=== PATIENT | male | born 1960 | race Hispanic/Latino ===

== ENCOUNTER 2017-02-03 17:12 | Observation (INO) | payer MEDICAID, OTHER ==
[2017-02-03 17:15] VITALS: BMI 17.7
[2017-02-03 17:30] VITALS: RESP 18
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
[2017-02-04 06:32] VITALS: BP 132/78; PULSE 78; TEMP 98; O2SAT 98
--- NOTE | 2017-02-04 10:08 | RAD ---
PROCEDURE: Right Knee Radiographs. HISTORY: rt. knee pain x 6 months COMPARISON: 08/29/2015 FINDINGS: BONES: No acute fracture. Status post ORIF distal humeral fracture with plate and multiple screws. JOINTS: Normal. No osteoarthritis. JOINT EFFUSION: None. OTHER FINDINGS: None. IMPRESSION: No acute fracture
--- NOTE | 2017-02-05 16:47 | CARD ---
APPROVED REPORT EKG Measurement Heart [id number] <Conclusion> Sinus tachycardia Otherwise normal ECG
== END 2017-02-04 06:32 | disposition home or self-care (01) ==
LOC: ED 17:12 → EROBSV 19:37
PROVIDERS: ADMIT Emergency Medicine; ATTEND Emergency Medicine
DX: M25.561 Pain in right knee (principal); F10.129 Alcohol abuse with intoxication, unspecified; Y90.9 Presence of alcohol in blood, level not specified
CPT/HCPCS: 73562; 82948; 93005; 99282; G0378

== ENCOUNTER 2017-03-15 14:12 | Emergency (ER) | payer MEDICAID, OTHER ==
[2017-03-15 14:35] VITALS: RESP 16; TEMP 98.6; BMI 21.7
--- NOTE | 2017-03-15 14:40 | ED PDOC ---
Arrival/HPI - General Chief Complaint: Lower Extremity Problem/Injury Time Seen by Provider: 03/15/17 14:27 Historian: Patient - History of Present Illness Narrative History of Present Illness (Text): 03/15/17 14:39 56 year old male whose past medical history includes depression and right knee surgery presents to the emergency department complaining of chronic right knee pain for the past year. He states he is able to walk on it. Denies new injury or trauma. PMD: None Time/Duration: Other (1 year) Symptom Onset: Gradual Symptom Course: Unchanged Modifying Factors (Text): None Past Medical History - Provider Review Nursing Documentation Reviewed: Yes - Past History Past History: No Previous - Infectious Disease Hx of Infectious Diseases: None - Tetanus Immunization Tetanus Immunization: Unknown - Past Medical History Past Medical History: No Previous - Cardiac Hx Hypertension: Yes - Pulmonary Hx Respiratory Disorders: No - Neurological Hx Neurological Disorder: No - HEENT Hx HEENT Disorder: No - Renal Hx Renal Disorder: No - Endocrine/Metabolic Hx Endocrine Disorders: No - Hematological/Oncological Hx Blood Disorders: No - Integumentary Hx Dermatological Disorder: No - Musculoskeletal/Rheumatological Hx Musculoskeletal Disorders: No - Gastrointestinal Hx Gastrointestinal Disorders: No - Genitourinary/Gynecological Hx Genitourinary Disorders: No - Psychiatric Hx Depression: No Hx Emotional Abuse: No Hx Physical Abuse: No Hx Substance Use: No - Past Surgical History Past Surgical History: No Previous - Surgical History Hx Orthopedic Surgery: Yes (RIGHT KNEE SX) - Anesthesia Hx Anesthesia: Yes Hx Anesthesia Reactions: No - Suicidal Assessment Feels Threatened In Home Enviroment: No Family/Social History - Physician Review Nursing Documentation Reviewed: Yes Family/Social History: Unknown Family HX Smoking Status: Current Some Days Smoker Hx Alcohol Use: Yes (2 beers a day as per pt) Hx Substance Use: No Hx Substance Use Treatment: No Allergies/Home Meds Allergies/Adverse Reactions: Allergies No Known Allergies Allergy (Verified 02/03/17 17:15) Review of Systems - Review of Systems Musculoskeletal: Other (Right knee pain) Physical Exam Vital Signs Reviewed: Yes Vital Signs Temp Pulse Resp BP Pulse Ox 03/15/17 14:46 95 H 16 125/73 99 03/15/17 14:31 98.6 F 98 H 16 124/83 98 Temperature: Afebrile Blood Pressure: Normal Pulse: Regular Respiratory Rate: Normal Appearance: Positive for: Well-Appearing, Non-Toxic Pain Distress: Mild Mental Status: Positive for: Alert and Oriented X 3 - Systems Exam Lower Extremity: Present: Normal ROM, Tenderness (to lateral knee), Other (No area of fluctuance. Old scar present. No warmth, erythema, discharge, or pus. Full strength. ) Medical Decision Making ED Course and Treatment: Impression: 56 year old male whose past medical history includes depression and right knee surgery presents to the emergency department complaining of chronic right knee pain for the past year. Differential Diagnosis included but are not limited to: Knee pain Plan: -- Discharge with Rx for Motrin Prior Visits: Notes and results from previous visits were reviewed. Patient last seen in the ED on 02/03/17 for knee pain and alcohol intoxication and discharged home. Progress Notes: 03/15/17 14:50 Patient with no acute signs of injury. Patient is able to ambulate with full strength in the right lower extremity. Will discharge with Ibuprofen. Instructed patient to follow up with PMD or return if symptoms worsen. Patient agrees with plan. - Medication Orders Current Medication Orders: Discontinued Medications Ibuprofen (Motrin Tab) 600 mg PO STAT STA Stop: 03/15/17 14:40 Last Admin: 03/15/17 14:44 Dose: 600 mg - Scribe Statement The provider has reviewed the documentation as recorded by the Tomas Rachel Provider Scribe Attestation: All medical record entries made by the Scribe were at my direction and personally dictated by me. I have reviewed the chart and agree that the record accurately reflects my personal performance of the history, physical exam, medical decision making, and the department course for this patient. I have also personally directed, reviewed, and agree with the discharge instructions and disposition. Disposition/Present on Arrival - Present on Arrival Any Indicators Present on Arrival: No History of DVT/PE: No History of Uncontrolled Diabetes: No Urinary Catheter: No History of Decub. Ulcer: No History Surgical Site Infection Following: None - Disposition Have Diagnosis and Disposition been Completed?: Yes Diagnosis: Knee pain, right Disposition: HOME/ ROUTINE Disposition Time: 14:50 Patient Plan: Discharge Condition: STABLE Discharge Instructions (ExitCare): Knee Pain (ED) Additional Instructions: Teodoro, thank you for letting us take care of you today. Your provider was Dr. Roach. You were treated for Right Knee Pain. The emergency medical care you received today was directed at your acute symptoms. If you were prescribed any medication, please fill it and take as directed. It may take several days for your symptoms to resolve. Return to the Emergency Department if your symptoms worsen, do not improve, or if you have any other problems. Please contact your doctor or call one of the physicians/clinics you have been referred to that are listed on the Patient Visit Information form that is included in your discharge packet. Bring any paperwork you were given at discharge with you along with any medications you are taking to your follow up visit. Our treatment cannot replace ongoing medical care by a primary care provider (PCP) outside of the emergency department. Thank you for allowing the [facility] team to be part of your care today. If you had an X-Ray or CT scan: A Radiologist will review the ED reading if any change in treatment is needed we will contact you. If you had a blood, urine, or wound culture: It will take several days for the results, if any change in treatment is needed we will contact you. If you had an STI test: It will take 48 hours for the results. Please call after 1 week if you have not heard back. Prescriptions: Ibuprofen [Motrin] 600 mg PO Q6 PRN #30 tab PRN Reason: Pain, Moderate (4-7) Referrals: Mane Erickson III, MD [Medical Doctor] - Follow up with primary Forms: [employer] ([place])
[2017-03-15 14:49] VITALS: BP 125/73; PULSE 95; O2SAT 99
== END 2017-03-15 14:50 | disposition home or self-care (01) ==
LOC: ED 14:12
DX: M25.561 Pain in right knee (principal)

== ENCOUNTER 2017-03-22 11:31 | Emergency (ER) | payer MEDICAID, OTHER ==
[2017-03-22 11:31] VITALS: BMI 21.7
--- NOTE | 2017-03-22 11:52 | ED PDOC ---
Arrival/HPI - General Time Seen by Provider: 03/22/17 11:48 Historian: Patient - History of Present Illness Narrative History of Present Illness (Text): 03/22/17 11:49 PT in ED for a refill of his Ibuprofen 600mg. States he takes the medication for his knee pain. Unable to get to his PMD today. Denies any calf pain, Le edema, SOB,chest pain, focal weakness, any other complaint. Past Medical History - Provider Review Nursing Documentation Reviewed: Yes - Past History Past History: No Previous - Infectious Disease Hx of Infectious Diseases: None - Tetanus Immunization Tetanus Immunization: Unknown - Past Medical History Past Medical History: No Previous - Cardiac Hx Hypertension: Yes - Pulmonary Hx Respiratory Disorders: No - Neurological Hx Neurological Disorder: No - HEENT Hx HEENT Disorder: No - Renal Hx Renal Disorder: No - Endocrine/Metabolic Hx Endocrine Disorders: No - Hematological/Oncological Hx Blood Disorders: No - Integumentary Hx Dermatological Disorder: No - Musculoskeletal/Rheumatological Hx Musculoskeletal Disorders: No - Gastrointestinal Hx Gastrointestinal Disorders: No - Genitourinary/Gynecological Hx Genitourinary Disorders: No - Psychiatric Hx Depression: No Hx Emotional Abuse: No Hx Physical Abuse: No Hx Substance Use: No - Past Surgical History Past Surgical History: No Previous - Surgical History Hx Orthopedic Surgery: Yes (RIGHT KNEE SX) - Anesthesia Hx Anesthesia: Yes Hx Anesthesia Reactions: No - Suicidal Assessment Feels Threatened In Home Enviroment: No Family/Social History - Physician Review Nursing Documentation Reviewed: Yes Family/Social History: Unknown Family HX Smoking Status: Current Some Days Smoker Hx Alcohol Use: Yes (2 beers a day as per pt) Hx Substance Use: No Hx Substance Use Treatment: No Allergies/Home Meds Allergies/Adverse Reactions: Allergies No Known Allergies Allergy (Verified 02/03/17 17:15) Review of Systems - Physician Review All systems were reviewed & negative as marked: Yes - Review of Systems Constitutional: Other (Medication refill) Eyes: Normal ENT: Normal Respiratory: Normal Cardiovascular: Normal Gastrointestinal: Normal Genitourinary Male: Normal Musculoskeletal: Normal Skin: Normal Neurological: Normal Endocrine: Normal Hemo/Lymphatic: Normal Psychiatric: Normal Physical Exam Vital Signs Reviewed: Yes Temperature: Afebrile Blood Pressure: Normal Pulse: Regular Respiratory Rate: Normal Appearance: Positive for: Well-Appearing, Non-Toxic, Comfortable Pain Distress: None Mental Status: Positive for: Alert and Oriented X 3 - Systems Exam Head: Present: Atraumatic, Normocephalic Pupils: Present: PERRL Extroacular Muscles: Present: EOMI Conjunctiva: Present: Normal Mouth: Present: Moist Mucous Membranes Neck: Present: Normal Range of Motion Respiratory/Chest: Present: Clear to Auscultation, Good Air Exchange. No: Respiratory Distress, Accessory Muscle Use Cardiovascular: Present: Regular Rate and Rhythm, Normal S1, S2. No: Murmurs Abdomen: Present: Normal Bowel Sounds. No: Tenderness, Distention, Peritoneal Signs Back: Present: Normal Inspection Upper Extremity: Present: Normal Inspection. No: Cyanosis, Edema Lower Extremity: Present: Normal Inspection. No: Edema Neurological: Present: GCS=15, CN II-XII Intact, Speech Normal Skin: Present: Warm, Dry, Normal Color. No: Rashes Psychiatric: Present: Alert, Oriented x 3, Normal Insight, Normal Concentration Disposition/Present on Arrival - Present on Arrival Any Indicators Present on Arrival: No History of DVT/PE: No History of Uncontrolled Diabetes: No Urinary Catheter: No History Surgical Site Infection Following: None - Disposition Have Diagnosis and Disposition been Completed?: Yes Diagnosis: Medication refill Disposition: HOME/ ROUTINE Disposition Time: 11:55 Patient Plan: Discharge Condition: STABLE Discharge Instructions (ExitCare): Medicine Refill (ED) Additional Instructions: Follow up with your Doctor Return to ED for any new or worsening symptoms Prescriptions: Ibuprofen [Motrin Tab] 600 mg PO Q6 #30 tab Referrals: [facility] [place] [Outside] - Follow up with primary
[2017-03-22 11:56] VITALS: BP 136/84; PULSE 93; RESP 18; TEMP 97.8; O2SAT 96
== END 2017-03-22 11:58 | disposition home or self-care (01) ==
LOC: ED 11:31
DX: Z76.0 Encounter for issue of repeat prescription (principal)

== ENCOUNTER 2017-03-28 22:35 | Observation (INO) | payer MEDICAID, OTHER ==
[2017-03-28 22:35] VITALS: BMI 21.7
--- NOTE | 2017-03-29 00:33 | ED PDOC ---
Arrival/HPI - General Chief Complaint: Alcohol Ingestion Time Seen by Provider: 03/28/17 23:59 Historian: Patient, EMS EM Caveat: Intoxicated - History of Present Illness Narrative History of Present Illness (Text): 03/29/17 00:01 Amilcar Valerio is a 56 year old male, whose past medical history includes depression and alcohol abuse, who was brought in by EMS due to public intoxication. EMS found patient outside intoxicated tonight and patient admits to drinking alcohol. Patient denies any suicidal ideation, homicidal ideation, fever, chills, chest pain, shortness of breath, nausea, vomiting, diarrhea, urinary symptoms, back pain, neck pain, headache, dizziness, or any other complaints. Time/Duration: Prior to Arrival Symptom Course: Unchanged Activities at Onset: Other (Drinking) Modifying Factors (Text): None Associated Symptoms (Text): None Past Medical History - Provider Review Nursing Documentation Reviewed: Yes - Past History Past History: No Previous - Infectious Disease Hx of Infectious Diseases: None - Tetanus Immunization Tetanus Immunization: Unknown - Past Medical History Past Medical History: No Previous - Cardiac Hx Hypertension: Yes - Pulmonary Hx Respiratory Disorders: No - Neurological Hx Neurological Disorder: No - HEENT Hx HEENT Disorder: No - Renal Hx Renal Disorder: No - Endocrine/Metabolic Hx Endocrine Disorders: No - Hematological/Oncological Hx Blood Disorders: No - Integumentary Hx Dermatological Disorder: No - Musculoskeletal/Rheumatological Hx Musculoskeletal Disorders: No - Gastrointestinal Hx Gastrointestinal Disorders: No - Genitourinary/Gynecological Hx Genitourinary Disorders: No - Psychiatric Hx Depression: No Hx Emotional Abuse: No Hx Physical Abuse: No Hx Substance Use: No - Past Surgical History Past Surgical History: No Previous - Surgical History Hx Orthopedic Surgery: Yes (RIGHT KNEE SX) - Anesthesia Hx Anesthesia: Yes Hx Anesthesia Reactions: No - Suicidal Assessment Feels Threatened In Home Enviroment: No Family/Social History - Physician Review Nursing Documentation Reviewed: Yes Family/Social History: Unknown Family HX Smoking Status: Current Some Days Smoker Hx Alcohol Use: Yes (2 beers a day as per pt) Hx Substance Use: No Hx Substance Use Treatment: No Allergies/Home Meds Allergies/Adverse Reactions: Allergies No Known Allergies Allergy (Verified 03/28/17 23:27) Review of Systems - Physician Review All systems were reviewed & negative as marked: Yes - Review of Systems Systems not reviewed;Unavailable: Intoxicated Constitutional: Normal. absent: Fevers Eyes: Normal ENT: Normal Respiratory: Normal. absent: SOB Cardiovascular: Normal. absent: Chest Pain Gastrointestinal: Normal. absent: Abdominal Pain, Vomiting Genitourinary Male: Normal Musculoskeletal: Normal. absent: Neck Pain Skin: Normal Neurological: Normal. absent: Headache Endocrine: Normal Hemo/Lymphatic: Normal Psychiatric: Normal. absent: Suicidal Ideation Physical Exam - Physical Exam Physical Exam Limitations: Intoxication Vital Signs Reviewed: Yes Vital Signs Temp Pulse Resp BP Pulse Ox 03/29/17 00:40 98.3 F 84 17 118/63 97 03/28/17 22:49 98.2 F 90 18 124/82 95 Temperature: Afebrile Blood Pressure: Normal Pulse: Regular Respiratory Rate: Normal Appearance: Positive for: Well-Appearing, Comfortable Pain Distress: None Mental Status: Positive for: Alert and Oriented X 3 - Systems Exam Head: Present: Atraumatic, Normocephalic Pupils: Present: PERRL Extroacular Muscles: Present: EOMI Conjunctiva: Present: Normal Mouth: Present: Moist Mucous Membranes Neck: Present: Normal Range of Motion Respiratory/Chest: Present: Clear to Auscultation, Good Air Exchange. No: Respiratory Distress, Accessory Muscle Use Cardiovascular: Present: Regular Rate and Rhythm, Normal S1, S2. No: Murmurs Abdomen: Present: Normal Bowel Sounds. No: Tenderness, Distention, Peritoneal Signs Upper Extremity: Present: Normal Inspection. No: Cyanosis, Edema Lower Extremity: Present: Normal Inspection. No: Edema Neurological: Present: GCS=15, CN II-XII Intact, Speech Normal Skin: Present: Warm, Dry, Normal Color. No: Rashes Psychiatric: Present: Alert, Oriented x 3, Intoxicated Medical Decision Making ED Course and Treatment: 03/29/17 00:01 Impression: 56 year old man, brought in by EMS for public intoxication. Differential Diagnosis included but are not limited to: Alcohol abuse ED OBSERVATION Discharge: Yes Date of observation admission: 03/29/17 Time of observation admission: 00:10 - Observation admission statement Patient is being placed in observation because:: Alcohol intoxication - Goals of Observation Goals of observation are:: sobriety, observe for signs of withdrawal. - Progress Note Progress Note: 03/29/17 00:10 Patient brought in for alcohol intoxication. Patient is resting comfortably no acute distress. Will observe until morning, pending sobriety. 03/29/17 02:10 Patient is sleeping with no complaints. Will observe until morning. 03/29/17 04:00 Patient is sleeping with no complaints. Will observe until morning. 03/29/17 05:54 Patient is awake, alert, and ambulating with steady gait. Patient is in no acute distress. Patient is stable for discharge. - Scribe Statement The provider has reviewed the documentation as recorded by the Scribe 03/28/17 00:01 Teresa Rousseau training with Mirtha Escobar All medical record entries made by the Scribe were at my direction and personally dictated by me. I have reviewed the chart and agree that the record accurately reflects my personal performance of the history, physical exam, medical decision making, and the department course for this patient. I have also personally directed, reviewed, and agree with the discharge instructions and disposition. Disposition/Present on Arrival - Present on Arrival Any Indicators Present on Arrival: No History of DVT/PE: No History of Uncontrolled Diabetes: No Urinary Catheter: No History of Decub. Ulcer: No History Surgical Site Infection Following: None - Disposition Have Diagnosis and Disposition been Completed?: Yes Diagnosis: Alcohol intoxication Disposition: HOME/ ROUTINE Disposition Time: 06:56 Patient Plan: Discharge Condition: STABLE
[2017-03-29 03:18] VITALS: O2SAT 97
[2017-03-29 07:17] VITALS: RESP 18; TEMP 98
[2017-03-29 07:18] VITALS: BP 114/64; PULSE 64
== END 2017-03-29 06:56 | disposition home or self-care (01) ==
LOC: ED 22:35 → EROBSV 03-29 00:10
PROVIDERS: ADMIT Emergency Medicine; ATTEND Emergency Medicine
DX: F10.129 Alcohol abuse with intoxication, unspecified (principal)
CPT/HCPCS: 99284; G0378

== ENCOUNTER 2017-06-17 10:47 | Observation (INO) | payer MEDICAID, OTHER ==
[2017-06-17 10:48] VITALS: BMI 21.7
--- NOTE | 2017-06-17 12:00 | ED PDOC ---
Arrival/HPI - General Historian: Patient <Renita Pace - Last Filed: 06/17/17 20:05> <Harish Lock - Last Filed: 06/18/17 06:03> - General Chief Complaint: Alcohol Ingestion Time Seen by Provider: 06/17/17 11:16 - History of Present Illness Narrative History of Present Illness (Text): 06/17/17 11:53 56yr old male presents today with for alcohol intoxication and fall. Per EMS bystander saw patient walking behind a car and they thought he either fell or dropped to his knees because they couldnt see him behind the car. pt c/o chronic right knee pain. denies cp or sob. no abdominal pain. no vomiting. admits to drinking alcohol today. no other complaints. (Renita Pace) Past Medical History - Provider Review Nursing Documentation Reviewed: Yes - Travel History Have you recently traveled outside [place] w/in the past 3 mons?: No - Past History Past History: No Previous - Infectious Disease Hx of Infectious Diseases: None - Tetanus Immunization Tetanus Immunization: Unknown - Past Medical History Past Medical History: No Previous - Cardiac Hx Hypertension: Yes - Pulmonary Hx Respiratory Disorders: No - Neurological Hx Neurological Disorder: No - HEENT Hx HEENT Disorder: No - Renal Hx Renal Disorder: No - Endocrine/Metabolic Hx Endocrine Disorders: No - Hematological/Oncological Hx Blood Disorders: No - Integumentary Hx Dermatological Disorder: No - Musculoskeletal/Rheumatological Hx Musculoskeletal Disorders: No - Gastrointestinal Hx Gastrointestinal Disorders: No - Genitourinary/Gynecological Hx Genitourinary Disorders: No - Psychiatric Hx Depression: No Hx Emotional Abuse: No Hx Physical Abuse: No Hx Substance Use: No - Past Surgical History Past Surgical History: No Previous - Surgical History Hx Orthopedic Surgery: Yes (RIGHT KNEE SX) - Anesthesia Hx Anesthesia: Yes Hx Anesthesia Reactions: No - Suicidal Assessment Feels Threatened In Home Enviroment: No <Renita Pace - Last Filed: 06/17/17 20:05> Family/Social History - Physician Review Nursing Documentation Reviewed: Yes Family/Social History: Unknown Family HX Smoking Status: Current Some Days Smoker Hx Alcohol Use: Yes (2 beers a day as per pt) Hx Substance Use: No Hx Substance Use Treatment: No <Renita Pace - Last Filed: 06/17/17 20:05> Allergies/Home Meds <Renita Pace - Last Filed: 06/17/17 20:05> <Harish Lock - Last Filed: 06/18/17 06:03> Allergies/Adverse Reactions: Allergies No Known Allergies Allergy (Verified 06/17/17 11:06) Review of Systems - Review of Systems Constitutional: absent: Fatigue, Fevers Respiratory: absent: SOB, Cough Cardiovascular: absent: Chest Pain, Palpitations Gastrointestinal: absent: Abdominal Pain, Nausea, Vomiting Musculoskeletal: Arthralgias Skin: absent: Rash Neurological: absent: Headache, Dizziness Psychiatric: absent: Anxiety, Depression, Suicidal Ideation <Renita Pace - Last Filed: 06/17/17 20:05> Physical Exam Vital Signs Reviewed: Yes Temperature: Afebrile Blood Pressure: Normal Pulse: Regular Respiratory Rate: Normal Appearance: Positive for: Well-Appearing, Non-Toxic, Comfortable Pain Distress: None Mental Status: Positive for: Alert and Oriented X 3 Finger Stick Blood Glucose: 101 - Systems Exam Head: Present: Atraumatic Mouth: Present: Moist Mucous Membranes Respiratory/Chest: Present: Clear to Auscultation Cardiovascular: Present: Regular Rate and Rhythm Abdomen: No: Tenderness, Rebound, Guarding Back: Present: Normal Inspection Upper Extremity: Present: Normal ROM Lower Extremity: Present: NORMAL PULSES, Normal ROM, Tenderness (right knee; + ttp over anterior aspect of knee; full rom of knee. no edema, no erythema; no ecchymosis. ), Neurovascularly Intact, Capillary Refill < 2 s. No: CALF TENDERNESS, Swelling, Erythema, Deformity Skin: Present: Warm, Dry Psychiatric: Present: Alert, Intoxicated <Renita Pace - Last Filed: 06/17/17 20:05> Vital Signs Temp Pulse Resp BP Pulse Ox 06/18/17 02:00 84 16 126/73 98 06/17/17 18:44 98.2 F 92 H 18 135/78 98 06/17/17 17:17 98 F 75 20 134/73 98 06/17/17 14:39 97.8 F 82 18 130/85 98 06/17/17 12:37 97.8 F 92 H 18 130/79 98 06/17/17 10:59 97.8 F 98 H 18 128/82 98 Medical Decision Making <Renita Pace - Last Filed: 06/17/17 20:05> <Harish Lock - Last Filed: 06/18/17 06:03> ED Course and Treatment: 06/17/17 12:42 56yr old male presents BIBA, intoxicated, c/o chronic right knee pain. fingerstick; 101 ct head:FINDINGS: HEMORRHAGE: No intracranial hemorrhage. BRAIN: No mass effect or edema. Mild diffuse atrophy. Mild periventricular white matter lucency consistent with chronic microvascular ischemic change. No evidence of acute infarct. VENTRICLES: Unremarkable. No hydrocephalus. CALVARIUM: Unremarkable. PARANASAL SINUSES: Chronic frontal ethmoid sinusitis. MASTOID AIR CELLS: Unremarkable as visualized. No inflammatory changes. OTHER FINDINGS: None. IMPRESSION: No acute intracranial hemorrhage. Mild atrophy and chronic white matter ischemic change. Chronic frontal and ethmoid sinusitis. . right knee xray; FINDINGS: BONES: No acute fracture. Status post ORIF distal femur fracture. Lateral plate and screw fixation device unchanged in position. No evidence of hardware failure. JOINTS: Normal. No osteoarthritis. JOINT EFFUSION: None. OTHER FINDINGS: None. IMPRESSION: No acute fracture. will observe patient in ER for sobriety 06/17/17 18:52 pt finished eating now sleeping; no distress. stable vitals. (Renita Pace) ED OBSERVATION Date of observation admission: 06/17/17 Time of observation admission: 11:05 <Renita Pace - Last Filed: 06/17/17 20:05> Discharge: Yes <Harish Lock - Last Filed: 06/18/17 06:03> - Observation admission statement Patient is being placed in observation because:: alcohol intoxication (Renita Pace) - Goals of Observation Goals of observation are:: sobriety (Renita Pace) - Progress Note Progress Note: 06/17/17 13:00 pt in no distress. 06/17/17 15:29 pt sleeping in er; no distress. vitals stable. 06/17/17 17:13 pt sleeping. no distress. 06/17/17 20:05 pt in no distress; resting comfortably case signed out to dr. lock pending sobriety (Renita Pace) - PA / SKATESMAN / Resident Statement MD/DO has reviewed & agrees with the documentation as recorded. <Harish Lock - Last Filed: 06/18/17 06:03> Disposition/Present on Arrival - Present on Arrival Any Indicators Present on Arrival: No History of DVT/PE: No History of Uncontrolled Diabetes: No Urinary Catheter: No History of Decub. Ulcer: No History Surgical Site Infection Following: None - Disposition Have Diagnosis and Disposition been Completed?: Yes <Renita Pace - Last Filed: 06/17/17 20:05> - Present on Arrival Any Indicators Present on Arrival: No - Disposition Have Diagnosis and Disposition been Completed?: Yes Disposition Time: 06:03 <Harish Lock - Last Filed: 06/18/17 06:03> - Disposition Diagnosis: Alcohol intoxication, Alcohol abuse Disposition: HOME/ ROUTINE Condition: GOOD
--- NOTE | 2017-06-17 12:45 | CT ---
PROCEDURE: CT HEAD WITHOUT CONTRAST. HISTORY: etoh, fall COMPARISON: 11/10/2016 TECHNIQUE: Axial computed tomography images were obtained through the head/brain without intravenous contrast. Radiation dose: Total exam DLP = 775.01 mGy-cm. This CT exam was performed using one or more of the following dose reduction techniques: Automated exposure control, adjustment of the mA and/or kV according to patient size, and/or use of iterative reconstruction technique. FINDINGS: HEMORRHAGE: No intracranial hemorrhage. BRAIN: No mass effect or edema. Mild diffuse atrophy. Mild periventricular white matter lucency consistent with chronic microvascular ischemic change. No evidence of acute infarct. VENTRICLES: Unremarkable. No hydrocephalus. CALVARIUM: Unremarkable. PARANASAL SINUSES: Chronic frontal ethmoid sinusitis. MASTOID AIR CELLS: Unremarkable as visualized. No inflammatory changes. OTHER FINDINGS: None. IMPRESSION: No acute intracranial hemorrhage. Mild atrophy and chronic white matter ischemic change. Chronic frontal and ethmoid sinusitis. .
--- NOTE | 2017-06-17 17:43 | RAD ---
PROCEDURE: Right Knee Radiographs. HISTORY: knee pain COMPARISON: 02/03/2017 FINDINGS: BONES: No acute fracture. Status post ORIF distal femur fracture. Lateral plate and screw fixation device unchanged in position. No evidence of hardware failure. JOINTS: Normal. No osteoarthritis. JOINT EFFUSION: None. OTHER FINDINGS: None. IMPRESSION: No acute fracture.
[2017-06-17 18:45] VITALS: TEMP 98.2
[2017-06-18 06:17] VITALS: BP 118/87; PULSE 86; RESP 18; O2SAT 99
== END 2017-06-18 06:17 | disposition home or self-care (01) ==
LOC: ED 10:47 → EROBSV 11:05
PROVIDERS: ADMIT Emergency Medicine; ATTEND Emergency Medicine
DX: F10.129 Alcohol abuse with intoxication, unspecified (principal)

== ENCOUNTER 2017-08-04 17:03 | Emergency (ER) | payer MEDICAID ==
[2017-08-04 17:22] VITALS: TEMP 98.2; BMI 23.8
--- NOTE | 2017-08-04 17:22 | ED PDOC ---
Arrival/HPI - General Time Seen by Provider: 08/04/17 17:13 Historian: Patient - History of Present Illness Narrative History of Present Illness (Text): 08/04/17 17:19 57yo male biba for left leg pain s/p trauma. Patient states he fell yesterday, while intoxicated and started having severe pain on his left knee radiating down to his foot today. He admits chronic history of right knee pain. denies SOB , chest pain, diaphoresis, any other complaint. Past Medical History - Provider Review Nursing Documentation Reviewed: Yes - Past History Past History: No Previous - Infectious Disease Hx of Infectious Diseases: None - Tetanus Immunization Tetanus Immunization: Unknown - Past Medical History Past Medical History: No Previous - Cardiac Hx Hypertension: Yes - Pulmonary Hx Respiratory Disorders: No - Neurological Hx Neurological Disorder: No - HEENT Hx HEENT Disorder: No - Renal Hx Renal Disorder: No - Endocrine/Metabolic Hx Endocrine Disorders: No - Hematological/Oncological Hx Blood Disorders: No - Integumentary Hx Dermatological Disorder: No - Musculoskeletal/Rheumatological Hx Musculoskeletal Disorders: No - Gastrointestinal Hx Gastrointestinal Disorders: No - Genitourinary/Gynecological Hx Genitourinary Disorders: No - Psychiatric Hx Depression: No Hx Emotional Abuse: No Hx Physical Abuse: No Hx Substance Use: No - Past Surgical History Past Surgical History: No Previous - Surgical History Hx Orthopedic Surgery: Yes (RIGHT KNEE SX) - Anesthesia Hx Anesthesia: Yes Hx Anesthesia Reactions: No - Suicidal Assessment Feels Threatened In Home Enviroment: No Family/Social History - Physician Review Nursing Documentation Reviewed: Yes Family/Social History: Unknown Family HX Smoking Status: Current Some Days Smoker Hx Alcohol Use: Yes (2 beers a day as per pt) Hx Substance Use: No Hx Substance Use Treatment: No Allergies/Home Meds Allergies/Adverse Reactions: Allergies No Known Allergies Allergy (Verified 06/17/17 11:06) Review of Systems - Physician Review All systems were reviewed & negative as marked: Yes - Review of Systems Constitutional: Normal Eyes: Normal ENT: Normal Respiratory: Normal Cardiovascular: Normal Gastrointestinal: Normal Genitourinary Male: Normal Musculoskeletal: Arthralgias (LEft leg pain) Skin: Normal Neurological: Normal Endocrine: Normal Hemo/Lymphatic: Normal Psychiatric: Normal Physical Exam Vital Signs Reviewed: Yes Vital Signs Temp Pulse Resp BP Pulse Ox 08/04/17 20:08 90 18 110/77 99 08/04/17 17:21 98.2 F 107 H 16 104/68 95 Temperature: Afebrile Blood Pressure: Normal Pulse: Regular Respiratory Rate: Normal Appearance: Positive for: Well-Appearing, Non-Toxic, Comfortable Pain Distress: None Mental Status: Positive for: Alert and Oriented X 3 - Systems Exam Head: Present: Atraumatic, Normocephalic Pupils: Present: PERRL Extroacular Muscles: Present: EOMI Conjunctiva: Present: Normal Mouth: Present: Moist Mucous Membranes Neck: Present: Normal Range of Motion Respiratory/Chest: Present: Clear to Auscultation, Good Air Exchange. No: Respiratory Distress, Accessory Muscle Use Cardiovascular: Present: Regular Rate and Rhythm, Normal S1, S2. No: Murmurs Abdomen: Present: Normal Bowel Sounds. No: Tenderness, Distention, Peritoneal Signs Back: Present: Normal Inspection Upper Extremity: Present: Normal Inspection. No: Cyanosis, Edema Lower Extremity: Present: CALF TENDERNESS (Left leg), NORMAL PULSES, Normal ROM (With pain on flexion of left knee), Neurovascularly Intact, Other (Abrasion noted on left knee). No: Edema, Tenderness, Swelling, Deformity Neurological: Present: GCS=15, CN II-XII Intact, Speech Normal Skin: Present: Warm, Dry, Normal Color. No: Rashes Psychiatric: Present: Alert, Oriented x 3, Normal Insight, Normal Concentration Medical Decision Making ED Course and Treatment: 08/04/17 22:22 Left ankle xray - Distal fibular fracture noted Left knee - No acute fracture/dislocation Preliminary Doppler US was negative Head CT - Negative Posterior splint was placed. Crutches given. Pt referred to orthopedist. - RAD Interpretation Radiology Orders: 08/04/17 17:23 HEAD W/O CONTRAST [CT] Stat ANKLE LEFT 3 VIEWS ROUTINE [RAD] Stat DUPLEX LOWER EXTRM VEIN BILAT [US] Stat 08/04/17 17:24 KNEE WITH PATELLA LEFT 3 VIEW [RAD] Stat - Medication Orders Current Medication Orders: Discontinued Medications Tramadol HCl (Ultram) 50 mg PO STAT STA Stop: 08/04/17 17:25 Last Admin: 08/04/17 18:10 Dose: 50 mg MAR Pain Assessment Document 08/04/17 18:10 RD (Rec: 08/04/17 18:10 RD [id number]) Pain Reassessment Is this a pain reassessment? No Sleep Is patient sleeping during reassessment? No Presence of Pain Presence of Pain Yes Disposition/Present on Arrival - Present on Arrival Any Indicators Present on Arrival: No History of DVT/PE: No History of Uncontrolled Diabetes: No Urinary Catheter: No History Surgical Site Infection Following: None - Disposition Have Diagnosis and Disposition been Completed?: Yes Diagnosis: Closed fibular fracture, Knee sprain Disposition: HOME/ ROUTINE Disposition Time: 19:20 Patient Plan: Discharge Condition: STABLE Discharge Instructions (ExitCare): Knee Sprain (ED), Leg Fracture (ED) Additional Instructions: Follow up with orthopedist Return to ED for any new or worsening symptoms Prescriptions: Ibuprofen [Motrin Tab] 600 mg PO Q6 #20 tab oxyCODONE/Acetaminophen [Percocet 5/325 mg Tab] 1 tab PO Q6 #7 tab Referrals: PCP,NO [Primary Care Provider] - Follow up with primary Mane Erickson III, MD [Medical Doctor] - Follow up with primary Forms: [employer] (Turkmen)
--- NOTE | 2017-08-04 19:08 | CT ---
EXAM: CT Head Without Intravenous Contrast EXAM DATE/TIME: 08/04/2017 5:23 PM CLINICAL HISTORY: 57 years old, male; Injury or trauma; Fall; Initial encounter; Sprain or strain; Additional info: S/P trauma TECHNIQUE: Axial computed tomography images of the head/brain without intravenous contrast. All CT scans at this facility use one or more dose reduction techniques, viz.: automated exposure control; ma/kV adjustment per patient size (including targeted exams where dose is matched to indication; i.e. head); or iterative reconstruction technique. COMPARISON: CT - HEAD W/O CONTRAST 2017-06-17 12:12 FINDINGS: Brain: There is dilatation of sulci gyri and ventricles. There is no midline shift. There is decreased attenuation in periventricular white matter. There are no focal masses. There are no focal hemorrhages. Delacruz-white differentiation is visualized. Ventricles: See above. Bones: Cranial vault is intact. Soft tissues: There is minimal left frontal scalp bruising, unchanged. Sinuses: There is improved aeration of the ethmoid air cells. There is interval increase in maxillary sinus disease left greater than right. Ears and mastoids: Middle ears and mastoids are unremarkable. There is debris in the external auditory canals left greater than right. Orbits: Orbital contents are unremarkable. IMPRESSION: Atrophy and small vessel disease, no bleed; interval development of maxillary sinus disease
[2017-08-04 20:10] VITALS: BP 110/77; PULSE 90; RESP 18; O2SAT 99
--- NOTE | 2017-08-05 13:36 | RAD ---
PROCEDURE: Left Knee Radiographs. HISTORY: Pain. COMPARISON: None. FINDINGS: BONES: Normal. No fracture. JOINTS: Normal. No osteoarthritis. JOINT EFFUSION: None. OTHER FINDINGS: None. IMPRESSION: Normal radiographs of the left knee.
--- NOTE | 2017-08-05 13:37 | RAD ---
PROCEDURE: Left Ankle Radiographs. HISTORY: ankle pain COMPARISON: None FINDINGS: BONES: There is an oblique fracture of the distal fibula above the level of the plafond. The age of the fracture is indeterminate as there may be a small amount of callus about the fracture. Please correlate with history. No other fracture is identified. The talar dome is smooth. JOINTS: Normal. No osteoarthritis. Ankle mortise maintained. Talar dome intact SOFT TISSUES: Normal. OTHER FINDINGS: None. IMPRESSION: Oblique distal fibular fracture of indeterminate age. Acute versus subacute.
--- NOTE | 2017-08-06 09:03 | US ---
HISTORY: Leg pain and swelling. Evaluate for DVT PHYSICIAN(S): Dino Kidd MD. TECHNIQUE: Duplex sonography and color-flow Doppler with graded compression were used to evaluate the deep venous systems of both lower extremities. FINDINGS: The visualized deep venous systems of both lower extremities are sonographically normal and compressible. Normal wave forms and augmentation are seen. There is no sonographic evidence for deep venous thrombosis in the visualized segments of both lower extremities. IMPRESSION: No sonographic evidence for deep venous thrombosis in the visualized segments of both lower extremities.
== END 2017-08-04 20:20 | disposition home or self-care (01) ==
LOC: ED 17:03
DX: S82.492A Other fracture of shaft of left fibula, initial encounter for closed fracture (principal); S83.92XA Sprain of unspecified site of left knee, initial encounter; W18.30XA Fall on same level, unspecified, initial encounter; Y92.89 Other specified places as the place of occurrence of the external cause; I10 Essential (primary) hypertension; F17.210 Nicotine dependence, cigarettes, uncomplicated

== ENCOUNTER 2017-08-29 10:50 | Emergency (ER) | payer MEDICAID ==
[2017-08-29 10:51] VITALS: BMI 23.8
--- NOTE | 2017-08-29 11:33 | ED PDOC ---
Arrival/HPI - General Chief Complaint: Lower Extremity Problem/Injury Time Seen by Provider: 08/29/17 11:15 Historian: Patient - History of Present Illness Narrative History of Present Illness (Text): 08/29/17 11:24 A 57 year old male presents to the emergency department for evaluation. Patient was seen on 08/04 for left ankle pain and diagnosed with a fibular fracture. He was placed in a posterior splint and instructed to follow up with orthopedics. Patient states his splint got wet yesterday while in the rain. He reports he has not called or visited the office to follow up with orthopedics, but states his pain has improved. Patient denies any new trauma, fever, chills, nausea, vomiting, abdominal pain, chest pain, shortness of breath or any other complaints. Time/Duration: Other (yesterday) Symptom Course: Unchanged Context: Walking Past Medical History - Provider Review Nursing Documentation Reviewed: Yes - Past History Past History: No Previous - Infectious Disease Hx of Infectious Diseases: None - Tetanus Immunization Tetanus Immunization: Unknown - Past Medical History Past Medical History: No Previous - Cardiac Hx Hypertension: Yes - Pulmonary Hx Respiratory Disorders: No - Neurological Hx Neurological Disorder: No - HEENT Hx HEENT Disorder: No - Renal Hx Renal Disorder: No - Endocrine/Metabolic Hx Endocrine Disorders: No - Hematological/Oncological Hx Blood Disorders: No - Integumentary Hx Dermatological Disorder: No - Musculoskeletal/Rheumatological Hx Musculoskeletal Disorders: No - Gastrointestinal Hx Gastrointestinal Disorders: No - Genitourinary/Gynecological Hx Genitourinary Disorders: No - Psychiatric Hx Depression: No Hx Emotional Abuse: No Hx Physical Abuse: No Hx Substance Use: No - Past Surgical History Past Surgical History: No Previous - Surgical History Hx Orthopedic Surgery: Yes (RIGHT KNEE SX) - Anesthesia Hx Anesthesia: Yes Hx Anesthesia Reactions: No - Suicidal Assessment Feels Threatened In Home Enviroment: No Family/Social History - Physician Review Nursing Documentation Reviewed: Yes Family/Social History: No Known Family HX Smoking Status: Current Some Days Smoker Hx Alcohol Use: Yes (2 beers a day as per pt) Hx Substance Use: No Hx Substance Use Treatment: No Allergies/Home Meds Allergies/Adverse Reactions: Allergies No Known Allergies Allergy (Verified 06/17/17 11:06) Review of Systems - Physician Review All systems were reviewed & negative as marked: Yes - Review of Systems Constitutional: Normal. absent: Fevers, Night Sweats Respiratory: absent: SOB Cardiovascular: absent: Chest Pain, Edema, Calf Pain Gastrointestinal: absent: Abdominal Pain, Nausea, Vomiting Physical Exam Vital Signs Reviewed: Yes Vital Signs Temp Pulse Resp BP Pulse Ox 08/29/17 12:15 98.0 F 85 18 148/79 99 08/29/17 11:04 97.9 F 98 H 16 150/83 98 Temperature: Afebrile Blood Pressure: Normal Pulse: Tachycardic Respiratory Rate: Normal Appearance: Positive for: Well-Appearing, Non-Toxic, Comfortable Pain Distress: None Mental Status: Positive for: Alert and Oriented X 3 - Systems Exam Head: Present: Atraumatic, Normocephalic Pupils: Present: PERRL Extroacular Muscles: Present: EOMI Conjunctiva: Present: Normal Lower Extremity: Present: NORMAL PULSES (DP intact), Normal ROM, Tenderness ( scant pinpoint tenderness on fibula at location of fracture), Other (Left posterior splint wet, normal color of toes). No: Edema, CALF TENDERNESS, Elliot' s Sign, Deformity Neurological: Present: Gait Normal Skin: Present: Warm, Dry, Normal Color. No: Rashes Psychiatric: Present: Alert, Oriented x 3, Normal Insight, Normal Concentration Medical Decision Making ED Course and Treatment: 08/29/17 11:24 Impression: A 57 year old male presents for evaluation of wet splint on left posterior ankle. Plan will be to remove splint, repeat xray and reevaluate. Plan: -- Tibia fibula xray -- Reassess and disposition Progress Notes: 08/29/17 12:12 Wet posterior slip removed. Patient has distal pulses intact with good color change. Xray shows improving fracture. New posterior splint placed and instructed to follow-up with ortho for definitive care. Instructed on the importance of follow-up. - RAD Interpretation Radiology Orders: 08/29/17 11:23 TIBIA FIBULA LEFT [RAD] Stat - Scribe Statement The provider has reviewed the documentation as recorded by the Tejalibsukhdev Nuñez Provider Scribe Attestation: All medical record entries made by the Scribe were at my direction and personally dictated by me. I have reviewed the chart and agree that the record accurately reflects my personal performance of the history, physical exam, medical decision making, and the department course for this patient. I have also personally directed, reviewed, and agree with the discharge instructions and disposition. Disposition/Present on Arrival - Present on Arrival Any Indicators Present on Arrival: No History of DVT/PE: No History of Uncontrolled Diabetes: No Urinary Catheter: No History of Decub. Ulcer: No History Surgical Site Infection Following: None - Disposition Have Diagnosis and Disposition been Completed?: Yes Diagnosis: Closed fibular fracture Disposition: HOME/ ROUTINE Disposition Time: 12:13 Patient Plan: Discharge Condition: GOOD Discharge Instructions (ExitCare): Leg Fracture (ED) Additional Instructions: Follow-up with orthopedics as instructed on initial visit on 08/04/17. Return to ED if condition worsens. Keep splint clean and dry. [facility] - Follow up with primary Mane Erickson III, MD [Medical Doctor] - Follow up with primary [facility] [Outside] - Follow up with primary Forms: [employer] (Albanian)
[2017-08-29 12:16] VITALS: BP 148/79; PULSE 85; RESP 18; TEMP 98; O2SAT 99
--- NOTE | 2017-08-29 13:28 | RAD ---
PROCEDURE: Radiographs of the left tibia and fibula. HISTORY: leg pain, fibula fx 08/04 COMPARISON: Left ankle 08/04/2017 and left knee 08/04/2017. TECHNIQUE: Frontal and lateral views obtained. FINDINGS: BONES: The oblique fracture line through the distal fibular metaphysis -shaft still noted. No definite callus formation perceived some overlying bandaging noted. Mild deformity of the proximal fibular metaphysis consistent with an old healed fracture here -morphology similar with 08/04/2017 left knee x-ray JOINT SPACES: Unremarkable. OTHER FINDINGS: None. IMPRESSION: Acute subacute distal fibular oblique fracture nondisplaced without definitive callus formation. Fracture line persisting. Healed proximal fibular metaphyseal fracture incidentally noted -similar-appearing with left knee x-ray from same date
== END 2017-08-29 12:49 | disposition home or self-care (01) ==
LOC: ED 10:50
DX: S82.402A Unspecified fracture of shaft of left fibula, initial encounter for closed fracture (principal); X58.XXXA Exposure to other specified factors, initial encounter; I10 Essential (primary) hypertension

== ENCOUNTER 2017-10-26 19:49 | Emergency (ER) | payer MEDICAID, OTHER ==
[2017-10-26 19:49] VITALS: BMI 23.8
[2017-10-26 20:16] VITALS: TEMP 97.8
--- NOTE | 2017-10-26 23:38 | ED PDOC ---
Arrival/HPI - General Chief Complaint: Abdominal Pain Time Seen by Provider: 10/26/17 22:43 Historian: Patient - History of Present Illness Narrative History of Present Illness (Text): you were treated in the ED today for long standing left groin hernia and today it has been bothering you and protruding, and you were otherwise without any nausea/vomiting/headache/dizziness/difficulty breathing/chest pain/abdomen pain/ numbness/tingling/loss of limb function/pain with urination/thoughts to harm yourself or others or hallucinations. you were eating/drinking/passing gas and had normal bowel movement. 10/26/17 23:35 Time/Duration: > month (12) Symptom Onset: Gradual Symptom Course: Intermittent Quality: Aching Severity Level: 2 Activities at Onset: Rest Context: Sitting Past Medical History - Provider Review Nursing Documentation Reviewed: Yes - Travel History Have you recently traveled outside [place] w/in the past 3 mons?: No - Past History Past History: No Previous - Infectious Disease Hx of Infectious Diseases: None - Tetanus Immunization Tetanus Immunization: Unknown - Past Medical History Past Medical History: No Previous - Cardiac Hx Cardiac Disorders: Yes Hx Hypertension: Yes - Pulmonary Hx Respiratory Disorders: No - Neurological Hx Neurological Disorder: No - HEENT Hx HEENT Disorder: No - Renal Hx Renal Disorder: No - Endocrine/Metabolic Hx Endocrine Disorders: No - Hematological/Oncological Hx Blood Disorders: No - Integumentary Hx Dermatological Disorder: No - Musculoskeletal/Rheumatological Hx Musculoskeletal Disorders: No - Gastrointestinal Hx Gastrointestinal Disorders: Yes Other/Comment: HERNIA - Genitourinary/Gynecological Hx Genitourinary Disorders: No - Psychiatric Hx Psychophysiologic Disorder: Yes Hx Anxiety: Yes Hx Depression: Yes Hx Emotional Abuse: No Hx Physical Abuse: No Hx Substance Use: No - Past Surgical History Past Surgical History: No Previous - Surgical History Hx Orthopedic Surgery: Yes (RIGHT KNEE SX) - Anesthesia Hx Anesthesia: Yes Hx Anesthesia Reactions: No - Suicidal Assessment Feels Threatened In Home Enviroment: No Family/Social History - Physician Review Nursing Documentation Reviewed: Yes Family/Social History: No Known Family HX Smoking Status: Current Some Days Smoker Hx Alcohol Use: Yes Frequency of alcohol use: Daily Hx Substance Use: No Hx Substance Use Treatment: No Allergies/Home Meds Allergies/Adverse Reactions: Allergies No Known Allergies Allergy (Verified 10/26/17 20:09) Home Medications: Home Meds Medication Instructions Recorded Confirmed No Known Home Med 10/26/17 10/26/17 Review of Systems - Review of Systems Constitutional: Normal Eyes: Normal ENT: Normal Respiratory: Normal Cardiovascular: Normal Gastrointestinal: Normal Genitourinary Male: Normal Musculoskeletal: Normal Skin: Normal Neurological: Normal Endocrine: Normal Hemo/Lymphatic: Normal Psychiatric: Normal Physical Exam Vital Signs Reviewed: Yes Vital Signs Temp Pulse Resp BP Pulse Ox 10/26/17 20:15 97.8 F 107 H 17 158/97 H 95 Temperature: Afebrile Pulse: Tachycardic Respiratory Rate: Normal Appearance: Positive for: Well-Appearing, Non-Toxic, Comfortable Pain Distress: None Mental Status: Positive for: Alert and Oriented X 3 - Systems Exam Head: Present: Atraumatic, Normocephalic Pupils: Present: PERRL Extroacular Muscles: Present: EOMI Conjunctiva: Present: Normal Ears: Present: Normal Mouth: Present: Moist Mucous Membranes Pharnyx: Present: Normal Nose (External): Present: Atraumatic Nose (Internal): Present: Normal Inspection Neck: Present: Normal Range of Motion Respiratory/Chest: Present: Clear to Auscultation, Good Air Exchange Cardiovascular: Present: Regular Rate and Rhythm Abdomen: No: Tenderness, Distention, Normal Bowel Sounds, Peritoneal Signs, Rebound, Guarding, McBurney's Point Tender, Rovsing's Sign Present, Hernias, Feeding Tubes, Ostomy Tubes, Mass/Organomegaly, Scars, Other Genitourinary Male: Present: Normal External Genitalia, Hernias, Other (right groin hernia, wo overling erythema/fluctuance/crepitus, easily reducible, both sides testicles/scrotum/penis soft without lesions). No: Circumcised Penis, Lesions, Penile Discharge, Testicle Tenderness, Penile Swelling, Masses, Erythema, Testicle Swelling, Prostate Tenderness, Prostate Enlargement Back: Present: Normal Inspection Upper Extremity: Present: Normal Inspection Lower Extremity: Present: Normal Inspection Neurological: Present: GCS=15, CN II-XII Intact, Speech Normal, Motor Func Grossly Intact Skin: Present: Warm, Normal Color Psychiatric: Present: Alert, Oriented x 3, Normal Insight, Normal Concentration Medical Decision Making ED Course and Treatment: you were treated in the ED today for long standing left groin hernia for more than 3 years and today it has been bothering you and protruding a little more than usual, and you were otherwise without any nausea/vomiting/headache/ dizziness/difficulty breathing/chest pain/abdomen pain/numbness/tingling/loss of limb function/pain with urination/thoughts to harm yourself or others or hallucinations. you were eating/drinking/passing gas and had normal bowel movement. right groin hernia, wo overling erythema/fluctuance/crepitus, easily reducible, both sides testicles/scrotum/penis soft without lesions; no fever temp 97.8, elevated blood pressure 158/97 which we recommend followup primary care 2-3 days repeat and determine further treatment, no infection count on blood tests 5.8, stable blood levels hemaglobin/platelet 12.5/171, stable chemistry, observation done in the ED, counselled to monitor symptoms, wear a jock strap, and discharged home. 1. recommend followup primary care 1-2 days to determine further care, referral to surgery clinic to review symptoms for left groin hernia which is reducible at this time. 2. if any worsening pain, fever, chills, nausea, vomiting, any medical condition then return to the ED. 10/26/17 23:40 10/26/17 23:40 10/27/17 01:01 10/27/17 01:02 10/27/17 01:17 mildly fast heart rate 107 anxiety 10/27/17 01:19 - Lab Interpretations Lab Results: 10/26/17 23:47 10/26/17 23:47 Lab Results 10/26/17 23:47: Sodium 140, Potassium 3.8, Chloride 102, Carbon Dioxide 24, Anion Gap 18, BUN 7, Creatinine 0.7 L, Est GFR ( Amer) > 60, Est GFR (Non -Af Amer) > 60, Random Glucose 79, Calcium 9.4, Total Bilirubin 1.0, AST 55, ALT 23, Alkaline Phosphatase 90, Total Protein 7.8, Albumin 3.9, Globulin 3.9, Albumin/Globulin Ratio 1.0 L 10/26/17 23:47: PT 11.5, INR 1.01, APTT 27.1 10/26/17 23:47: WBC 5.8, RBC 3.70, Hgb 12.5 L, Hct 37.4 L, MCV 101.1, MCH 33.8, MCHC 33.4, RDW 13.6, Plt Count 171, MPV 9.4, Gran % 52.3, Lymph % (Auto) 36.3 H , [place] % (Auto) 7.5 H, Eos % (Auto) 3.6, Baso % (Auto) 0.3, Gran # 3.01, Lymph # (Auto) 2.1, [place] # (Auto) 0.4, Eos # (Auto) 0.2, Baso # (Auto) 0.02 I have reviewed the lab results: Yes Disposition/Present on Arrival - Present on Arrival Any Indicators Present on Arrival: No History of DVT/PE: No History of Uncontrolled Diabetes: No Urinary Catheter: No History of Decub. Ulcer: No History Surgical Site Infection Following: None - Disposition Have Diagnosis and Disposition been Completed?: Yes Diagnosis: Inguinal hernia of left side without obstruction or gangrene Disposition: HOME/ ROUTINE Disposition Time: 01:18 Patient Plan: Discharge Condition: IMPROVED Additional Instructions: you were treated in the ED today for long standing left groin hernia for more than 3 years and today it has been bothering you and protruding a little more than usual, and you were otherwise without any nausea/vomiting/headache/ dizziness/difficulty breathing/chest pain/abdomen pain/numbness/tingling/loss of limb function/pain with urination/thoughts to harm yourself or others or hallucinations. you were eating/drinking/passing gas and had normal bowel movement. right groin hernia, wo overling erythema/fluctuance/crepitus, easily reducible, both sides testicles/scrotum/penis soft without lesions; no fever temp 97.8, elevated blood pressure 158/97 which we recommend followup primary care 2-3 days repeat and determine further treatment, no infection count on blood tests 5.8, stable blood levels hemaglobin/platelet 12.5/171, stable chemistry, observation done in the ED, counselled to monitor symptoms, wear a jock strap, and discharged home. 1. recommend followup primary care 1-2 days to determine further care, referral to surgery clinic to review symptoms for left groin hernia which is reducible at this time. 2. if any worsening pain, fever, chills, nausea, vomiting, any medical condition then return to the ED. Forms: [employer] (K[place]i)
[2017-10-27 00:06] LABS: BASO # 0.02 K/mm3 (0.0-2.0); BASO % 0.3 % (0.0-3.0); EOS # 0.2 (0.0-0.7); EOS % 3.6 % (1.5-5.0); GRAN # 3.01 (1.4-6.5); GRAN % 52.3 % (50.0-68.0); HEMOGLOBIN 12.5 g/dL (14.0-18.0); LYMPH # 2.1 (1.2-3.4); LYMPH % 36.3 % (22.0-35.0); MEAN CELL VOLUME 101.1 fl (80.0-105.0); MEAN CORPUSCULAR HEMOGLOBIN 33.8 pg (25.0-35.0); MEAN CORPUSCULAR HGB CONC 33.4 g/dl (31.0-37.0); MEAN PLATELET VOLUME 9.4 fl (7.0-11.0); MONO # 0.4 (0.1-0.6); MONO % 7.5 % (1.0-6.0); RBC 3.7 10^6/uL (3.5-6.1); RED CELL DISTRIBUTION WIDTH 13.6 % (11.5-14.5); WHITE BLOOD COUNT 5.8 10^3/ul (4.5-11.0)
[2017-10-27 00:12] LABS: ALBUMIN 3.9 g/dL (3.0-4.8); ALT/SGPT 23 U/L (7-56); AST/SGOT 55 U/L (17-59); BLOOD UREA NITROGEN 7 mg/dL (7-21); CALCIUM 9.4 mg/dL (8.4-10.5); GFR AFRICAN-AMERICAN > 60; GFR NON-AFRICAN AMERICAN > 60
[2017-10-27 00:16] LABS: INR 1.01 (0.93-1.08); PARTIAL THROMBOPLASTIN TIME 27.1 Seconds (25.1-36.5); PROTHROMBIN TIME 11.5 SECONDS (9.4-12.5)
[2017-10-27 01:29] VITALS: BP 145/89; PULSE 98; RESP 18; O2SAT 96
== END 2017-10-27 01:29 | disposition home or self-care (01) ==
LOC: ED 19:49
DX: K40.90 Unilateral inguinal hernia, without obstruction or gangrene, not specified as recurrent (principal); I10 Essential (primary) hypertension; F17.210 Nicotine dependence, cigarettes, uncomplicated

== ENCOUNTER 2017-10-30 12:38 | Emergency (ER) | payer MEDICAID, OTHER ==
[2017-10-30 12:38] VITALS: BMI 23.8
[2017-10-30 12:56] VITALS: TEMP 97.5; O2SAT 97
--- NOTE | 2017-10-30 14:13 | RAD ---
PROCEDURE: Right Knee Radiographs. HISTORY: right knee pain s/p trauma COMPARISON: None. FINDINGS: BONES: Status post ORIF distal femur with lateral plate and screw fixation. JOINTS: Mild medial osteoarthritis. Mild patellofemoral osteoarthritis. Lateral compartment appears preserved. No articular erosion. JOINT EFFUSION: None. OTHER FINDINGS: None. IMPRESSION: Mild medial and patellofemoral osteoarthritis. Status post ORIF distal femur. No acute fracture.
--- NOTE | 2017-10-30 14:29 | ED PDOC ---
Arrival/HPI - General Chief Complaint: Lower Extremity Problem/Injury Time Seen by Provider: 10/30/17 12:50 Historian: Patient - History of Present Illness Narrative History of Present Illness (Text): 10/30/17 14:23 57yo male who present with complaint of right knee pain s/p ORIF. Patient is s/ p ORIF in the knee. States he tripped and fell today. He reports "clicking sound " with ambulation. He denies LOC, hitting head anywhere, nausea/vomiting, dizziness, any other complaint. Past Medical History - Provider Review Nursing Documentation Reviewed: Yes - Past History Past History: No Previous - Infectious Disease Hx of Infectious Diseases: None - Tetanus Immunization Tetanus Immunization: Unknown - Past Medical History Past Medical History: No Previous - Cardiac Hx Cardiac Disorders: Yes Hx Hypertension: Yes - Pulmonary Hx Respiratory Disorders: No - Neurological Hx Neurological Disorder: No - HEENT Hx HEENT Disorder: No - Renal Hx Renal Disorder: No - Endocrine/Metabolic Hx Endocrine Disorders: No - Hematological/Oncological Hx Blood Disorders: No - Integumentary Hx Dermatological Disorder: No - Musculoskeletal/Rheumatological Hx Musculoskeletal Disorders: Yes Other/Comment: R KNEE INJURY - Gastrointestinal Hx Gastrointestinal Disorders: Yes Other/Comment: HERNIA - Genitourinary/Gynecological Hx Genitourinary Disorders: No - Psychiatric Hx Psychophysiologic Disorder: Yes Hx Anxiety: Yes Hx Depression: Yes Hx Emotional Abuse: No Hx Physical Abuse: No Hx Substance Use: No - Past Surgical History Past Surgical History: No Previous - Surgical History Hx Orthopedic Surgery: Yes (RIGHT KNEE SX) - Anesthesia Hx Anesthesia: Yes Hx Anesthesia Reactions: No - Suicidal Assessment Feels Threatened In Home Enviroment: No Family/Social History - Physician Review Nursing Documentation Reviewed: Yes Family/Social History: Unknown Family HX Smoking Status: Current Some Days Smoker Hx Alcohol Use: Yes Hx Substance Use: No Hx Substance Use Treatment: No Allergies/Home Meds Allergies/Adverse Reactions: Allergies No Known Allergies Allergy (Verified 10/30/17 12:52) Review of Systems - Physician Review All systems were reviewed & negative as marked: Yes - Review of Systems Constitutional: Normal Eyes: Normal ENT: Normal Respiratory: Normal Cardiovascular: Normal Gastrointestinal: Normal Genitourinary Male: Normal Musculoskeletal: Arthralgias (Right knee pain) Skin: Normal Neurological: Normal Endocrine: Normal Hemo/Lymphatic: Normal Psychiatric: Normal Physical Exam Vital Signs Reviewed: Yes Vital Signs Temp Pulse Resp BP Pulse Ox 10/30/17 15:01 89 18 133/82 97 10/30/17 12:53 97.5 F L 90 16 134/82 97 Temperature: Afebrile Blood Pressure: Normal Pulse: Regular Respiratory Rate: Normal Appearance: Positive for: Well-Appearing, Non-Toxic, Comfortable Pain Distress: None Mental Status: Positive for: Alert and Oriented X 3 - Systems Exam Head: Present: Atraumatic, Normocephalic Pupils: Present: PERRL Extroacular Muscles: Present: EOMI Conjunctiva: Present: Normal Mouth: Present: Moist Mucous Membranes Neck: Present: Normal Range of Motion Respiratory/Chest: Present: Clear to Auscultation, Good Air Exchange. No: Respiratory Distress, Accessory Muscle Use Cardiovascular: Present: Regular Rate and Rhythm, Normal S1, S2. No: Murmurs Abdomen: Present: Normal Bowel Sounds. No: Tenderness, Distention, Peritoneal Signs Back: Present: Normal Inspection Upper Extremity: Present: Normal Inspection. No: Cyanosis, Edema Lower Extremity: Present: NORMAL PULSES, Normal ROM. No: Edema, Tenderness, Swelling, Deformity Neurological: Present: GCS=15, CN II-XII Intact, Speech Normal Skin: Present: Warm, Dry, Normal Color. No: Rashes Psychiatric: Present: Alert, Oriented x 3, Normal Insight, Normal Concentration Medical Decision Making ED Course and Treatment: 10/30/17 20:10 Right knee xray - No acute fracture Result was DW the pt. Pt was ambulatory with normal gait. He was Dc home with ibuprofen and referred to ortho. - RAD Interpretation Radiology Orders: 10/30/17 12:58 KNEE W PATELLA RIGHT 3 VIEW [RAD] Stat - Medication Orders Current Medication Orders: Discontinued Medications Ibuprofen (Motrin Tab) 600 mg PO STAT STA Stop: 10/30/17 13:00 Last Admin: 10/30/17 13:17 Dose: 600 mg MAR Pain/Vitals Document 10/30/17 13:17 EQ (Rec: 10/30/17 13:17 EQ [id number]) Pain Reassessment Is This A Pain ReAssessment? No Sleep Is patient sleeping during reassessment? No Presence of Pain Presence of Pain Yes Disposition/Present on Arrival - Present on Arrival Any Indicators Present on Arrival: No History of DVT/PE: No History of Uncontrolled Diabetes: No Urinary Catheter: No History of Decub. Ulcer: No History Surgical Site Infection Following: None - Disposition Have Diagnosis and Disposition been Completed?: Yes Diagnosis: Knee pain Disposition: HOME/ ROUTINE Disposition Time: 14:30 Patient Plan: Discharge Condition: STABLE Discharge Instructions (ExitCare): Knee Pain (ED) Additional Instructions: Follow up with your doctor/orthopedist Return to ED for any new or worsening symptoms Prescriptions: Ibuprofen [Motrin Tab] 600 mg PO Q6 #20 tab Referrals: PCP,RITIKA [Primary Care Provider] - Follow up with primary Mane Erickson III, MD [Medical Doctor] - Follow up with primary Forms: [employer] (Pashto)
[2017-10-30 15:01] VITALS: BP 133/82; PULSE 89; RESP 18
== END 2017-10-30 15:12 | disposition home or self-care (01) ==
LOC: ED 12:38
DX: M25.561 Pain in right knee (principal)

== ENCOUNTER 2017-12-02 11:28 | Emergency (ER) | payer OTHER ==
[2017-12-02 11:40] VITALS: BMI 21.7
[2017-12-02 11:47] VITALS: RESP 18; TEMP 98.6
--- NOTE | 2017-12-02 12:09 | ED PDOC ---
Arrival/HPI - General Chief Complaint: Abnormal Skin Integrity Time Seen by Provider: 12/02/17 12:05 Historian: Patient EM Caveat: Acuity of Condition - History of Present Illness Narrative History of Present Illness (Text): 12/02/17 12:05 Pt is a 57 year old male who presents with a right hand laceration later he was using a saw earlier this morning while drinking beer. Describes that the blade hit a knot in the wood and bounced back, cutting his index and middle fingers. Denies chest pain, sob, n/v/d/ syncope, numbness or loss of muscle function. Cannot recall when he had a tetanus shot last. Time/Duration: Prior to Arrival Symptom Course: Unchanged Quality: Aching Severity Level: 2 Activities at Onset: Rest Context: Work Past Medical History - Provider Review Nursing Documentation Reviewed: Yes - Travel History Have you recently traveled outside [place] w/in the past 3 mons?: No - Past History Past History: No Previous - Infectious Disease Hx of Infectious Diseases: None - Tetanus Immunization Tetanus Immunization: Unknown - Past Medical History Past Medical History: No Previous - Cardiac Hx Cardiac Disorders: Yes Hx Hypertension: Yes - Pulmonary Hx Respiratory Disorders: No - Neurological Hx Neurological Disorder: No - HEENT Hx HEENT Disorder: No - Renal Hx Renal Disorder: No - Endocrine/Metabolic Hx Endocrine Disorders: No - Hematological/Oncological Hx Blood Disorders: No - Integumentary Hx Dermatological Disorder: No - Musculoskeletal/Rheumatological Hx Musculoskeletal Disorders: Yes Other/Comment: R KNEE INJURY - Gastrointestinal Hx Gastrointestinal Disorders: Yes Other/Comment: HERNIA - Genitourinary/Gynecological Hx Genitourinary Disorders: No - Psychiatric Hx Psychophysiologic Disorder: Yes Hx Anxiety: Yes Hx Depression: Yes Hx Emotional Abuse: No Hx Physical Abuse: No Hx Substance Use: No - Past Surgical History Past Surgical History: No Previous - Surgical History Hx Orthopedic Surgery: Yes (RIGHT KNEE SX) - Anesthesia Hx Anesthesia: Yes Hx Anesthesia Reactions: No - Suicidal Assessment Feels Threatened In Home Enviroment: No Family/Social History - Physician Review Nursing Documentation Reviewed: Yes Family/Social History: Unknown Family HX Smoking Status: Current Some Days Smoker Hx Alcohol Use: Yes Frequency of alcohol use: Daily Hx Substance Use: No Hx Substance Use Treatment: No Allergies/Home Meds Allergies/Adverse Reactions: Allergies No Known Allergies Allergy (Verified 12/02/17 11:47) Review of Systems - Review of Systems Constitutional: Normal Eyes: Normal ENT: Normal Respiratory: Normal Cardiovascular: Normal Gastrointestinal: Normal Genitourinary Male: Normal Musculoskeletal: Normal Skin: Laceration (left hand fingers) Neurological: Normal Endocrine: Normal Hemo/Lymphatic: Normal Psychiatric: Normal Physical Exam Vital Signs Reviewed: Yes Vital Signs Temp Pulse Resp BP Pulse Ox 12/02/17 15:00 75 18 131/73 99 12/02/17 13:04 78 18 135/74 98 12/02/17 11:40 98.6 F 82 18 138/84 98 Temperature: Afebrile Blood Pressure: Normal Pulse: Regular Respiratory Rate: Normal Appearance: Positive for: Well-Appearing, Non-Toxic, Comfortable Pain Distress: Mild Mental Status: Positive for: Alert and Oriented X 3 - Systems Exam Head: Present: Atraumatic, Normocephalic Pupils: Present: PERRL Extroacular Muscles: Present: EOMI Conjunctiva: Present: Normal Mouth: Present: Moist Mucous Membranes Neck: Present: Normal Range of Motion Respiratory/Chest: Present: Clear to Auscultation, Good Air Exchange. No: Respiratory Distress, Accessory Muscle Use Cardiovascular: Present: Regular Rate and Rhythm, Normal S1, S2. No: Murmurs Abdomen: Present: Normal Bowel Sounds. No: Tenderness, Distention, Peritoneal Signs Back: Present: Normal Inspection Upper Extremity: Present: Normal Inspection. No: Cyanosis, Edema Lower Extremity: Present: Normal Inspection. No: Edema Neurological: Present: GCS=15, CN II-XII Intact, Speech Normal Skin: Present: Warm, Dry, Normal Color. No: Rashes Psychiatric: Present: Alert, Oriented x 3, Normal Insight, Normal Concentration Medical Decision Making ED Course and Treatment: 12/02/17 12:09 Impression Pt is a 57 year old male who presents with a left hand laceration later he was using a saw earlier this morning while drinking beer. On exam, avulsion of the left lateral aspect of the index finger and laceration of the distal phalanx of the 3rd; motor function intact, sensation intact in both digits plan XR to the left hand assess and irrigate Call for consult Progress note mild active bleeding discussed need to dress the injury and call for possible consult in [place] but pt would prefer to go home will stay overnight if treated here called [facility] and left message for on-call doc 12/02/17 15:20 Between 12:30-14:15, attempted to contact our on-call orthopedist, Dr. Boykin. The hospice community liaison attempted to reach out to Dr. Boykin multiple times with no success. Dr. Champagne spoke with Dr. Roach, who provided a secondary number for Dr. Boykin ([phone]). The secondary number was tried multiple times with no success as well. At this time, will attempt to contact the winding department supervisor, Dr. Palafox ( [phone]) in an effort to reach Dr. Boykin. [facility] was also contacted and a message was left for the on-call doctor there. 12/02/17 15:44 Discussed case in detail with Dr. Palafox, who recommends to try contacting the hand surgeons at [facility], Dr. Rogers or Dr. Young. Dr. Palafox is unsure the aforementioned doctors will accept [facility] care; might have to send the patient to [facility]. 12/02/17 15:44 Discussed case details with the patient, who made it clear he does not want to be seen anywhere else and is requesting to be discharged home. Pt said he will follow up for a wound check in 5 days Wound was power-irrigated and dressed using wet-dry dressing, with webroll, susana wrap and thoroughly discussed wound care with pt. Strongly advised him to fill script given for antibiotics and pain management and follow up by contacting the [facility] care number he was given. Pt was stable on discharge and ambulated well out of the ED 12/02/17 20:33 - Lab Interpretations Lab Results: 12/02/17 13:00 12/02/17 13:00 Lab Results 12/02/17 13:00: Sodium 136, Potassium 4.2, Chloride 102, Carbon Dioxide 22, Anion Gap 16, BUN 7, Creatinine 0.6 L, Est GFR ( Amer) > 60, Est GFR (Non -Af Amer) > 60, Random Glucose 79, Calcium 9.7, Total Bilirubin 1.0, AST 39, ALT 27, Alkaline Phosphatase 96, Total Protein 7.9, Albumin 3.9, Globulin 4.0, Albumin/Globulin Ratio 1.0 L 12/02/17 13:00: WBC 4.9, RBC 3.94, Hgb 13.6 L, Hct 39.2 L, MCV 99.5, MCH 34.5, MCHC 34.7, RDW 13.4, Plt Count 140, MPV 9.6, Gran % 60.5, Lymph % (Auto) 26.9, Chase % (Auto) 10.0 H, Eos % (Auto) 2.2, Baso % (Auto) 0.4, Gran # 2.97, Lymph # (Auto) 1.3, Chase # (Auto) 0.5, Eos # (Auto) 0.1, Baso # (Auto) 0.02 I have reviewed the lab results: Yes - RAD Interpretation Narrative RAD Interpretations (Text): 12/02/17 20:31 Left hand radiograph indicates possible bone avulsion along with soft tissue; Radiology Orders: 12/02/17 12:17 HAND LEFT 3 VIEWS ROUTINE [RAD] Stat - Medication Orders Current Medication Orders: Discontinued Medications Cefazolin Sodium (Ancef) 1 gm IVPB STAT STA PRN Reason: Protocol Stop: 12/02/17 12:35 Last Admin: 12/02/17 13:09 Dose: Sodium Chloride (Sodium Chloride 0.9%) 500 mls @ 999 mls/hr IV .Q31M STA Stop: 12/02/17 12:50 Last Admin: 12/02/17 13:09 Dose: 999 mls/hr eMAR Start Stop Document 12/02/17 13:09 EQ (Rec: 12/02/17 13:09 EQ [id number]) Intravenous Solution Start Date 12/02/17 Start Time 13:09 Cefazolin Sodium (Ancef 1gm In Ns) 1 gm in 100 mls @ 200 mls/hr IVPB ONCE ONE Stop: 12/02/17 13:29 Last Admin: 12/02/17 13:17 Dose: Tetanus/Reduced Diphtheria/Acell Pertussis (Boostrix Vaccine Inj) 0.5 ml IM .ONCE ONE Stop: 12/02/17 12:27 Last Admin: 12/02/17 13:09 Dose: 0.5 ml Immunization Registry Document 12/02/17 13:09 EQ (Rec: 12/02/17 13:09 EQ [id number]) Immunization Registry Consent Date 07/28/17 Disposition/Present on Arrival - Present on Arrival Any Indicators Present on Arrival: Yes History of DVT/PE: No History of Uncontrolled Diabetes: No Urinary Catheter: No History of Decub. Ulcer: No History Surgical Site Infection Following: None - Disposition Have Diagnosis and Disposition been Completed?: Yes Diagnosis: Laceration Disposition: HOME/ ROUTINE Disposition Time: 15:51 Patient Plan: Discharge Condition: GOOD Discharge Instructions (ExitCare): Wound Care (DC) Additional Instructions: Deawellington Fitzgerald, Please return in 5 days for a wound check. You have decided to leave without furhter care therefore it will be imperative for you to take the antibiotic we have prescribed and keep the wound clean and dry. If you require more specialized care, you may call or go to the facilities that can provide that care. Please return to the Emergency department if you experience pain, fever or excessive bleeding from the wound. All the best in your care Prescriptions: Cephalexin [Keflex] 250 mg PO Q6 #20 capsule Ibuprofen [Motrin Tab] 600 mg PO Q6 PRN 5 Days #20 tab PRN Reason: pain/fever Referrals: PCP,NO [Primary Care Provider] - Follow up with primary rumr Rainer Cornell [Outside] - Follow up with primary Forms: [employer] (Andorran)
[2017-12-02] MEDS ORDERED: Sodium Chloride 0.9% 500 ML IV STA (12:20)
[2017-12-02] MEDS ORDERED: TDAP Vaccine 0.5 mL Syr IM ONE (12:26)
[2017-12-02] MEDS ORDERED: ceFAZolin 1 gm in NS 1 GM/100 ML BAG IVPB ONE (13:00)
[2017-12-02 13:08] LABS: BASO # 0.02 K/mm3 (0.0-2.0); BASO % 0.4 % (0.0-3.0); EOS # 0.1 (0.0-0.7); EOS % 2.2 % (1.5-5.0); GRAN # 2.97 (1.4-6.5); GRAN % 60.5 % (50.0-68.0); HEMOGLOBIN 13.6 g/dL (14.0-18.0); LYMPH # 1.3 (1.2-3.4); LYMPH % 26.9 % (22.0-35.0); MEAN CELL VOLUME 99.5 fl (80.0-105.0); MEAN CORPUSCULAR HEMOGLOBIN 34.5 pg (25.0-35.0); MEAN CORPUSCULAR HGB CONC 34.7 g/dl (31.0-37.0); MEAN PLATELET VOLUME 9.6 fl (7.0-11.0); MONO # 0.5 (0.1-0.6); RBC 3.94 10^6/uL (3.5-6.1); RED CELL DISTRIBUTION WIDTH 13.4 % (11.5-14.5); WHITE BLOOD COUNT 4.9 10^3/ul (4.5-11.0)
[2017-12-02 13:19] LABS: ALBUMIN 3.9 g/dL (3.0-4.8); ALT/SGPT 27 U/L (7-56); AST/SGOT 39 U/L (17-59); BLOOD UREA NITROGEN 7 mg/dL (7-21); CALCIUM 9.7 mg/dL (8.4-10.5); GFR AFRICAN-AMERICAN > 60; GFR NON-AFRICAN AMERICAN > 60
[2017-12-02 15:28] VITALS: BP 131/73; PULSE 75; O2SAT 99
--- NOTE | 2017-12-02 21:45 | RAD ---
PROCEDURE: Left Hand Radiographs. HISTORY: injury COMPARISON: None. FINDINGS: BONES: No evidence of acute fracture. JOINTS: Arthritic degenerative changes. No evidence of dislocation P SOFT TISSUES: Soft tissue swelling seen at the distal portion of the 3rd finger OTHER FINDINGS: None. IMPRESSION: No evidence of acute fracture or dislocation. Soft tissue swelling at the distal 3rd finger without evidence of radiopaque foreign body.
== END 2017-12-02 16:52 | disposition home or self-care (01) ==
LOC: ED 11:28
DX: S61.412A Laceration without foreign body of left hand, initial encounter (principal); W31.2XXA Contact with powered woodworking and forming machines, initial encounter; Y99.0 Civilian activity done for income or pay; I10 Essential (primary) hypertension; F17.200 Nicotine dependence, unspecified, uncomplicated; Z23 Encounter for immunization
CPT/HCPCS: 73130; 80053; 85025; 90471; 90715; 99284; J0690; J7040

== ENCOUNTER 2018-01-03 19:16 | Emergency (ER) | payer OTHER ==
[2018-01-03 19:17] VITALS: BMI 21.7
[2018-01-03 19:24] VITALS: TEMP 97.6
--- NOTE | 2018-01-03 19:49 | ED PDOC ---
Arrival/HPI - General Chief Complaint: Lower Extremity Problem/Injury Time Seen by Provider: 01/03/18 19:25 Historian: Patient - History of Present Illness Narrative History of Present Illness (Text): 01/03/18 19:49 A 57 year old male presents to the emergency department complaining of left knee pain after fall today. Patient admits to drinking alcohol today. Prior history of right knee surgery. Patient denies any other injuries, loss of consciousness, head trauma, headache, dizziness, neck pain, nausea, vomiting, abdominal pain, back pain, chest pain, shortness of breath, suicidal ideation, homicidal ideation or any other complaints. Time/Duration: Other (today) Past Medical History - Provider Review Nursing Documentation Reviewed: Yes - Past History Past History: No Previous - Infectious Disease Hx of Infectious Diseases: None - Tetanus Immunization Tetanus Immunization: Unknown - Past Medical History Past Medical History: No Previous - Cardiac Hx Cardiac Disorders: Yes Hx Hypertension: Yes - Pulmonary Hx Respiratory Disorders: No - Neurological Hx Neurological Disorder: No - HEENT Hx HEENT Disorder: No - Renal Hx Renal Disorder: No - Endocrine/Metabolic Hx Endocrine Disorders: No - Hematological/Oncological Hx Blood Disorders: No - Integumentary Hx Dermatological Disorder: No - Musculoskeletal/Rheumatological Hx Musculoskeletal Disorders: Yes Other/Comment: R KNEE INJURY - Gastrointestinal Hx Gastrointestinal Disorders: Yes Other/Comment: HERNIA - Genitourinary/Gynecological Hx Genitourinary Disorders: No - Psychiatric Hx Psychophysiologic Disorder: Yes Hx Anxiety: Yes Hx Depression: Yes Hx Emotional Abuse: No Hx Physical Abuse: No Hx Substance Use: No - Past Surgical History Past Surgical History: No Previous - Surgical History Hx Orthopedic Surgery: Yes (RIGHT KNEE SX) - Anesthesia Hx Anesthesia: Yes Hx Anesthesia Reactions: No - Suicidal Assessment Feels Threatened In Home Enviroment: No Family/Social History - Physician Review Nursing Documentation Reviewed: Yes Family/Social History: No Known Family HX Smoking Status: Current Some Days Smoker Hx Alcohol Use: Yes Hx Substance Use: No Hx Substance Use Treatment: No Allergies/Home Meds Allergies/Adverse Reactions: Allergies No Known Allergies Allergy (Verified 12/02/17 11:47) Review of Systems - Physician Review All systems were reviewed & negative as marked: Yes - Review of Systems Constitutional: absent: Fevers Respiratory: absent: SOB Cardiovascular: absent: Chest Pain Gastrointestinal: absent: Abdominal Pain, Nausea, Vomiting Musculoskeletal: Other (left knee pain). absent: Back Pain, Neck Pain Neurological: absent: Headache, Dizziness Psychiatric: absent: Suicidal Ideation, Other (Homicidal ideation) Physical Exam Vital Signs Reviewed: Yes Vital Signs Temp Pulse Resp BP Pulse Ox 01/03/18 19:21 97.6 F 69 18 192/111 H 97 Temperature: Afebrile Blood Pressure: Hypertensive Pulse: Regular Respiratory Rate: Normal Appearance: Positive for: Other (Intoxicated male) - Systems Exam Head: Present: Atraumatic, Normocephalic Pupils: Present: PERRL Extroacular Muscles: Present: EOMI Conjunctiva: Present: Other (bloodshot eyes) Mouth: Present: Moist Mucous Membranes, Other (Alcohol to breath) Neck: Present: Normal Range of Motion Respiratory/Chest: Present: Clear to Auscultation, Good Air Exchange. No: Respiratory Distress, Accessory Muscle Use Cardiovascular: Present: Regular Rate and Rhythm, Normal S1, S2. No: Murmurs Abdomen: No: Tenderness, Distention, Peritoneal Signs Back: Present: Normal Inspection Upper Extremity: Present: Normal Inspection, Normal ROM, NORMAL PULSES. No: Cyanosis, Edema Lower Extremity: Present: Normal Inspection, NORMAL PULSES, Normal ROM, Neurovascularly Intact. No: Edema, CALF TENDERNESS, Tenderness, Swelling, Erythema, Deformity Neurological: No: Speech Normal (slurred speech) Skin: Present: Warm, Dry, Normal Color. No: Rashes Psychiatric: Present: Intoxicated Medical Decision Making ED Course and Treatment: 01/03/18 19:49 Impression: A 57 year old male with left knee pain Plan: -- Left knee xray -- Reassess and disposition Progress Notes: - RAD Interpretation Radiology Orders: 01/03/18 22:18 KNEE W PATELLA RIGHT 3 VIEW [RAD] Stat - Scribe Statement The provider has reviewed the documentation as recorded by the Scribe Disposition/Present on Arrival - Present on Arrival Any Indicators Present on Arrival: No History of DVT/PE: No History of Uncontrolled Diabetes: No Urinary Catheter: No History of Decub. Ulcer: No History Surgical Site Infection Following: None - Disposition Have Diagnosis and Disposition been Completed?: Yes Diagnosis: Contusion of knee Disposition: HOME/ ROUTINE Disposition Time: 22:41 Patient Plan: Discharge Condition: GOOD Discharge Instructions (ExitCare): Contusion (DC) Additional Instructions: Mr Valerio- Your X-ray looks good. Please be a little more careful. Tylenol or Motrin should be good for any pain. Return to us if any problems, follow up with your doctor. Best- Dr. Hernando Mahmood Referrals: PCP,NO [Primary Care Provider] - Follow up with primary Forms: [employer] (Malay)
[2018-01-03 23:29] VITALS: BP 166/96; PULSE 76; RESP 16; O2SAT 99
--- NOTE | 2018-01-04 10:02 | RAD ---
PROCEDURE: Right Knee Radiographs. HISTORY: Pain COMPARISON: None. FINDINGS: BONES: There is diffuse bone demineralization. There is no acute displaced fracture or bone destruction. Status post open reduction and internal fixation of distal femoral fracture. There is no evidence of loosening or screw fracture. JOINTS: There is mild tricompartmental degenerative osteoarthrosis, worse in the medial compartment. JOINT EFFUSION: None. OTHER FINDINGS: None. IMPRESSION: No acute fracture or dislocation. Status post open reduction and internal fixation distal femoral fracture, no evidence of hardware complications. Mild multilevel degenerative disc disease, worse in the medial compartment.
== END 2018-01-03 23:29 | disposition home or self-care (01) ==
LOC: ED 19:16
DX: S80.02XA Contusion of left knee, initial encounter (principal); W19.XXXA Unspecified fall, initial encounter; Y92.9 Unspecified place or not applicable

== ENCOUNTER 2018-01-30 19:02 | Inpatient (IN) | payer MEDICAID ==
[2018-01-30 19:07] VITALS: BMI 24.5
--- NOTE | 2018-01-30 19:52 | ED PDOC ---
Arrival/HPI - General Chief Complaint: Psychiatric Evaluation Time Seen by Provider: 01/30/18 19:28 Historian: Patient - History of Present Illness Narrative History of Present Illness (Text): 01/30/18 19:49 A 57 year old male, whose past medical history includes alcohol abuse, presents to the emergency department complaining of depression. Patient reports he feels depressed because he is unable to find a job. Patient states he hears voices telling him to jump off a bridge. He admits to drinking alcohol today, but denies any drug use. Patient denies any somatic complaints at this time. Patient denies any trauma, fever, chills, nausea, vomiting, diarrhea, abdominal pain, chest pain, shortness of breath or any other complaints. Time/Duration: Other (today) Past Medical History - Provider Review Nursing Documentation Reviewed: Yes - Past History Past History: No Previous - Infectious Disease Hx of Infectious Diseases: None - Tetanus Immunization Tetanus Immunization: Unknown - Past Medical History Past Medical History: No Previous - Cardiac Hx Cardiac Disorders: Yes Hx Hypertension: Yes - Pulmonary Hx Respiratory Disorders: No - Neurological Hx Neurological Disorder: No - HEENT Hx HEENT Disorder: No - Renal Hx Renal Disorder: No - Endocrine/Metabolic Hx Endocrine Disorders: No - Hematological/Oncological Hx Blood Disorders: No - Integumentary Hx Dermatological Disorder: No - Musculoskeletal/Rheumatological Hx Musculoskeletal Disorders: Yes Other/Comment: R KNEE INJURY - Gastrointestinal Hx Gastrointestinal Disorders: Yes Other/Comment: HERNIA - Genitourinary/Gynecological Hx Genitourinary Disorders: No - Psychiatric Hx Psychophysiologic Disorder: Yes Hx Anxiety: Yes Hx Depression: Yes Hx Emotional Abuse: No Hx Physical Abuse: No Hx Substance Use: No - Past Surgical History Past Surgical History: No Previous - Surgical History Hx Orthopedic Surgery: Yes (RIGHT KNEE SX) - Anesthesia Hx Anesthesia: Yes Hx Anesthesia Reactions: No - Suicidal Assessment Feels Threatened In Home Enviroment: No Family/Social History - Physician Review Nursing Documentation Reviewed: Yes Family/Social History: No Known Family HX Smoking Status: Current Some Days Smoker Hx Alcohol Use: Yes Frequency of alcohol use: Daily Hx Substance Use: No Hx Substance Use Treatment: No Allergies/Home Meds Allergies/Adverse Reactions: Allergies No Known Allergies Allergy (Verified 12/02/17 11:47) Home Medications: Home Meds Medication Instructions Recorded Confirmed Unobtainable 01/30/18 01/30/18 Review of Systems - Review of Systems Systems not reviewed;Unavailable: Intoxicated Physical Exam Vital Signs Reviewed: Yes Vital Signs Temp Pulse Resp BP Pulse Ox 01/30/18 19:07 98.4 F 85 18 135/78 99 Temperature: Afebrile Blood Pressure: Normal Pulse: Regular Respiratory Rate: Normal Appearance: Positive for: Comfortable, Other (Intoxicated male, Unkempt) Pain Distress: None Mental Status: Positive for: other (Awake, Alert, Inebriate) - Systems Exam Head: Present: Atraumatic, Normocephalic Pupils: Present: PERRL Extroacular Muscles: Present: EOMI Conjunctiva: Present: Normal Ears: Present: Normal Mouth: Present: Moist Mucous Membranes Pharnyx: Present: Normal Nose (External): Present: Atraumatic Nose (Internal): Present: Normal Inspection Neck: Present: Normal Range of Motion Respiratory/Chest: Present: Clear to Auscultation, Good Air Exchange. No: Respiratory Distress, Accessory Muscle Use Cardiovascular: Present: Regular Rate and Rhythm, Normal S1, S2. No: Murmurs Abdomen: Present: Normal Bowel Sounds. No: Tenderness, Distention, Peritoneal Signs Back: Present: Normal Inspection Upper Extremity: Present: Normal Inspection, Normal ROM, NORMAL PULSES. No: Cyanosis, Edema Lower Extremity: Present: Normal Inspection, NORMAL PULSES, Normal ROM. No: Edema Skin: Present: Warm, Dry, Normal Color. No: Rashes Psychiatric: Present: Alert, Hallucinations, Intoxicated Medical Decision Making ED Course and Treatment: 01/30/18 19:49 Impression: A 57 year old male with depression and auditory hallucinations. Admits to alcohol use today. Plan: -- Chest xray -- EKG -- Labs -- Reassess and disposition Progress Notes: Reviewed EKG, NSR at [address]-segment elevations or depressions, no T-wave inversions, normal intervals. 01/31/18 04:20 Pt. now sober was seen and evaluated by PES.Accepted for admission to psychiatry. - Lab Interpretations Lab Results: 01/30/18 19:40 01/30/18 19:40 Lab Results 01/31/18 00:07: Urine Opiates Screen Negative, Urine Methadone Screen Negative, Ur Barbiturates Screen Negative, Ur Phencyclidine Scrn Negative, Ur Amphetamines Screen Negative, U Benzodiazepines Scrn Negative, U Oth Cocaine Metabols Negative, U Cannabinoids Screen Negative 01/30/18 19:40: WBC 3.8 L D, RBC 4.03, Hgb 13.6 L, Hct 39.1 L, MCV 97.0, MCH 33.7, MCHC 34.8, RDW 13.0, Plt Count 111 L, MPV 9.6 01/30/18 19:40: Alcohol, Quantitative 291 H 01/30/18 19:40: Sodium 142, Potassium 4.0, Chloride 98, Carbon Dioxide 27, Anion Gap 21 H, BUN 9, Creatinine 0.7 L, Est GFR ( Amer) > 60, Est GFR ( Non-Af Amer) > 60, Random Glucose 101, Calcium 8.9, Total Bilirubin 0.8, AST 230 H D, ALT 82 H, Alkaline Phosphatase 129 H D, Total Protein 8.0, Albumin 4.2 , Globulin 3.9, Albumin/Globulin Ratio 1.1 I have reviewed the lab results: Yes - RAD Interpretation Radiology Orders: 01/30/18 19:35 CHEST PORTABLE [RAD] Stat Stem Threshing Machine Operator: ED Physician - EKG Interpretation Interpreted by ED Physician: Yes Type: 12 lead EKG - Scribe Statement The provider has reviewed the documentation as recorded by the Tomas Nuñez Provider Scribe Attestation: All medical record entries made by the Scribe were at my direction and personally dictated by me. I have reviewed the chart and agree that the record accurately reflects my personal performance of the history, physical exam, medical decision making, and the department course for this patient. I have also personally directed, reviewed, and agree with the discharge instructions and disposition. Disposition/Present on Arrival - Present on Arrival Any Indicators Present on Arrival: No History of DVT/PE: No History of Uncontrolled Diabetes: No Urinary Catheter: No History of Decub. Ulcer: No History Surgical Site Infection Following: None - Disposition Have Diagnosis and Disposition been Completed?: Yes Diagnosis: Depression, Suicidal ideation Disposition: HOSPITALIZED Disposition Time: 04:22 Patient Plan: Admission Condition: STABLE Referrals: PCP,NO [Primary Care Provider] - Follow up with primary Forms: [email or web address] (Kinyarwanda)
[2018-01-30 20:02] LABS: ALB/GLOB RATIO 1.1 (1.1-1.8); ALBUMIN 4.2 g/dL (3.0-4.8); ALT/SGPT 82 U/L (7-56); AST/SGOT 230 U/L (17-59); BLOOD UREA NITROGEN 9 mg/dL (7-21); CALCIUM 8.9 mg/dL (8.4-10.5); GFR AFRICAN-AMERICAN > 60; GFR NON-AFRICAN AMERICAN > 60; HEMOGLOBIN 13.6 g/dL (14.0-18.0); MEAN CORPUSCULAR HEMOGLOBIN 33.7 pg (25.0-35.0); MEAN CORPUSCULAR HGB CONC 34.8 g/dl (31.0-37.0); MEAN PLATELET VOLUME 9.6 fl (7.0-11.0); RBC 4.03 10^6/uL (3.5-6.1); WHITE BLOOD COUNT 3.8 10^3/ul (4.5-11.0)
[2018-01-31 01:27] LABS: BARBITURATES, UR NEGATIVE (NEGATIVE); BENZODIAZEPINES, UR NEGATIVE (NEGATIVE); OPIATES, UR NEGATIVE (NEGATIVE); PHENCYCLIDINE, UR NEGATIVE (NEGATIVE)
[2018-01-31 06:06] VITALS: O2SAT 100
[2018-01-31] MEDS ORDERED: Alum-Mag Hydrox-Simethicone Susp (30 mL) PO PRN (06:21)
[2018-01-31] MEDS ORDERED: Magnesium Hydroxide Susp 30 ml UD PO PRN (06:21)
--- NOTE | 2018-01-31 07:39 | RAD ---
HISTORY: medical clearance COMPARISON: 11/10/2016 FINDINGS: LUNGS: No active pulmonary disease. PLEURA: No significant pleural effusion identified, no pneumothorax apparent. CARDIOVASCULAR: Normal. OSSEOUS STRUCTURES: No significant abnormalities. VISUALIZED UPPER ABDOMEN: Normal. OTHER FINDINGS: None. IMPRESSION: No active disease.
[2018-01-31 08:42] LABS: GLUCOSE,FASTING 101 mg/dL (65-110)
[2018-01-31 08:52] LABS: LDL CHOLESTEROL 47 mg/dL (0-129)
[2018-01-31 08:57] LABS: HDL CHOLESTEROL 121 mg/dL (29-60)
--- NOTE | 2018-01-31 13:31 | CARD ---
APPROVED REPORT EKG Measurement Heart [id number] PA [id number] <Conclusion> Normal sinus rhythm Normal ECG
--- NOTE | 2018-01-31 15:18 | PCM.BM ---
<Alex Pugh - Last Filed: 01/31/18 15:14> Treatment Plan Problems - Problems identified on initial assessmt hopelessness/helplessness Date Initiated: 01/31/18 Time Initiated: 15:15 Assessment reference: HP, Other Status: Active medication nonadherence Date Initiated: 01/31/18 Time Initiated: 15:16 Assessment reference: HP, NA Status: Active self care deficit Date Initiated: 01/31/18 Time Initiated: 15:16 Assessment reference: HP, NA Status: Active Treatment assets and liabiliti Patient Assests: cooperative, negotiates basic needs, cognitively intact Patient Liabilities: live alone, financial problems, poor support system, relationship conflicts, substance abuse, other - Milieu Protocol Maintain good personal hygiene: daily Encourage regular showers, daily Remind patient to perform daily oral care, daily Assist patient to perform ADL's Maintain personal safety: daily Educate patient to report safety concerns to staff, daily Monitor environment for contraband/sharps Medication safety: Monitor for expected outcome, potential side effects: daily, Assess barriers to learning: daily, Assess readiness for medication education: daily Discharge/Continuing Care - Education Needs Education Needs: Patient Medication, Patient Diagnosis/Disease Process, Patient Coping Skills, Patient Community resources, Patient Activities of Daily Living, Patient Uses of Medical Equipment, Patient Health Practices/Safety, Patient Personal Hygiene/Grooming, Patient Aftercare Safety Plan, Patient Other - Discharge Discharge Criteria: Tolerates medication w/o severe side effects, Free of Homicidal thoughts, Normal sleep pattern, Reduction of target symptoms Discharge to:: Home, Senior Living <Jacqueline Bobo - Last Filed: 01/31/18 15:40> - Diagnosis (1) MDD (major depressive disorder) Status: Acute Interventions: 01/31/18 15:41 Psychoeducation Psychopharmacology/adjustment of medications as needed/ monitoring possible side effects Evaluate pt on daily basis Compliance with medications and follow up appointments Suicide and homicide risk assessment and prevention Relapse prevention Reduction of symptoms Improve functional status Family involvement As outpatient: cognitive behavioral therapy (2) Alcohol use disorder Status: Acute Interventions: 01/31/18 15:41 Psychoeducation Psychopharmacology/adjustment of medications as needed/ monitoring possible side effects Evaluate pt on daily basis Compliance with medications and follow up appointments Suicide and homicide risk assessment and prevention Relapse prevention Reduction of symptoms Improve functional status Family involvement As outpatient: cognitive behavioral therapy <Anat Escalera - Last Filed: 02/01/18 14:43> Family Contact Family involvement: Famliy/SO not involved
--- NOTE | 2018-01-31 15:40 | PCM.PSYCH ---
Initial Psychiatric Evaluation - Initial Psychiatric Evaluation Type of Admission: Voluntary Legal Status: Capacity (Patient has capacity to sign consent for treatment) Chief Complaint (in patient's own words): "I was not doing well, needed to be on medications, I'm homeless, hopeless" Patient's Reaction to Hospitalization: patient was admitted to the psychiatric inpatient unit for evaluation and stabilization of depressive symptoms and possible suicidal ideation with a plan to jump off the bridge History of Present Illness and Precipitating Events: shortly Pt is a 57 year old single male with reported history of depression, one prior psychiatric admission in 2017 for depression, patient has chronic alcohol consumption, alcohol addiction, patient brought himself to ED due to suicidal ideations with plan to jump off a bridge. patient is homeless, no support in the community, patient needs to be evaluated, observed, possible medications initiation. 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 patient presented with poor personal hygiene, appears much older than his chronological age, poor ADLs. 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 Patient reported that he was drinking on daily basis about 2 packs of 12 ounces of beer , patient reported after discharge from the psychiatric inpatient unit he was staying on the streets, not taking any medications, did not follow up with outpatient program. patient reported that he does not use any drugs,but smokes about 1 pack a day, counseling provided, nicotine patch offered. as per report patient was psychotic in the emergency room, denied hearing voices denied seeing things when was interviewed by this comic book writer. 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 medical history: Patient has alcohol-related cognitive changes, gait disturbance. Family history: Unknown social history: Patient is homeless, alcoholic. 01/30/18 19:40 01/30/18 19:40 Lab Results 01/31/18 08:00: Fasting Glucose 101, Triglycerides 51, Cholesterol 183, LDL Cholesterol Direct 47, HDL Cholesterol 121 H 01/31/18 08:00: TSH 3rd Generation 1.77 01/31/18 00:07: Urine Opiates Screen Negative, Urine Methadone Screen Negative, Ur Barbiturates Screen Negative, Ur Phencyclidine Scrn Negative, Ur Amphetamines Screen Negative, U Benzodiazepines Scrn Negative, U Oth Cocaine Metabols Negative, U Cannabinoids Screen Negative 01/30/18 19:40: WBC 3.8 L D, RBC 4.03, Hgb 13.6 L, Hct 39.1 L, MCV 97.0, MCH 33.7, MCHC 34.8, RDW 13.0, Plt Count 111 L, MPV 9.6 01/30/18 19:40: Alcohol, Quantitative 291 H 01/30/18 19:40: Sodium 142, Potassium 4.0, Chloride 98, Carbon Dioxide 27, Anion Gap 21 H, BUN 9, Creatinine 0.7 L, Est GFR ( Amer) > 60, Est GFR ( Non-Af Amer) > 60, Random Glucose 101, Calcium 8.9, Total Bilirubin 0.8, AST 230 H D, ALT 82 H, Alkaline Phosphatase 129 H D, Total Protein 8.0, Albumin 4.2 , Globulin 3.9, Albumin/Globulin Ratio 1.1 Vital Signs Temp Pulse Resp BP Pulse Ox 01/31/18 07:17 98.4 F 104 H 18 125/91 H 01/31/18 06:33 98.4 F 104 H 18 125/91 H 01/31/18 06:03 76 18 116/70 100 01/31/18 05:00 98.0 F 84 20 124/86 98 01/31/18 00:00 80 16 132/76 97 01/30/18 19:07 98.4 F 85 18 135/78 99 Current Medications: Active Medications Generic Name Dose Route Start Last Admin Trade Name Freq PRN Reason Stop Dose Admin Al Hydrox/Mg Hydrox/Simethicone 30 ml 01/31/18 06:21 Maalox Plus 30 Ml PO DAILY PRN Upset Stomach Folic Acid 1 mg 01/31/18 08:00 Folic Acid PO DAILY ELY Lorazepam 2 mg 01/31/18 06:00 01/31/18 06:15 Ativan PO 2 mg Q6 [facility] Administration Protocol Magnesium Hydroxide 30 ml 01/31/18 06:21 Milk Of Magnesia PO DAILY PRN Constipation Multivitamins 1 tab 02/01/18 08:00 Thera Tab PO 0800 ELY Thiamine HCl 100 mg 01/31/18 08:00 Vitamin B1 Tab PO DAILY ELY Zaleplon 5 mg 01/31/18 05:59 Sonata PO HS PRN Insomnia Past Psychiatric History - Past Psychiatric History Previous Treatment History: Inpatient Prior Professional Help: see HPI Prior Psychiatric Treatment: see HPI At what hospital: see HPI Duration: see HPI Nature of Treatment: see HPI Explanation of prior treatment: see HPI History of Abuse: denied History of ETOH/Drug Use: see HPI History of Family Illness: see HPI Pertinent Medical Hx (Current Medical&Sleep Prob, Allergies): Allergies Allergy/AdvReac Type Severity Reaction Status Date / Time No Known Allergies Allergy Verified 12/02/17 11:47 Unobtainable 01/30/18 Review of Systems - Review of Systems Systems not reviewed;Unavailable: Acuity of Condition - EENT Eyes: As Per HPI Ears: As Per HPI Nose/Mouth/Throat: As Per HPI - Cardiovascular Cardiovascular: As Per HPI - Respiratory Respiratory: As Per HPI - Gastrointestinal Gastrointestinal: As Per HPI - Genitourinary Genitourinary: As Per HPI - Reproductive: Male Reproductive:Male: As Per HPI - Musculoskeletal Musculoskeletal: As Par HPI - Integumentary Integumentary: As Per HPI - Neurological Neurological: As Per HPI - Psychiatric Psychiatric: As Per HPI - Endocrine Endocrine: As Per HPI - Hematologic/Lymphatic Hematologic: As Per HPI Mental Status Examination - Personal Presentation Personal Presentation: Looks older than stated age - Affect Affect: Constricted (and angry), Flat - Motor Activity Motor Activity: Calm - Reliability in Providing Information Reliability in Providing Information: Poor, due to alteration in thoughts, Poor , due to altered mood, Poor, due to cognitve impairment - Speech Speech: Disorganized - Mood Mood: Depressed, Anxious - Formal Thought Process Formal Thought Process: Hallucinations (in the emergency room but denied during the interview), Paranoia (denied during the interview pot reported in the emergency room) - Obsessions/Compulsions Obsessions: None Compulsions: None - Cognitive Functions Orientation: Person, Place Sensorium: Alert Attention/Concentration: Easily distracted Abstract Thinking: [place] Estimate of Intelligence: Below average Judgement: Intact, as evidence by: Insight regarding need for hospitalization - Risk Risk: Suicidal, Seizure, Withdrawal, Diminished functioning - Strength & Assets Inventory Strength & Assets Inventory: Cooperative - Limitations Limitations: Other (patient is homeless, chronic noncompliance with medications , alcohol addiction) DSM 5 DX - DSM 5 DSM 5 Diagnosis: rule out major depressive disorder Rule out substance-induced mood disorder rule out alcohol-related dementia alcohol use disorder - Recommended/Plan of Treatment Treatment Recommendations and Plan of Treatment: Milieu/structure/supportive therapy Medical consult will be called SW consultation for discharge plan and social issues Med management Celexa 10 mg by mouth daily for depression We'll monitor Vivitrol symptoms from alcohol Multivitamins, thiamine, folic acid Ativan scheduled as well as when necessary Remeron 50 mg for insomnia and for depression Physical therapy evaluation Neurontin 100 mg 3 times a day scheduled for neuropathy Family involvement Follow up on labs Will monitor closely Pt was educated about risk/benefits and alternatives of medications, coping strategies (safety plan, suicide prevention), relapse prevention, importance of follow up with psychiatrist and therapist, stay away from drugs/alcohol/smoking Projected ELOS: 7 days Prognosis: guarded Discharge Plan and Discharge Criteria: Pt will be not depressed or manic, will be more hopeful, will be not psychotic or anxious, will be not having thoughts of harming self or others, will be tolerating medications well, will not have major side effects, will be able to function, will not pose threat to self or others. - Smoking Cessation Smoking Cessation Initiated: Yes
[2018-02-01] MEDS: Multivitamin Therapeutic Tab PO SCH (09:03)
--- NOTE | 2018-02-01 14:45 | PCM.PYCHPN ---
Psychiatric Progress Note - Psychiatric Progress Note Patient seen today, length of contact: 30min Patient Chief Complaint: "I am constantly angry, annoyed and irritable". Problems Identified/Issues Discussed: Suicide/ homicide prevention, past psychiatric h/o, current psychiatric symptoms , medical problems, risk/benefits and alternatives of medications, medications compliance, coping strategies, substance abuse h/o, relapse prevention, importance of follow up with psychiatrist and therapist, discharge plan. Medical Problems: alcohol withdrawals unsteady gait alcoholic hepatitis? Diagnostic Results: 01/30/18 19:40 01/30/18 19:40 Lab Results 01/31/18 08:00: Fasting Glucose 101, Triglycerides 51, Cholesterol 183, LDL Cholesterol Direct 47, HDL Cholesterol 121 H 01/31/18 08:00: RPR Nonreactive 01/31/18 08:00: TSH 3rd Generation 1.77 01/31/18 00:07: Urine Opiates Screen Negative, Urine Methadone Screen Negative, Ur Barbiturates Screen Negative, Ur Phencyclidine Scrn Negative, Ur Amphetamines Screen Negative, U Benzodiazepines Scrn Negative, U Oth Cocaine Metabols Negative, U Cannabinoids Screen Negative 01/30/18 19:40: WBC 3.8 L D, RBC 4.03, Hgb 13.6 L, Hct 39.1 L, MCV 97.0, MCH 33.7, MCHC 34.8, RDW 13.0, Plt Count 111 L, MPV 9.6 01/30/18 19:40: Alcohol, Quantitative 291 H 01/30/18 19:40: Sodium 142, Potassium 4.0, Chloride 98, Carbon Dioxide 27, Anion Gap 21 H, BUN 9, Creatinine 0.7 L, Est GFR ( Amer) > 60, Est GFR ( Non-Af Amer) > 60, Random Glucose 101, Calcium 8.9, Total Bilirubin 0.8, AST 230 H D, ALT 82 H, Alkaline Phosphatase 129 H D, Total Protein 8.0, Albumin 4.2 , Globulin 3.9, Albumin/Globulin Ratio 1.1 Vital Signs Temp Pulse Pulse Resp BP Pulse Ox 02/01/18 07:25 99.5 F 115 H 135/103 H 02/01/18 07:24 115 H 137/103 H 02/01/18 07:00 98.2 F 112 H 18 160/107 H 01/31/18 16:00 84 133/91 H 01/31/18 14:58 104 H 18 01/31/18 07:17 98.4 F 104 H 18 125/91 H 01/31/18 06:33 98.4 F 104 H 18 125/91 H 01/31/18 06:03 76 18 116/70 100 01/31/18 05:00 98.0 F 84 20 124/86 98 01/31/18 00:00 80 16 132/76 97 01/30/18 19:07 98.4 F 85 18 135/78 99 DSM 5 Symptoms Update: shortly Pt is a 57 year old single male with reported history of depression, one prior psychiatric admission in 2017 for depression, patient has chronic alcohol consumption, alcohol addiction, patient brought himself to ED due to suicidal ideations with plan to jump off a bridge. patient is homeless, no support in the community, patient needs to be evaluated, observed, possible medications initiation. Patient was seen and examined today at the treatment team meeting, patient sitting comfortably in a wheelchair, as per staff pt has unsteady gait, high risk of falls, pt was evaluated by PT team today. pt was able to ambulate but was shaky. pt presented to be irritable, annoyed, pt seems like he is giving treatment team a favor by talking to them, pt has unpleasant personality, hard to deal with. pt is fixated on discharge, but at the same time pt is homeless, pt said "I want to go out and drink again", pt's vitals consistent with alcohol withdrawals , pt received 3mg po ativan stat. pt became agitated later on, pt needed to be medicated with Geodon and ativan IM. pt tolerates meds well, no side effects observed or reported, AIMS 0, no EPS. Impression: DSM 5 Diagnosis: rule out major depressive disorder Rule out substance-induced mood disorder rule out alcohol-related dementia alcohol use disorder Medication Change: Yes (neruontin, seroquel, ativan increased) Medical Record Reviewed: Yes Consults ordered or reviewed: this display card writer will call for medical consult PT eval appreciated Mental Status Examination - Cognitive Function Orientation: Person, Place Memory: Impaired Attention: Poor Concentration: Poor Association: Loose Fund of Knowledge: Poor - Mood Mood: Depressed, Anxious - Affect Affect: Constricted (and angry), Flat - Formal Thought Process Formal Thought Process: Hallucinations (in the emergency room but denied during the interview), Paranoia (denied during the interview pot reported in the emergency room) - Suicidal Ideation Suicidal Ideation: No - Homicidal Ideation Homicidal Ideation: No Goal/Treatment Plan - Goal/Treatment Plan Need for Continued Stay: Remain at risks for inpatient hospitalization, Severe depression anxiety, Discharge may exacerbated symptoms, Severe functional impairment Progress Toward Problem(s) and Goals/Treatment Plan: Milieu/structure/supportive therapy Medical consult will be called SW consultation for discharge plan and social issues Med management Celexa 10 mg by mouth daily for depression We'll monitor Vivitrol symptoms from alcohol Multivitamins, thiamine, folic acid Ativan scheduled as well as when necessary Remeron 15 mg for insomnia and for depression Physical therapy evaluation Neurontin 300mg 3 times a day scheduled for neuropathy seroquel 25mg po amhs for agitation, delirium, mood stabilization Family involvement Follow up on labs Will monitor closely Pt was educated about risk/benefits and alternatives of medications, coping strategies (safety plan, suicide prevention), relapse prevention, importance of follow up with psychiatrist and therapist, stay away from drugs/alcohol/smoking Estimated Date of D/C: 02/07/18
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
[2018-02-02] MEDS: Multivitamin Therapeutic Tab PO SCH (08:43)
--- NOTE | 2018-02-02 09:25 | PCM.PYCHPN ---
Psychiatric Progress Note - Psychiatric Progress Note Patient seen today, length of contact: 25 Problems Identified/Issues Discussed: Pt is a 57 year old single homeless, male with reported history of depression, one prior psychiatric admission in 2017 for depression, alcohol addiction who brought himself to ED due to suicidal ideations with plan to jump off a bridge I reviewed recent notes and met with patient at bedside. He appears disheveled and tired. He is superficially cooperative with questioning though appears disengaged. Patient claims that he doesn't know the current month or year. He denies any new discomfort, pain or side effects though reports vague symptoms of gagging this morning. He doesn't appear to be in any discomfort or distress at this time. Patient denies hallucinations and doesnt appear to be responding to internal stimuli. Staff notes indicate that patient has been maravilla and irritable with periods of agitation on the unit requiring prns. Remains on 1:1 due to unsteady gait. There have been no behavioral issues overnight however patient remains unpredictable. Diagnostic Results: rule out major depressive disorder Rule out substance-induced mood disorder rule out alcohol-related dementia alcohol use disorder Medication Change: Yes (neruontin, seroquel, ativan increased) Medical Record Reviewed: Yes Mental Status Examination - Cognitive Function Orientation: Person, Place Memory: Impaired Attention: Poor Concentration: Poor Association: Loose Fund of Knowledge: Poor - Mood Mood: Depressed, Anxious - Affect Affect: Constricted (and angry), Flat - Formal Thought Process Formal Thought Process: Hallucinations (in the emergency room but denied during the interview), Paranoia (denied during the interview pot reported in the emergency room) - Suicidal Ideation Suicidal Ideation: No - Homicidal Ideation Homicidal Ideation: No Goal/Treatment Plan - Goal/Treatment Plan Need for Continued Stay: Remain at risks for inpatient hospitalization, Severe depression anxiety, Discharge may exacerbated symptoms, Severe functional impairment Progress Toward Problem(s) and Goals/Treatment Plan: * c/w current tx and plan * Appreciate f/u by Dr. Wan on 02/02/18 * Taper Ativan as tolerated, vitals are noted below and they remains elevated. Will continue with current dose and monitor. Hold for sedation. 02/01/18 02/01/18 02/02/18 07:25 20:30 06:45 Temperature 99.5 F Pulse Rate 115 H 109 H 90 Respiratory 20 18 Rate Blood Pressure 135/103 H 132/87 144/96 H * No new weekend labs thus far Estimated Date of D/C: 02/07/18
[2018-02-02] MEDS ORDERED: Albuterol-Ipratrop 3 mg / 0.5 (3 ml) UD IH PRN (10:57)
[2018-02-02] MEDS ORDERED: guaiFENesin DM 100 mg-10 mg/5 ml UD PO PRN (10:57)
[2018-02-03] MEDS: Multivitamin Therapeutic Tab PO SCH (08:48)
--- NOTE | 2018-02-03 09:03 | PCM.PYCHPN ---
Psychiatric Progress Note - Psychiatric Progress Note Patient seen today, length of contact: 25 Patient Chief Complaint: "if you are good to me, I will be good to you, that's how I look at it". Problems Identified/Issues Discussed: Pt is a 57 year old single homeless, male with reported history of depression, one prior psychiatric admission in 2017 for depression, alcohol addiction who brought himself to ED due to suicidal ideations with plan to jump off a bridge I reviewed recent notes and met with patient at bedside. He still appears disheveled and tired. He is superficially cooperative with questioning. Overall , his affect is irritable, mildly dismissive and disinterested in my questioning. Today he guesses the month to be November and will not respond to other questions regarding orientation. When I ask him about the year, he responds "I always screw that up". Regarding his mood, he states "if you are good to me, I will be good to you, that's how I look at it". Patient denies any new discomfort, pain or side effects today. He doesn't appear to be in any discomfort or distress at this time though his gait is still unsteady. Patient denies hallucinations and doesn't appear to be responding to internal stimuli. Staff notes indicate that patient has been maravilla, confused and irritable with periods of agitation on the unit requiring prns. Apparently he was either delusional or hallucinating yesterday because he told a staff member that his water has chemicals in it. Patient also complained of double vision yesterday, he felt that it was secondary to Seroquel so this medication was discontinued. Patient remains on 1:1 due to unsteady gait. There have been no behavioral issues overnight however patient remains unpredictable. Diagnostic Results: rule out major depressive disorder Rule out substance-induced mood disorder rule out alcohol-related dementia alcohol use disorder Medication Change: Yes (neruontin, seroquel, ativan increased) Medical Record Reviewed: Yes Mental Status Examination - Cognitive Function Orientation: Person, Place Memory: Impaired Attention: Poor Concentration: Poor Association: Loose Fund of Knowledge: Poor - Mood Mood: Depressed, Anxious - Affect Affect: Constricted (and angry), Flat - Formal Thought Process Formal Thought Process: Hallucinations (in the emergency room but denied during the interview), Paranoia (denied during the interview pot reported in the emergency room) - Suicidal Ideation Suicidal Ideation: No - Homicidal Ideation Homicidal Ideation: No Goal/Treatment Plan - Goal/Treatment Plan Need for Continued Stay: Remain at risks for inpatient hospitalization, Severe depression anxiety, Discharge may exacerbated symptoms, Severe functional impairment Progress Toward Problem(s) and Goals/Treatment Plan: * c/w current tx and plan * Appreciate f/u by Dr. Rodriguez on 02/02/18. Requested medicine to monitor patient in case elevated vitals are secondary to essential HTN and/or worsening mental status is secondary to DTs * Taper Ativan as tolerated. Patient was at a high dose of Ativan 3 mg po q6 yesterday with variable benefit to his vitals however mental status appears to be worsening as patient is increasingly confused and may be hallucinating. Have to rule out benzo delirium vs DTs at this time. Ativan will be decreased to 2 mg po q6 standing and 1 mg po q6 prn. Hold for sedation. 02/01/18 02/02/18 02/02/18 20:30 06:45 07:00 Temperature 97.6 F Pulse Rate 109 H 90 90 Blood Pressure 132/87 144/96 H 144/96 H 02/02/18 02/02/18 02/03/18 09:00 15:00 00:49 Temperature 97.5 F L 97.2 F L Pulse Rate 104 H 90 136 H Blood Pressure 123/84 115/79 173/103 H 02/03/18 07:34 Temperature 97.6 F Pulse Rate 108 H Blood Pressure 150/112 H * No new weekend labs thus far Estimated Date of D/C: 02/07/18
[2018-02-04] MEDS: Multivitamin Therapeutic Tab PO SCH (09:08)
--- NOTE | 2018-02-04 16:06 | PCM.PYCHPN ---
Psychiatric Progress Note - Psychiatric Progress Note Patient seen today, length of contact: 30min Patient Chief Complaint: "I do NOT want to go to the snf" Problems Identified/Issues Discussed: Suicide/ homicide prevention, past psychiatric h/o, current psychiatric symptoms , medical problems, risk/benefits and alternatives of medications, medications compliance, coping strategies, substance abuse h/o, relapse prevention, importance of follow up with psychiatrist and therapist, discharge plan. Medical Problems: alcohol withdrawals unsteady gait alcoholic hepatitis? Diagnostic Results: 01/30/18 19:40 01/30/18 19:40 Lab Results 01/31/18 08:00: Fasting Glucose 101, Triglycerides 51, Cholesterol 183, LDL Cholesterol Direct 47, HDL Cholesterol 121 H 01/31/18 08:00: RPR Nonreactive 01/31/18 08:00: TSH 3rd Generation 1.77 01/31/18 00:07: Urine Opiates Screen Negative, Urine Methadone Screen Negative, Ur Barbiturates Screen Negative, Ur Phencyclidine Scrn Negative, Ur Amphetamines Screen Negative, U Benzodiazepines Scrn Negative, U Oth Cocaine Metabols Negative, U Cannabinoids Screen Negative 01/30/18 19:40: WBC 3.8 L D, RBC 4.03, Hgb 13.6 L, Hct 39.1 L, MCV 97.0, MCH 33.7, MCHC 34.8, RDW 13.0, Plt Count 111 L, MPV 9.6 01/30/18 19:40: Alcohol, Quantitative 291 H 01/30/18 19:40: Sodium 142, Potassium 4.0, Chloride 98, Carbon Dioxide 27, Anion Gap 21 H, BUN 9, Creatinine 0.7 L, Est GFR ( Amer) > 60, Est GFR ( Non-Af Amer) > 60, Random Glucose 101, Calcium 8.9, Total Bilirubin 0.8, AST 230 H D, ALT 82 H, Alkaline Phosphatase 129 H D, Total Protein 8.0, Albumin 4.2 , Globulin 3.9, Albumin/Globulin Ratio 1.1 Vital Signs Temp Pulse Pulse Resp BP Pulse Ox 02/01/18 07:25 99.5 F 115 H 135/103 H 02/01/18 07:24 115 H 137/103 H 02/01/18 07:00 98.2 F 112 H 18 160/107 H 01/31/18 16:00 84 133/91 H 01/31/18 14:58 104 H 18 01/31/18 07:17 98.4 F 104 H 18 125/91 H 01/31/18 06:33 98.4 F 104 H 18 125/91 H 01/31/18 06:03 76 18 116/70 100 01/31/18 05:00 98.0 F 84 20 124/86 98 01/31/18 00:00 80 16 132/76 97 01/30/18 19:07 98.4 F 85 18 135/78 99 DSM 5 Symptoms Update: shortly Pt is a 57 year old single male with reported history of depression, one prior psychiatric admission in 2017 for depression, patient has chronic alcohol consumption, alcohol addiction, patient brought himself to ED due to suicidal ideations with plan to jump off a bridge. patient is homeless, no support in the community, patient needs to be evaluated, observed, possible medications initiation. Patient was seen and examined today at the dinning area, patient sitting comfortably in a wheelchair, as per staff pt has unsteady gait, high risk of falls, pt was evaluated by PT team. pt was able to ambulate but was shaky. pt presented to be irritable, annoyed, but in less extent, pt reported his sleep improved, SW offered possible NH placement pt said "absolutely NO". overall pt has some positive changes, less irritable. pt tolerates meds well, no side effects observed or reported, AIMS 0, no EPS. Impression: DSM 5 Diagnosis: rule out major depressive disorder Rule out substance-induced mood disorder rule out alcohol-related dementia alcohol use disorder Medication Change: Yes (celexa and riserpdal increased) Medical Record Reviewed: Yes Consults ordered or reviewed: this editorial writer will call for medical consult PT eval appreciated Mental Status Examination - Cognitive Function Orientation: Person, Place Memory: Impaired Attention: Poor Concentration: Poor Association: Loose Fund of Knowledge: Poor - Mood Mood: Depressed, Anxious - Affect Affect: Constricted (and angry), Flat - Formal Thought Process Formal Thought Process: Hallucinations (in the emergency room but denied during the interview), Paranoia (denied during the interview pot reported in the emergency room) - Suicidal Ideation Suicidal Ideation: No - Homicidal Ideation Homicidal Ideation: No Goal/Treatment Plan - Goal/Treatment Plan Need for Continued Stay: Remain at risks for inpatient hospitalization, Severe depression anxiety, Discharge may exacerbated symptoms, Severe functional impairment Progress Toward Problem(s) and Goals/Treatment Plan: Milieu/structure/supportive therapy Medical consult will be called SW consultation for discharge plan and social issues Med management Celexa 10 mg by mouth daily for depression We'll monitor Vivitrol symptoms from alcohol Multivitamins, thiamine, folic acid Ativan scheduled as well as when necessary Remeron 15 mg for insomnia and for depression Physical therapy evaluation Neurontin 300mg 3 times a day scheduled for neuropathy seroquel was d/c risperdal started, will increase to 0.5mg po bid for agitation, delirium, mood stabilization Family involvement Follow up on labs Will monitor closely Pt was educated about risk/benefits and alternatives of medications, coping strategies (safety plan, suicide prevention), relapse prevention, importance of follow up with psychiatrist and therapist, stay away from drugs/alcohol/smoking Estimated Date of D/C: 02/07/18
[2018-02-05] MEDS: Multivitamin Therapeutic Tab PO SCH (09:27)
--- NOTE | 2018-02-05 16:46 | PCM.PYCHPN ---
Psychiatric Progress Note - Psychiatric Progress Note Patient seen today, length of contact: 30min Patient Chief Complaint: "I said my mood is DECENT" Problems Identified/Issues Discussed: Suicide/ homicide prevention, past psychiatric h/o, current psychiatric symptoms , medical problems, risk/benefits and alternatives of medications, medications compliance, coping strategies, substance abuse h/o, relapse prevention, importance of follow up with psychiatrist and therapist, discharge plan. Medical Problems: alcohol withdrawals unsteady gait alcoholic hepatitis? Diagnostic Results: 01/30/18 19:40 01/30/18 19:40 Lab Results 01/31/18 08:00: Fasting Glucose 101, Triglycerides 51, Cholesterol 183, LDL Cholesterol Direct 47, HDL Cholesterol 121 H 01/31/18 08:00: RPR Nonreactive 01/31/18 08:00: TSH 3rd Generation 1.77 01/31/18 00:07: Urine Opiates Screen Negative, Urine Methadone Screen Negative, Ur Barbiturates Screen Negative, Ur Phencyclidine Scrn Negative, Ur Amphetamines Screen Negative, U Benzodiazepines Scrn Negative, U Oth Cocaine Metabols Negative, U Cannabinoids Screen Negative 01/30/18 19:40: WBC 3.8 L D, RBC 4.03, Hgb 13.6 L, Hct 39.1 L, MCV 97.0, MCH 33.7, MCHC 34.8, RDW 13.0, Plt Count 111 L, MPV 9.6 01/30/18 19:40: Alcohol, Quantitative 291 H 01/30/18 19:40: Sodium 142, Potassium 4.0, Chloride 98, Carbon Dioxide 27, Anion Gap 21 H, BUN 9, Creatinine 0.7 L, Est GFR ( Amer) > 60, Est GFR ( Non-Af Amer) > 60, Random Glucose 101, Calcium 8.9, Total Bilirubin 0.8, AST 230 H D, ALT 82 H, Alkaline Phosphatase 129 H D, Total Protein 8.0, Albumin 4.2 , Globulin 3.9, Albumin/Globulin Ratio 1.1 Vital Signs Temp Pulse Pulse Resp BP Pulse Ox 02/01/18 07:25 99.5 F 115 H 135/103 H 02/01/18 07:24 115 H 137/103 H 02/01/18 07:00 98.2 F 112 H 18 160/107 H 01/31/18 16:00 84 133/91 H 01/31/18 14:58 104 H 18 01/31/18 07:17 98.4 F 104 H 18 125/91 H 01/31/18 06:33 98.4 F 104 H 18 125/91 H 01/31/18 06:03 76 18 116/70 100 01/31/18 05:00 98.0 F 84 20 124/86 98 01/31/18 00:00 80 16 132/76 97 01/30/18 19:07 98.4 F 85 18 135/78 99 DSM 5 Symptoms Update: shortly Pt is a 57 year old single male with reported history of depression, one prior psychiatric admission in 2017 for depression, patient has chronic alcohol consumption, alcohol addiction, patient brought himself to ED due to suicidal ideations with plan to jump off a bridge. patient is homeless, no support in the community, patient needs to be evaluated, observed, possible medications initiation. Patient was seen and examined today in his room, patient took a shower, still irritable, but not agitated, pt said that his mood is "decent", pt does not want to be referred to the [facility], pt is homeless, does not want to be referred to the inpatient rehab. gait is little better, as per staff pt tried to walk with unsteady gait, pt still has high risk of falls. pt tolerates meds well, no side effects observed or reported, AIMS 0, no EPS. Impression: DSM 5 Diagnosis: rule out major depressive disorder Rule out substance-induced mood disorder rule out alcohol-related dementia alcohol use disorder Medication Change: Yes (celexa and riserpdal increased 02/04/18) Medical Record Reviewed: Yes Consults ordered or reviewed: this law writer will call for medical consult PT eval appreciated Mental Status Examination - Cognitive Function Orientation: Person, Place Memory: Impaired Attention: Poor Concentration: Poor Association: Loose Fund of Knowledge: Poor - Mood Mood: Depressed, Anxious - Affect Affect: Constricted (and angry), Flat - Formal Thought Process Formal Thought Process: Hallucinations (in the emergency room but denied during the interview), Paranoia (denied during the interview pot reported in the emergency room) - Suicidal Ideation Suicidal Ideation: No - Homicidal Ideation Homicidal Ideation: No Goal/Treatment Plan - Goal/Treatment Plan Need for Continued Stay: Remain at risks for inpatient hospitalization, Severe depression anxiety, Discharge may exacerbated symptoms, Severe functional impairment Progress Toward Problem(s) and Goals/Treatment Plan: Milieu/structure/supportive therapy Medical consult will be called SW consultation for discharge plan and social issues Med management Celexa 20 mg by mouth daily for depression We'll monitor Vivitrol symptoms from alcohol Multivitamins, thiamine, folic acid Ativan scheduled as well as when necessary Remeron 15 mg for insomnia and for depression Physical therapy evaluation Neurontin 300mg 3 times a day scheduled for neuropathy seroquel was d/c risperdal 0.5mg po bid for agitation, delirium, mood stabilization Family involvement Follow up on labs Will monitor closely Pt was educated about risk/benefits and alternatives of medications, coping strategies (safety plan, suicide prevention), relapse prevention, importance of follow up with psychiatrist and therapist, stay away from drugs/alcohol/smoking Estimated Date of D/C: 02/07/18
[2018-02-06] MEDS: Multivitamin Therapeutic Tab PO SCH (09:09)
--- NOTE | 2018-02-06 12:40 | PCM.PYCHPN ---
Psychiatric Progress Note - Psychiatric Progress Note Patient seen today, length of contact: 30min Patient Chief Complaint: "I am walking SLOWLY" Problems Identified/Issues Discussed: Suicide/ homicide prevention, past psychiatric h/o, current psychiatric symptoms , medical problems, risk/benefits and alternatives of medications, medications compliance, coping strategies, substance abuse h/o, relapse prevention, importance of follow up with psychiatrist and therapist, discharge plan. Medical Problems: alcohol withdrawals unsteady gait alcoholic hepatitis? Diagnostic Results: 01/30/18 19:40 01/30/18 19:40 Lab Results 01/31/18 08:00: Fasting Glucose 101, Triglycerides 51, Cholesterol 183, LDL Cholesterol Direct 47, HDL Cholesterol 121 H 01/31/18 08:00: RPR Nonreactive 01/31/18 08:00: TSH 3rd Generation 1.77 01/31/18 00:07: Urine Opiates Screen Negative, Urine Methadone Screen Negative, Ur Barbiturates Screen Negative, Ur Phencyclidine Scrn Negative, Ur Amphetamines Screen Negative, U Benzodiazepines Scrn Negative, U Oth Cocaine Metabols Negative, U Cannabinoids Screen Negative 01/30/18 19:40: WBC 3.8 L D, RBC 4.03, Hgb 13.6 L, Hct 39.1 L, MCV 97.0, MCH 33.7, MCHC 34.8, RDW 13.0, Plt Count 111 L, MPV 9.6 01/30/18 19:40: Alcohol, Quantitative 291 H 01/30/18 19:40: Sodium 142, Potassium 4.0, Chloride 98, Carbon Dioxide 27, Anion Gap 21 H, BUN 9, Creatinine 0.7 L, Est GFR ( Amer) > 60, Est GFR ( Non-Af Amer) > 60, Random Glucose 101, Calcium 8.9, Total Bilirubin 0.8, AST 230 H D, ALT 82 H, Alkaline Phosphatase 129 H D, Total Protein 8.0, Albumin 4.2 , Globulin 3.9, Albumin/Globulin Ratio 1.1 Vital Signs Temp Pulse Pulse Resp BP Pulse Ox 02/01/18 07:25 99.5 F 115 H 135/103 H 02/01/18 07:24 115 H 137/103 H 02/01/18 07:00 98.2 F 112 H 18 160/107 H 01/31/18 16:00 84 133/91 H 01/31/18 14:58 104 H 18 01/31/18 07:17 98.4 F 104 H 18 125/91 H 01/31/18 06:33 98.4 F 104 H 18 125/91 H 01/31/18 06:03 76 18 116/70 100 01/31/18 05:00 98.0 F 84 20 124/86 98 01/31/18 00:00 80 16 132/76 97 01/30/18 19:07 98.4 F 85 18 135/78 99 DSM 5 Symptoms Update: shortly Pt is a 57 year old single male with reported history of depression, one prior psychiatric admission in 2017 for depression, patient has chronic alcohol consumption, alcohol addiction, patient brought himself to ED due to suicidal ideations with plan to jump off a bridge. patient is homeless, no support in the community, patient needs to be evaluated, observed, possible medications initiation. Patient was seen and examined today at the hallway, pt presented to be less irritable, pt ambulates using a walker, pt seems to be unsteady, will call PT for reevaluation. pt reported to feel "better than before, I am fine", pt reported his appetite and sleep are better. pt denied any thoughts of harming self or others. pt is homeless, does not want to be referred to the inpatient rehab. pt is off 1:1. pt tolerates meds well, no side effects observed or reported, AIMS 0, no EPS. Impression: DSM 5 Diagnosis: rule out major depressive disorder Rule out substance-induced mood disorder rule out alcohol-related dementia alcohol use disorder Medication Change: No Medical Record Reviewed: Yes Mental Status Examination - Cognitive Function Orientation: Person, Place Memory: Impaired Attention: Poor (some improvemnent) Concentration: Poor (some improvement) Association: Loose (some improvement) Fund of Knowledge: Poor - Mood Mood: Depressed ("my mood is DICENT"), Anxious - Affect Affect: Constricted (irritable) - Formal Thought Process Formal Thought Process: Hallucinations (denied) - Suicidal Ideation Suicidal Ideation: No - Homicidal Ideation Homicidal Ideation: No Goal/Treatment Plan - Goal/Treatment Plan Need for Continued Stay: Remain at risks for inpatient hospitalization, Severe depression anxiety, Discharge may exacerbated symptoms, Severe functional impairment Progress Toward Problem(s) and Goals/Treatment Plan: Milieu/structure/supportive therapy Medical consult will be called SW consultation for discharge plan and social issues Med management Celexa 20 mg by mouth daily for depression We'll monitor Vivitrol symptoms from alcohol Multivitamins, thiamine, folic acid Ativan scheduled as well as when necessary Remeron 15 mg for insomnia and for depression Physical therapy evaluation Neurontin 300mg 3 times a day scheduled for neuropathy seroquel was d/c risperdal 0.5mg po bid for agitation, delirium, mood stabilization Family involvement Follow up on labs Will monitor closely Pt was educated about risk/benefits and alternatives of medications, coping strategies (safety plan, suicide prevention), relapse prevention, importance of follow up with psychiatrist and therapist, stay away from drugs/alcohol/smoking PT reevaluation Estimated Date of D/C: 02/08/18
[2018-02-07] MEDS: Multivitamin Therapeutic Tab PO SCH (09:19)
--- NOTE | 2018-02-07 16:12 | PCM.PYCHPN ---
Psychiatric Progress Note - Psychiatric Progress Note Patient seen today, length of contact: 30min Patient Chief Complaint: "I cannot walk, I also see double now" Problems Identified/Issues Discussed: Suicide/ homicide prevention, past psychiatric h/o, current psychiatric symptoms , medical problems, risk/benefits and alternatives of medications, medications compliance, coping strategies, substance abuse h/o, relapse prevention, importance of follow up with psychiatrist and therapist, discharge plan. Medical Problems: alcohol withdrawals unsteady gait alcoholic hepatitis? Diagnostic Results: 01/30/18 19:40 01/30/18 19:40 Lab Results 01/31/18 08:00: Fasting Glucose 101, Triglycerides 51, Cholesterol 183, LDL Cholesterol Direct 47, HDL Cholesterol 121 H 01/31/18 08:00: RPR Nonreactive 01/31/18 08:00: TSH 3rd Generation 1.77 01/31/18 00:07: Urine Opiates Screen Negative, Urine Methadone Screen Negative, Ur Barbiturates Screen Negative, Ur Phencyclidine Scrn Negative, Ur Amphetamines Screen Negative, U Benzodiazepines Scrn Negative, U Oth Cocaine Metabols Negative, U Cannabinoids Screen Negative 01/30/18 19:40: WBC 3.8 L D, RBC 4.03, Hgb 13.6 L, Hct 39.1 L, MCV 97.0, MCH 33.7, MCHC 34.8, RDW 13.0, Plt Count 111 L, MPV 9.6 01/30/18 19:40: Alcohol, Quantitative 291 H 01/30/18 19:40: Sodium 142, Potassium 4.0, Chloride 98, Carbon Dioxide 27, Anion Gap 21 H, BUN 9, Creatinine 0.7 L, Est GFR ( Amer) > 60, Est GFR ( Non-Af Amer) > 60, Random Glucose 101, Calcium 8.9, Total Bilirubin 0.8, AST 230 H D, ALT 82 H, Alkaline Phosphatase 129 H D, Total Protein 8.0, Albumin 4.2 , Globulin 3.9, Albumin/Globulin Ratio 1.1 Vital Signs Temp Pulse Pulse Resp BP Pulse Ox 02/01/18 07:25 99.5 F 115 H 135/103 H 02/01/18 07:24 115 H 137/103 H 02/01/18 07:00 98.2 F 112 H 18 160/107 H 01/31/18 16:00 84 133/91 H 01/31/18 14:58 104 H 18 01/31/18 07:17 98.4 F 104 H 18 125/91 H 01/31/18 06:33 98.4 F 104 H 18 125/91 H 01/31/18 06:03 76 18 116/70 100 01/31/18 05:00 98.0 F 84 20 124/86 98 01/31/18 00:00 80 16 132/76 97 01/30/18 19:07 98.4 F 85 18 135/78 99 DSM 5 Symptoms Update: shortly Pt is a 57 year old single male with reported history of depression, one prior psychiatric admission in 2017 for depression, patient has chronic alcohol consumption, alcohol addiction, patient brought himself to ED due to suicidal ideations with plan to jump off a bridge. patient is homeless, no support in the community, patient needs to be evaluated, observed, possible medications initiation. Patient was seen and examined today at the treatment team meeting room, pt presented to be less irritable, pt ambulates using a walker, still has unsteady gait, PT evaluated pt, no clear recommendations. pt was c/o "double vision", pt is not sure what it is related to, none of the meds could give "Double visions" "I could see two bottles now" (it was a bottle of water on the desk), pt said "It is very annoying when I am watching TV". Risperdal was switched to HS dose. will call for medical f/u. pt tolerates meds well, no side effects observed or reported, AIMS 0, no EPS. Impression: DSM 5 Diagnosis: rule out major depressive disorder Rule out substance-induced mood disorder rule out alcohol-related dementia alcohol use disorder Medication Change: Yes (ativan decreased, riseprdal will be given at hs) Medical Record Reviewed: Yes Mental Status Examination - Cognitive Function Orientation: Person, Place Memory: Impaired Attention: Poor (some improvemnent) Concentration: Poor (some improvement) Association: Loose (some improvement) Fund of Knowledge: Poor - Mood Mood: Depressed ("my mood is DICENT"), Anxious - Affect Affect: Constricted (irritable) - Formal Thought Process Formal Thought Process: Hallucinations (denied) - Suicidal Ideation Suicidal Ideation: No - Homicidal Ideation Homicidal Ideation: No Goal/Treatment Plan - Goal/Treatment Plan Need for Continued Stay: Remain at risks for inpatient hospitalization, Severe depression anxiety, Discharge may exacerbated symptoms, Severe functional impairment Progress Toward Problem(s) and Goals/Treatment Plan: Milieu/structure/supportive therapy Medical consult will be called SW consultation for discharge plan and social issues Med management Celexa 20 mg by mouth daily for depression We'll monitor Vivitrol symptoms from alcohol Multivitamins, thiamine, folic acid Ativan is on tapering dose, PLEASE WEAN IT OFF over the weekend Remeron 15 mg for insomnia and for depression Physical therapy follow up Neurontin 300mg 3 times a day scheduled for neuropathy seroquel was d/c risperdal 1mg po hs for agitation, delirium, mood stabilization Family involvement Follow up on labs Will monitor closely Pt was educated about risk/benefits and alternatives of medications, coping strategies (safety plan, suicide prevention), relapse prevention, importance of follow up with psychiatrist and therapist, stay away from drugs/alcohol/smoking PT reevaluation Estimated Date of D/C: 02/12/18
[2018-02-08] MEDS: Multivitamin Therapeutic Tab PO SCH (07:55)
--- NOTE | 2018-02-08 11:29 | CP.PCM.PN ---
<Bulmaro Burnett - Last Filed: 02/08/18 11:12> Subjective - Date & Time of Evaluation Date of Evaluation: 02/08/18 Time of Evaluation: 09:00 - Subjective Subjective: PGY1 Medicine Note for Dr. Abebe Patient seen and examined at this morning. Patient is sitting watching TV in the common room. Medicine was re-consulted for a complaint of blurry vision. Patient reports that he no longer has blurry vision. It was reported that the patient was seeing double. He states that it was constant for 3 days but was resolved when he woke up today. This has never happened to him before. He does not wear glasses or contacts. He denies any other symptoms and states that he feels completely normal. Denies fevers, chills, nausea, vomiting, diarrhea, constipation, chest pain, cough, shortness of breath, eye pain, eye discharge, numbness, tingling, slurred speech or weakness. Objective - Vital Signs/Intake and Output Vital Signs (last 24 hours): Temp Pulse Resp BP Pulse Ox 98.6 F 78 20 127/83 100 02/08/18 06:39 02/08/18 06:39 02/08/18 06:39 02/08/18 06:39 01/31/18 06:03 - Medications Medications: Current Medications Al Hydrox/Mg Hydrox/Simethicone (Maalox Plus 30 Ml) 30 ml PO DAILY PRN PRN Reason: Upset Stomach Albuterol/Ipratropium (Duoneb 3 Mg/0.5 Mg (3 Ml) Ud) 3 ml IH [id number] PRN PRN Reason: Shortness of Breath Citalopram Hydrobromide (Celexa) 20 mg PO DAILY [facility] Last Admin: 02/08/18 07:55 Dose: 20 mg Clonidine HCl (Catapres) 0.1 mg PO Q4 PRN PRN Reason: Systolic Blood Pressure Last Admin: 02/07/18 06:37 Dose: 0.1 mg Folic Acid (Folic Acid) 1 mg PO DAILY [facility] Last Admin: 02/08/18 07:55 Dose: 1 mg Gabapentin (Neurontin) 300 mg PO TID [facility] PRN Reason: Protocol Last Admin: 02/08/18 07:55 Dose: 300 mg Guaifenesin/Dextromethorphan (Robitussin Dm) 5 ml PO Q4H PRN PRN Reason: Cough Last Admin: 02/08/18 06:18 Dose: 5 ml Lorazepam (Ativan) 1 mg PO Q6H PRN; Protocol PRN Reason: alcohol withdrawals Last Admin: 02/04/18 03:38 Dose: 1 mg Lorazepam (Ativan) 2 mg PO TID ELY PRN Reason: Protocol Last Admin: 02/08/18 07:54 Dose: 2 mg Magnesium Hydroxide (Milk Of Magnesia) 30 ml PO DAILY PRN PRN Reason: Constipation Multivitamins (Thera Tab) 1 tab PO 0800 ELY Last Admin: 02/08/18 07:55 Dose: 1 tab Nicotine (Nicoderm Cq) 1 patch TD DAILY ELY Last Admin: 02/08/18 07:55 Dose: 1 patch Risperidone (Risperdal Tab) 1 mg PO HS ELY PRN Reason: Protocol Last Admin: 02/07/18 21:00 Dose: 1 mg Thiamine HCl (Vitamin B1 Tab) 100 mg PO DAILY [facility] Last Admin: 02/08/18 07:55 Dose: 100 mg Zaleplon (Sonata) 5 mg PO HS PRN PRN Reason: Insomnia Last Admin: 02/05/18 21:10 Dose: 5 mg - Constitutional Appears: Non-toxic, No Acute Distress - Head Exam Head Exam: ATRAUMATIC, NORMOCEPHALIC - Eye Exam Eye Exam: EOMI, Normal appearance, PERRL. absent: Conjunctival injection, Nystagmus, Periorbital swelling, Periorbital tenderness, Scleral icterus Pupil Exam: NORMAL ACCOMODATION, PERRL Additional comments: Visual field testing - normal visual jain, no deficit noted - ENT Exam ENT Exam: Mucous Membranes Moist - Neck Exam Neck Exam: Normal Inspection. absent: Lymphadenopathy, Tenderness - Respiratory Exam Respiratory Exam: Clear to Ausculation Bilateral, NORMAL BREATHING PATTERN. absent: Accessory Muscle Use, Rhonchi, Wheezes, Respiratory Distress - Cardiovascular Exam Cardiovascular Exam: REGULAR RHYTHM, +S1, +S2 - Neurological Exam Neurological Exam: Alert, Awake, CN II-XII Intact, Oriented x3. absent: Motor Sensory Deficit - Psychiatric Exam Psychiatric exam: Normal Affect, Normal Mood - Skin Skin Exam: Dry, Warm Assessment and Plan - Assessment and Plan (Free Text) Assessment: Jordan Valerio, 57 M, was admitted to the psychiatric inpatient unit on , for suicidal ideation. PMHx include HTN, heavy smoking with COPD, chronic alcohol consumption, alcohol addiction. He was drinking on daily basis about 2 packs of 12 ounces of beer, last drink was prior inpatient psych admission. He is homeless, does not take meds, does not see therapist/doctor, no support in the community. Medicine re-consulted for complaint of blurry vision - now resolved. Plan: Complaint of blurry vision Medicine team re-consulted for complaint of blurry vision Patient states that his blurry vision has resolved and his vision is completely back to normal. Physical exam of vision and neuro exams are unremarkable. No further testing at this time. Upon discharge, patient is to follow up with Ophthalmology. - If patient does not have a PMD to refer to ophthalmology, patient can follow up with the [facility] for referral to Ophthalmology. Depression As per psychology. Suicidal Ideation As per psychology. Medicine signing off. Please re-consult as needed. Thank you. Case discussed with Bulmaro Goodman PGY1 <Negar Abebe - Last Filed: 02/08/18 11:59> Objective - Vital Signs/Intake and Output Vital Signs (last 24 hours): Temp Pulse Resp BP Pulse Ox 98.6 F 78 20 127/83 100 02/08/18 06:39 02/08/18 06:39 02/08/18 06:39 02/08/18 06:39 01/31/18 06:03 - Medications Medications: Current Medications Al Hydrox/Mg Hydrox/Simethicone (Maalox Plus 30 Ml) 30 ml PO DAILY PRN PRN Reason: Upset Stomach Albuterol/Ipratropium (Duoneb 3 Mg/0.5 Mg (3 Ml) Ud) 3 ml IH [id number] PRN PRN Reason: Shortness of Breath Citalopram Hydrobromide (Celexa) 20 mg PO DAILY [facility] Last Admin: 02/08/18 07:55 Dose: 20 mg Clonidine HCl (Catapres) 0.1 mg PO Q4 PRN PRN Reason: Systolic Blood Pressure Last Admin: 02/07/18 06:37 Dose: 0.1 mg Folic Acid (Folic Acid) 1 mg PO DAILY [facility] Last Admin: 02/08/18 07:55 Dose: 1 mg Gabapentin (Neurontin) 300 mg PO TID ELY PRN Reason: Protocol Last Admin: 02/08/18 07:55 Dose: 300 mg Guaifenesin/Dextromethorphan (Robitussin Dm) 5 ml PO Q4H PRN PRN Reason: Cough Last Admin: 02/08/18 06:18 Dose: 5 ml Lorazepam (Ativan) 1 mg PO Q6H PRN; Protocol PRN Reason: alcohol withdrawals Last Admin: 02/04/18 03:38 Dose: 1 mg Lorazepam (Ativan) 2 mg PO TID ELY PRN Reason: Protocol Last Admin: 02/08/18 07:54 Dose: 2 mg Magnesium Hydroxide (Milk Of Magnesia) 30 ml PO DAILY PRN PRN Reason: Constipation Multivitamins (Thera Tab) 1 tab PO 0800 [facility] Last Admin: 02/08/18 07:55 Dose: 1 tab Nicotine (Nicoderm Cq) 1 patch TD DAILY ELY Last Admin: 02/08/18 07:55 Dose: 1 patch Risperidone (Risperdal Tab) 1 mg PO HS ELY PRN Reason: Protocol Last Admin: 02/07/18 21:00 Dose: 1 mg Thiamine HCl (Vitamin B1 Tab) 100 mg PO DAILY ELY Last Admin: 02/08/18 07:55 Dose: 100 mg Zaleplon (Sonata) 5 mg PO HS PRN PRN Reason: Insomnia Last Admin: 02/05/18 21:10 Dose: 5 mg Attending/Attestation - Attestation I have personally seen and examined this patient.: Yes I have fully participated in the care of the patient.: Yes I have reviewed all pertinent clinical information, including history, physical exam and plan: Yes
--- NOTE | 2018-02-08 12:05 | PCM.BM ---
<Annamarie Putnam - Last Filed: 02/08/18 12:03> Treatment Plan Problems - Problems identified on initial assessmt hopelessness/helplessness Date Initiated: 01/31/18 Time Initiated: 15:15 Assessment reference: HP, Other Status: Active medication nonadherence Date Initiated: 01/31/18 Time Initiated: 15:16 Assessment reference: HP, NA Status: Active self care deficit Date Initiated: 01/31/18 Time Initiated: 15:16 Assessment reference: HP, NA Status: Active Treatment assets and liabiliti Patient Assests: cooperative, negotiates basic needs, cognitively intact Patient Liabilities: live alone, financial problems, poor support system, relationship conflicts, substance abuse, other - Milieu Protocol Maintain good personal hygiene: daily Encourage regular showers, daily Remind patient to perform daily oral care, daily Assist patient to perform ADL's Maintain personal safety: daily Educate patient to report safety concerns to staff, daily Monitor environment for contraband/sharps Medication safety: Monitor for expected outcome, potential side effects: daily, Assess barriers to learning: daily, Assess readiness for medication education: daily Milieu Narrative: * c/w current tx and plan * Appreciate f/u by Dr. Rodriguez on 02/02/18. Requested medicine to monitor patient in case elevated vitals are secondary to essential HTN and/or worsening mental status is secondary to DTs * Taper Ativan as tolerated. Patient was at a high dose of Ativan 3 mg po q6 yesterday with variable benefit to his vitals however mental status appears to be worsening as patient is increasingly confused and may be hallucinating. Have to rule out benzo delirium vs DTs at this time. Ativan will be decreased to 2 mg po q6 standing and 1 mg po q6 prn. Hold for sedation. 02/01/18 02/02/18 02/02/18 20:30 06:45 07:00 Temperature 97.6 F Pulse Rate 109 H 90 90 Blood Pressure 132/87 144/96 H 144/96 H 02/02/18 02/02/18 02/03/18 09:00 15:00 00:49 Temperature 97.5 F L 97.2 F L Pulse Rate 104 H 90 136 H Blood Pressure 123/84 115/79 173/103 H 02/03/18 07:34 Temperature 97.6 F Pulse Rate 108 H Blood Pressure 150/112 H * No new weekend labs thus far Family Contact Family involvement: Famliy/SO not involved Discharge/Continuing Care - Education Needs Education Needs: Patient Medication, Patient Diagnosis/Disease Process, Patient Coping Skills, Patient Community resources, Patient Activities of Daily Living, Patient Uses of Medical Equipment, Patient Health Practices/Safety, Patient Personal Hygiene/Grooming, Patient Aftercare Safety Plan, Patient Other - Discharge Discharge Criteria: Tolerates medication w/o severe side effects, Free of Homicidal thoughts, Normal sleep pattern, Reduction of target symptoms Discharge to:: Home, Skilled Nursing - Treatment Team Participation Patient/Family/SO Statement: * c/w current tx and plan * Appreciate f/u by Dr. Rodriguez on 02/02/18. Requested medicine to monitor patient in case elevated vitals are secondary to essential HTN and/or worsening mental status is secondary to DTs * Taper Ativan as tolerated. Patient was at a high dose of Ativan 3 mg po q6 yesterday with variable benefit to his vitals however mental status appears to be worsening as patient is increasingly confused and may be hallucinating. Have to rule out benzo delirium vs DTs at this time. Ativan will be decreased to 2 mg po q6 standing and 1 mg po q6 prn. Hold for sedation. 02/01/18 02/02/18 02/02/18 20:30 06:45 07:00 Temperature 97.6 F Pulse Rate 109 H 90 90 Blood Pressure 132/87 144/96 H 144/96 H 02/02/18 02/02/18 02/03/18 09:00 15:00 00:49 Temperature 97.5 F L 97.2 F L Pulse Rate 104 H 90 136 H Blood Pressure 123/84 115/79 173/103 H 02/03/18 07:34 Temperature 97.6 F Pulse Rate 108 H Blood Pressure 150/112 H * No new weekend labs thus far Treatment Plan Review Patient participation: Yes - Problem hopelessness/helplessness Date Initiated: 02/08/18 Time Initiated: 12:04 Progress toward outcomes: improved medication nonadherence Date Initiated: 02/08/18 Time Initiated: 12:04 Progress toward outcomes: improved self care deficit Date Initiated: 02/08/18 Time Initiated: 12:04 Progress toward outcomes: improved <Anat Escalera Y - Last Filed: 02/08/18 14:29> Family Contact Family involvement: Famliy/SO not involved
--- NOTE | 2018-02-08 12:22 | PCM.PYCHPN ---
Psychiatric Progress Note - Psychiatric Progress Note Patient seen today, length of contact: 25 min Patient Chief Complaint: "getting better" Problems Identified/Issues Discussed: Pt is a 57 year old single homeless, male with reported history of depression, one prior psychiatric admission in 2017 for depression, alcohol addiction who brought himself to ED due to suicidal ideations with plan to jump off a bridge Patient is familiar to me from prior interviews during this admission. I reviewed recent staff notes. I met with patient at bedside and again during treatment team meeting. He is definitely improving on the unit. He is more alert , focused and nourished appearing. Patient still can't provide the correct month or year. He tells me that he is tired and aches but getting better. He is not suicidal or homicidal. Patient is still maravilla but disposition is more pleasant and less irritable. He denies hallucinations or any new pain or discomfort. Gait is unsteady but patient appears to be careful when on his walker. Patient did not complain about withdrawal symptoms and none were observed. Staff notes indicate that patients behavior is improving, he is less irritable but remains labile. Affect is blunt and guarded. He is compliant with medications and visible in the community areas with peers. Diagnostic Results: rule out major depressive disorder Rule out substance-induced mood disorder rule out alcohol-related dementia alcohol use disorder Medication Change: Yes (ativan decreased, riseprdal will be given at hs) Medical Record Reviewed: Yes Mental Status Examination - Cognitive Function Orientation: Person, Place Memory: Impaired Attention: WNL (some improvemnent) Concentration: Poor (some improvement) Association: Loose (some improvement) Fund of Knowledge: Poor - Mood Mood: Depressed ("better"), Anxious - Affect Affect: Constricted (more related and reactive but can still be labile/irritable ) - Formal Thought Process Formal Thought Process: Hallucinations (denied) - Suicidal Ideation Suicidal Ideation: No - Homicidal Ideation Homicidal Ideation: No Goal/Treatment Plan - Goal/Treatment Plan Need for Continued Stay: Remain at risks for inpatient hospitalization, Severe depression anxiety, Discharge may exacerbated symptoms, Severe functional impairment Progress Toward Problem(s) and Goals/Treatment Plan: * c/w current tx and plan * No new labs thus far today * Vitals reviewed and noted below: Selected Entries 02/08/18 06:39 Temperature 98.6 F Pulse Rate 78 Respiratory 20 Rate Blood Pressure 127/83 Estimated Date of D/C: 02/12/18
--- NOTE | 2018-02-09 09:02 | PCM.PYCHPN ---
Psychiatric Progress Note - Psychiatric Progress Note Patient seen today, length of contact: 25 min Patient Chief Complaint: "getting better" Problems Identified/Issues Discussed: Pt is a 57 year old single homeless, male with reported history of depression, one prior psychiatric admission in 2017 for depression, alcohol addiction who brought himself to ED due to suicidal ideations with plan to jump off a bridge I reviewed recent staff notes and met with patient at bedside. Affect, range and reactivity demonstrate sustained improvement. He remains more alert, focused and nourished appearing. He admits that he is improving slowly, affect is still constricted and maravilla but as noted yesterday, he is more pleasant and less irritable. Smiles and even jokes a little. He denies hallucinations or any new pain or discomfort. Gait is unsteady but patient appears to be careful when on his walker. Patient did not complain about withdrawal symptoms and none were observed. Staff notes indicate that patients behavior is improving, he is less irritable but remains labile. Affect is a little blunt and less guarded. He is compliant with medications and visible in the community areas with peers. There were no behavioral issues over the weekend thus far. Diagnostic Results: rule out major depressive disorder Rule out substance-induced mood disorder rule out alcohol-related dementia alcohol use disorder Medication Change: Yes (ativan decreased, riseprdal will be given at hs) Medical Record Reviewed: Yes Mental Status Examination - Cognitive Function Orientation: Person, Place Memory: Impaired Attention: WNL (some improvemnent) Concentration: Poor (some improvement) Association: Loose (some improvement) Fund of Knowledge: Poor - Mood Mood: Depressed ("better"), Anxious - Affect Affect: Constricted (more related and reactive but can still be labile/irritable ) - Formal Thought Process Formal Thought Process: Hallucinations (denied) - Suicidal Ideation Suicidal Ideation: No - Homicidal Ideation Homicidal Ideation: No Goal/Treatment Plan - Goal/Treatment Plan Need for Continued Stay: Remain at risks for inpatient hospitalization, Severe depression anxiety, Discharge may exacerbated symptoms, Severe functional impairment Progress Toward Problem(s) and Goals/Treatment Plan: * c/w current tx and plan * No new labs thus far today * Vitals reviewed and noted below: Selected Entries 02/09/18 06:39 Temperature 97.9 F Pulse Rate 80 Respiratory 20 Rate Blood Pressure 135/96 H * Vital signs stable, Ativan 2 mg po TID decreased to AMHS today February 09. To c/ w taper this weekend. Estimated Date of D/C: 02/12/18
[2018-02-09] MEDS: Multivitamin Therapeutic Tab PO SCH (09:20)
--- NOTE | 2018-02-10 09:16 | PCM.PYCHPN ---
Psychiatric Progress Note - Psychiatric Progress Note Patient seen today, length of contact: 25 min Patient Chief Complaint: "getting better" Problems Identified/Issues Discussed: Pt is a 57 year old single homeless, male with reported history of depression, one prior psychiatric admission in 2017 for depression, alcohol addiction who brought himself to ED due to suicidal ideations with plan to jump off a bridge I reviewed recent staff notes and met with patient in the dayroom. Affect range and reactivity continue to improve. He remains more alert, focused and nourished appearing. Patient still can't provide the correct month or year and indicates that he really doesn't care [as it's not particularly relevant on the unit]. He tells me that he is tired and aches but getting better. He is not suicidal or homicidal. Patient is still maravilla but disposition is more pleasant and less irritable. Smiles and even jokes a little. He denies hallucinations or any new pain or discomfort. Gait is unsteady but patient appears to be careful when on his walker. Patient did not complain about withdrawal symptoms and none were observed. Staff notes indicate that patients behavior is improving, he is less irritable but remains labile. Affect is blunt and a little less guarded. He is compliant with medications and visible in the community areas with peers. Diagnostic Results: rule out major depressive disorder Rule out substance-induced mood disorder rule out alcohol-related dementia alcohol use disorder Medication Change: Yes ( Vital signs stable, Ativan 2 mg po AMHS decreased to 1 mg AMHS on February 10) Medical Record Reviewed: Yes Mental Status Examination - Cognitive Function Orientation: Person, Place Memory: Impaired Attention: WNL (some improvemnent) Concentration: Poor (some improvement) Association: Loose (some improvement) Fund of Knowledge: Poor - Mood Mood: Depressed ("better"), Anxious - Affect Affect: Constricted (more related and reactive but can still be labile/irritable ) - Formal Thought Process Formal Thought Process: Hallucinations (denied) - Suicidal Ideation Suicidal Ideation: No - Homicidal Ideation Homicidal Ideation: No Goal/Treatment Plan - Goal/Treatment Plan Need for Continued Stay: Remain at risks for inpatient hospitalization, Severe depression anxiety, Discharge may exacerbated symptoms, Severe functional impairment Progress Toward Problem(s) and Goals/Treatment Plan: * c/w current tx and plan * Appreciate f/u by Dr. Abebe on 02/08/18 for patient's complaints of blurry vision. Blurry vision resolved by the time of their visit and they signed off on this day. * No new labs thus far this weekend. * Vitals reviewed and noted below: 02/09/18 02/09/18 02/10/18 06:39 16:00 06:57 Temperature 97.9 F Pulse Rate 80 84 116 H Respiratory 20 18 Rate Blood Pressure 135/96 H 132/92 H 129/94 H * Vital signs stable, Ativan 2 mg po AMHS decreased to 1 mg AMHS on February 10. To c/w taper this weekend. Ativan prn changed to 1 mg po daily prn: alcohol withdrawal Estimated Date of D/C: 02/12/18
[2018-02-10] MEDS: Multivitamin Therapeutic Tab PO SCH (09:56)
[2018-02-11] MEDS: Multivitamin Therapeutic Tab PO SCH (07:27)
--- NOTE | 2018-02-11 08:48 | PCM.PYCHPN ---
Psychiatric Progress Note - Psychiatric Progress Note Patient seen today, length of contact: 25 min Patient Chief Complaint: "getting better" Problems Identified/Issues Discussed: Pt is a 57 year old single homeless, male with reported history of depression, one prior psychiatric admission in 2017 for depression, alcohol addiction who brought himself to ED due to suicidal ideations with plan to jump off a bridge I reviewed recent staff notes and met with patient in the hallway. Affect range and reactivity continue to improve though overall he remains mildly dysphoric. Patient still can't provide the correct month (keeps saying that it is November) or year and indicates that he really doesn't care [as it's not particularly relevant on the unit]. He tells me that he is tired and "feels crappy" but admits that he is getting better. He is not suicidal or homicidal. Patient is still maravilla but disposition is more pleasant and less irritable. Smiles and even jokes a little. He remains more alert, focused and nourished appearing. His grooming also appears to be improving..alittle. He denies hallucinations or any new pain or discomfort. Gait is unsteady but patient appears to be careful when ambulating. Reports that he has been making more of an effort to walk independently but still feels weak. Patient did not complain about withdrawal symptoms and none were observed. Staff notes indicate that patients behavior is improving, he is less irritable but remains labile. Affect is blunt and a little less guarded. He is compliant with medications and visible in the community areas with peers. There were no behavioral issues over the . Diagnostic Results: rule out major depressive disorder Rule out substance-induced mood disorder rule out alcohol-related dementia alcohol use disorder Medication Change: Yes ( Vital signs stable, Ativan 2 mg po AMHS decreased to 1 mg AMHS on February 10) Medical Record Reviewed: Yes Mental Status Examination - Cognitive Function Orientation: Person, Place Memory: Impaired Attention: WNL (some improvemnent) Concentration: Poor (some improvement) Association: Loose (some improvement) Fund of Knowledge: Poor - Mood Mood: Depressed ("better"), Anxious - Affect Affect: Constricted (more related and reactive but can still be labile/irritable ) - Formal Thought Process Formal Thought Process: Hallucinations (denied all ) - Suicidal Ideation Suicidal Ideation: No - Homicidal Ideation Homicidal Ideation: No Goal/Treatment Plan - Goal/Treatment Plan Need for Continued Stay: Remain at risks for inpatient hospitalization, Severe depression anxiety, Discharge may exacerbated symptoms, Severe functional impairment Progress Toward Problem(s) and Goals/Treatment Plan: * c/w current tx and plan * Appreciate f/u by Dr. Abebe on 02/08/18 for patient's complaints of blurry vision. Blurry vision resolved by the time of their visit and they signed off on this day. * No new labs thus far this weekend. * Vitals reviewed and noted below: Selected Entries 02/11/18 06:29 Temperature 98.2 F Pulse Rate 83 Respiratory 19 Rate Blood Pressure 124/87 * Vital signs stable, Ativan 1 mg AMHS decreased to 1 mg HS on February 11. To d/c on February 12. Ativan prn changed to 1 mg po daily prn: alcohol withdrawal Estimated Date of D/C: 02/12/18
[2018-02-12 07:07] VITALS: RESP 20
[2018-02-12] MEDS: Multivitamin Therapeutic Tab PO SCH (08:51)
--- NOTE | 2018-02-12 16:24 | PCM.PYCHPN ---
Psychiatric Progress Note - Psychiatric Progress Note Patient seen today, length of contact: 25 min Patient Chief Complaint: "I don't feel ready, I am still depressed" Problems Identified/Issues Discussed: Suicide/ homicide prevention, past psychiatric h/o, current psychiatric symptoms , medical problems, risk/benefits and alternatives of medications, medications compliance, coping strategies, substance abuse h/o, relapse prevention, importance of follow up with psychiatrist and therapist, discharge plan. Medical Problems: alcohol withdrawals unsteady gait alcoholic hepatitis? Diagnostic Results: 01/30/18 19:40 01/30/18 19:40 Lab Results 01/31/18 08:00: Fasting Glucose 101, Triglycerides 51, Cholesterol 183, LDL Cholesterol Direct 47, HDL Cholesterol 121 H 01/31/18 08:00: RPR Nonreactive 01/31/18 08:00: TSH 3rd Generation 1.77 01/31/18 00:07: Urine Opiates Screen Negative, Urine Methadone Screen Negative, Ur Barbiturates Screen Negative, Ur Phencyclidine Scrn Negative, Ur Amphetamines Screen Negative, U Benzodiazepines Scrn Negative, U Oth Cocaine Metabols Negative, U Cannabinoids Screen Negative 01/30/18 19:40: WBC 3.8 L D, RBC 4.03, Hgb 13.6 L, Hct 39.1 L, MCV 97.0, MCH 33.7, MCHC 34.8, RDW 13.0, Plt Count 111 L, MPV 9.6 01/30/18 19:40: Alcohol, Quantitative 291 H 01/30/18 19:40: Sodium 142, Potassium 4.0, Chloride 98, Carbon Dioxide 27, Anion Gap 21 H, BUN 9, Creatinine 0.7 L, Est GFR ( Amer) > 60, Est GFR ( Non-Af Amer) > 60, Random Glucose 101, Calcium 8.9, Total Bilirubin 0.8, AST 230 H D, ALT 82 H, Alkaline Phosphatase 129 H D, Total Protein 8.0, Albumin 4.2 , Globulin 3.9, Albumin/Globulin Ratio 1.1 Vital Signs Temp Pulse Pulse Resp BP Pulse Ox 02/01/18 07:25 99.5 F 115 H 135/103 H 02/01/18 07:24 115 H 137/103 H 02/01/18 07:00 98.2 F 112 H 18 160/107 H 01/31/18 16:00 84 133/91 H 01/31/18 14:58 104 H 18 01/31/18 07:17 98.4 F 104 H 18 125/91 H 01/31/18 06:33 98.4 F 104 H 18 125/91 H 01/31/18 06:03 76 18 116/70 100 01/31/18 05:00 98.0 F 84 20 124/86 98 01/31/18 00:00 80 16 132/76 97 01/30/18 19:07 98.4 F 85 18 135/78 99 DSM 5 Symptoms Update: shortly Pt is a 57 year old single male with reported history of depression, one prior psychiatric admission in 2017 for depression, patient has chronic alcohol consumption, alcohol addiction, patient brought himself to ED due to suicidal ideations with plan to jump off a bridge. patient is homeless, no support in the community, patient needs to be evaluated, observed, possible medications initiation. Patient was seen and examined today at the [facility] area, pt presented to be less irritable, less maravilla, pt ambulates with a steady gait,. pt does not have any "double vision", pt is able to watch TV, socializing with others, pt seems to be very comfortable in the unit, at the same time pt c/o depression and poor sleep, but acknowledged "I feel much better". pt tolerates meds well, no side effects observed or reported, AIMS 0, no EPS. Impression: DSM 5 Diagnosis: rule out major depressive disorder Rule out substance-induced mood disorder rule out alcohol-related dementia alcohol use disorder Medication Change: Yes (celexa increased) Medical Record Reviewed: Yes Mental Status Examination - Cognitive Function Orientation: Person, Place Memory: Impaired Attention: WNL (some improvemnent) Concentration: Poor (some improvement) Association: Loose (some improvement) Fund of Knowledge: Poor - Mood Mood: Depressed ("I am still depressed, I have insomnia), Anxious - Affect Affect: Constricted (more related and reactive but can still be labile/irritable ) - Formal Thought Process Formal Thought Process: No Impairment - Suicidal Ideation Suicidal Ideation: No - Homicidal Ideation Homicidal Ideation: No Goal/Treatment Plan - Goal/Treatment Plan Need for Continued Stay: Remain at risks for inpatient hospitalization, Severe depression anxiety, Discharge may exacerbated symptoms, Severe functional impairment Progress Toward Problem(s) and Goals/Treatment Plan: Milieu/structure/supportive therapy Medical consult will be called SW consultation for discharge plan and social issues Med management Celexa 30 mg by mouth daily for depression We'll monitor Vivitrol symptoms from alcohol Multivitamins, thiamine, folic acid Ativan was weanned off Remeron 15 mg for insomnia and for depression Physical therapy follow up Neurontin 300mg 3 times a day scheduled for neuropathy seroquel was d/c risperdal 1mg po hs for agitation, delirium, mood stabilization Family involvement Follow up on labs Will monitor closely Pt was educated about risk/benefits and alternatives of medications, coping strategies (safety plan, suicide prevention), relapse prevention, importance of follow up with psychiatrist and therapist, stay away from drugs/alcohol/smoking PT reevaluation Estimated Date of D/C: 02/13/18
[2018-02-13] MEDS: Multivitamin Therapeutic Tab PO SCH (08:49)
--- NOTE | 2018-02-13 14:41 | PCM.PYCHPN ---
Psychiatric Progress Note - Psychiatric Progress Note Patient seen today, length of contact: 25 min Patient Chief Complaint: "I don't feel ready, I am still depressed, I had a bad night" Problems Identified/Issues Discussed: Suicide/ homicide prevention, past psychiatric h/o, current psychiatric symptoms , medical problems, risk/benefits and alternatives of medications, medications compliance, coping strategies, substance abuse h/o, relapse prevention, importance of follow up with psychiatrist and therapist, discharge plan. Medical Problems: alcohol withdrawals unsteady gait alcoholic hepatitis? Diagnostic Results: 01/30/18 19:40 01/30/18 19:40 Lab Results 01/31/18 08:00: Fasting Glucose 101, Triglycerides 51, Cholesterol 183, LDL Cholesterol Direct 47, HDL Cholesterol 121 H 01/31/18 08:00: RPR Nonreactive 01/31/18 08:00: TSH 3rd Generation 1.77 01/31/18 00:07: Urine Opiates Screen Negative, Urine Methadone Screen Negative, Ur Barbiturates Screen Negative, Ur Phencyclidine Scrn Negative, Ur Amphetamines Screen Negative, U Benzodiazepines Scrn Negative, U Oth Cocaine Metabols Negative, U Cannabinoids Screen Negative 01/30/18 19:40: WBC 3.8 L D, RBC 4.03, Hgb 13.6 L, Hct 39.1 L, MCV 97.0, MCH 33.7, MCHC 34.8, RDW 13.0, Plt Count 111 L, MPV 9.6 01/30/18 19:40: Alcohol, Quantitative 291 H 01/30/18 19:40: Sodium 142, Potassium 4.0, Chloride 98, Carbon Dioxide 27, Anion Gap 21 H, BUN 9, Creatinine 0.7 L, Est GFR ( Amer) > 60, Est GFR ( Non-Af Amer) > 60, Random Glucose 101, Calcium 8.9, Total Bilirubin 0.8, AST 230 H D, ALT 82 H, Alkaline Phosphatase 129 H D, Total Protein 8.0, Albumin 4.2 , Globulin 3.9, Albumin/Globulin Ratio 1.1 Vital Signs Temp Pulse Pulse Resp BP Pulse Ox 02/01/18 07:25 99.5 F 115 H 135/103 H 02/01/18 07:24 115 H 137/103 H 02/01/18 07:00 98.2 F 112 H 18 160/107 H 01/31/18 16:00 84 133/91 H 01/31/18 14:58 104 H 18 01/31/18 07:17 98.4 F 104 H 18 125/91 H 01/31/18 06:33 98.4 F 104 H 18 125/91 H 01/31/18 06:03 76 18 116/70 100 01/31/18 05:00 98.0 F 84 20 124/86 98 01/31/18 00:00 80 16 132/76 97 01/30/18 19:07 98.4 F 85 18 135/78 99 DSM 5 Symptoms Update: shortly Pt is a 57 year old single male with reported history of depression, one prior psychiatric admission in 2017 for depression, patient has chronic alcohol consumption, alcohol addiction, patient brought himself to ED due to suicidal ideations with plan to jump off a bridge. patient is homeless, no support in the community, patient needs to be evaluated, observed, possible medications initiation. Patient was seen and examined today at the [facility] area, pt presented to be less irritable, less [place], pt ambulates with a steady gait,.pt was interested to start naltrexone, risk/benefits and alternatives discussed. pt wants to be presented more depressed than he is , pt was saying that he still feels depressed and not able to sleep, but observed socializing with others, good appetite and sleep, but pt mentioned that overall "I feel much better". Pt said that "I learned that I need to stop drinking". pt tolerates meds well, no side effects observed or reported, AIMS 0, no EPS. Impression: DSM 5 Diagnosis: rule out major depressive disorder Rule out substance-induced mood disorder rule out alcohol-related dementia alcohol use disorder Medication Change: Yes (celexa increased) Medical Record Reviewed: Yes Mental Status Examination - Cognitive Function Orientation: Person, Place Memory: Impaired Attention: WNL (some improvemnent) Concentration: Poor (some improvement) Association: Loose (some improvement) Fund of Knowledge: Poor - Mood Mood: Depressed ("I feel better"), Anxious - Affect Affect: Constricted (more related and reactive but can still be labile/irritable ) - Formal Thought Process Formal Thought Process: No Impairment - Suicidal Ideation Suicidal Ideation: No - Homicidal Ideation Homicidal Ideation: No Goal/Treatment Plan - Goal/Treatment Plan Need for Continued Stay: Remain at risks for inpatient hospitalization, Severe depression anxiety, Discharge may exacerbated symptoms, Severe functional impairment Progress Toward Problem(s) and Goals/Treatment Plan: Milieu/structure/supportive therapy Medical consult will be called SW consultation for discharge plan and social issues Med management Celexa 40 mg by mouth daily for depression We'll monitor Vivitrol symptoms from alcohol Multivitamins, thiamine, folic acid Ativan was weanned off Remeron 15 mg for insomnia and for depression Physical therapy follow up Neurontin 300mg 3 times a day scheduled for neuropathy seroquel was d/c risperdal 1mg po hs for agitation, delirium, mood stabilization Family involvement Follow up on labs Will monitor closely Pt was educated about risk/benefits and alternatives of medications, coping strategies (safety plan, suicide prevention), relapse prevention, importance of follow up with psychiatrist and therapist, stay away from drugs/alcohol/smoking PT reevaluation Estimated Date of D/C: 02/14/18
[2018-02-14 07:05] VITALS: TEMP 98.1
[2018-02-14] MEDS: Multivitamin Therapeutic Tab PO SCH (09:30)
--- NOTE | 2018-02-14 14:09 | PCM.PYCHDC ---
Mental Status Examination - Mental Status Examination Orientation: Person, Place, Situation, Time Memory: Intact Mood: Neutral Affect: Constricted (but reactive, mood congruent) Speech: Appropriate Attention: WNL Concentration: WNL Association: WNL Fund of Knowledge: WNL Formal Thought Process: No Impairment Description of patient's judgement and insight: Pt has improved insight into mental and medical illness, pt was compliant with medications and unit rules and regulations, pt was going to groups, was calm, cooperative, socially appropriate, no behavioral incidents, no agitation, no aggression. Psychotic Thoughts and Behaviors: Pt denied v/a/t hallucinations, denied paranoid ideations, pt does not appear to be psychotic, and thought process is goal directed. Suicidal Ideation: No Current Homicidal Ideation?: No Plan: pt adamantly denied thoughts of harming self or others denied intent or plan. Discharge Summary - Discharge Note Reason for Hospitalization: patient was admitted to the psychiatric inpatient unit for evaluation and stabilization of depressive symptoms and possible suicidal ideation with a plan to jump off the bridge Psychiatric History (includes Medical, Family, Personal Hx): see HPI Laboratory Data: 01/30/18 19:40 01/30/18 19:40 Lab Results 02/02/18 13:37: POC Glucose (mg/dL) 157 H 01/31/18 08:00: Fasting Glucose 101, Triglycerides 51, Cholesterol 183, LDL Cholesterol Direct 47, HDL Cholesterol 121 H 01/31/18 08:00: RPR Nonreactive 01/31/18 08:00: TSH 3rd Generation 1.77 01/31/18 00:07: Urine Opiates Screen Negative, Urine Methadone Screen Negative, Ur Barbiturates Screen Negative, Ur Phencyclidine Scrn Negative, Ur Amphetamines Screen Negative, U Benzodiazepines Scrn Negative, U Oth Cocaine Metabols Negative, U Cannabinoids Screen Negative 01/30/18 19:40: WBC 3.8 L D, RBC 4.03, Hgb 13.6 L, Hct 39.1 L, MCV 97.0, MCH 33.7, MCHC 34.8, RDW 13.0, Plt Count 111 L, MPV 9.6 01/30/18 19:40: Alcohol, Quantitative 291 H 01/30/18 19:40: Sodium 142, Potassium 4.0, Chloride 98, Carbon Dioxide 27, Anion Gap 21 H, BUN 9, Creatinine 0.7 L, Est GFR ( Amer) > 60, Est GFR ( Non-Af Amer) > 60, Random Glucose 101, Calcium 8.9, Total Bilirubin 0.8, AST 230 H D, ALT 82 H, Alkaline Phosphatase 129 H D, Total Protein 8.0, Albumin 4.2 , Globulin 3.9, Albumin/Globulin Ratio 1.1 Vital Signs Temp Pulse Pulse Resp BP Pulse Ox 02/14/18 07:04 98.1 F 74 20 108/73 02/13/18 16:00 63 101/68 02/13/18 06:48 98.3 F 65 20 130/90 02/12/18 16:08 67 122/82 02/12/18 07:07 98.1 F 104 H 20 107/68 02/11/18 15:33 75 109/70 02/11/18 06:29 98.2 F 83 19 124/87 02/10/18 16:27 80 117/76 02/10/18 06:57 116 H 18 129/94 H 02/09/18 16:00 84 132/92 H 02/09/18 06:39 97.9 F 80 20 135/96 H 02/08/18 16:20 90 147/91 H 02/08/18 06:39 98.6 F 78 20 127/83 02/07/18 16:00 78 152/89 H 02/07/18 07:03 98.8 F 86 20 138/92 H 02/07/18 07:02 98.8 F 86 16 138/92 H 02/07/18 06:53 99.3 F 95 H 20 159/106 H 02/07/18 06:37 95 H 159/106 H 02/06/18 16:02 92 H 110/69 02/06/18 07:12 98.6 F 81 20 112/80 02/05/18 16:00 99 H 109/81 02/05/18 06:46 97.9 F 108 H 19 135/93 H 02/04/18 16:00 84 106/74 02/04/18 06:59 97.3 F L 89 20 118/84 02/03/18 20:23 77 162/96 H 02/03/18 15:00 67 136/82 02/03/18 07:34 97.6 F 108 H 20 150/112 H 02/03/18 00:49 136 H 173/103 H 02/02/18 15:00 97.2 F L 90 18 115/79 02/02/18 09:00 97.5 F L 104 H 18 123/84 02/02/18 07:00 97.6 F 90 18 144/96 H 02/02/18 06:45 90 18 144/96 H 02/01/18 20:30 109 H 20 132/87 02/01/18 07:25 99.5 F 115 H 135/103 H 02/01/18 07:24 115 H 137/103 H 02/01/18 07:00 98.2 F 112 H 18 160/107 H 01/31/18 16:00 84 133/91 H 01/31/18 14:58 104 H 18 01/31/18 07:17 98.4 F 104 H 18 125/91 H 01/31/18 06:33 98.4 F 104 H 18 125/91 H 01/31/18 06:03 76 18 116/70 100 01/31/18 05:00 98.0 F 84 20 124/86 98 01/31/18 00:00 80 16 132/76 97 01/30/18 19:07 98.4 F 85 18 135/78 99 Consultations:: List each consultation separately and include: 1. Reason for request. 2. Findings. 3. Follow-up Consultations: this advertising copywriter will call for medical consult PT eval appreciated Summary of Hospital Course include:: 1. Description of specific treatment plan utilized for patients during their course of treatmen. 2. Summarize the time- course for resolution of acute symptoms and/or regressed behaviors. 3. Describe issues identified and worked on during hospitalization. 4. Describe medication utilized. 5. Describe medical problems identified and treated. 6. Reassessment of suicide risk Summary of Hospital Course: shortly Pt is a 57 year old single male with reported history of depression, one prior psychiatric admission in 2017 for depression, patient has chronic alcohol consumption, alcohol addiction, patient brought himself to ED due to suicidal ideations with plan to jump off a bridge. patient is homeless, no support in the community, patient needs to be evaluated, observed, possible medications initiation. 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 patient presented with poor personal hygiene, appears much older than his chronological age, poor ADLs. 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 patient presented depressed, hopeless, helpless, worthless, guilty, patient reported that he wanted to end up his life but chooses to come to the hospital looking for help. Patient reported that he was drinking on daily basis about 2 packs of 12 ounces of beer, patient reported after discharge from the psychiatric inpatient unit he was staying on the streets, not taking any medications, did not follow up with outpatient program. patient reported that he does not use any drugs,but smokes about 1 pack a day, counseling provided, nicotine patch offered. as per report patient was psychotic in the emergency room, denied hearing voices denied seeing things when was interviewed by this advertising copywriter. 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 medical history: Patient has alcohol-related cognitive changes, gait disturbance. Family history: Unknown social history: Patient is homeless, alcoholic. 01/30/18 19:40 01/30/18 19:40 Lab Results 01/31/18 08:00: Fasting Glucose 101, Triglycerides 51, Cholesterol 183, LDL Cholesterol Direct 47, HDL Cholesterol 121 H 01/31/18 08:00: TSH 3rd Generation 1.77 01/31/18 00:07: Urine Opiates Screen Negative, Urine Methadone Screen Negative, Ur Barbiturates Screen Negative, Ur Phencyclidine Scrn Negative, Ur Amphetamines Screen Negative, U Benzodiazepines Scrn Negative, U Oth Cocaine Metabols Negative, U Cannabinoids Screen Negative 01/30/18 19:40: WBC 3.8 L D, RBC 4.03, Hgb 13.6 L, Hct 39.1 L, MCV 97.0, MCH 33.7, MCHC 34.8, RDW 13.0, Plt Count 111 L, MPV 9.6 01/30/18 19:40: Alcohol, Quantitative 291 H 01/30/18 19:40: Sodium 142, Potassium 4.0, Chloride 98, Carbon Dioxide 27, Anion Gap 21 H, BUN 9, Creatinine 0.7 L, Est GFR ( Amer) > 60, Est GFR ( Non-Af Amer) > 60, Random Glucose 101, Calcium 8.9, Total Bilirubin 0.8, AST 230 H D, ALT 82 H, Alkaline Phosphatase 129 H D, Total Protein 8.0, Albumin 4.2 , Globulin 3.9, Albumin/Globulin Ratio 1.1 Vital Signs Temp Pulse Resp BP Pulse Ox 01/31/18 07:17 98.4 F 104 H 18 125/91 H 01/31/18 06:33 98.4 F 104 H 18 125/91 H 01/31/18 06:03 76 18 116/70 100 01/31/18 05:00 98.0 F 84 20 124/86 98 01/31/18 00:00 80 16 132/76 97 01/30/18 19:07 98.4 F 85 18 135/78 99 over the course of this hospitalization pt improved significantly confusion improved, gait improved as well, 1:1 was discontinued, initially pt was ambulating with a walker but at the time of d/c pt was able to ambulate with no assistance or using walker pt was stabilized on the following medications: Celexa 40 mg by mouth daily for depression Vivitrol 50mg po daily for alcohol addiction Multivitamins, thiamine, folic acid Ativan was weaned off Remeron 15 mg for insomnia and for depression Neurontin 300mg 3 times a day scheduled for neuropathy risperdal 1mg po hs for irritability and mood stabilization pt tolerated medications well, no side effects observed or reported, AIMS 0, no EPS. Over the course of this hospitalization pt was attending groups, pt also had medication management, had therapeutic milieu. Overall pt improved significantly, pt's affect became brighter, pt was less depressed, has realistic future oriented plans, pt also does not appear to be psychotic, or anxious, pt was socially appropriate, no behavioral issues, pts insight improved as well and soon pt deemed to be ready for discharge. At the time of the discharge pt denied been depressed, denied thoughts of harming self or others, denied psychotic symptoms, and pt does not appeared to be psychotic, denied been anxious, pt is not in imminent danger to self or others, will be following up at [facility], information about follow up appointment, time and address provided to the pt, it is patient responsibility to follow up with outpatient clinic, PMD as well as specialists (see note for more detailed information). In case pt will need to obtain results of studies pending at discharge pt was provided with contact information of Psychiatric Inpatient unit [phone] as well as Medical Record Department [phone]. Nicotine patch was offered Naltrexone treatment started Counseling about smoking and alcohol cessation provided AA meetings as well as smoking cessation treatment program information was provided by the pt was provided with prescriptions for all of medications (please see medication reconciliation form) Pt was educated about safety plan in case of worsening of symptoms or in case of suicidal or homicidal ideation call 911 or go to the nearest ER, also was educated to take meds as prescribed and stay away from drugs, pt verbalized understanding. - Diagnosis (1) MDD (major depressive disorder) Current Visit: Yes Status: Acute Priority: High (2) Alcohol use disorder Current Visit: Yes Status: Chronic Priority: High - Final Diagnosis (DSM 5) Condition upon Discharge: IMPROVED Disposition: HOME/ ROUTINE Follow-up Treatment Plan: At the time of the discharge pt denied been depressed, denied thoughts of harming self or others, denied psychotic symptoms, and pt does not appeared to be psychotic, denied been anxious, pt is not in imminent danger to self or others, will be following up at [facility], information about follow up appointment, time and address provided to the pt, it is patient responsibility to follow up with outpatient clinic, PMD as well as specialists (see note for more detailed information). In case pt will need to obtain results of studies pending at discharge pt was provided with contact information of Psychiatric Inpatient unit [phone] as well as Medical Record Department [phone]. Nicotine patch was offered Naltrexone treatment started Counseling about smoking and alcohol cessation provided AA meetings as well as smoking cessation treatment program information was provided by the pt was provided with prescriptions for all of medications (please see medication reconciliation form) Pt was educated about safety plan in case of worsening of symptoms or in case of suicidal or homicidal ideation call 911 or go to the nearest ER, also was educated to take meds as prescribed and stay away from drugs, pt verbalized understanding. Prescriptions/Medication Reconciliation: Citalopram Hydrobromide [Celexa] 40 mg PO DAILY #30 tablet Folic Acid 1 mg PO DAILY #14 tab Gabapentin [Neurontin] 300 mg PO TID #45 cap Multivitamin Therapeutic Tab [Thera Tab] 1 tab PO 0800 #14 tab Naltrexone [Revia] 50 mg PO DAILY #14 tab Nicotine 21 mg/24 hr [Nicoderm Cq] 1 patch TD DAILY #14 patch risperiDONE [RisperDAL Tab] 1 mg PO HS #14 tab Thiamine [Vitamin B1 Tab] 100 mg PO DAILY #14 tab Zaleplon [Sonata] 5 mg PO HS PRN #14 cap PRN Reason: Insomnia - Smoking Cessation Smoking Cessation Medication prescribed: Yes - Antipsychotic Medications Pt discharged on 2 or more routine antipsychotic medications: No
[2018-02-14 15:45] VITALS: BP 106/76; PULSE 75
== END 2018-02-14 16:10 | disposition home or self-care (01) | DRG 426 ==
LOC: ED 19:02 → ERH 01-31 04:23 → PSYC 01-31 06:11
PROVIDERS: ADMIT Psychiatry & Neurology Psychiatry; ATTEND Psychiatry & Neurology Psychiatry
PROC: GZ3ZZZZ Medication Management (ICD-10-PCS; principal; 2018-01-31)
DX: F32.9 Major depressive disorder, single episode, unspecified (principal); F10.231 Alcohol dependence with withdrawal delirium; J44.9 Chronic obstructive pulmonary disease, unspecified; I10 Essential (primary) hypertension; R45.851 Suicidal ideations; G47.00 Insomnia, unspecified; R26.81 Unsteadiness on feet; F17.210 Nicotine dependence, cigarettes, uncomplicated; Z59.0 Homelessness; Z91.81 History of falling

== ENCOUNTER 2018-02-21 16:03 | Emergency (ER) | payer MEDICAID, OTHER ==
[2018-02-21 16:10] VITALS: BMI 21.6
--- NOTE | 2018-02-21 16:31 | ED PDOC ---
Arrival/HPI - General Chief Complaint: Alcohol Ingestion Time Seen by Provider: 02/21/18 16:26 Historian: Patient - History of Present Illness Narrative History of Present Illness (Text): 02/21/18 16:27 57 year old male, whose past medical history is unattainable, brought in by EMS for alcohol abuse. Patient is disheveled and smells like alcohol. Patient is extremely agitated and yelling profanity, saying "come here you fat f". Patient restrained and sedated. Code suhail was called s/p patient trying to bite tech. Limited HPI due to intoxication. Time/Duration: Prior to Arrival Symptom Onset: Sudden Symptom Course: Unchanged Activities at Onset: Light Past Medical History - Provider Review Nursing Documentation Reviewed: Yes - Past History Past History: No Previous - Infectious Disease Hx of Infectious Diseases: None - Tetanus Immunization Tetanus Immunization: Unknown - Past Medical History Past Medical History: No Previous - Cardiac Hx Cardiac Disorders: Yes Hx Hypertension: Yes - Pulmonary Hx Respiratory Disorders: No - Neurological Hx Neurological Disorder: No - HEENT Hx HEENT Disorder: No - Renal Hx Renal Disorder: No - Endocrine/Metabolic Hx Endocrine Disorders: No - Hematological/Oncological Hx Blood Disorders: No - Integumentary Hx Dermatological Disorder: No - Musculoskeletal/Rheumatological Hx Musculoskeletal Disorders: Yes Other/Comment: R KNEE INJURY - Gastrointestinal Hx Gastrointestinal Disorders: Yes Other/Comment: HERNIA - Genitourinary/Gynecological Hx Genitourinary Disorders: No - Psychiatric Hx Depression: Yes Hx Substance Use: Yes - Past Surgical History Past Surgical History: No Previous - Surgical History Hx Orthopedic Surgery: Yes (RIGHT KNEE SX) - Anesthesia Hx Anesthesia: Yes Hx Anesthesia Reactions: No - Suicidal Assessment Feels Threatened In Home Enviroment: No Family/Social History - Physician Review Nursing Documentation Reviewed: Yes Family/Social History: Unknown Family HX Smoking Status: Current Some Days Smoker Hx Alcohol Use: Yes Frequency of alcohol use: Daily Hx Substance Use: Yes Hx Substance Use Treatment: No Allergies/Home Meds Allergies/Adverse Reactions: Allergies No Known Allergies Allergy (Verified 02/01/18 21:51) Review of Systems - Review of Systems Systems not reviewed;Unavailable: Intoxicated Physical Exam - Physical Exam Physical Exam Limitations: Intoxication Vital Signs Pulse Resp BP Pulse Ox 02/21/18 20:57 65 18 103/65 100 Temperature: Afebrile Blood Pressure: Normal Pulse: Regular Respiratory Rate: Normal Appearance: Positive for: Other (smells like alcohol) Pain Distress: None Mental Status: Positive for: Agitated - Systems Exam Head: Present: Atraumatic, Normocephalic Pupils: Present: PERRL Extroacular Muscles: Present: EOMI Conjunctiva: Present: Normal Mouth: Present: Moist Mucous Membranes Neck: Present: Normal Range of Motion Respiratory/Chest: Present: Clear to Auscultation, Good Air Exchange. No: Respiratory Distress, Accessory Muscle Use Cardiovascular: Present: Regular Rate and Rhythm, Normal S1, S2. No: Murmurs Abdomen: No: Tenderness, Distention Upper Extremity: Present: Other (moving extremities x 4) Psychiatric: Present: Agitated (agitated and moving all extremities) Medical Decision Making ED Course and Treatment: 02/21/18 16:35 Impression: 57 year old M presents to the emergency department via EMS for alcohol abuse. Patient was trying to bite staff and had to be sedated for continuing medical care Plan: -- C-Spine CT -- Head CT -- Alcohol Serum -- Labs -- Haldol -- Ativan -- Reassess and disposition Progress Notes: 02/21/18 20:23 CT Head reviewed, shows: Brain: Atrophy. Bilateral periventricular white matter hypoattenuation most consistent with chronic ischemic small vessel changes. No hemorrhage. No edema. Ventricles: No hydrocephalus. Bones: Skull is intact. Soft tissues: No acute abnormality as visualized. Sinuses: Mild to moderate paranasal sinus opacification. Mastoid air cells: No mastoid effusion. IMPRESSION: No CT evidence of acute intracranial abnormality. Chronic changes as above. 02/21/18 20:32 CT C-Spine reviewed, shows: Vertebrae/discs/spinal canal/neural foramina: No acute findings. Multilevel degenerative changes. Degenerative disc disease with disc osteophyte formation. Facet arthropathy/ uncovertebral hypertrophy. Associated impression on the central canal and neuroforaminal narrowing. Evidence of moderate neural foraminal narrowing. No severe spinal canal stenosis. More sensitive evaluation can be performed with MRI as warranted. Soft tissues: Carotid calcification. Lung apices: Emphysematous changes. Apical scarring. IMPRESSION: Negative for acute fracture. Please see additional details/findings as above. Some of the above findings may warrant followup evaluation. 02/21/18 22:21 Patient is intoxicated. Signed out to Dr. Mendes to reevaluate after sobriety 02/21/18 22:22 - Lab Interpretations Lab Results: 02/21/18 19:20 02/21/18 19:20 Lab Results 02/21/18 19:20: Alcohol, Quantitative 321 H* 02/21/18 19:20: Sodium 142, Potassium 3.5 L, Chloride 102, Carbon Dioxide 25, Anion Gap 19, BUN 10, Creatinine 0.7 L, Est GFR ( Amer) > 60, Est GFR ( Non-Af Amer) > 60, Random Glucose 85, Calcium 8.5, Total Bilirubin 0.1 L, AST 42 , ALT 29, Alkaline Phosphatase 84, Total Protein 7.4, Albumin 3.7, Globulin 3.7 , Albumin/Globulin Ratio 1.0 L 02/21/18 19:20: WBC 7.4 D, RBC 3.62, Hgb 12.0 L, Hct 35.2 L, MCV 97.2, MCH 33.1 , MCHC 34.1, RDW 13.4, Plt Count 236, MPV 9.5, Gran % 54.6, Lymph % (Auto) 37.0 H, [place] % (Auto) 4.2, Eos % (Auto) 3.9, Baso % (Auto) 0.3, Gran # 4.02, Lymph # (Auto) 2.7, [place] # (Auto) 0.3, Eos # (Auto) 0.3, Baso # (Auto) 0.02 - RAD Interpretation Radiology Orders: 02/21/18 16:27 CERVICAL SPINE W/O CONTRAST [CT] Stat HEAD W/O CONTRAST [CT] Stat - Medication Orders Current Medication Orders: Discontinued Medications Haloperidol Lactate (Haldol) 5 mg IM STAT STA PRN Reason: Protocol Stop: 02/21/18 16:27 Last Admin: 02/21/18 16:32 Dose: 5 mg IM Administration Charges Document 02/21/18 16:32 MS (Rec: 02/21/18 16:32 MS [id number]) Injection Site MAR Injection Site Right Deltoid Charges for Administration # of IM Administrations 1 Lorazepam (Ativan) 2 mg IM STAT STA PRN Reason: Protocol Stop: 02/21/18 16:27 Last Admin: 02/21/18 16:32 Dose: 2 mg IM Administration Charges Document 02/21/18 16:32 MS (Rec: 02/21/18 16:32 MS [id number]) Injection Site MAR Injection Site Right Deltoid Charges for Administration # of IM Administrations 1 - Transfer of Care Patient signed out to Dr:Luci Marin Statement The provider has reviewed the documentation as recorded by the Scribe Evette Harris All medical record entries made by the Scribsukhdev were at my direction and personally dictated by me. I have reviewed the chart and agree that the record accurately reflects my personal performance of the history, physical exam, medical decision making, and the department course for this patient. I have also personally directed, reviewed, and agree with the discharge instructions and disposition. Disposition/Present on Arrival - Present on Arrival Any Indicators Present on Arrival: No History of DVT/PE: No History of Uncontrolled Diabetes: No Urinary Catheter: No History of Decub. Ulcer: No History Surgical Site Infection Following: CABG - Mediastinitis, Bariatric Surgery, None - Disposition Have Diagnosis and Disposition been Completed?: Yes Diagnosis: DJD (degenerative joint disease), Alcohol abuse Disposition Time: 23:00 Patient Problems: Current Active Problems Problem Status Onset Alcohol abuse Acute DJD (degenerative joint disease) Acute Condition: [facility] Forms: [employer] ([place]an)
[2018-02-21 19:28] LABS: BASO # 0.02 K/mm3 (0.0-2.0); BASO % 0.3 % (0.0-3.0); EOS # 0.3 (0.0-0.7); EOS % 3.9 % (1.5-5.0); GRAN # 4.02 (1.4-6.5); GRAN % 54.6 % (50.0-68.0); LYMPH # 2.7 (1.2-3.4); MEAN CELL VOLUME 97.2 fl (80.0-105.0); MEAN CORPUSCULAR HEMOGLOBIN 33.1 pg (25.0-35.0); MEAN CORPUSCULAR HGB CONC 34.1 g/dl (31.0-37.0); MEAN PLATELET VOLUME 9.5 fl (7.0-11.0); MONO # 0.3 (0.1-0.6); MONO % 4.2 % (1.0-6.0); RBC 3.62 10^6/uL (3.5-6.1); RED CELL DISTRIBUTION WIDTH 13.4 % (11.5-14.5); WHITE BLOOD COUNT 7.4 10^3/ul (4.5-11.0)
[2018-02-21 19:43] LABS: ALBUMIN 3.7 g/dL (3.0-4.8); ALT/SGPT 29 U/L (7-56); AST/SGOT 42 U/L (17-59); BLOOD UREA NITROGEN 10 mg/dL (7-21); CALCIUM 8.5 mg/dL (8.4-10.5); GFR AFRICAN-AMERICAN > 60; GFR NON-AFRICAN AMERICAN > 60
--- NOTE | 2018-02-21 20:21 | CT ---
EXAM: CT Head Without Intravenous Contrast CLINICAL HISTORY: 57 years old, male; Screening exam; Additional info: Alcohol, agitated TECHNIQUE: Axial computed tomography images of the head/brain without intravenous contrast. All CT scans at this facility use one or more dose reduction techniques, viz.: automated exposure control; ma/kV adjustment per patient size (including targeted exams where dose is matched to indication; i.e. head); or iterative reconstruction technique. Coronal and sagittal reformatted images were created and reviewed. COMPARISON: CT - HEAD W/O CONTRAST 2017-08-04 18:02 FINDINGS: Brain: Atrophy. Bilateral periventricular white matter hypoattenuation most consistent with chronic ischemic small vessel changes. No hemorrhage. No edema. Ventricles: No hydrocephalus. Bones: Skull is intact. Soft tissues: No acute abnormality as visualized. Sinuses: Mild to moderate paranasal sinus opacification. Mastoid air cells: No mastoid effusion. IMPRESSION: No CT evidence of acute intracranial abnormality. Chronic changes as above.
--- NOTE | 2018-02-21 20:27 | CT ---
EXAM: CT Cervical Spine Without Intravenous Contrast CLINICAL HISTORY: 57 years old, male; Screening exam; Alcohol - agitated; Additional info: Alcohol agitated TECHNIQUE: Axial computed tomography images of the cervical spine without intravenous contrast. All CT scans at this facility use one or more dose reduction techniques, viz.: automated exposure control; ma/kV adjustment per patient size (including targeted exams where dose is matched to indication; i.e. head); or iterative reconstruction technique. Coronal and sagittal reformatted images were created and reviewed. COMPARISON: CT - CERVICAL SPINE W/O CONTRAST 2015-09-01 15:33 FINDINGS: Vertebrae/discs/spinal canal/neural foramina: No acute findings. Multilevel degenerative changes. Degenerative disc disease with disc osteophyte formation. Facet arthropathy/uncovertebral hypertrophy. Associated impression on the central canal and neuroforaminal narrowing. Evidence of moderate neural foraminal narrowing. No severe spinal canal stenosis. More sensitive evaluation can be performed with MRI as warranted. Soft tissues: Carotid calcification. Lung apices: Emphysematous changes. Apical scarring. IMPRESSION: Negative for acute fracture. Please see additional details/findings as above. Some of the above findings may warrant followup evaluation.
--- NOTE | 2018-02-21 23:02 | ED PDOC ---
Physical Exam Vital Signs Pulse Resp BP Pulse Ox 02/22/18 04:16 60 18 118/72 100 02/21/18 20:57 65 18 103/65 100 Finger Stick Blood Glucose: 77 Medical Decision Making ED Course and Treatment: 02/21/18 23:00 Case endorsed to me by Dr. Lockwood, pending sobriety, re-evaluation, and disposition. Pt was brought in by EMS initially for alcohol abuse. Pt was extremely agitated , yelling at staff, attempting to bite a tech. [place] was called. Pt was sedated with Ativan and Haldol and restrained. Pt in no acute distress. 02/22/18 05:52 Pt awake, alert, and ambulating with steady gait. In no acute distress, clinically sober. Pt stable for d/c. - Lab Interpretations Lab Results: 02/21/18 19:20 02/21/18 19:20 Lab Results 02/21/18 19:20: Alcohol, Quantitative 321 H* 02/21/18 19:20: Sodium 142, Potassium 3.5 L, Chloride 102, Carbon Dioxide 25, Anion Gap 19, BUN 10, Creatinine 0.7 L, Est GFR ( Amer) > 60, Est GFR ( Non-Af Amer) > 60, Random Glucose 85, Calcium 8.5, Total Bilirubin 0.1 L, AST 42 , ALT 29, Alkaline Phosphatase 84, Total Protein 7.4, Albumin 3.7, Globulin 3.7 , Albumin/Globulin Ratio 1.0 L 02/21/18 19:20: WBC 7.4 D, RBC 3.62, Hgb 12.0 L, Hct 35.2 L, MCV 97.2, MCH 33.1 , MCHC 34.1, RDW 13.4, Plt Count 236, MPV 9.5, Gran % 54.6, Lymph % (Auto) 37.0 H, [place] % (Auto) 4.2, Eos % (Auto) 3.9, Baso % (Auto) 0.3, Gran # 4.02, Lymph # (Auto) 2.7, [place] # (Auto) 0.3, Eos # (Auto) 0.3, Baso # (Auto) 0.02 - RAD Interpretation Radiology Orders: 02/21/18 16:27 CERVICAL SPINE W/O CONTRAST [CT] Stat HEAD W/O CONTRAST [CT] Stat - Medication Orders Current Medication Orders: Discontinued Medications Haloperidol Lactate (Haldol) 5 mg IM STAT STA PRN Reason: Protocol Stop: 02/21/18 16:27 Last Admin: 02/21/18 16:32 Dose: 5 mg IM Administration Charges Document 02/21/18 16:32 MS (Rec: 02/21/18 16:32 MS [id number]) Injection Site MAR Injection Site Right Deltoid Charges for Administration # of IM Administrations 1 Lorazepam (Ativan) 2 mg IM STAT STA PRN Reason: Protocol Stop: 02/21/18 16:27 Last Admin: 02/21/18 16:32 Dose: 2 mg IM Administration Charges Document 02/21/18 16:32 MS (Rec: 02/21/18 16:32 MS [id number]) Injection Site MAR Injection Site Right Deltoid Charges for Administration # of IM Administrations 1 Disposition/Present on Arrival - Present on Arrival Any Indicators Present on Arrival: No History of DVT/PE: No History of Uncontrolled Diabetes: No Urinary Catheter: No History of Decub. Ulcer: No History Surgical Site Infection Following: CABG - Mediastinitis, Bariatric Surgery, None - Disposition Have Diagnosis and Disposition been Completed?: Yes Diagnosis: DJD (degenerative joint disease), Alcohol abuse Disposition: HOME/ ROUTINE Disposition Time: 05:51 Patient Plan: Discharge Patient Problems: Current Active Problems Problem Status Onset Alcohol abuse Acute DJD (degenerative joint disease) Acute Condition: [facility] Referrals: Alcoholics Anonymous [Outside] - Follow up with primary Forms: [employer] (Yakut)
[2018-02-22 06:28] VITALS: BP 109/65; PULSE 72; RESP 17; TEMP 98.2; O2SAT 98
== END 2018-02-22 06:28 | disposition home or self-care (01) ==
LOC: ED 16:03
DX: F10.10 Alcohol abuse, uncomplicated (principal); M19.90 Unspecified osteoarthritis, unspecified site; I10 Essential (primary) hypertension
CPT/HCPCS: 70450; 72125; 80053; 80320; 85025; 96372; 99283; J1630; J2060

== ENCOUNTER 2018-03-09 11:23 | Inpatient (IN) | payer MEDICAID, OTHER ==
[2018-03-09 11:24] VITALS: BMI 21.6
--- NOTE | 2018-03-09 12:08 | ED PDOC ---
Arrival/HPI - General Chief Complaint: Alcohol Ingestion Time Seen by Provider: 03/09/18 11:34 Historian: Patient, EMS - History of Present Illness Narrative History of Present Illness (Text): 03/09/18 11:53 Pt p/w + severely depressed, not feeling well, feeling like he is going to hurt himself and hurt other people; pt states "he needs to go to the 5th floor or else he is going to hurt someone." pt states he has been feeling worse over the last 1 week; pt did not take his medications prescribed by Dr Phillips and states it makes he feel bad and he does not want to take it; pt states he drank 2 beers before he arrived here; pt states/denied hallucinations - visual/tactile/ auditory; pt states + mild headache; pt states no fever/chills/sweats, no chest pain/shortness of breath/palpitations, no abd pain, no n/v, no numbness/tingling , no urinary/bowel changes, no fall/trauma/sick contact, no speech language pathologist travel is here for further eval. pt's without other complaints. PCP: Dr Felix Time/Duration: 1 week Symptom Onset: Gradual Symptom Course: Worsening Activities at Onset: Rest Context: Other (homeless) Past Medical History - Provider Review Nursing Documentation Reviewed: Yes - Travel History Have you recently traveled outside [place] w/in the past 3 mons?: No - Past History Past History: No Previous - Infectious Disease Hx of Infectious Diseases: None - Tetanus Immunization Tetanus Immunization: Unknown - Past Medical History Past Medical History: No Previous - Cardiac Hx Cardiac Disorders: Yes Hx Hypertension: Yes - Pulmonary Hx Respiratory Disorders: No - Neurological Hx Neurological Disorder: No - HEENT Hx HEENT Disorder: No - Renal Hx Renal Disorder: No - Endocrine/Metabolic Hx Endocrine Disorders: No - Hematological/Oncological Hx Blood Disorders: No - Integumentary Hx Dermatological Disorder: No - Musculoskeletal/Rheumatological Hx Musculoskeletal Disorders: Yes Other/Comment: R KNEE INJURY - Gastrointestinal Hx Gastrointestinal Disorders: Yes Other/Comment: HERNIA - Genitourinary/Gynecological Hx Genitourinary Disorders: No - Psychiatric Hx Depression: Yes Hx Substance Use: Yes - Past Surgical History Past Surgical History: No Previous - Surgical History Hx Orthopedic Surgery: Yes (RIGHT KNEE SX) - Anesthesia Hx Anesthesia: Yes Hx Anesthesia Reactions: No - Suicidal Assessment Feels Threatened In Home Enviroment: No Family/Social History - Physician Review Nursing Documentation Reviewed: Yes Family/Social History: Unknown Family HX Smoking Status: Heavy Smoker > 10 Cigarettes Daily Hx Alcohol Use: Yes (drinks daily) Frequency of alcohol use: Daily Hx Substance Use: Yes Hx Substance Use Treatment: No Allergies/Home Meds Allergies/Adverse Reactions: Allergies No Known Allergies Allergy (Verified 03/09/18 11:37) Review of Systems - Review of Systems Constitutional: Fatigue. absent: Weight Change Eyes: Normal ENT: Normal Respiratory: Normal. absent: SOB Cardiovascular: Normal. absent: Chest Pain Gastrointestinal: Normal Genitourinary Male: Normal Musculoskeletal: Normal Skin: Normal Neurological: Headache Endocrine: Normal Hemo/Lymphatic: Normal Psychiatric: Depression, Suicidal Ideation, Other (homicidal ideation) Physical Exam - Physical Exam Narrative Physical Exam (Text): 03/09/18 11:55 General: alert/awake, GCS = 15, oriented x 2 (not to date/time), resting in bed , uncomfortable, cooperative, interactive; NAD; + etoh on breath Head: NC/AT EYE: PERRLA, EOMI, sclera anicteric, no nystagmus, no photophobia; visual field intact b/l Facial: WNL Oral: uvula/tongue are midline, no exudate/lesions, no drooling/stridor, no dysphonia; poor dentitions; mild dry oral mucosa NECK: intact ROM, no midline tenderness, no nuchal rigidity, no meningeal signs ; no step off Chest: coarse breath sounds bibasiliar, CTA b/l, no w/r/r; no tachypenia, no accessory muscle use noted Cardiac: +S1, +S2, no m/r/r, no tachycardia Abdominal: +BS, soft/nd/nt, well nourished patient; no masses/rebound/guarding/ rigidity; no foy's sign, no mcburney's point tenderness Extremities: intact ROM, strength 5/5 grossly intact in all limbs, neurovasc intact b/l; + ambulatory; reflex +2/2; no pitting edema/swelling b/l; no Elliot' s sign b/l BACK: no step off, no midline tenderness, NO crepitus, no gross deformities noted; Intact ROM SKIN: cap refill < 1 sec, no ulcerations, no petechiae, no rashes NEURO: CNII-XII WNL, no facial asymmetries, no slurr speech, oriented x 2 (not to date/time); no resting tremors noted NIH stroke scale ~ 0 Psych: normal insight, angry/agitated affect; follows command with ease Vital Signs Reviewed: Yes Vital Signs Temp Pulse Resp BP Pulse Ox 03/09/18 19:00 98 F 85 19 125/56 L 98 03/09/18 17:00 98 F 75 19 125/82 98 03/09/18 13:24 98 F 75 19 124/52 L 99 03/09/18 11:50 98 F 75 19 129/72 99 03/09/18 11:34 98.3 F 72 18 145/79 99 Temperature: Afebrile Blood Pressure: Hypertensive Pulse: Regular Respiratory Rate: Normal Appearance: Positive for: Well-Appearing, Non-Toxic, Unkept, Uncomfortable. No : Comfortable, Ill-Appearing Pain Distress: None Mental Status: Positive for: other (alert/awake, oriented x 2 (not to date/time) ) - Systems Exam Head: Present: Atraumatic, Normocephalic Medical Decision Making ED Course and Treatment: 03/09/18 11:45 Impression: alcohol intox, SI/HI, depression, medication non-compliance i have consider all the differential diagnosis regarding pt's chief medical complaints/clinical findings, including but are not limited to: alcohol intox, SI/HI, depression, medication non-compliance A/P: alcohol intox, SI/HI, depression, medication non-compliance - labs - ua - utox - supportive care - observe/reevaluation 03/09/18 1300 PES/crisis counselor at bedside, unable to evaluate patient due to pt's elevated ETOH level, will wait until ETOH improves and evaluate at bedside again 03/09/18 14:30 pt is currently comfortable resting in bed pt tolerated po well 1630 PES/crisis counselor is unable to assess patient due to his intoxication expressed concern that pt has had multiple DTs in the past and patient should be admitted to medicine and consult psych eval 1999 pt remained calm and not in any distress resting in bed 2200 PES/crisis counselor reassessed pt and discussed with Dr Reyes, who given pt's prior multiple DT episodes while admitted for psych monitor/evaluation, is recommending patient for medical admission and consult psych for further care. I spoke to Dr Felix, who suggests hospitalists for admission I spoke to overnight hospitalists counselor nurses' association, Dr Candelaria, who agrees with admission for impending DT 03/09/18 22:00 pt is currently resting no episodes of jittery/anxiousness noted pt is made aware of his medical results agrees with admission Re-evaluation Time: 14:38 Reassessment Condition: Unchanged - Lab Interpretations Lab Results: 03/09/18 12:00 03/09/18 12:00 Lab Results 03/09/18 12:00: Alcohol, Quantitative 381 H* 03/09/18 12:00: Salicylates < 1 L, Acetaminophen < 10.0 L 03/09/18 12:00: Urine Opiates Screen Negative, Urine Methadone Screen Negative, Ur Barbiturates Screen Negative, Ur Phencyclidine Scrn Negative, Ur Amphetamines Screen Negative, U Benzodiazepines Scrn Negative, U Oth Cocaine Metabols Negative, U Cannabinoids Screen Negative 03/09/18 12:00: Sodium 142, Potassium 4.3, Chloride 100, Carbon Dioxide 25, Anion Gap 21 H, BUN 5 L, Creatinine 0.5 L, Est GFR ( Amer) > 60, Est GFR (Non-Af Amer) > 60, Random Glucose 90, Calcium 8.5, Magnesium 1.6 L, Total Bilirubin 0.7, AST 104 H D, ALT 40, Alkaline Phosphatase 124, Total Protein 8.7 H, Albumin 4.4, Globulin 4.3, Albumin/Globulin Ratio 1.0 L 03/09/18 12:00: Urine Color Colorless, Urine Appearance Clear, Urine pH 6.0, Ur Specific [place] <= 1.005, Urine Protein Negative, Urine Glucose (UA) Negative, Urine Ketones Negative, Urine Blood Negative, Urine Nitrate Negative, Urine Bilirubin Negative, Urine Urobilinogen 0.2, Ur Leukocyte Esterase Negative 03/09/18 12:00: WBC 4.4 L D, RBC 3.97, Hgb 13.2 L, Hct 37.7 L, MCV 95.0, MCH 33.2, MCHC 35.0, RDW 14.9 H, Plt Count 101 L, MPV 9.4, Gran % 37.6 L, Lymph % ( Auto) 48.7 H, [place] % (Auto) 7.8 H, Eos % (Auto) 5.7 H, Baso % (Auto) 0.2, Gran # 1.63, Lymph # (Auto) 2.1, [place] # (Auto) 0.3, Eos # (Auto) 0.3, Baso # (Auto) 0.01 I have reviewed the lab results: Yes Interpretation: Abnormal lab values (elevated ETOH) - RAD Interpretation Narrative RAD Interpretations (Text): 03/09/18 14:35 Chest X-Ray - NAD, as read by me 03/09/2018 17:03 Chest X-ray IMPRESSION: No active disease. Suspect minor chronic pleural thickening right chest pain angle. Dictator: Narinder Valdivia DO Radiology Orders: 03/09/18 11:49 CHEST PORTABLE [RAD] [employer] Antenna Installer: ED Physician, Radiologist - EKG Interpretation EKG Interpretation (Text): 03/09/18 14:36 NSR at 90 bpm, normal axis, no ectopy, non-specific T changes, no st changes, BORDERLINE EKG; unchanged compare with old ekg 01/2018 Interpreted by ED Physician: Yes Type: 12 lead EKG Comparison: Similar to previous EKG - Medication Orders Current Medication Orders: Multivitamins/Vitamin C 10 ml/Thiamine HCl 100 mg/ Folic Acid 1 mg/ Dextrose 1, 011.2 mls @ 505.6 mls/hr IV .Q2H ONE Stop: 03/10/18 01:04 Pantoprazole Sodium (Protonix Inj) 40 mg IVP DAILY ELY Discontinued Medications Sodium Chloride (Sodium Chloride 0.9%) 500 mls @ 999 mls/hr IV .Q31M STA Stop: 03/09/18 23:36 Lorazepam (Ativan) 2 mg IM ONCE ONE PRN Reason: Protocol Stop: 03/09/18 11:53 Last Admin: 03/09/18 13:12 Dose: 2 mg IM Administration Charges Document 03/09/18 13:12 EWO (Rec: 03/09/18 13:12 EWO [id number]) Injection Site MAR Injection Site Left Vastus Lateralis Charges for Administration # of IM Administrations 1 Magnesium Oxide (Mag-Ox) 400 mg PO STAT STA Stop: 03/09/18 14:34 Last Admin: 03/09/18 16:39 Dose: 400 mg Ziprasidone (Geodon Inj) 20 mg IM STAT STA PRN Reason: Protocol Stop: 03/09/18 12:26 Last Admin: 03/09/18 13:12 Dose: 20 mg IM Administration Charges Document 03/09/18 13:12 EWO (Rec: 03/09/18 13:12 EWO [id number]) Injection Site MAR Injection Site Left Deltoid Charges for Administration # of IM Administrations 1 Disposition/Present on Arrival - Present on Arrival Any Indicators Present on Arrival: No History of DVT/PE: No History of Uncontrolled Diabetes: No Urinary Catheter: No History of Decub. Ulcer: No History Surgical Site Infection Following: CABG - Mediastinitis, Bariatric Surgery, None - Disposition Have Diagnosis and Disposition been Completed?: Yes Diagnosis: Alcohol abuse, Alcohol intoxication, Suicidal ideation, Homicidal ideation, Nonadherence to medication, Alcohol withdrawal delirium Disposition: HOSPITALIZED Disposition Time: 23:00 Patient Plan: Admission, Telemetry Patient Problems: Current Active Problems Problem Status Onset Alcohol abuse Acute Alcohol intoxication Acute Suicidal ideation Acute Homicidal ideation Acute Nonadherence to medication Acute Condition: STABLE
[2018-03-09 12:23] LABS: BASO # 0.01 K/mm3 (0.0-2.0); BASO % 0.2 % (0.0-3.0); EOS # 0.3 (0.0-0.7); EOS % 5.7 % (1.5-5.0); GRAN # 1.63 (1.4-6.5); GRAN % 37.6 % (50.0-68.0); HEMOGLOBIN 13.2 g/dL (14.0-18.0); LYMPH # 2.1 (1.2-3.4); LYMPH % 48.7 % (22.0-35.0); MEAN CORPUSCULAR HEMOGLOBIN 33.2 pg (25.0-35.0); MEAN PLATELET VOLUME 9.4 fl (7.0-11.0); MONO # 0.3 (0.1-0.6); MONO % 7.8 % (1.0-6.0); RBC 3.97 10^6/uL (3.5-6.1); RED CELL DISTRIBUTION WIDTH 14.9 % (11.5-14.5); WHITE BLOOD COUNT 4.4 10^3/ul (4.5-11.0)
[2018-03-09 12:30] LABS: ACETAMINOPHEN < 10.0 ug/ml (10.0-20.0); SALICYLATE < 1 mg/dL (2.0-20.0)
[2018-03-09 12:31] LABS: ALBUMIN 4.4 g/dL (3.0-4.8); ALT/SGPT 40 U/L (7-56); AST/SGOT 104 U/L (17-59); BLOOD UREA NITROGEN 5 mg/dL (7-21); CALCIUM 8.5 mg/dL (8.4-10.5); GFR NON-AFRICAN AMERICAN > 60
[2018-03-09 12:40] LABS: URINE BILIRUBIN NEGATIVE (NEGATIVE); URINE BLOOD NEGATIVE (NEGATIVE); URINE GLUCOSE (UA) NEGATIVE (NEGATIVE); URINE LEUKOCYTE ESTERASE NEGATIVE Leu/uL (NEGATIVE); URINE PROTEIN NEGATIVE mg/dL (<30 mg/dL); URINE UROBILINOGEN 0.2 E.U./dL (<1 E.U./dL)
[2018-03-09 12:42] LABS: URINE APPEARANCE CLEAR (CLEAR); URINE COLOR COLORLESS (YELLOW)
[2018-03-09 12:54] LABS: BARBITURATES, UR NEGATIVE (NEGATIVE); BENZODIAZEPINES, UR NEGATIVE (NEGATIVE); OPIATES, UR NEGATIVE (NEGATIVE); PHENCYCLIDINE, UR NEGATIVE (NEGATIVE)
[2018-03-09] MEDS ORDERED: Magnesium Oxide 400 mg Tab UD PO STA (14:33)
--- NOTE | 2018-03-09 17:05 | RAD ---
HISTORY: medical clearance for psych eval COMPARISON: Comparison chest 01/30/2018 FINDINGS: LUNGS: No active pulmonary disease. PLEURA: Suspect mild chronic pleural thickening right lung base which could be related to old trauma and the below mentioned rib fractures. CARDIOVASCULAR: Normal. OSSEOUS STRUCTURES: Several old healed right-sided rib fracture deformities again noted VISUALIZED UPPER ABDOMEN: Normal. OTHER FINDINGS: None. IMPRESSION: No active disease. . Suspect minor chronic pleural thickening right CP angle
[2018-03-09] MEDS ORDERED: Multivitamin (MVI) 10 ML, Thiamine 100 MG, Folic Acid 1 MG in Dextrose 5% In Water 1,00... IV ONE (23:05)
[2018-03-09] MEDS ORDERED: Sodium Chloride 0.9% 500 ML IV STA (23:06)
--- NOTE | 2018-03-09 23:14 | CP.PCM.HP ---
Addendum entered and electronically signed by Wanda Arango DO 03/10/18 04:00: Social Histroy: Patient smokes > 10 cig a day Will order Nicotine patch Original Note: <NbaWanda - Last Filed: 03/10/18 03:57> History of Present Illness - History of Present Illness History of Present Illness: History and Physical - Hospitalist Service CC: "I want to hurt myself" HPI: Patient is a 57 year old male with past medical history depression, alcohol abuse [place] [facility] [place] feelings of [place] and suicidal/homicidal ideation. Patient states that for the past few days his depression has been getting worse. 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 He also reports feeling like he wants to hurt himself and others. Patient reports that he had two 12oz Beers prior to arrival. Patient has a history of going into alcohol withdrawal and delirium tremens. He states that he had one seizure in the past from alcohol withdrawal. Patient was recently admitted to psych for depression and suicidal ideation 01/2018. Patient states that he has been suicidal in the past but does not have a plan. Currently he denies headaches, dizziness, cp, palpitations, sob, abdominal pain, urinary symptoms, changes in bowel habits. Patient admits to feeling nauseous but denies vomiting. ED course: Ativan 2mg x1, Geodon 20mg x 1, Mag oxide 400mg x 1 Allergies: NKDA Medications: Denies Medical History: Depression, Alcohol abuse Surgical History: Right knee surgery Social History: Drinks beers for "many years", denies tobacco, drug use Family History: Denies Present on Admission - Present on Admission Any Indicators Present on Admission: No Past Patient History - Infectious Disease Hx of Infectious Diseases: None - Tetanus Immunizations Tetanus Immunization: Unknown - Past Social History Smoking Status: Heavy Smoker > 10 Cigarettes Daily - CARDIAC Hx Cardiac Disorders: Yes Hx Hypertension: Yes - PULMONARY Hx Respiratory Disorders: No - NEUROLOGICAL Hx Neurological Disorder: No - HEENT Hx HEENT Problems: No - RENAL Hx Chronic Kidney Disease: No - ENDOCRINE/METABOLIC Hx Endocrine Disorders: No - HEMATOLOGICAL/ONCOLOGICAL Hx Blood Disorders: No - INTEGUMENTARY Hx Dermatological Problems: No - MUSCULOSKELETAL/RHEUMATOLOGICAL Hx Musculoskeletal Disorders: Yes Other/Comment: R KNEE INJURY - GASTROINTESTINAL Hx Gastrointestinal Disorders: Yes Other/Comment: HERNIA - GENITOURINARY/GYNECOLOGICAL Hx Genitourinary Disorders: No - PSYCHIATRIC Hx Depression: Yes Hx Substance Use: Yes - SURGICAL HISTORY Hx Orthopedic Surgery: Yes (RIGHT KNEE SX) - ANESTHESIA Hx Anesthesia: Yes Hx Anesthesia Reactions: No Meds Allergies/Adverse Reactions: Allergies Allergy/AdvReac Type Severity Reaction Status Date / Time No Known Allergies Allergy Verified 03/09/18 11:37 Physical Exam - Constitutional Appears: Non-toxic, No Acute Distress, Older Than Stated Age - Head Exam Head Exam: ATRAUMATIC, NORMAL INSPECTION, NORMOCEPHALIC - Eye Exam Eye Exam: EOMI, Normal appearance Pupil Exam: NORMAL ACCOMODATION - ENT Exam ENT Exam: Mucous Membranes Moist - Neck Exam Neck exam: Positive for: Full Rom - Respiratory Exam Respiratory Exam: Clear to Auscultation Bilateral, NORMAL BREATHING PATTERN. absent: Rales, Rhonchi, Wheezes - Cardiovascular Exam Cardiovascular Exam: REGULAR RHYTHM, +S1, +S2 - GI/Abdominal Exam GI & Abdominal Exam: Normal Bowel Sounds, Soft. absent: Guarding, Rebound, Rigid, Tenderness - Rectal Exam Rectal Exam: Deferred - Extremities Exam Extremities exam: Positive for: normal inspection, pedal pulses present. Negative for: calf tenderness - Back Exam Back exam: NORMAL INSPECTION - Neurological Exam Neurological exam: Alert, Oriented x3 - Psychiatric Exam Psychiatric exam: Homicidal Ideation, Normal Affect, Normal Mood, Suicidal Ideation - Skin Skin Exam: Dry, Normal Color, Warm Results - Vital Signs Recent Vital Signs: Last Vital Signs Temp 98 F 03/09/18 19:00 Pulse 85 03/09/18 19:00 Resp 19 03/09/18 19:00 BP 125/56 L 03/09/18 19:00 Pulse Ox 98 03/09/18 19:00 - Labs Result Diagrams: 03/09/18 12:00 03/09/18 12:00 Labs: Laboratory Results - last 24 hr 03/09/18 03/09/18 03/09/18 12:00 12:00 12:00 WBC 4.4 L D RBC 3.97 Hgb 13.2 L Hct 37.7 L MCV 95.0 MCH 33.2 MCHC 35.0 RDW 14.9 H Plt Count 101 L MPV 9.4 Gran % 37.6 L Lymph % (Auto) 48.7 H [place] % (Auto) 7.8 H Eos % (Auto) 5.7 H Baso % (Auto) 0.2 Gran # 1.63 Lymph # (Auto) 2.1 [place] # (Auto) 0.3 Eos # (Auto) 0.3 Baso # (Auto) 0.01 Sodium 142 Potassium 4.3 Chloride 100 Carbon Dioxide 25 Anion Gap 21 H BUN 5 L Creatinine 0.5 L Est GFR ( Amer) > 60 Est GFR (Non-Af Amer) > 60 Random Glucose 90 Calcium 8.5 Magnesium 1.6 L Total Bilirubin 0.7 AST 104 H D ALT 40 Alkaline Phosphatase 124 Total Protein 8.7 H Albumin 4.4 Globulin 4.3 Albumin/Globulin Ratio 1.0 L Urine Color Colorless Urine Appearance Clear Urine pH 6.0 Ur Specific [place] <= 1.005 Urine Protein Negative Urine Glucose (UA) Negative Urine Ketones Negative Urine Blood Negative Urine Nitrate Negative Urine Bilirubin Negative Urine Urobilinogen 0.2 Ur Leukocyte Esterase Negative Salicylates Urine Opiates Screen Urine Methadone Screen Acetaminophen Ur Barbiturates Screen Ur Phencyclidine Scrn Ur Amphetamines Screen U Benzodiazepines Scrn U Oth Cocaine Metabols U Cannabinoids Screen Alcohol, Quantitative 03/09/18 03/09/18 03/09/18 12:00 12:00 12:00 WBC RBC Hgb Hct MCV MCH MCHC RDW Plt Count MPV Gran % Lymph % (Auto) [place] % (Auto) Eos % (Auto) Baso % (Auto) Gran # Lymph # (Auto) [place] # (Auto) Eos # (Auto) Baso # (Auto) Sodium Potassium Chloride Carbon Dioxide Anion Gap BUN Creatinine Est GFR ( Amer) Est GFR (Non-Af Amer) Random Glucose Calcium Magnesium Total Bilirubin AST ALT Alkaline Phosphatase Total Protein Albumin Globulin Albumin/Globulin Ratio Urine Color Urine Appearance Urine pH Ur Specific [place] Urine Protein Urine Glucose (UA) Urine Ketones Urine Blood Urine Nitrate Urine Bilirubin Urine Urobilinogen Ur Leukocyte Esterase Salicylates < 1 L Urine Opiates Screen Negative Urine Methadone Screen Negative Acetaminophen < 10.0 L Ur Barbiturates Screen Negative Ur Phencyclidine Scrn Negative Ur Amphetamines Screen Negative U Benzodiazepines Scrn Negative U Oth Cocaine Metabols Negative U Cannabinoids Screen Negative Alcohol, Quantitative 381 H* Assessment & Plan - Assessment and Plan (Free Text) Assessment: A/P: Patient is a 57 year old male with past medical history of alcohol abuse, depression, multiple psych admissions presents [place] [facility] [place] severe depression with suicidal/homicidal ideation and alcohol intoxication. Acute Alcohol Intoxication/Alcohol withdrawal -Stable, afebrile -Alcohol level on admission was 381 -Admit to telemetry -UTOX was negative, Acetaminophen <1 -Patient has a history of alcohol withdrawal in the past -Continue banana bag -Librium 25mg PO Q4H ELY (hold for sedation) -Ativan 1mg IVP Q6H prn alcohol withdrawal (hold for sedation) -Zofran 4mg Q4H prn nausea -At time of interview, patient was not in withdrawal; no tremors, no elevated BP , no tachycardia -Fall precautions, seizure precautions, aspiration precautions, CIWA protocol Suicidal Ideation with history of Anxiety/Depression -1:1 observation for safety -Psych on consult, help appreciated Transaminitis -LFTs mildly elevated -Will continue to monitor -F/U hepatitis panel Pancytopenia -Patient with low WBC, low hemoglobin, and low platelets -Likely secondary to bone marrow suppression from chronic alcohol use -Continue to monitor Hypomagnesemia -Magnesium 1.6 on admission -Repleted with mag oxide 400mg PO x 1 dose -Continue to monitor and replete as needed GI/DVT ppx: -Protonix 40mg IVP daily -SCDS Plan discussed with Dr Nel Arango DO PGY-1 <Sheryl Neumann - Last Filed: 03/11/18 20:40> Results - Vital Signs Recent Vital Signs: Last Vital Signs Temp 97.0 F L 03/10/18 03:30 Pulse 89 03/10/18 03:30 Resp 20 03/10/18 03:30 BP 157/109 H 03/10/18 03:30 Pulse Ox 98 03/09/18 23:00 - Labs Result Diagrams: 03/11/18 06:44 03/11/18 06:44 Attending/Attestation - Attestation I have personally seen and examined this patient.: Yes I have fully participated in the care of the patient.: Yes I have reviewed all pertinent clinical information: Yes Notes (Text): 03/10/18 05:56 Patient seen ,discussed with the Resident. IMP:Suicidal ideation Depression Anxiety Alcohol dependance Impending DTs PLAN:as ordered.
[2018-03-10 07:29] LABS: BASO # 0.01 K/mm3 (0.0-2.0); BASO % 0.2 % (0.0-3.0); EOS # 0.2 (0.0-0.7); EOS % 3.6 % (1.5-5.0); GRAN # 2.69 (1.4-6.5); GRAN % 64.1 % (50.0-68.0); HEMOGLOBIN 13.2 g/dL (14.0-18.0); LYMPH % 23.8 % (22.0-35.0); MEAN CORPUSCULAR HEMOGLOBIN 32.9 pg (25.0-35.0); MEAN CORPUSCULAR HGB CONC 33.9 g/dl (31.0-37.0); MONO # 0.4 (0.1-0.6); MONO % 8.3 % (1.0-6.0); RBC 4.01 10^6/uL (3.5-6.1); RED CELL DISTRIBUTION WIDTH 15.3 % (11.5-14.5); WHITE BLOOD COUNT 4.2 10^3/ul (4.5-11.0)
[2018-03-10 07:56] LABS: ALBUMIN 3.9 g/dL (3.0-4.8); ALT/SGPT 41 U/L (7-56); AST/SGOT 73 U/L (17-59); BLOOD UREA NITROGEN 6 mg/dL (7-21); CALCIUM 8.7 mg/dL (8.4-10.5); GFR NON-AFRICAN AMERICAN > 60
[2018-03-10] MEDS: Multivitamin Vitamin B Complex (Nephro-Vite) Tab PO SCH (08:28)
[2018-03-10] MEDS ORDERED: Magnesium Sulfate 2 GM in Sodium Chloride 0.9% 100 ML IVPB ONE (09:04)
[2018-03-10] MEDS ORDERED: Magnesium Sulfate 2 gm/50 ml 2 GM/50 ML BAG IV ONE (09:15)
[2018-03-10] MEDS ORDERED: Enoxaparin 40 mg Syringe SC SCH (10:30)
--- NOTE | 2018-03-10 12:03 | CP.PCM.PN ---
<Verónica Mason - Last Filed: 03/10/18 14:24> Subjective - Date & Time of Evaluation Date of Evaluation: 03/10/18 Time of Evaluation: 08:30 - Subjective Subjective: Hospitalist progress note for Dr Davidson. Patient appears stable overnight, had 1:1 constant observation. States he slept well. Denies cp, or sob. admits to chronic dry cough. No fever or chills. No nausea, vomiting or diarrhea. Ate all his breakfast this morning. Objective - Vital Signs/Intake and Output Vital Signs (last 24 hours): Temp Pulse Resp BP Pulse Ox 98.1 F 82 20 149/107 H 97 03/10/18 06:00 03/10/18 10:00 03/10/18 06:00 03/10/18 06:00 03/10/18 06:00 Intake and Output: 03/10/18 03/10/18 06:59 18:59 Intake Total 1100 Output Total 650 Balance 450 - Medications Medications: Current Medications Chlordiazepoxide (Librium) 25 mg PO Q6H [facility] Last Admin: 03/10/18 10:28 Dose: Not Given Citalopram Hydrobromide (Celexa) 20 mg PO DAILY [facility] Folic Acid (Folic Acid) 1 mg PO DAILY [facility] Last Admin: 03/10/18 09:29 Dose: 1 mg Lorazepam (Ativan) 1 mg IVP Q6H PRN PRN Reason: Symptoms of alcohol withdrawl Last Admin: 03/10/18 00:31 Dose: 1 mg Mirtazapine (Remeron) 15 mg PO HS [facility] Nicotine (Nicoderm Cq) 1 patch TD DAILY [facility] Last Admin: 03/10/18 09:28 Dose: 1 patch Ondansetron HCl (Zofran Inj) 4 mg IVP Q4H PRN PRN Reason: Nausea/Vomiting Pantoprazole Sodium (Protonix Inj) 40 mg IVP DAILY [facility] Last Admin: 03/10/18 09:28 Dose: 40 mg Risperidone (Risperdal Tab) 0.5 mg PO HS [facility] PRN Reason: Protocol Thiamine HCl (Vitamin B1 Tab) 100 mg PO DAILY [facility] Last Admin: 03/10/18 09:29 Dose: 100 mg Vitamin B Complex/Vit C/Folic Acid (Nephro-Tim) 1 tab PO 0800 [facility] Last Admin: 03/10/18 08:28 Dose: 1 tab - Labs Labs: 03/10/18 06:30 03/10/18 06:30 - Constitutional Appears: No Acute Distress, Older Than Stated Age, Cachectic, Chronically Ill - Head Exam Head Exam: ATRAUMATIC, NORMAL INSPECTION, NORMOCEPHALIC - Eye Exam Eye Exam: EOMI, Normal appearance, PERRL. absent: Scleral icterus - ENT Exam ENT Exam: Mucous Membranes Moist - Neck Exam Neck Exam: Normal Inspection - Respiratory Exam Respiratory Exam: Clear to Ausculation Bilateral, NORMAL BREATHING PATTERN. absent: Rales, Rhonchi, Wheezes, Respiratory Distress, Stridor - Cardiovascular Exam Cardiovascular Exam: REGULAR RHYTHM, RRR, +S1, +S2. absent: Gallop, Irregular Rhythm, JVD, Rubs, Murmur - GI/Abdominal Exam GI & Abdominal Exam: Soft, Normal Bowel Sounds. absent: Distended, Firm, Guarding, Rigid, Tenderness, Rebound - Extremities Exam Extremities Exam: Normal Inspection - Back Exam Back Exam: NORMAL INSPECTION - Neurological Exam Neurological Exam: Alert, Awake, Oriented x3 Additional comments: + mild fine tremors. - Psychiatric Exam Psychiatric exam: Normal Affect, Normal Mood - Skin Skin Exam: Dry, Normal Color Additional comments: + multiple abrasions on the lower extremities. Assessment and Plan - Assessment and Plan (Free Text) Assessment: 57 year old male with past medical history of alcohol abuse, depression, multiple psych admissions [place] [facility] [place] with suicidal/ homicidal ideation and alcohol intoxication. Plan: 1) Acute Alcohol Intoxication/Alcohol withdrawal - alcohol was 381 on admission - patient is wake and alert, no complaints, ciwa this am was 2 - librium decreased to 25q6h, and Ativan 1q6prn. - continue with librium and folic acid 2) Suicidal Ideation with history of Anxiety/Depression - continue with 1:1 observation for safety - psych consulted - Started on celexa, remeron, rispiridone 3) Transaminitis- elevated ast likely due to alcohol, - trending down, continue to monitor. - hep panel pending 4) Pancytopenia- likely due to chronic recurrent alcohol abuse resulting in bone marrow suppression, - wbc, hgb stable, - plt dropped from 101 to 88, - heparin was discontinued, will continue to monitor 5) Hypomagnesemia- being repleted, will continue to monitor. 6) Tobacco abuse- continue nicotine patch 7) Chronic dry cough- chest x-ray with no infiltration, no wbc or fever, will give robittusin prn 8) DVT and GI prophylaxis: VTE device and protonix. 9) Dispo- pending psych clearance and PT eval. Patient seen, examined and case discussed with Dr Dominguez. <Javier Dominguez - Last Filed: 03/10/18 15:33> Objective - Vital Signs/Intake and Output Vital Signs (last 24 hours): Temp Pulse Resp BP Pulse Ox 98.6 F 87 18 154/97 H 97 03/10/18 12:00 03/10/18 12:00 03/10/18 12:00 03/10/18 12:00 03/10/18 06:00 Intake and Output: 03/10/18 03/10/18 06:59 18:59 Intake Total 1100 Output Total 650 Balance 450 - Medications Medications: Current Medications Chlordiazepoxide (Librium) 25 mg PO Q6H [facility] Last Admin: 03/10/18 10:28 Dose: Not Given Citalopram Hydrobromide (Celexa) 20 mg PO DAILY [facility] Clonidine HCl (Catapres) 0.1 mg PO BID [facility] Folic Acid (Folic Acid) 1 mg PO DAILY [facility] Last Admin: 03/10/18 09:29 Dose: 1 mg Guaifenesin (Robitussin) 100 mg PO Q4H PRN PRN Reason: Cough Lorazepam (Ativan) 1 mg IVP Q6H PRN PRN Reason: Symptoms of alcohol withdrawl Last Admin: 03/10/18 00:31 Dose: 1 mg Mirtazapine (Remeron) 15 mg PO HS [facility] Nicotine (Nicoderm Cq) 1 patch TD DAILY [facility] Last Admin: 03/10/18 09:28 Dose: 1 patch Ondansetron HCl (Zofran Inj) 4 mg IVP Q4H PRN PRN Reason: Nausea/Vomiting Pantoprazole Sodium (Protonix Inj) 40 mg IVP DAILY [facility] Last Admin: 03/10/18 09:28 Dose: 40 mg Risperidone (Risperdal Tab) 0.5 mg PO HS [facility] PRN Reason: Protocol Thiamine HCl (Vitamin B1 Tab) 100 mg PO DAILY [facility] Last Admin: 03/10/18 09:29 Dose: 100 mg Vitamin B Complex/Vit C/Folic Acid (Nephro-Tim) 1 tab PO 0800 [facility] Last Admin: 03/10/18 08:28 Dose: 1 tab - Labs Labs: 03/10/18 06:30 03/10/18 06:30 Attending/Attestation - Attestation I have personally seen and examined this patient.: Yes I have fully participated in the care of the patient.: Yes I have reviewed all pertinent clinical information, including history, physical exam and plan: Yes Notes (Text): 03/10/18 15:29 Patient seen and examined at bedside. vitals, labs, notes reviewed. Replete electrolytes prn. Psych recommendations noted. Agree with the plan as discussed and outlined by the resident.
--- NOTE | 2018-03-10 13:47 | CARD ---
APPROVED REPORT EKG Measurement Heart [id number] <Conclusion> Normal sinus rhythm Nonspecific T wave abnormality Abnormal ECG
[2018-03-10] MEDS: guaiFENesin 100 mg/5 ml Syrup UD PO PRN ×2 (17:45→21:51)
[2018-03-11 07:16] LABS: BASO # 0.01 K/mm3 (0.0-2.0); BASO % 0.2 % (0.0-3.0); EOS # 0.2 (0.0-0.7); EOS % 3.2 % (1.5-5.0); GRAN # 2.8 (1.4-6.5); GRAN % 59.9 % (50.0-68.0); HEMOGLOBIN 13.3 g/dL (14.0-18.0); LYMPH # 1.3 (1.2-3.4); LYMPH % 26.9 % (22.0-35.0); MEAN CELL VOLUME 97.5 fl (80.0-105.0); MEAN CORPUSCULAR HEMOGLOBIN 32.8 pg (25.0-35.0); MEAN CORPUSCULAR HGB CONC 33.6 g/dl (31.0-37.0); MONO # 0.5 (0.1-0.6); MONO % 9.8 % (1.0-6.0); RBC 4.06 10^6/uL (3.5-6.1); RED CELL DISTRIBUTION WIDTH 14.9 % (11.5-14.5); WHITE BLOOD COUNT 4.7 10^3/ul (4.5-11.0)
[2018-03-11 07:18] LABS: ALT/SGPT 32 U/L (7-56); AST/SGOT 60 U/L (17-59); BLOOD UREA NITROGEN 10 mg/dL (7-21); CALCIUM 9.1 mg/dL (8.4-10.5); GFR NON-AFRICAN AMERICAN > 60
--- NOTE | 2018-03-11 08:22 | CON ---
DATE: 03/10/2018 HISTORY OF PRESENT ILLNESS: Patient is a 57-year-old male with history of depression and anxiety, chronic alcohol dependency, with 2 prior psychiatric admissions, most recently in 2018 and 2017, who brought himself to the ED, reporting depression and suicidal thoughts in the context of continued alcohol use. Psychiatry is following up the patient on the medical floor, while he is being monitored for alcohol withdrawal DTs. I met with the patient at bedside and he is very familiar to me and he recognizes me from my prior care on Psychiatric Unit. Patient appears malnourished, tired, and preoccupied, though he is superficially cooperative and responsive to my questioning. He knows where he is and he still has a superficial understanding of current circumstances. He does not know which the month or year are and indicates "surprisingly, I am not hallucinating right now." Patient indicates that he is feeling "out of it" and that he has not followed up with psychiatric recommendations when he was discharged from the Psychiatric Unit. Patient has been drinking on a daily basis, however. He denies any drug use. He reports that he has been increasingly depressed and has suicidal thoughts. Currently does not feel safe and has considered jumping off a bridge. He is not responding to internal stimuli and there have not been any major behavioral issues on the medical floor thus far. Vital signs reviewed by this provider as well as laboratory work. RELEVANT PSYCHIATRIC MEDICATIONS: Only include Librium 25 mg every 6 hours scheduled as well as Ativan 1 mg IV every 6 hours p.r.n. PSYCHIATRIC HISTORY: Patient was hospitalized on the psychiatric floor in 01/2018, given the discharge diagnoses of major depressive disorder and severe alcohol use disorder. MEDICATIONS: Patient's discharge medications include Celexa 40 mg daily, mg daily, which patient obviously was not taking, Remeron 15 mg for insomnia and depression, Neurontin 300 three times a day, and Risperdal 1 mg at bedtime for irritability and mood stabilization. SOCIAL HISTORY: Patient reports that he is born in [place]. He is homeless. He is single. He has two children who are adults. He is unemployed. Denies any current drug use, but he has been drinking on a regular basis and has with alcohol use. RECOMMENDATIONS: Medical team can continue to treat patient's alcohol withdrawal symptoms. I will restart Celexa 20 mg daily for depression as well as Remeron 15 mg for insomnia and depression. Risperdal will be restarted at lower dose of 0.5 mg p.o. at bedtime as patient is medically unstable and has not been compliant with his discharge medications in Psychiatric Unit. Psychiatry will follow up with patient on a daily basis. Patient is agreeable to transfer to the Psychiatric Unit, once he is medically stabilized. Nicky Reyes MD
[2018-03-11 08:54] LABS: HEPATITIS B SURFACE AG Negative (NEGATIVE)
[2018-03-11 08:59] LABS: HEPATITIS A IGM NEGATIVE (NEGATIVE); HEPATITIS B CORE AB NEGATIVE (NEGATIVE)
[2018-03-11 09:12] LABS: HEPATITIS C ANTIBODY NEGATIVE (NEGATIVE)
[2018-03-11] MEDS: Multivitamin Vitamin B Complex (Nephro-Vite) Tab PO SCH (10:01)
--- NOTE | 2018-03-11 13:14 | CP.PCM.PN ---
<Diogenes Paniagua - Last Filed: 03/11/18 13:15> Subjective - Date & Time of Evaluation Date of Evaluation: 03/11/18 Time of Evaluation: 06:30 - Subjective Subjective: Patient seen and examined at bedside in no acute distress. Patient noted to not have any tremors. Denies chest pain, shortness of breath, nausea, vomiting, diarrhea, seizures, dizziness, withdrawal symptoms, headache, cough, fevers, chills. Objective - Vital Signs/Intake and Output Vital Signs (last 24 hours): Temp Pulse Resp BP Pulse Ox 98.7 F 99 H 18 125/86 97 03/11/18 12:00 03/11/18 12:00 03/11/18 12:00 03/11/18 12:00 03/11/18 00:01 Intake and Output: 03/11/18 03/11/18 06:59 18:59 Intake Total 1360 Output Total 1300 Balance 60 - Medications Medications: Current Medications Chlordiazepoxide (Librium) 25 mg PO Q6H [facility] Last Admin: 03/11/18 10:00 Dose: 25 mg Citalopram Hydrobromide (Celexa) 20 mg PO DAILY [facility] Last Admin: 03/11/18 10:00 Dose: 20 mg Clonidine HCl (Catapres) 0.1 mg PO BID [facility] Last Admin: 03/11/18 09:59 Dose: 0.1 mg Folic Acid (Folic Acid) 1 mg PO DAILY [facility] Last Admin: 03/11/18 09:59 Dose: 1 mg Guaifenesin (Robitussin) 100 mg PO Q4H PRN PRN Reason: Cough Last Admin: 03/10/18 21:51 Dose: 100 mg Lorazepam (Ativan) 1 mg IVP Q6H PRN PRN Reason: Symptoms of alcohol withdrawl Last Admin: 03/10/18 00:31 Dose: 1 mg Mirtazapine (Remeron) 15 mg PO HS [facility] Last Admin: 03/10/18 21:50 Dose: 15 mg Nicotine (Nicoderm Cq) 1 patch TD DAILY [facility] Last Admin: 03/11/18 10:01 Dose: 1 patch Ondansetron HCl (Zofran Inj) 4 mg IVP Q4H PRN PRN Reason: Nausea/Vomiting Pantoprazole Sodium (Protonix Ec Tab) 40 mg PO ACB [facility] Risperidone (Risperdal Tab) 0.5 mg PO HS [facility] PRN Reason: Protocol Last Admin: 03/10/18 21:50 Dose: 0.5 mg Thiamine HCl (Vitamin B1 Tab) 100 mg PO DAILY [facility] Last Admin: 03/11/18 10:00 Dose: 100 mg Vitamin B Complex/Vit C/Folic Acid (Nephro-Tim) 1 tab PO 0800 [facility] Last Admin: 03/11/18 10:01 Dose: 1 tab - Labs Labs: 03/11/18 06:44 03/11/18 06:44 - Head Exam Head Exam: ATRAUMATIC, NORMAL INSPECTION, NORMOCEPHALIC - Eye Exam Eye Exam: EOMI, Normal appearance - ENT Exam ENT Exam: Mucous Membranes Moist - Respiratory Exam Respiratory Exam: Clear to Ausculation Bilateral, NORMAL BREATHING PATTERN. absent: Rhonchi, Wheezes - Cardiovascular Exam Cardiovascular Exam: REGULAR RHYTHM, +S1, +S2 - GI/Abdominal Exam GI & Abdominal Exam: Soft, Normal Bowel Sounds - Extremities Exam Extremities Exam: Normal Inspection - Back Exam Back Exam: NORMAL INSPECTION - Neurological Exam Neurological Exam: Alert, Awake, Oriented x3 - Psychiatric Exam Psychiatric exam: Normal Affect, Normal Mood - Skin Skin Exam: Intact, Normal Color, Warm Assessment and Plan - Assessment and Plan (Free Text) Assessment: 57 year old male with past medical history of alcohol abuse, depression, multiple psych admissions presents to [facility] for severe depression with suicidal/ homicidal ideation and alcohol intoxication. Plan: Acute Alcohol Intoxication/Alcohol withdrawal - alcohol was 381 on admission - patient is wake and alert, no complaints, ciwa this morning was 2 - Will keep Ativan 1q6prn. - continue with folic acid Suicidal Ideation with history of Anxiety/Depression - continue with 1:1 observation for safety - psych consulted -Continue celexa, remeron, rispiridone Transaminitis- elevated ast likely due to alcohol, - trending down, continue to monitor. - hep panel negative Pancytopenia- likely due to chronic recurrent alcohol abuse resulting in bone marrow suppression, - wbc, hgb stable, - plt decreasing secondary to alcohol abuse - heparin discontinued, will continue to monitor. Will also discontinue protonix and give pepcid. Tobacco abuse- continue nicotine patch Chronic dry cough- chest x-ray with no infiltration, no wbc or fever, continue robittusin prn DVT and GI prophylaxis: VTE device and pepcid. Dispo-Patient is medical clear and can be seen by psychiatry now Patient seen, examined and case discussed with Dr. Lundberg <Aston Lundberg - Last Filed: 03/12/18 15:32> Objective - Vital Signs/Intake and Output Vital Signs (last 24 hours): Temp Pulse Resp BP Pulse Ox 97.9 F 72 18 120/78 96 03/12/18 08:17 03/12/18 11:09 03/12/18 08:17 03/12/18 11:09 03/12/18 08:17 Intake and Output: 03/12/18 03/12/18 06:59 18:59 Intake Total 720 Output Total 800 Balance -80 - Labs Labs: 03/12/18 06:10 03/12/18 06:10 Attending/Attestation - Attestation I have personally seen and examined this patient.: Yes I have fully participated in the care of the patient.: Yes I have reviewed all pertinent clinical information, including history, physical exam and plan: Yes Notes (Text): 03/12/18 15:31 Medical record note made by the resident after discussion with my direction and input after the patient was personally seen and examined by me. I have reviewed the chart and agree that the record accurately reflects by personal performance of the history, physical exam, data review, and medical decision-making, in the course for the patient. I have also personally directed the plan of care.
--- NOTE | 2018-03-11 18:28 | PN ---
DATE: 03/11/2018 FOLLOWUP NOTE SUBJECTIVE: Shortly, the patient is a 57-year-old male with a reported history of alcohol use disorder. The patient came to the hospital for evaluation of depressive symptoms. The patient has history of noncompliance with medications, relapse on alcohol. The patient was discharged from the Psychiatric Inpatient Unit on 02/14/2018. The patient was discharged on the same medication what the patient was taking for more than 2 weeks. The patient came to the hospital complaining that medication is not working for him. At the same time, the patient wants to sign himself into the Psychiatric Inpatient Unit, which is contradiction with the patient's complaints and his plans. The patient was seen and examined today. The patient was started on one-to-one by Medical team. The patient is very familiar to this account underwriter from the previous admissions to the Psychiatric Inpatient Unit. The patient recognized this account underwriter by her first name and last name. The patient reported that "your damn medication is not working." At the same time, the patient denied that he was taking medication as it was prescribed. The patient reported that he was not drinking for 2 weeks and he was feeling "bored." The patient reported that he does not feel depressed any longer. He does not have any thoughts of harming himself or others. Does not want to sign himself into the Psychiatric Inpatient Unit. At the same time, the patient does not present that he needs admission in any ways. Vital signs are stable. Temperature 98.7, pulse is 75, blood pressure 130/68, respirations 20. Medications reviewed. The patient was on Librium 25 mg p.o. every 6 hours schedule; Celexa 20 mg daily, which was started by Dr. Reyes, the patient does not want to take that medication. The patient is on Catapres, Pepcid, folic acid, Robitussin, Ativan, Remeron 15 mg at the nighttime, NicoDerm, Risperdal, Vit B complex. Labs most recent was from today, seems to be within normal limits. Alcohol level at the time of admission was 381. The patient is saying "it is not possible because I did not drink prior to come to the hospital." The patient is poor and unreliable historian, so his statement is doubtful. MENTAL STATUS EXAMINATION: The patient presented to be alert and oriented, had good appetite, ate 100% of his meal, calmly watching TV, seems to be interested in shows. The patient was alert and oriented. No signs of confusion or aggression. Good eye contact. Speech was underproductive and loud. Mood described, I feel better now. Affect was constricted. Thought process concrete. Thought content, the patient denied visual, auditory or tactile hallucinations. Denied paranoid ideation. The patient denied thoughts of harming himself or others. Denied intents or plan. Insight and judgment seems to be improving. Impulses are well controlled. IMPRESSION: Rule out substance-induced mood disorder. PLAN: The patient does not want to take any medication. The patient does not want to be admitted to the Psychiatric Inpatient Unit. The patient denied that he has any thoughts of harming himself or others. Wants to be discharged back on the streets. The patient does not meet the criteria for psychiatric inpatient admission. Discussed with Medical team in details. The patient pose no imminent danger to self or others. We will sign off. Should you have any questions, give me a call back. Case was discussed with Dr. Lundberg. Jacqueline Bobo MD MTDD
[2018-03-12 06:23] LABS: BASO # 0.01 K/mm3 (0.0-2.0); BASO % 0.2 % (0.0-3.0); EOS # 0.2 (0.0-0.7); EOS % 4.2 % (1.5-5.0); GRAN # 2.48 (1.4-6.5); GRAN % 51.5 % (50.0-68.0); HEMOGLOBIN 12.3 g/dL (14.0-18.0); LYMPH # 1.5 (1.2-3.4); LYMPH % 31.8 % (22.0-35.0); MEAN CELL VOLUME 98.7 fl (80.0-105.0); MEAN CORPUSCULAR HEMOGLOBIN 32.5 pg (25.0-35.0); MEAN PLATELET VOLUME 10.4 fl (7.0-11.0); MONO # 0.6 (0.1-0.6); MONO % 12.3 % (1.0-6.0); RBC 3.78 10^6/uL (3.5-6.1); RED CELL DISTRIBUTION WIDTH 14.8 % (11.5-14.5); WHITE BLOOD COUNT 4.8 10^3/ul (4.5-11.0)
[2018-03-12 06:44] LABS: ALB/GLOB RATIO 0.9 (1.1-1.8); ALBUMIN 3.7 g/dL (3.0-4.8); ALT/SGPT 33 U/L (7-56); AST/SGOT 55 U/L (17-59); BLOOD UREA NITROGEN 14 mg/dL (7-21); CALCIUM 9.4 mg/dL (8.4-10.5); GFR NON-AFRICAN AMERICAN > 60
[2018-03-12] MEDS ORDERED: Pantoprazole 40 mg EC Tab PO SCH (07:30)
[2018-03-12] MEDS ORDERED: Magnesium Sulfate 2 gm/50 ml 2 GM/50 ML BAG IVPB ONE (07:44)
[2018-03-12 08:17] VITALS: RESP 18; TEMP 97.9; O2SAT 96
--- NOTE | 2018-03-12 09:51 | CP.PCM.DIS ---
<MichealcaraJarred campbelln - Last Filed: 03/12/18 11:47> Provider - Provider Date of Admission: 03/09/18 23:06 Attending physician: Aston Lundberg MD Time Spent in preparation of Discharge (in minutes): 45 Hospital Course - Lab Results Lab Results: Most Recent Lab Values WBC 4.8 10^3/ul (4.5-11.0) 03/12/18 06:10 RBC 3.78 10^6/uL (3.5-6.1) 03/12/18 06:10 Hgb 12.3 g/dL (14.0-18.0) L 03/12/18 06:10 Hct 37.3 % (42.0-52.0) L 03/12/18 06:10 MCV 98.7 fl (80.0-105.0) 03/12/18 06:10 MCH 32.5 pg (25.0-35.0) 03/12/18 06:10 MCHC 33.0 g/dl (31.0-37.0) 03/12/18 06:10 RDW 14.8 % (11.5-14.5) H 03/12/18 06:10 Plt Count 94 10^3/uL (120.0-450.0) L 03/12/18 06:10 MPV 10.4 fl (7.0-11.0) 03/12/18 06:10 Gran % 51.5 % (50.0-68.0) 03/12/18 06:10 Lymph % (Auto) 31.8 % (22.0-35.0) 03/12/18 06:10 [place] % (Auto) 12.3 % (1.0-6.0) H 03/12/18 06:10 Eos % (Auto) 4.2 % (1.5-5.0) 03/12/18 06:10 Baso % (Auto) 0.2 % (0.0-3.0) 03/12/18 06:10 Gran # 2.48 (1.4-6.5) 03/12/18 06:10 Lymph # (Auto) 1.5 (1.2-3.4) 03/12/18 06:10 [place] # (Auto) 0.6 (0.1-0.6) 03/12/18 06:10 Eos # (Auto) 0.2 (0.0-0.7) 03/12/18 06:10 Baso # (Auto) 0.01 K/mm3 (0.0-2.0) 03/12/18 06:10 Sodium 140 mmol/L (132-148) 03/12/18 06:10 Potassium 4.0 mmol/L (3.6-5.0) 03/12/18 06:10 Chloride 100 mmol/L (98-107) 03/12/18 06:10 Carbon Dioxide 33 mmol/L (21-33) 03/12/18 06:10 Anion Gap 12 (10-20) 03/12/18 06:10 BUN 14 mg/dL (7-21) 03/12/18 06:10 Creatinine 0.7 mg/dl (0.8-1.5) L 03/12/18 06:10 Est GFR ( Amer) > 60 03/12/18 06:10 Est GFR (Non-Af Amer) > 60 03/12/18 06:10 Random Glucose 86 mg/dL (70-110) 03/12/18 06:10 Calcium 9.4 mg/dL (8.4-10.5) 03/12/18 06:10 Phosphorus 4.5 mg/dL (2.5-4.5) 03/12/18 06:10 Magnesium 1.5 mg/dL (1.7-2.2) L 03/12/18 06:10 Total Bilirubin 1.1 mg/dL (0.2-1.3) 03/12/18 06:10 AST 55 U/L (17-59) 03/12/18 06:10 ALT 33 U/L (7-56) 03/12/18 06:10 Alkaline Phosphatase 96 U/L (38-126) 03/12/18 06:10 Total Protein 7.8 g/dL (5.8-8.3) 03/12/18 06:10 Albumin 3.7 g/dL (3.0-4.8) 03/12/18 06:10 Globulin 4.0 gm/dL 03/12/18 06:10 Albumin/Globulin Ratio 0.9 (1.1-1.8) L 03/12/18 06:10 Urine Color Colorless (YELLOW) 03/09/18 12:00 Urine Appearance Clear (CLEAR) 03/09/18 12:00 Urine pH 6.0 (4.7-8.0) 03/09/18 12:00 Ur Specific Disputanta <= 1.005 (1.005-1.035) 03/09/18 12:00 Urine Protein Negative mg/dL (<30 mg/dL) 03/09/18 12:00 Urine Glucose (UA) Negative mg/dL (NEGATIVE) 03/09/18 12:00 Urine Ketones Negative mg/dL (NEGATIVE) 03/09/18 12:00 Urine Blood Negative (NEGATIVE) 03/09/18 12:00 Urine Nitrate Negative (NEGATIVE) 03/09/18 12:00 Urine Bilirubin Negative (NEGATIVE) 03/09/18 12:00 Urine Urobilinogen 0.2 E.U./dL (<1 E.U./dL) 03/09/18 12:00 Ur Leukocyte Esterase Negative Neva/uL (NEGATIVE) 03/09/18 12:00 Salicylates < 1 mg/dL (2.0-20.0) L 03/09/18 12:00 Urine Opiates Screen Negative (NEGATIVE) 03/09/18 12:00 Urine Methadone Screen Negative (NEGATIVE) 03/09/18 12:00 Acetaminophen < 10.0 ug/ml (10.0-20.0) L 03/09/18 12:00 Ur Barbiturates Screen Negative (NEGATIVE) 03/09/18 12:00 Ur Phencyclidine Scrn Negative (NEGATIVE) 03/09/18 12:00 Ur Amphetamines Screen Negative (NEGATIVE) 03/09/18 12:00 U Benzodiazepines Scrn Negative (NEGATIVE) 03/09/18 12:00 U Oth Cocaine Metabols Negative (NEGATIVE) 03/09/18 12:00 U Cannabinoids Screen Negative (NEGATIVE) 03/09/18 12:00 Alcohol, Quantitative 381 mg/dL (0-10) H* 03/09/18 12:00 Hepatitis A IgM Ab Negative (NEGATIVE) 03/10/18 06:30 Hep Bs Antigen Negative (NEGATIVE) 03/10/18 06:30 Hep B Core IgM Ab Negative (NEGATIVE) 03/10/18 06:30 Hepatitis C Antibody Negative (NEGATIVE) 03/10/18 06:30 - Hospital Course Hospital Course: 57 year old male with past medical history depression, alcohol abuse [place] [facility] [place] feelings of depression and suicidal/homicidal ideation. Patient states that for the past few days his depression has been getting worse. 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 He also reports feeling like he wants to hurt himself and others. Patient reports that he had two 12oz Beers prior to arrival. Patient has a history of going into alcohol withdrawal and delirium tremens. He states that he had one seizure in the past from alcohol withdrawal. Patient was recently admitted to psych for depression and suicidal ideation 01/2018. Patient states that he has been suicidal in the past but does not have a plan. During hospital course, patient was put on CIWA protocol and psychiatry was consulted. Patient mental status is AAOx3. Patient refused further psych treatment and no long had suicidal or homocidal ideation. Final 4 CIWA score was < 2. Social work was called and was given a list of locations for possible admission from homeless shelters. [facility] clinic was contacted and an appointment was set up on March 25. This is a brief synopsis of patients hospital stay. for details see chart. Discharge Exam - Head Exam Head Exam: ATRAUMATIC, NORMAL INSPECTION, NORMOCEPHALIC - Eye Exam Eye Exam: EOMI. absent: Scleral icterus - ENT Exam ENT Exam: Mucous Membranes Moist - Respiratory Exam Respiratory Exam: NORMAL BREATHING PATTERN. absent: Accessory Muscle Use, Respiratory Distress - Cardiovascular Exam Cardiovascular Exam: +S1, +S2. absent: Bradycardia, Tachycardia - GI/Abdominal Exam GI & Abdominal Exam: absent: Distended, Firm, Guarding, Hernia, Rebound, Rigid, Soft, Tenderness - Extremities Exam Extremities exam: normal inspection - Back Exam Back exam: absent: vertebral tenderness - Neurological Exam Neurological exam: Alert, Oriented x3 - Psychiatric Exam Psychiatric exam: Normal Affect - Skin Skin Exam: Intact, Warm Discharge Plan - Discharge Medications Prescriptions: RX: Folic Acid 1 mg PO DAILY #14 tab RX: Multivitamin Therapeutic Tab [Thera Tab] 1 tab PO 0800 #14 tab RX: Thiamine [Vitamin B1 Tab] 100 mg PO DAILY #14 tab - Follow Up Plan Condition: STABLE Disposition: HOME/ ROUTINE Instructions: Suicide Prevention for Adults (DC), Suicide Prevention for Adults (GEN) Additional Instructions: Follow up in clinic on [facility] on [address], March 25 at 2: 00pm. Can follow up at this time for ear drops to help with ear wax Recommend to quit drinking and taking medications as prescribed. Referrals: [facility] [place]] (March 25 at 2:00pm) <Aston Lundberg - Last Filed: 03/12/18 15:35> Provider - Provider Date of Admission: 03/09/18 23:06 Attending physician: Aston Lundberg MD Time Spent in preparation of Discharge (in minutes): 35 Hospital Course - Lab Results Lab Results: Most Recent Lab Values WBC 4.8 10^3/ul (4.5-11.0) 03/12/18 06:10 RBC 3.78 10^6/uL (3.5-6.1) 03/12/18 06:10 Hgb 12.3 g/dL (14.0-18.0) L 03/12/18 06:10 Hct 37.3 % (42.0-52.0) L 03/12/18 06:10 MCV 98.7 fl (80.0-105.0) 03/12/18 06:10 MCH 32.5 pg (25.0-35.0) 03/12/18 06:10 MCHC 33.0 g/dl (31.0-37.0) 03/12/18 06:10 RDW 14.8 % (11.5-14.5) H 03/12/18 06:10 Plt Count 94 10^3/uL (120.0-450.0) L 03/12/18 06:10 MPV 10.4 fl (7.0-11.0) 03/12/18 06:10 Gran % 51.5 % (50.0-68.0) 03/12/18 06:10 Lymph % (Auto) 31.8 % (22.0-35.0) 03/12/18 06:10 [place] % (Auto) 12.3 % (1.0-6.0) H 03/12/18 06:10 Eos % (Auto) 4.2 % (1.5-5.0) 03/12/18 06:10 Baso % (Auto) 0.2 % (0.0-3.0) 03/12/18 06:10 Gran # 2.48 (1.4-6.5) 03/12/18 06:10 Lymph # (Auto) 1.5 (1.2-3.4) 03/12/18 06:10 [place] # (Auto) 0.6 (0.1-0.6) 03/12/18 06:10 Eos # (Auto) 0.2 (0.0-0.7) 03/12/18 06:10 Baso # (Auto) 0.01 K/mm3 (0.0-2.0) 03/12/18 06:10 Sodium 140 mmol/L (132-148) 03/12/18 06:10 Potassium 4.0 mmol/L (3.6-5.0) 03/12/18 06:10 Chloride 100 mmol/L (98-107) 03/12/18 06:10 Carbon Dioxide 33 mmol/L (21-33) 03/12/18 06:10 Anion Gap 12 (10-20) 03/12/18 06:10 BUN 14 mg/dL (7-21) 03/12/18 06:10 Creatinine 0.7 mg/dl (0.8-1.5) L 03/12/18 06:10 Est GFR ( Amer) > 60 03/12/18 06:10 Est GFR (Non-Af Amer) > 60 03/12/18 06:10 Random Glucose 86 mg/dL (70-110) 03/12/18 06:10 Calcium 9.4 mg/dL (8.4-10.5) 03/12/18 06:10 Phosphorus 4.5 mg/dL (2.5-4.5) 03/12/18 06:10 Magnesium 1.5 mg/dL (1.7-2.2) L 03/12/18 06:10 Total Bilirubin 1.1 mg/dL (0.2-1.3) 03/12/18 06:10 AST 55 U/L (17-59) 03/12/18 06:10 ALT 33 U/L (7-56) 03/12/18 06:10 Alkaline Phosphatase 96 U/L (38-126) 03/12/18 06:10 Total Protein 7.8 g/dL (5.8-8.3) 03/12/18 06:10 Albumin 3.7 g/dL (3.0-4.8) 03/12/18 06:10 Globulin 4.0 gm/dL 03/12/18 06:10 Albumin/Globulin Ratio 0.9 (1.1-1.8) L 03/12/18 06:10 Urine Color Colorless (YELLOW) 03/09/18 12:00 Urine Appearance Clear (CLEAR) 03/09/18 12:00 Urine pH 6.0 (4.7-8.0) 03/09/18 12:00 Ur Specific Disputanta <= 1.005 (1.005-1.035) 03/09/18 12:00 Urine Protein Negative mg/dL (<30 mg/dL) 03/09/18 12:00 Urine Glucose (UA) Negative mg/dL (NEGATIVE) 03/09/18 12:00 Urine Ketones Negative mg/dL (NEGATIVE) 03/09/18 12:00 Urine Blood Negative (NEGATIVE) 03/09/18 12:00 Urine Nitrate Negative (NEGATIVE) 03/09/18 12:00 Urine Bilirubin Negative (NEGATIVE) 03/09/18 12:00 Urine Urobilinogen 0.2 E.U./dL (<1 E.U./dL) 03/09/18 12:00 Ur Leukocyte Esterase Negative Neva/uL (NEGATIVE) 03/09/18 12:00 Salicylates < 1 mg/dL (2.0-20.0) L 03/09/18 12:00 Urine Opiates Screen Negative (NEGATIVE) 03/09/18 12:00 Urine Methadone Screen Negative (NEGATIVE) 03/09/18 12:00 Acetaminophen < 10.0 ug/ml (10.0-20.0) L 03/09/18 12:00 Ur Barbiturates Screen Negative (NEGATIVE) 03/09/18 12:00 Ur Phencyclidine Scrn Negative (NEGATIVE) 03/09/18 12:00 Ur Amphetamines Screen Negative (NEGATIVE) 03/09/18 12:00 U Benzodiazepines Scrn Negative (NEGATIVE) 03/09/18 12:00 U Oth Cocaine Metabols Negative (NEGATIVE) 03/09/18 12:00 U Cannabinoids Screen Negative (NEGATIVE) 03/09/18 12:00 Alcohol, Quantitative 381 mg/dL (0-10) H* 03/09/18 12:00 Hepatitis A IgM Ab Negative (NEGATIVE) 03/10/18 06:30 Hep Bs Antigen Negative (NEGATIVE) 03/10/18 06:30 Hep B Core IgM Ab Negative (NEGATIVE) 03/10/18 06:30 Hepatitis C Antibody Negative (NEGATIVE) 03/10/18 06:30 Attending/Attestation - Attestation I have personally seen and examined this patient.: Yes I have fully participated in the care of the patient.: Yes I have reviewed all pertinent clinical information, including history, physical exam and plan: Yes Notes (Text): 03/12/18 15:33 Medical record note made by the resident after discussion with my direction and input after the patient was personally seen and examined by me. I have reviewed the chart and agree that the record accurately reflects by personal performance of the history, physical exam, data review, and medical decision-making, in the course for the patient. I have also personally directed the plan of care. Patient is at his base line.There is no sign of alcohol withdrawal.Patient has been evaluated by Psychiatry and is cleared for discharge. Thrombocytopenia is improved. LFT are improved. Issue of ongoing alcohol abuse was discussed in detail with the patient.
[2018-03-12] MEDS: Multivitamin Vitamin B Complex (Nephro-Vite) Tab PO SCH (11:09)
[2018-03-12 11:14] VITALS: BP 120/78; PULSE 72
== END 2018-03-12 13:33 | disposition home or self-care (01) | DRG 750 ==
LOC: ED 11:23 → ERH 23:06 → 2RNO 03-10 00:42 → 3RSO 03-11 22:59
PROVIDERS: ADMIT Internal Medicine; ATTEND Internal Medicine
DX: F10.231 Alcohol dependence with withdrawal delirium (principal); D61.818 Other pancytopenia; Y90.8 Blood alcohol level of 240 mg/100 ml or more; F32.9 Major depressive disorder, single episode, unspecified; F41.9 Anxiety disorder, unspecified; I10 Essential (primary) hypertension; R45.851 Suicidal ideations; E83.42 Hypomagnesemia; R05 Cough; Z91.14 Patient's other noncompliance with medication regimen; Z87.891 Personal history of nicotine dependence; Z59.0 Homelessness

== ENCOUNTER 2018-03-24 17:05 | Emergency (ER) | payer MEDICAID ==
[2018-03-24 17:06] VITALS: BMI 21.7
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
[2018-03-24 17:34] VITALS: BP 124/52; PULSE 75; RESP 19; TEMP 98; O2SAT 99
== END 2018-03-24 17:31 | disposition left against medical advice (07) ==
LOC: ED 17:05
DX: F10.129 Alcohol abuse with intoxication, unspecified (principal); F17.210 Nicotine dependence, cigarettes, uncomplicated; I10 Essential (primary) hypertension

== ENCOUNTER 2018-03-26 19:31 | Emergency (ER) | payer MEDICAID, OTHER ==
[2018-03-26 19:31] VITALS: BMI 21.7
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
[2018-03-26 20:01] VITALS: BP 125/52; PULSE 85; RESP 19; TEMP 98; O2SAT 99
== END 2018-03-26 20:01 | disposition home or self-care (01) ==
LOC: ED 19:31
DX: F10.129 Alcohol abuse with intoxication, unspecified (principal)

== ENCOUNTER 2018-03-31 16:02 | Emergency (ER) | payer MEDICAID, OTHER ==
[2018-03-31 16:03] VITALS: BMI 21.7
--- NOTE | 2018-03-31 17:43 | CT ---
Date of service: 03/31/2018 PROCEDURE: CT HEAD WITHOUT CONTRAST. HISTORY: etoh COMPARISON: 02/21/2018 TECHNIQUE: Axial computed tomography images were obtained through the head/brain without intravenous contrast. Radiation dose: Total exam DLP = 923 mGy-cm. This CT exam was performed using one or more of the following dose reduction techniques: Automated exposure control, adjustment of the mA and/or kV according to patient size, and/or use of iterative reconstruction technique. FINDINGS: HEMORRHAGE: No intracranial hemorrhage. BRAIN: No mass effect or edema. No atrophy or chronic microvascular ischemic changes. VENTRICLES: Unremarkable. No hydrocephalus. CALVARIUM: Unremarkable. PARANASAL SINUSES: Mucosal thickening in the maxillary sinuses MASTOID AIR CELLS: Unremarkable as visualized. No inflammatory changes. OTHER FINDINGS: None. IMPRESSION: No acute findings
--- NOTE | 2018-03-31 17:57 | ED PDOC ---
Arrival/HPI - General Historian: Patient - History of Present Illness Time/Duration: Prior to Arrival <Renita Pace - Last Filed: 03/31/18 21:23> <Alfredo Manzo - Last Filed: 04/01/18 05:55> - General Chief Complaint: Alcohol Ingestion Time Seen by Provider: 03/31/18 16:11 - History of Present Illness Narrative History of Present Illness (Text): 03/31/18 17:53 57-year-old male presents today brought in by ambulance for public intoxication. Patient states he was drinking alcohol today and states he was sleeping on the bench and then today woke him up and brought him to the emergency room. Patient denies recent trauma or injury. Denies headaches or dizziness. Patient states "I sometimes fall and hit my head" but is unable to tell me when he hit his head last. Patient is also complaining of chronic right knee pain. Patient states he has rods in place in the right knee. Patient denies nausea vomiting diarrhea or constipation. No chest pain or shortness of breath. Patient denies suicidal or homicidal ideations. No other complaints. ( Renita Pace) Past Medical History - Provider Review Nursing Documentation Reviewed: Yes - Travel History Have you recently traveled outside [place] w/in the past 3 mons?: No - Past History Past History: No Previous - Infectious Disease Hx of Infectious Diseases: None - Tetanus Immunization Tetanus Immunization: Unknown - Past Medical History Past Medical History: No Previous - Cardiac Hx Cardiac Disorders: Yes Hx Hypertension: Yes - Pulmonary Hx Respiratory Disorders: No - Neurological Hx Neurological Disorder: No - HEENT Hx HEENT Disorder: No - Renal Hx Renal Disorder: No - Endocrine/Metabolic Hx Endocrine Disorders: No - Hematological/Oncological Hx Blood Disorders: No - Integumentary Hx Dermatological Disorder: No - Musculoskeletal/Rheumatological Hx Musculoskeletal Disorders: Yes Other/Comment: R KNEE INJURY - Gastrointestinal Hx Gastrointestinal Disorders: Yes Other/Comment: HERNIA - Genitourinary/Gynecological Hx Genitourinary Disorders: No - Psychiatric Hx Depression: Yes Hx Substance Use: Yes - Past Surgical History Past Surgical History: No Previous - Surgical History Hx Orthopedic Surgery: Yes (RIGHT KNEE SX) - Anesthesia Hx Anesthesia: Yes Hx Anesthesia Reactions: No Hx Malignant Hyperthermia: No - Suicidal Assessment Feels Threatened In Home Enviroment: No <Renita Pace - Last Filed: 03/31/18 21:23> Family/Social History - Physician Review Nursing Documentation Reviewed: Yes Family/Social History: Unknown Family HX Smoking Status: Heavy Smoker > 10 Cigarettes Daily Hx Alcohol Use: Yes Frequency of alcohol use: Daily Hx Substance Use: Yes Hx Substance Use Treatment: No <Renita Pace - Last Filed: 03/31/18 21:23> Allergies/Home Meds <Renita Pace - Last Filed: 03/31/18 21:23> <Alfredo Manzo - Last Filed: 04/01/18 05:55> Allergies/Adverse Reactions: Allergies No Known Allergies Allergy (Verified 03/31/18 16:20) Review of Systems - Review of Systems Constitutional: absent: Fatigue, Fevers Respiratory: absent: SOB, Cough Cardiovascular: absent: Chest Pain, Palpitations Gastrointestinal: absent: Abdominal Pain, Nausea, Vomiting Musculoskeletal: Arthralgias. absent: Back Pain, Neck Pain Skin: absent: Rash, Pruritis Neurological: absent: Headache, Dizziness Psychiatric: absent: Anxiety, Depression, Suicidal Ideation <Renita Pace - Last Filed: 03/31/18 21:23> Physical Exam Vital Signs Reviewed: Yes Temperature: Afebrile Blood Pressure: Normal Pulse: Regular Respiratory Rate: Normal Appearance: Positive for: Well-Appearing, Non-Toxic, Comfortable Pain Distress: None Mental Status: Positive for: Alert and Oriented X 3 Finger Stick Blood Glucose: 78 - Systems Exam Head: Present: Atraumatic Mouth: Present: Moist Mucous Membranes Neck: Present: Normal Range of Motion Respiratory/Chest: Present: Clear to Auscultation, Good Air Exchange. No: Respiratory Distress, Accessory Muscle Use Cardiovascular: Present: Regular Rate and Rhythm, Normal S1, S2. No: Murmurs Abdomen: No: Tenderness, Rebound, Guarding Upper Extremity: Present: Normal Inspection, Normal ROM Lower Extremity: Present: Normal Inspection, Normal ROM. No: CALF TENDERNESS, Tenderness, Swelling Neurological: Present: GCS=15, Speech Normal Skin: Present: Warm, Dry, Normal Color. No: Rashes Psychiatric: Present: Alert, Oriented x 3 <Renita Pace - Last Filed: 03/31/18 21:23> Vital Signs Temp Pulse Resp BP Pulse Ox 04/01/18 02:16 98.3 F 69 18 102/65 98 03/31/18 23:33 90 18 130/72 98 03/31/18 16:14 97.8 F 94 H 19 137/64 95 Medical Decision Making <Renita Pace - Last Filed: 03/31/18 21:23> <Alfredo Manzo - Last Filed: 04/01/18 05:55> ED Course and Treatment: 03/31/18 17:55 Patient nontoxic well-appearing no distress stable vital signs. Patient alert and oriented in no distress ambulating with a steady gait with cane. Patient is refusing x-rays of the right knee. Patient states he has history of surgery on the right knee is states he has rods in place. CAT scan of the head:FINDINGS: HEMORRHAGE: No intracranial hemorrhage. BRAIN: No mass effect or edema. No atrophy or chronic microvascular ischemic changes. VENTRICLES: Unremarkable. No hydrocephalus. CALVARIUM: Unremarkable. PARANASAL SINUSES: Mucosal thickening in the maxillary sinuses MASTOID AIR CELLS: Unremarkable as visualized. No inflammatory changes. OTHER FINDINGS: None. IMPRESSION: No acute findings Fingerstick 78. Patient ate a tray of food. Patient reassessment: Patient nontoxic well-appearing no distress alert and oriented ambulating with a steady gait using his cane. I discussed results in depth with the patient advised the patient to stop drinking and smoking. Advised patient to follow-up with primary care physician. Advised immediate return if any concerning symptoms develop Patient reassessment: Patient nontoxic resting comfortably in the emergency room no distress. Impression: Alcohol abuse Follow-up with primary care physician within the next 2 days Follow-up with the orthopedist within the next 2 days. Return if symptoms worsen persist or if new concerning symptoms develop 03/31/18 21:23 case signed out to dr. manzo pending sobriety re-evaluation and disposition (Renita Pace) 04/01/18 05:50 Pt awake, alert, ambulating with steady again. Clinically sober, in no acute distress. Pt stable for d/c. (Alfredo Manzo) - RAD Interpretation Radiology Orders: 03/31/18 16:40 HEAD W/O CONTRAST [CT] Stat Disposition/Present on Arrival - Present on Arrival Any Indicators Present on Arrival: No History of DVT/PE: No History of Uncontrolled Diabetes: No Urinary Catheter: No History of Decub. Ulcer: No History Surgical Site Infection Following: None - Disposition Have Diagnosis and Disposition been Completed?: Yes <Renita Pace - Last Filed: 03/31/18 21:23> - Present on Arrival Any Indicators Present on Arrival: No - Disposition Have Diagnosis and Disposition been Completed?: Yes Disposition Time: 05:54 Patient Plan: Discharge <Alfredo Manzo - Last Filed: 04/01/18 05:55> - Disposition Diagnosis: Alcohol abuse Disposition: HOME/ ROUTINE Patient Problems: Current Active Problems Problem Status Onset Alcohol abuse Acute Condition: STABLE Additional Instructions: Follow-up with primary care physician within the next 2 days Follow-up with the orthopedist within the next 2 days. Return if symptoms worsen persist or if new concerning symptoms develop Referrals: PCP,NO [Primary Care Provider] - Follow up with primary Alcoholics Anonymous [Outside] - Follow up with primary Forms: [employer] (Maltese)
[2018-04-01 05:55] VITALS: BP 108/70; RESP 19; TEMP 98; O2SAT 99
[2018-04-01 05:59] VITALS: PULSE 70
== END 2018-04-01 06:00 | disposition home or self-care (01) ==
LOC: ED 16:02
DX: F10.10 Alcohol abuse, uncomplicated (principal); I10 Essential (primary) hypertension; F17.210 Nicotine dependence, cigarettes, uncomplicated; Z91.81 History of falling

== ENCOUNTER 2018-04-01 23:04 | Emergency (ER) | payer MEDICAID, OTHER ==
[2018-04-01 23:05] VITALS: BMI 21.7
== END 2018-04-01 23:13 | disposition left against medical advice (07) ==
LOC: ED 23:04
DX: Z02.89 Encounter for other administrative examinations (principal)

== ENCOUNTER 2018-04-01 23:15 | Emergency (ER) | payer MEDICAID ==
[2018-04-01 23:16] VITALS: BMI 21.7
== END 2018-04-01 23:34 | disposition left against medical advice (07) ==
LOC: ED 23:15
DX: Z02.89 Encounter for other administrative examinations (principal)

== ENCOUNTER 2018-04-02 18:02 | Emergency (ER) | payer MEDICAID ==
[2018-04-02 18:18] VITALS: BMI 23.0
[2018-04-02 18:21] VITALS: TEMP 97.9; O2SAT 97
--- NOTE | 2018-04-02 19:33 | ED PDOC ---
Arrival/HPI - General Historian: Patient <Renita Pace - Last Filed: 04/03/18 01:27> <Harish Lock - Last Filed: 04/03/18 23:34> - General Chief Complaint: Lower Extremity Problem/Injury Time Seen by Provider: 04/02/18 19:28 - History of Present Illness Narrative History of Present Illness (Text): 04/02/18 19:28 57-year-old male presents today brought in by ambulance for alcohol intoxication. Patient states he was drinking alcohol today and he decided to sleep on the bench and he woke up to police and EMS. Patient states he didn't want to go to the hospital but the police officers told him he had to. Patient states he has chronic right knee pain but otherwise denies any complaints. He denies any trauma or injury. No chest pain or shortness of breath. Denies suicidal or homicidal ideation. (Renita Pace) Past Medical History - Provider Review Nursing Documentation Reviewed: Yes - Travel History Have you recently traveled outside [place] w/in the past 3 mons?: No - Past History Past History: No Previous - Infectious Disease Hx of Infectious Diseases: None - Tetanus Immunization Tetanus Immunization: Unknown - Past Medical History Past Medical History: No Previous - Cardiac Hx Cardiac Disorders: Yes Hx Hypertension: Yes - Pulmonary Hx Respiratory Disorders: No - Neurological Hx Neurological Disorder: No - HEENT Hx HEENT Disorder: No - Renal Hx Renal Disorder: No - Endocrine/Metabolic Hx Endocrine Disorders: No - Hematological/Oncological Hx Blood Disorders: No - Integumentary Hx Dermatological Disorder: No - Musculoskeletal/Rheumatological Hx Musculoskeletal Disorders: Yes Other/Comment: R KNEE INJURY - Gastrointestinal Hx Gastrointestinal Disorders: Yes Other/Comment: HERNIA - Genitourinary/Gynecological Hx Genitourinary Disorders: No - Psychiatric Hx Depression: Yes Hx Substance Use: Yes - Past Surgical History Past Surgical History: No Previous - Surgical History Hx Orthopedic Surgery: Yes (RIGHT KNEE SX) - Anesthesia Hx Anesthesia: Yes Hx Anesthesia Reactions: No Hx Malignant Hyperthermia: No - Suicidal Assessment Feels Threatened In Home Enviroment: No <Renita Pace - Last Filed: 04/03/18 01:27> Family/Social History Family/Social History: Unknown Family HX Smoking Status: Heavy Smoker > 10 Cigarettes Daily Hx Alcohol Use: Yes Hx Substance Use: Yes Hx Substance Use Treatment: No <Renita Pace - Last Filed: 04/03/18 01:27> Allergies/Home Meds <Renita Pace - Last Filed: 04/03/18 01:27> <Harish Lock - Last Filed: 04/03/18 23:34> Allergies/Adverse Reactions: Allergies No Known Allergies Allergy (Verified 04/02/18 18:18) Review of Systems - Review of Systems Constitutional: absent: Fatigue, Fevers Respiratory: absent: SOB, Cough Cardiovascular: absent: Chest Pain, Palpitations Gastrointestinal: absent: Abdominal Pain, Nausea, Vomiting Genitourinary Male: absent: Dysuria, Frequency, Hematuria Musculoskeletal: absent: Back Pain, Neck Pain Skin: absent: Rash, Pruritis Psychiatric: absent: Anxiety, Depression, Suicidal Ideation <Renita Pace - Last Filed: 04/03/18 01:27> Physical Exam Vital Signs Reviewed: Yes Temperature: Afebrile Blood Pressure: Hypertensive Pulse: Regular Respiratory Rate: Normal Appearance: Positive for: Well-Appearing, Non-Toxic, Unkept Pain Distress: None Mental Status: Positive for: Alert and Oriented X 3 Finger Stick Blood Glucose: 85 - Systems Exam Head: Present: Atraumatic Mouth: Present: Moist Mucous Membranes Neck: Present: Normal Range of Motion Respiratory/Chest: Present: Clear to Auscultation Cardiovascular: Present: Regular Rate and Rhythm Abdomen: No: Tenderness, Distention, Rebound, Guarding Upper Extremity: Present: Normal ROM Lower Extremity: Present: NORMAL PULSES, Normal ROM, Capillary Refill < 2 s. No : CALF TENDERNESS, Tenderness, Swelling, Erythema, Deformity Neurological: Present: GCS=15, Speech Normal Skin: Present: Warm, Dry Psychiatric: Present: Alert, Oriented x 3 <Renita Pace Homero - Last Filed: 04/03/18 01:27> Vital Signs Temp Pulse Resp BP Pulse Ox 04/03/18 06:11 77 18 134/76 97 04/03/18 04:03 65 18 132/72 95 04/03/18 02:03 72 18 128/71 96 04/03/18 00:03 69 19 131/75 96 04/02/18 22:03 67 18 130/74 97 04/02/18 20:03 68 18 135/78 96 04/02/18 18:18 97.9 F 71 19 169/79 H 97 04/02/18 18:03 97.9 F 71 19 169/79 H 97 Medical Decision Making <Renita Pace - Last Filed: 04/03/18 01:27> <Harish Lock - Last Filed: 04/03/18 23:34> ED Course and Treatment: 04/02/18 19:45 57-year-old male presents today for alcohol intoxication. Patient is alert and oriented in no distress speaking in full sentences ambulates with a steady gait. Will observe in the ER for sobriety. pt eating in the er; no distress 04/02/18 21:38 pt reassessment; pt sleeping. no distress. 04/03/18 00:51 pt reassessment; pt non toxic well appearing; no distress. 04/03/18 01:27 case signed out to dr. lock pending sobriety; re-evaluation and disposition (Renita Pace) 04/03/18 01:50: Case endorsed to me by ANGELLA Pace. Pending sobriety will reassess and disposition. (Harish Lock) Disposition/Present on Arrival - Present on Arrival History of DVT/PE: No History of Uncontrolled Diabetes: No Urinary Catheter: No History of Decub. Ulcer: No History Surgical Site Infection Following: None <Renita Pace - Last Filed: 04/03/18 01:27> - Present on Arrival Any Indicators Present on Arrival: No - Disposition Have Diagnosis and Disposition been Completed?: Yes Disposition Time: 22:30 <Harish Lock - Last Filed: 04/03/18 23:34> - Disposition Diagnosis: Alcohol intoxication Disposition: ELOPEMENT - ER ONLY Condition: UNKNOWN Forms: [employer] (Bahraini)
[2018-04-03 08:29] VITALS: BP 134/76; PULSE 77; RESP 18
== END 2018-04-03 06:10 | disposition home or self-care (01) ==
LOC: ED 18:02
DX: F10.129 Alcohol abuse with intoxication, unspecified (principal)

== ENCOUNTER 2018-04-03 19:55 | Emergency (ER) | payer MEDICAID ==
[2018-04-03 20:03] VITALS: TEMP 97.7; BMI 25.4
--- NOTE | 2018-04-03 20:20 | ED PDOC ---
Arrival/HPI - General Chief Complaint: Alcohol Ingestion Time Seen by Provider: 04/03/18 20:00 Historian: Patient EM Caveat: Intoxicated - History of Present Illness Narrative History of Present Illness (Text): 04/03/18 20:19 Patient is a 57 year old male who presents to the Emergency department by EMS for EtOH intoxication. Patient denies any fever, chills, chest pain, shortness of breath, nausea, vomiting, diarrhea, urinary symptoms, back pain, neck pain, headache, dizziness, or any other complaints. Time/Duration: Prior to Arrival Symptom Onset: Gradual Symptom Course: Unchanged Activities at Onset: Light Context: Street Past Medical History - Provider Review Nursing Documentation Reviewed: Yes - Past History Past History: No Previous - Infectious Disease Hx of Infectious Diseases: None - Tetanus Immunization Tetanus Immunization: Unknown - Past Medical History Past Medical History: No Previous - Cardiac Hx Cardiac Disorders: Yes Hx Hypertension: Yes - Pulmonary Hx Respiratory Disorders: No - Neurological Hx Neurological Disorder: No - HEENT Hx HEENT Disorder: No - Renal Hx Renal Disorder: No - Endocrine/Metabolic Hx Endocrine Disorders: No - Hematological/Oncological Hx Blood Disorders: No - Integumentary Hx Dermatological Disorder: No - Musculoskeletal/Rheumatological Hx Musculoskeletal Disorders: Yes Other/Comment: R KNEE INJURY - Gastrointestinal Hx Gastrointestinal Disorders: Yes Other/Comment: HERNIA - Genitourinary/Gynecological Hx Genitourinary Disorders: No - Psychiatric Hx Depression: Yes Hx Substance Use: Yes Other/Comment: ETOH abuse - Past Surgical History Past Surgical History: No Previous - Surgical History Hx Orthopedic Surgery: Yes (RIGHT KNEE SX) - Anesthesia Hx Anesthesia: Yes Hx Anesthesia Reactions: No Hx Malignant Hyperthermia: No - Suicidal Assessment Feels Threatened In Home Enviroment: No Family/Social History - Physician Review Nursing Documentation Reviewed: Yes Family/Social History: No Known Family HX Smoking Status: Heavy Smoker > 10 Cigarettes Daily Hx Alcohol Use: Yes Hx Substance Use: Yes Hx Substance Use Treatment: No Allergies/Home Meds Allergies/Adverse Reactions: Allergies No Known Allergies Allergy (Verified 04/02/18 18:18) Review of Systems - Physician Review All systems were reviewed & negative as marked: Yes - Review of Systems Constitutional: Normal. absent: Fevers Eyes: Normal ENT: Normal Respiratory: Normal. absent: SOB, Cough Cardiovascular: Normal. absent: Chest Pain Gastrointestinal: Normal. absent: Abdominal Pain, Diarrhea, Vomiting Genitourinary Male: Normal. absent: Dysuria, Frequency, Hematuria, Urinary Output Changes Musculoskeletal: Normal. absent: Back Pain, Neck Pain Skin: Normal. absent: Rash Neurological: Normal. absent: Headache, Dizziness Endocrine: Normal Hemo/Lymphatic: Normal Psychiatric: Normal Physical Exam - Physical Exam Physical Exam Limitations: Intoxication Vital Signs Reviewed: Yes Vital Signs Temp Pulse Resp BP Pulse Ox 04/03/18 22:50 72 18 125/83 97 04/03/18 22:02 72 18 125/83 97 04/03/18 20:02 97.7 F 82 18 127/83 96 Temperature: Afebrile Blood Pressure: Normal Pulse: Regular Appearance: Positive for: Comfortable Pain Distress: None Mental Status: Positive for: other (Inebriated) - Systems Exam Head: Present: Atraumatic, Normocephalic Pupils: Present: PERRL Extroacular Muscles: Present: EOMI Conjunctiva: Present: Normal Mouth: Present: Moist Mucous Membranes Neck: Present: Normal Range of Motion Respiratory/Chest: Present: Clear to Auscultation, Good Air Exchange. No: Respiratory Distress, Accessory Muscle Use Cardiovascular: Present: Regular Rate and Rhythm, Normal S1, S2. No: Murmurs Abdomen: No: Tenderness, Distention, Peritoneal Signs Back: Present: Normal Inspection Upper Extremity: Present: Normal Inspection. No: Cyanosis, Edema Lower Extremity: Present: Normal Inspection. No: Edema Skin: Present: Warm, Dry, Normal Color. No: Rashes Psychiatric: Present: Intoxicated Medical Decision Making ED Course and Treatment: 04/03/18 20:20 Impression: Patient is a 57 year old male who was brought to the Emergency department by EMS for EtOH intoxication. Plan: -- Reassess and disposition Prior Visits: Notes and results from previous visits were reviewed. Progress Notes: 04/03/18 23:14 Pt eloped from ER. - Scribe Statement The provider has reviewed the documentation as recorded by the Tejalibsukhdev Jay Provider Scribe Attestation: All medical record entries made by the Scribe were at my direction and personally dictated by me. I have reviewed the chart and agree that the record accurately reflects my personal performance of the history, physical exam, medical decision making, and the department course for this patient. I have also personally directed, reviewed, and agree with the discharge instructions and disposition. Disposition/Present on Arrival - Present on Arrival Any Indicators Present on Arrival: No History of DVT/PE: No History of Uncontrolled Diabetes: No Urinary Catheter: No History of Decub. Ulcer: No History Surgical Site Infection Following: None - Disposition Have Diagnosis and Disposition been Completed?: Yes Diagnosis: Alcohol use disorder Disposition: ELOPEMENT - ER ONLY Disposition Time: 22:30 Condition: UNKNOWN Forms: [employer] (Angolan)
[2018-04-03 22:04] VITALS: PULSE 72; RESP 18
[2018-04-03 23:16] VITALS: BP 125/83
[2018-04-03 23:17] VITALS: O2SAT 97
== END 2018-04-03 23:14 | disposition left against medical advice (07) ==
LOC: ED 19:55
DX: F10.10 Alcohol abuse, uncomplicated (principal)

== ENCOUNTER 2018-04-05 19:09 | Emergency (ER) | payer MEDICAID ==
[2018-04-05 19:10] VITALS: BMI 25.4
--- NOTE | 2018-04-05 19:48 | ED PDOC ---
Arrival/HPI - General Chief Complaint: Alcohol Ingestion Time Seen by Provider: 04/05/18 19:14 Historian: Patient - History of Present Illness Narrative History of Present Illness (Text): 04/05/18 19:45 A 57 year old male, whose past medical history includes intoxication, presents to the emergency department by EMS for EtOH intoxication. Patient denies any fever, chills, chest pain, shortness of breath, nausea, vomiting, diarrhea, urinary symptoms, back pain, neck pain, headache, dizziness, or any other complaints. No PMD Past Medical History - Provider Review Nursing Documentation Reviewed: Yes - Past History Past History: No Previous - Infectious Disease Hx of Infectious Diseases: None - Tetanus Immunization Tetanus Immunization: Unknown - Past Medical History Past Medical History: No Previous - Cardiac Hx Cardiac Disorders: Yes Hx Hypertension: Yes - Pulmonary Hx Respiratory Disorders: No - Neurological Hx Neurological Disorder: No - HEENT Hx HEENT Disorder: No - Renal Hx Renal Disorder: No - Endocrine/Metabolic Hx Endocrine Disorders: No - Hematological/Oncological Hx Blood Disorders: No - Integumentary Hx Dermatological Disorder: No - Musculoskeletal/Rheumatological Hx Musculoskeletal Disorders: Yes Other/Comment: R KNEE INJURY - Gastrointestinal Hx Gastrointestinal Disorders: Yes Other/Comment: HERNIA - Genitourinary/Gynecological Hx Genitourinary Disorders: No - Psychiatric Hx Depression: Yes Hx Substance Use: Yes Other/Comment: ETOH abuse - Past Surgical History Past Surgical History: No Previous - Surgical History Hx Orthopedic Surgery: Yes (RIGHT KNEE SX) - Anesthesia Hx Anesthesia: Yes Hx Anesthesia Reactions: No Hx Malignant Hyperthermia: No - Suicidal Assessment Feels Threatened In Home Enviroment: No Family/Social History - Physician Review Nursing Documentation Reviewed: Yes Family/Social History: No Known Family HX Smoking Status: Heavy Smoker > 10 Cigarettes Daily Hx Alcohol Use: Yes Hx Substance Use: Yes Hx Substance Use Treatment: No Allergies/Home Meds Allergies/Adverse Reactions: Allergies No Known Allergies Allergy (Verified 04/05/18 19:22) Review of Systems - Physician Review All systems were reviewed & negative as marked: Yes - Review of Systems Constitutional: absent: Fevers, Night Sweats Respiratory: absent: SOB Cardiovascular: absent: Chest Pain Gastrointestinal: absent: Diarrhea, Nausea, Vomiting Genitourinary Male: absent: Dysuria, Frequency, Hematuria, Urinary Output Changes Musculoskeletal: absent: Back Pain, Neck Pain Neurological: absent: Headache, Dizziness Physical Exam Vital Signs Reviewed: Yes Vital Signs Temp Pulse Resp BP Pulse Ox 04/05/18 19:20 98.8 F 88 20 139/89 95 04/05/18 19:13 97.6 F 88 19 99 Temperature: Afebrile Pulse: Regular Respiratory Rate: Normal Appearance: Positive for: Well-Appearing, Non-Toxic, Comfortable Pain Distress: None Mental Status: Positive for: other (intoxicated) - Systems Exam Head: Present: Atraumatic, Normocephalic Pupils: Present: PERRL Extroacular Muscles: Present: EOMI Conjunctiva: Present: Normal Mouth: Present: Moist Mucous Membranes Neck: Present: Normal Range of Motion Respiratory/Chest: Present: Clear to Auscultation, Good Air Exchange. No: Respiratory Distress, Accessory Muscle Use Cardiovascular: Present: Regular Rate and Rhythm, Normal S1, S2. No: Murmurs Abdomen: No: Tenderness, Distention, Peritoneal Signs Back: Present: Normal Inspection Upper Extremity: Present: Normal Inspection. No: Cyanosis, Edema Lower Extremity: Present: Normal Inspection. No: Edema Neurological: Present: GCS=15, CN II-XII Intact, Speech Normal Skin: Present: Warm, Dry, Normal Color. No: Rashes Psychiatric: Present: Intoxicated Medical Decision Making ED Course and Treatment: 04/05/18 19:48 Impression: 57 year old male with intoxication. Plan: -- Reassess and disposition Prior Visits: Notes and results from previous visits were reviewed. Patient was last seen in the emergency department on 04/03/2018 for intoxication. Progress Notes: 04/06/18 06:30 Pt. awake alert,sober. - Scribe Statement The provider has reviewed the documentation as recorded by the Tomas Farias Provider Scribe Attestation: All medical record entries made by the Tomas were at my direction and personally dictated by me. I have reviewed the chart and agree that the record accurately reflects my personal performance of the history, physical exam, medical decision making, and the department course for this patient. I have also personally directed, reviewed, and agree with the discharge instructions and disposition. Disposition/Present on Arrival - Present on Arrival Any Indicators Present on Arrival: No History of DVT/PE: No History of Uncontrolled Diabetes: No Urinary Catheter: No History of Decub. Ulcer: No History Surgical Site Infection Following: None - Disposition Have Diagnosis and Disposition been Completed?: Yes Diagnosis: Alcohol intoxication Disposition: HOME/ ROUTINE Disposition Time: 06:30 Patient Plan: Discharge Patient Problems: Current Active Problems Problem Status Onset Alcohol intoxication Acute Condition: GOOD Referrals: Alcoholics Anonymous [Outside] - Follow up with primary Forms: [employer] (South African)
[2018-04-06 06:29] VITALS: BP 142/82; PULSE 82; RESP 17; TEMP 98.2; O2SAT 98
== END 2018-04-06 06:29 | disposition home or self-care (01) ==
LOC: ED 19:09
DX: F10.129 Alcohol abuse with intoxication, unspecified (principal); F17.210 Nicotine dependence, cigarettes, uncomplicated; I10 Essential (primary) hypertension

== ENCOUNTER 2018-04-28 19:45 | Emergency (ER) | payer MEDICAID ==
[2018-04-28 19:46] VITALS: BMI 25.4
[2018-04-28 20:11] VITALS: TEMP 98.8
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
[2018-04-28 23:07] VITALS: BP 140/80; PULSE 90; RESP 18; O2SAT 100
== END 2018-04-28 23:03 | disposition home or self-care (01) ==
LOC: ED 19:45
DX: M25.561 Pain in right knee (principal); G89.29 Other chronic pain

== ENCOUNTER 2018-06-28 02:38 | Emergency (ER) | payer MEDICAID ==
[2018-06-28 02:38] VITALS: BMI 25.4
--- NOTE | 2018-06-28 02:59 | ED PDOC ---
Arrival/HPI - General Chief Complaint: Medical Clearance Time Seen by Provider: 06/28/18 02:40 Historian: Patient - History of Present Illness Narrative History of Present Illness (Text): 06/28/18 02:55 A 57 year old male, whose past medical history includes alcohol abuse and chronic leg pain, presents to the emergency department in police custody for evaluation of chronic leg pain and medical clearance. Patient denies any me dical complaints in the emergency department and states "let me sleep". Patient denies any fever, chills, chest pain, shortness of breath, nausea, vomiting, diarrhea, urinary symptoms, back pain, neck pain, headache, dizziness, or any other complaints. Time/Duration: Prior to Arrival Past Medical History - Provider Review Nursing Documentation Reviewed: Yes - Past History Past History: No Previous - Infectious Disease Hx of Infectious Diseases: None - Tetanus Immunization Tetanus Immunization: Unknown - Past Medical History Past Medical History: No Previous - Cardiac Hx Cardiac Disorders: Yes Hx Hypertension: Yes - Pulmonary Hx Respiratory Disorders: No - Neurological Hx Neurological Disorder: No - HEENT Hx HEENT Disorder: No - Renal Hx Renal Disorder: No - Endocrine/Metabolic Hx Endocrine Disorders: No - Hematological/Oncological Hx Blood Disorders: No - Integumentary Hx Dermatological Disorder: No - Musculoskeletal/Rheumatological Hx Musculoskeletal Disorders: Yes Other/Comment: R KNEE INJURY - Gastrointestinal Hx Gastrointestinal Disorders: Yes Other/Comment: HERNIA - Genitourinary/Gynecological Hx Genitourinary Disorders: No - Psychiatric Hx Depression: Yes Hx Substance Use: No Other/Comment: ETOH abuse - Past Surgical History Past Surgical History: No Previous - Surgical History Hx Orthopedic Surgery: Yes (RIGHT KNEE SX) - Anesthesia Hx Anesthesia: Yes Hx Anesthesia Reactions: No Hx Malignant Hyperthermia: No - Suicidal Assessment Feels Threatened In Home Enviroment: No Family/Social History - Physician Review Nursing Documentation Reviewed: Yes Family/Social History: No Known Family HX Smoking Status: Heavy Smoker > 10 Cigarettes Daily Hx Alcohol Use: Yes Frequency of alcohol use: Daily Hx Substance Use: No Hx Substance Use Treatment: No Allergies/Home Meds Allergies/Adverse Reactions: Allergies No Known Allergies Allergy (Verified 06/28/18 02:52) Review of Systems - Physician Review All systems were reviewed & negative as marked: Yes - Review of Systems Constitutional: absent: Fevers, Night Sweats Respiratory: absent: SOB Cardiovascular: absent: Chest Pain Gastrointestinal: absent: Diarrhea, Nausea, Vomiting Genitourinary Male: Normal Musculoskeletal: absent: Back Pain, Neck Pain Neurological: absent: Headache, Dizziness Medical Decision Making ED Course and Treatment: 06/28/18 04:00 pt awake alert in nad on arrival, clinically sober, responds to questions. chronic leg pain. no indication for imaging cleared for incarceration. - Scribe Statement The provider has reviewed the documentation as recorded by the Tejalibsukhdev Mcguire Provider Scribe Attestation: All medical record entries made by the Scribe were at my direction and personally dictated by me. I have reviewed the chart and agree that the record accurately reflects my personal performance of the history, physical exam, medical decision making, and the department course for this patient. I have also personally directed, reviewed, and agree with the discharge instructions and disposition. Disposition/Present on Arrival - Present on Arrival Any Indicators Present on Arrival: No History of DVT/PE: No History of Uncontrolled Diabetes: No Urinary Catheter: No History of Decub. Ulcer: No History Surgical Site Infection Following: None - Disposition Have Diagnosis and Disposition been Completed?: Yes Diagnosis: Chronic knee pain Disposition: HOME/ ROUTINE Disposition Time: 02:00 Patient Problems: Current Active Problems Problem Status Onset Chronic knee pain Acute Condition: STABLE Discharge Instructions (ExitCare): Chronic Pain (DC) Additional Instructions: return to er with worsening symptoms or concerns. pt cleared for incarceration Referrals: [facility] [Outside] - [place] up with primary [facility] [place] - Follow up with primary Forms: [employer] (Slovak)
[2018-06-28 03:19] VITALS: BP 141/73; PULSE 81; RESP 18; TEMP 98.3; O2SAT 97
== END 2018-06-28 04:25 | disposition home or self-care (01) ==
LOC: ED 02:38
DX: M25.561 Pain in right knee (principal); G89.29 Other chronic pain

== ENCOUNTER 2018-09-15 12:52 | Emergency (ER) | payer MEDICAID ==
[2018-09-15 12:53] VITALS: BMI 25.4
[2018-09-15 13:05] VITALS: BP 141/91; PULSE 90; RESP 18; TEMP 97.8
--- NOTE | 2018-09-15 14:29 | ED PDOC ---
Arrival/HPI - General Chief Complaint: Abdominal Pain Time Seen by Provider: 09/15/18 13:58 Historian: Patient - History of Present Illness Narrative History of Present Illness (Text): 09/15/18 14:26 A 58 year old male, whose past medical history includes left groin hernia and EtOH abuse, presents to the emergency department complaining of left groin hernia pain. Patient reports today groin hernia began hurting, as well as expe riencing lower abdominal pain. States also he had few sips of beer this morning Patient denies any fever, chills, vomiting, injuries, or any other complaints at this time. Last BM yesterday. PMD: Dr. Felix Past Medical History - Provider Review Nursing Documentation Reviewed: Yes - Past History Past History: No Previous - Infectious Disease Hx of Infectious Diseases: None - Tetanus Immunization Tetanus Immunization: Unknown - Past Medical History Past Medical History: No Previous - Cardiac Hx Cardiac Disorders: Yes Hx Hypertension: Yes - Pulmonary Hx Respiratory Disorders: No - Neurological Hx Neurological Disorder: No - HEENT Hx HEENT Disorder: No - Renal Hx Renal Disorder: No - Endocrine/Metabolic Hx Endocrine Disorders: No - Hematological/Oncological Hx Blood Disorders: No - Integumentary Hx Dermatological Disorder: No - Musculoskeletal/Rheumatological Hx Musculoskeletal Disorders: Yes Other/Comment: R KNEE INJURY - Gastrointestinal Hx Gastrointestinal Disorders: Yes Other/Comment: HERNIA - Genitourinary/Gynecological Hx Genitourinary Disorders: No - Psychiatric Hx Depression: Yes Hx Substance Use: No Other/Comment: ETOH abuse - Past Surgical History Past Surgical History: No Previous - Surgical History Hx Orthopedic Surgery: Yes (RIGHT KNEE SX) - Anesthesia Hx Anesthesia: Yes Hx Anesthesia Reactions: No Hx Malignant Hyperthermia: No - Suicidal Assessment Feels Threatened In Home Enviroment: No Family/Social History - Physician Review Nursing Documentation Reviewed: Yes Family/Social History: No Known Family HX Smoking Status: Heavy Smoker > 10 Cigarettes Daily Hx Alcohol Use: Yes Hx Substance Use: No Hx Substance Use Treatment: No Allergies/Home Meds Allergies/Adverse Reactions: Allergies No Known Allergies Allergy (Verified 09/17/18 16:17) Review of Systems - Physician Review All systems were reviewed & negative as marked: Yes - Review of Systems Constitutional: absent: Fevers, Night Sweats Gastrointestinal: Abdominal Pain (lower region) Genitourinary Male: Other (left groin hernia pain) Physical Exam - Physical Exam Narrative Physical Exam (Text): Gen: NAD, cooperative, well appearing, non-toxic. Head: NCAT. HEENT: EYES: PERRL, EOMI, conjunctiva clear, EARS: TMs clear MOUTH: moist MM, posterior pharynx without erythema or exudate, uvula midline. CV: (+) S1S2, RRR, no M/G/R LUNGS: CTA B/L, No W/R/R, good air movement Abd: Soft, NTTP, no guarding, rebound or rigidity. Neuro: AAO x 3, GCS 15, CN 2-12 intact, motor and sensory grossly intact, 5/5 muscle strength B/L UE's and LE's. ext: no cyanosis or edema Genitourinary: large left hernia tender to palpation, non-reducible Vital Signs Reviewed: Yes Vital Signs Temp Pulse Resp BP Pulse Ox 09/15/18 13:04 97.8 F 90 18 141/91 H 96 Temperature: Afebrile Blood Pressure: Normal Pulse: Regular Respiratory Rate: Normal Appearance: Positive for: Well-Appearing, Non-Toxic, Comfortable, Other (smells of alcohol) Pain Distress: None Mental Status: Positive for: Alert and Oriented X 3 Medical Decision Making ED Course and Treatment: 09/15/18 14:28 Impression: 58 year old male with left groin hernia pain and lower abdominal pain. Plan: -- Abd/Pelvis CT -- Labs -- Urinalysis -- Reassess and disposition Progress Notes: 09/15/18 16:08 Patient refusing IV. 09/15/18 16:45 Patient now agrees to IV. 09/15/18 18:13 Pt reassessed, updated re results of bloodwork and delay in transport to CT (CT busy today). Pt states pain is now gone since he's been laying down and he doesn't require any pain medication at this time. 09/15/18 19:00 residential interior designer states she can try pushing back in the hernia. Requests to have ice pack placed. Will wait for CT Abd/Pelvis results. 09/15/18 19:41 Patient reassessed after return from CT. Hernia has spontaneously reduced. Awaiting CT results. 09/15/18 19:55 CT read by sonia no obstruction, single loop of bowel in left inguinal hernia. Patient has no pain, hernia is reduced, wants to go home. Case discussed with sx resident who reviewed CT and does not see bowel in hernia just fat. Plan d/c home to follow up w/pcp and RTED for new or concerning symptoms. Patient agreeable w/POC. - RAD Interpretation Radiology Orders: 09/15/18 14:15 ABD & PELVIS IV CONTRAST ONLY [CT] Stat - Scribe Statement The provider has reviewed the documentation as recorded by the Tomas Farias Provider Scribe Attestation: All medical record entries made by the Scribe were at my direction and personal ly dictated by me. I have reviewed the chart and agree that the record accurately reflects my personal performance of the history, physical exam, medical decision making, and the department course for this patient. I have also personally directed, reviewed, and agree with the discharge instructions and disposition. Disposition/Present on Arrival - Present on Arrival Any Indicators Present on Arrival: No History of DVT/PE: No History of Uncontrolled Diabetes: No Urinary Catheter: No History of Decub. Ulcer: No History Surgical Site Infection Following: None - Disposition Have Diagnosis and Disposition been Completed?: Yes Diagnosis: Inguinal hernia Disposition: HOME/ ROUTINE Disposition Time: 20:06 Patient Plan: Discharge Condition: IMPROVED Discharge Instructions (ExitCare): Inguinal and Femoral (Groin) Hernias Referrals: Melissa Felix MD [Primary Care Provider] - Follow up with primary Forms: [employer] (Sinhala)
[2018-09-15 15:29] LABS: BASO # 0.02 K/mm3 (0.0-2.0); BASO % 0.4 % (0.0-3.0); EOS # 0.2 (0.0-0.7); EOS % 3.7 % (1.5-5.0); GRAN # 3.41 (1.4-6.5); GRAN % 62.6 % (50.0-68.0); HEMOGLOBIN 12.8 g/dL (14.0-18.0); LYMPH # 1.6 (1.2-3.4); LYMPH % 28.7 % (22.0-35.0); MEAN CELL VOLUME 96.2 fl (80.0-105.0); MEAN CORPUSCULAR HEMOGLOBIN 32.4 pg (25.0-35.0); MEAN CORPUSCULAR HGB CONC 33.7 g/dl (31.0-37.0); MEAN PLATELET VOLUME 11.6 fl (7.0-11.0); MONO # 0.3 (0.1-0.6); MONO % 4.6 % (1.0-6.0); RBC 3.95 10^6/uL (3.5-6.1); RED CELL DISTRIBUTION WIDTH 13.1 % (11.5-14.5); WHITE BLOOD COUNT 5.4 10^3/uL (4.5-11.0)
[2018-09-15 15:30] LABS: PH,URINE 6.5 (4.7-8.0); URINE BILIRUBIN NEGATIVE (NEGATIVE); URINE BLOOD NEGATIVE (NEGATIVE); URINE GLUCOSE (UA) NEGATIVE (NEGATIVE); URINE LEUKOCYTE ESTERASE NEGATIVE Leu/uL (NEGATIVE); URINE PROTEIN NEGATIVE mg/dL (<30 mg/dL); URINE UROBILINOGEN 0.2 E.U./dL (<1 E.U./dL)
[2018-09-15 15:34] LABS: URINE APPEARANCE CLEAR (CLEAR); URINE COLOR YELLOW (YELLOW)
[2018-09-15 15:37] LABS: AMYLASE 102 U/L (35-125); BLOOD UREA NITROGEN 10 mg/dL (7-21); CALCIUM 9.4 mg/dL (8.4-10.5); GFR NON-AFRICAN AMERICAN > 60; LIPASE 151 U/L (23-300)
[2018-09-15 15:58] LABS: ALT/SGPT 20 U/L (7-56); AST/SGOT 31 U/L (17-59)
[2018-09-15] MEDS ORDERED: Iohexol 350 MG/100 ML VIAL ONE (17:59)
--- NOTE | 2018-09-15 20:14 | CARD ---
APPROVED REPORT Date of service: 09/15/2018 EKG Measurement Heart [id number] <Conclusion> Normal sinus rhythm Normal ECG
[2018-09-15 22:01] VITALS: O2SAT 98
--- NOTE | 2018-09-16 13:05 | CT ---
Date of service: 09/15/2018 PROCEDURE: CT Abdomen and Pelvis with contrast HISTORY: abd pain/left inguinal hernia COMPARISON: None. TECHNIQUE: Contrast dose: Radiation dose: Total exam DLP = 230.42 mGy-cm. This CT exam was performed using one or more of the following dose reduction techniques: Automated exposure control, adjustment of the mA and/or kV according to patient size, and/or use of iterative reconstruction technique. FINDINGS: LOWER THORAX: Minimal right lower lobe infiltrate/scarring. LIVER: Unremarkable. No gross lesion or ductal dilatation. GALLBLADDER AND BILE DUCTS: Gallstone. PANCREAS: Unremarkable. No gross lesion or ductal dilatation. SPLEEN: Unremarkable. ADRENALS: Unremarkable. No mass. KIDNEYS AND URETERS: Unremarkable. No hydronephrosis. No solid mass. VASCULATURE: Unremarkable. No aortic aneurysm. No aortic atherosclerotic calcification or mural plaque present. BOWEL: Unremarkable. No obstruction. No gross mural thickening. APPENDIX: Normal appendix. PERITONEUM: Unremarkable. No free fluid. No free air. LYMPH NODES: Unremarkable. No enlarged lymph nodes. BLADDER: Unremarkable. REPRODUCTIVE: Unremarkable. BONES: No acute fracture. OTHER FINDINGS: Small fat containing left inguinal hernias. IMPRESSION: Fat containing left inguinal hernia.
== END 2018-09-15 22:00 | disposition home or self-care (01) ==
LOC: ED 12:52
DX: K40.90 Unilateral inguinal hernia, without obstruction or gangrene, not specified as recurrent (principal); I10 Essential (primary) hypertension; F17.210 Nicotine dependence, cigarettes, uncomplicated
CPT/HCPCS: 74177; 80053; 81003; 82150; 83690; 85025; 93005; 99283; Q9967

== ENCOUNTER 2018-09-17 16:10 | Emergency (ER) | payer MEDICAID ==
[2018-09-17 16:11] VITALS: BMI 25.4
[2018-09-17 16:22] VITALS: RESP 18; TEMP 98.3
--- NOTE | 2018-09-17 16:53 | ED PDOC ---
Arrival/HPI - General Chief Complaint: Psychiatric Evaluation Time Seen by Provider: 09/17/18 16:16 Historian: Patient - History of Present Illness Narrative History of Present Illness (Text): 09/17/18 16:53 A 58 year old male, whose past medical history includes EtOH abuse, brought in by EMS to the emergency department for EDP/SI. Admits to being suicidal, however has no plan. Limited HPI and ROS due to being uncooperative. PMD: Dr. Felix Past Medical History - Provider Review Nursing Documentation Reviewed: Yes - Past History Past History: No Previous - Infectious Disease Hx of Infectious Diseases: None - Tetanus Immunization Tetanus Immunization: Unknown - Past Medical History Past Medical History: No Previous - Cardiac Hx Cardiac Disorders: Yes Hx Hypertension: Yes - Pulmonary Hx Respiratory Disorders: No - Neurological Hx Neurological Disorder: No - HEENT Hx HEENT Disorder: No - Renal Hx Renal Disorder: No - Endocrine/Metabolic Hx Endocrine Disorders: No - Hematological/Oncological Hx Blood Disorders: No - Integumentary Hx Dermatological Disorder: No - Musculoskeletal/Rheumatological Hx Musculoskeletal Disorders: Yes Other/Comment: R KNEE INJURY - Gastrointestinal Hx Gastrointestinal Disorders: Yes Other/Comment: HERNIA - Genitourinary/Gynecological Hx Genitourinary Disorders: No - Psychiatric Hx Depression: Yes Hx Substance Use: No Other/Comment: ETOH abuse - Past Surgical History Past Surgical History: No Previous - Surgical History Hx Orthopedic Surgery: Yes (RIGHT KNEE SX) - Anesthesia Hx Anesthesia: Yes Hx Anesthesia Reactions: No Hx Malignant Hyperthermia: No - Suicidal Assessment Feels Threatened In Home Enviroment: No Family/Social History - Physician Review Nursing Documentation Reviewed: Yes Family/Social History: No Known Family HX Smoking Status: Heavy Smoker > 10 Cigarettes Daily Hx Alcohol Use: Yes Frequency of alcohol use: Few days per week Hx Substance Use: No Hx Substance Use Treatment: No Allergies/Home Meds Allergies/Adverse Reactions: Allergies No Known Allergies Allergy (Verified 09/17/18 16:17) Review of Systems - Review of Systems Systems not reviewed;Unavailable: Uncooperative Physical Exam - Physical Exam Narrative Physical Exam (Text): Gen: NAD, cooperative, disheveled, unkept, poor hygiene. Head: NCAT. HEENT: EYES: PERRL, EOMI, conjunctiva clear, EARS: TMs clear MOUTH: moist MM, posterior pharynx without erythema or exudate, uvula midline. CV: (+) S1S2, RRR, no M/G/R LUNGS: CTA B/L, No W/R/R, good air movement Abd: Soft, NTTP, no guarding, rebound or rigidity. Neuro: AAO x 3, GCS 15, CN 2-12 intact, motor and sensory grossly intact, 5/5 muscle strength B/L UE's and LE's. ext: no cyanosis or edema Vital Signs Reviewed: Yes Vital Signs Temp Pulse Resp BP Pulse Ox 09/17/18 16:11 98.3 F 78 18 132/80 98 Temperature: Afebrile Blood Pressure: Normal Pulse: Regular Respiratory Rate: Normal Appearance: Positive for: Other (disheveled) Pain Distress: None Mental Status: Positive for: Alert and Oriented X 3 Medical Decision Making ED Course and Treatment: 09/17/18 16:54 Impression: 58 year male here for EDP/SI. Plan: -- Labs -- Urinalysis -- Reassess and disposition Progress Notes: 09/17/18 20:08 EtOH 228, calculated sobreity at 21:00. Remaining labs unremarkable and UDS pending. PES will evaluate then. 09/17/18 21:11 JAMIL Ruiz, evaluated pt, states pt denies any SI. Per PES pt may be d/c home. Pt given verbal and written d/c instructions to follow up w/pcp and RTED for new or concerning symptoms. Pt agreeable w/POC and verbalized understanding of d/c instructions. - Lab Interpretations I have reviewed the lab results: Yes - Scribe Statement The provider has reviewed the documentation as recorded by the Tomas Farias Provider Scribe Attestation: All medical record entries made by the Scribe were at my direction and personally dictated by me. I have reviewed the chart and agree that the record accurately reflects my personal performance of the history, physical exam, medical decision making, and the department course for this patient. I have also personally directed, reviewed, and agree with the discharge instructions and disposition. Disposition/Present on Arrival - Present on Arrival Any Indicators Present on Arrival: No History of DVT/PE: No History of Uncontrolled Diabetes: No Urinary Catheter: No History of Decub. Ulcer: No History Surgical Site Infection Following: None - Disposition Have Diagnosis and Disposition been Completed?: No Diagnosis: Alcohol intoxication Disposition: HOME/ ROUTINE Disposition Time: 21:13 Patient Plan: Discharge Patient Problems: Current Active Problems Problem Status Onset Alcohol intoxication Acute Suicidal ideation Acute Condition: STABLE Discharge Instructions (ExitCare): Alcohol Use - When Is Drinking a Problem?, Effects of Alcohol on Your Health Referrals: Melissa Felix MD [Family Provider] - Follow up with primary Forms: [employer] (Honduran)
[2018-09-17 17:10] LABS: BASO # 0.02 K/mm3 (0.0-2.0); BASO % 0.3 % (0.0-3.0); EOS # 0.3 (0.0-0.7); EOS % 4.6 % (1.5-5.0); GRAN # 4.16 (1.4-6.5); GRAN % 56.8 % (50.0-68.0); HEMOGLOBIN 13.7 g/dL (14.0-18.0); LYMPH # 2.6 (1.2-3.4); LYMPH % 35.4 % (22.0-35.0); MEAN CELL VOLUME 94.7 fl (80.0-105.0); MEAN CORPUSCULAR HEMOGLOBIN 32.7 pg (25.0-35.0); MEAN CORPUSCULAR HGB CONC 34.5 g/dl (31.0-37.0); MEAN PLATELET VOLUME 9.7 fl (7.0-11.0); MONO # 0.2 (0.1-0.6); MONO % 2.9 % (1.0-6.0); RBC 4.19 10^6/uL (3.5-6.1); RED CELL DISTRIBUTION WIDTH 13.1 % (11.5-14.5); WHITE BLOOD COUNT 7.3 10^3/uL (4.5-11.0)
[2018-09-17 17:15] LABS: ACETAMINOPHEN < 10.0 ug/ml (10.0-20.0); SALICYLATE < 1 mg/dL (2.0-20.0)
[2018-09-17 17:19] LABS: ALB/GLOB RATIO 1.1 (1.1-1.8); ALBUMIN 4.5 g/dL (3.0-4.8); ALT/SGPT 18 U/L (7-56); AST/SGOT 30 U/L (17-59); BLOOD UREA NITROGEN 6 mg/dL (7-21); CALCIUM 9.1 mg/dL (8.4-10.5); GFR NON-AFRICAN AMERICAN > 60
[2018-09-17 17:51] LABS: URINE BILIRUBIN NEGATIVE (NEGATIVE); URINE BLOOD NEGATIVE (NEGATIVE); URINE GLUCOSE (UA) NEGATIVE (NEGATIVE); URINE LEUKOCYTE ESTERASE NEGATIVE Leu/uL (NEGATIVE); URINE PROTEIN NEGATIVE mg/dL (<30 mg/dL); URINE UROBILINOGEN 0.2 E.U./dL (<1 E.U./dL)
[2018-09-17 18:29] LABS: URINE APPEARANCE CLEAR (CLEAR); URINE COLOR YELLOW (YELLOW)
[2018-09-17 22:22] VITALS: BP 134/82; PULSE 78; O2SAT 98
--- NOTE | 2018-09-18 10:08 | CARD ---
APPROVED REPORT Date of service: 09/17/2018 EKG Measurement Heart [id number] <Conclusion> Sinus tachycardia Otherwise normal ECG
== END 2018-09-17 21:15 | disposition home or self-care (01) ==
LOC: ED 16:10
DX: F10.129 Alcohol abuse with intoxication, unspecified (principal); I10 Essential (primary) hypertension; F17.210 Nicotine dependence, cigarettes, uncomplicated

== ENCOUNTER 2018-11-20 16:27 | Inpatient (IN) | payer MEDICAID ==
[2018-11-20] MEDS ORDERED: Sodium Chloride 0.9% 1,000 ML IV STA (16:58)
--- NOTE | 2018-11-20 17:06 | ED PDOC ---
Arrival/HPI - General Historian: Patient - History of Present Illness Narrative History of Present Illness (Text): 11/20/18 17:01 58M w/ a PMH of EtOH abuse, presenting for complaints RUQ/ Epigastric abdominal pain worsening over the past 2-3 days. Patient states that he came to [facility] ED today because pain was very severe and he was unable to tolerate. Pain is located in his epigastric region w/ radiation into RUQ unable to describe quality of the pain. Reports that he has some nausea and poor appetite due to pain. No complaitns of hemetemesis, hematochezia, or melena. Patient reported that he last used EtOH on Sunday. No complaints of chest pain, sob, Time/Duration: Prior to Arrival Symptom Onset: Gradual Symptom Course: Worsening Quality: Unable to Describe <Miguel Mahre - Last Filed: 11/20/18 20:28> <Amilcar Mohamud DO - Last Filed: 11/20/18 21:32> - General Chief Complaint: Abdominal Pain Time Seen by Provider: 11/20/18 17:01 Past Medical History - Provider Review Nursing Documentation Reviewed: Yes - Past History Past History: No Previous - Infectious Disease Hx of Infectious Diseases: None - Tetanus Immunization Tetanus Immunization: Unknown - Past Medical History Past Medical History: No Previous - Cardiac Hx Cardiac Disorders: Yes Hx Hypertension: Yes - Pulmonary Hx Tuberculosis: No - Neurological HX Cerebrovascular Accident: No Hx Seizures: No - HEENT Hx HEENT Disorder: No - Renal Hx Renal Disorder: No - Endocrine/Metabolic Hx Endocrine Disorders: No - Hematological/Oncological Hx Cancer: No - Integumentary Hx Dermatological Disorder: No - Musculoskeletal/Rheumatological Hx Musculoskeletal Disorders: Yes Other/Comment: R KNEE INJURY - Gastrointestinal Hx Gastrointestinal Disorders: Yes Other/Comment: HERNIA - Genitourinary/Gynecological Hx Sexually Transmitted Diseases: No - Psychiatric Hx Depression: Yes Hx Substance Use: No Other/Comment: ETOH abuse - Past Surgical History Past Surgical History: No Previous - Surgical History Hx Orthopedic Surgery: Yes (RIGHT KNEE SX) - Anesthesia Hx Anesthesia: Yes Hx Anesthesia Reactions: No Hx Malignant Hyperthermia: No - Suicidal Assessment Feels Threatened In Home Enviroment: No <Miguel Maher - Last Filed: 11/20/18 20:28> Family/Social History - Physician Review Nursing Documentation Reviewed: Yes Family/Social History: Unknown Family HX Smoking Status: Heavy Smoker > 10 Cigarettes Daily Hx Alcohol Use: Yes Frequency of alcohol use: Daily Hx Substance Use: No Hx Substance Use Treatment: No <Miguel Maher - Last Filed: 11/20/18 20:28> Allergies/Home Meds <Miguel Maher - Last Filed: 11/20/18 20:28> <Amilcar Mohamud DO - Last Filed: 11/20/18 21:32> Allergies/Adverse Reactions: Allergies No Known Allergies Allergy (Verified 09/17/18 16:17) Review of Systems - Review of Systems Constitutional: Normal. absent: Fevers Eyes: Normal ENT: Normal Respiratory: SOB. absent: Cough, Sputum Cardiovascular: absent: Chest Pain Gastrointestinal: Abdominal Pain, Nausea, Appetite Changes, Food Intolerance. absent: Stool Changes, Constipation, Diarrhea, Vomiting, Hematochezia, Hematemesis Musculoskeletal: Normal Skin: Normal Neurological: Normal Endocrine: Normal Hemo/Lymphatic: Normal Psychiatric: Normal <Miguel Maher - Last Filed: 11/20/18 20:28> Physical Exam Temperature: Afebrile Blood Pressure: Normal Pulse: Regular Respiratory Rate: Normal Appearance: Positive for: Well-Appearing, Non-Toxic, Comfortable Pain Distress: None Mental Status: Positive for: Alert and Oriented X 3 - Systems Exam Head: Present: Atraumatic, Normocephalic Pupils: Present: PERRL Extroacular Muscles: Present: EOMI Conjunctiva: Present: Normal Mouth: Present: Moist Mucous Membranes Neck: Present: Normal Range of Motion Respiratory/Chest: Present: Clear to Auscultation, Good Air Exchange. No: Respiratory Distress, Accessory Muscle Use Cardiovascular: Present: Regular Rate and Rhythm, Normal S1, S2. No: Murmurs Abdomen: Present: Tenderness (RUQ/EPigastric), Normal Bowel Sounds. No: Distention Back: Present: Normal Inspection Upper Extremity: Present: Normal Inspection. No: Cyanosis, Edema Lower Extremity: Present: Normal Inspection. No: Edema Neurological: Present: GCS=15, CN II-XII Intact, Speech Normal Skin: Present: Warm, Dry, Normal Color. No: Rashes Psychiatric: Present: Alert, Oriented x 3, Normal Insight, Normal Concentration <Miguel Maher - Last Filed: 11/20/18 20:28> Vital Signs Temp Pulse Resp BP Pulse Ox 11/20/18 19:00 120 H 18 123/83 95 11/20/18 17:00 98.0 F 80 18 111/76 93 L <Amilcar Mohamud DO - Last Filed: 11/20/18 21:32> Medical Decision Making ED Course and Treatment: 11/20/18 17:17 58M w/ PMH EtOH abuse complaining of abdominal pain and 'feeling sick' Plan: CBC/CMP EtOH Serum MAG/PHOS AMYLASE/LIPASE EKG CXR Zofran IVF PEPCID Progress Notes 11/20/18 17:42 CBC/CMP - Cholestatic pattern on LFT Tbili 3.5 Lipase wnl F/u Abd US 11/20/18 20:21 ABD U/S: The liver is of increased echogenicity without evidence of mass or defect measuring 13.14 x 7.56 cm. There is no intra or extrahepatic biliary ductal dilatation. The common bile duct measures 0.57 cm. The gallbladder shows stones. The gallbladder wall is not thickened measuring 0.34 cm and there is no pericholecystic fluid. There is no abdominal ascites. The visualized portions of abdominal aorta and inferior vena cava present no abnormalities. The visualized portions of the pancreas are unremarkable. The spleen is of uniform echo texture and does not appear enlarged measuring 11.55 x 5.7 cm. The right kidney measures 10.38 x 5.65 x 6.19 cm and the left kidney measures 10.5 x 4.65 x 5.11 cm. Both kidneys are free of hydronephrosis. IMPRESSION: 1. Fatty liver. 2. Cholelithiasis. Case d/w Dr. Adams who accepts patient to Hospitalist Service - Medication Orders Current Medication Orders: Sodium Chloride (Sodium Chloride 0.9%) 1,000 mls @ 1,000 mls/hr IV .Q1H STA Stop: 11/20/18 17:57 Discontinued Medications Famotidine (Pepcid) 20 mg IVP STAT STA Stop: 11/20/18 16:59 Ondansetron HCl (Zofran Inj) 8 mg IVP STAT STA Stop: 11/20/18 16:59 <Miguel Maher - Last Filed: 11/20/18 20:28> ED Course and Treatment: 11/20/18 17:17 58 year old male presents to the ED for evaluation of abdominal pain. In agreement with resident note which contains more details about the patient. Patient seen and evaluated with resident. Came up with plan and treatment together. - Lab Interpretations Lab Results: Total Bilirubin 3.5 mg/dL (0.2-1.3) H 11/20/18 16:50 AST 88 U/L (17-59) H D 11/20/18 16:50 ALT 74 U/L (7-56) H 11/20/18 16:50 Alkaline Phosphatase 318 U/L (38-126) H D 11/20/18 16:50 Total Protein 8.6 g/dL (5.8-8.3) H 11/20/18 16:50 Albumin 4.1 g/dL (3.0-4.8) 11/20/18 16:50 Globulin 4.5 gm/dL 11/20/18 16:50 Albumin/Globulin Ratio 0.9 (1.1-1.8) L 11/20/18 16:50 Amylase 52 U/L (35-125) 11/20/18 16:50 Lipase 47 U/L (23-300) 11/20/18 16:50 - RAD Interpretation Radiology Orders: 11/20/18 17:13 CHEST PORTABLE [RAD] Stat 11/20/18 17:40 ABDOMEN COMPLETE [US] Stat - Medication Orders Current Medication Orders: Discontinued Medications Famotidine (Pepcid) 20 mg IVP STAT STA Stop: 11/20/18 16:59 Last Admin: 11/20/18 17:09 Dose: 20 mg IVP Administration Document 11/20/18 17:09 BB (Rec: 11/20/18 17:09 [id number]) Charges for Administration # of IVP Administrations 1 Sodium Chloride (Sodium Chloride 0.9%) 1,000 mls @ 1,000 mls/hr IV .Q1H STA Stop: 11/20/18 17:57 Last Admin: 11/20/18 17:09 Dose: 1,000 mls/hr eMAR Start Stop Document 11/20/18 17:09 BB (Rec: 11/20/18 17:09 [id number]) Intravenous Solution Start Date 11/20/18 Start Time 17:09 Ondansetron HCl (Zofran Inj) 8 mg IVP STAT STA Stop: 11/20/18 16:59 Last Admin: 11/20/18 17:09 Dose: 8 mg IVP Administration Document 11/20/18 17:09 BB (Rec: 11/20/18 17:09 BB [id number]) Charges for Administration # of IVP Administrations 1 <Amilcar Mohamud DO - Last Filed: 11/20/18 21:32> - PA / CELEBRITY MANAGER / Resident Statement MERA has reviewed & agrees with the documentation as recorded. / has examined the patient and agrees with the treatment plan. - Scribe Statement The provider has reviewed the documentation as recorded by the Scribe Lor Sparks. All medical record entries made by the Scribe were at my direction and personally dictated by me. I have reviewed the chart and agree that the record accurately reflects my personal performance of the history, physical exam, medical decision making, and the department course for this patient. I have also personally directed, reviewed, and agree with the discharge instructions and disposition. <Amilcar Mohamud DO - Last Filed: 11/20/18 21:32> Disposition/Present on Arrival - Present on Arrival Any Indicators Present on Arrival: No History of DVT/PE: No History of Uncontrolled Diabetes: No Urinary Catheter: No History of Decub. Ulcer: No History Surgical Site Infection Following: None - Disposition Have Diagnosis and Disposition been Completed?: Yes Disposition Time: 20:27 Patient Plan: Admission <Miguel Maher - Last Filed: 11/20/18 20:28> - Disposition Disposition Time: 19:00 <Amilcar Mohamud DO - Last Filed: 11/20/18 21:32> - Disposition Diagnosis: Cholelithiasis, Biliary colic Disposition: HOSPITALIZED Condition: FAIR
[2018-11-20 17:28] LABS: BASO # 0.01 K/mm3 (0.0-2.0); BASO % 0.1 % (0.0-3.0); EOS % 0.1 % (1.5-5.0); HEMOGLOBIN 13.5 g/dL (14.0-18.0); LYMPH % 8.2 % (22.0-35.0); MEAN CELL VOLUME 96.6 fl (80.0-105.0); MEAN CORPUSCULAR HEMOGLOBIN 32.4 pg (25.0-35.0); MEAN CORPUSCULAR HGB CONC 33.5 g/dl (31.0-37.0); MEAN PLATELET VOLUME 11.2 fl (7.0-11.0); MONO # 0.7 (0.1-0.6); MONO % 5.4 % (1.0-6.0); RBC 4.17 10^6/uL (3.5-6.1); RED CELL DISTRIBUTION WIDTH 13.7 % (11.5-14.5)
[2018-11-20 17:31] LABS: ALB/GLOB RATIO 0.9 (1.1-1.8); ALBUMIN 4.1 g/dL (3.0-4.8); ALT/SGPT 74 U/L (7-56); AMYLASE 52 U/L (35-125); AST/SGOT 88 U/L (17-59); BLOOD UREA NITROGEN 19 mg/dL (7-21); CALCIUM 9.6 mg/dL (8.4-10.5); GFR NON-AFRICAN AMERICAN > 60; LIPASE 47 U/L (23-300)
--- NOTE | 2018-11-20 20:33 | CP.PCM.HP ---
<Felicia Whalen - Last Filed: 11/20/18 23:14> History of Present Illness - History of Present Illness History of Present Illness: PGY1 Hospitalist History and Physical Exam Note for Dr. Adams 58-year-old M with a PMH of depression and ETOH abuse, presenting for complaints epigastric pain and RLQ abdominal pain x 2-3 days. Patient states the pain worsened, and this prompted him to come into the ED for evaluation. Pain is located in his epigastric region, and he also has localized pain in RLQ. Patient unable to describe quality of the pain, and rates it as 8/10 in severity. Patient admits to associated nausea and poor appetite due to pain. ROS is otherwise unremarkable for hemetemesis, hematochezia, and/or melena, fever, chills, headache, lower extremity numbness/pain, and/or rash. Of note, Patient reported that his last alcohol beverage was on Sunday. PMH: ETOH abuse, depression PSH: Right knee surgery Family Hx: Father - Lung CA; Mother - Heart disease Social Hx: Heavy Smoker > 10 Cigarettes Daily, Homeless Medications: Citalopram 40mg PO daily, Folic Acid 1mg PO daily, Neurontin 300mg PO daily, Motrin 400mg PO Q6H, Naltrexone 50mg PO daily, Naproxen 375mg PO daily, Nicotine 1 patch TD, risperidone 1mg PO HS, thiamine b1, sonata 5mg PO HS. Allergies: NKDA Present on Admission - Present on Admission Any Indicators Present on Admission: No History of DVT/PE: No History of Uncontrolled Diabetes: No Urinary Catheter: No Decubitus Ulcer Present: No Review of Systems - Review of Systems All systems: reviewed and no additional remarkable complaints except (As per HPI) Past Patient History - Infectious Disease Hx of Infectious Diseases: None - Tetanus Immunizations Tetanus Immunization: Unknown - Past Social History Smoking Status: Heavy Smoker > 10 Cigarettes Daily - CARDIAC Hx Cardiac Disorders: Yes Hx Hypertension: Yes - PULMONARY Hx Tuberculosis: No - NEUROLOGICAL HX Cerebrovascular Accident: No Hx Seizures: No - HEENT Hx HEENT Problems: No - RENAL Hx Chronic Kidney Disease: No - ENDOCRINE/METABOLIC Hx Endocrine Disorders: No - HEMATOLOGICAL/ONCOLOGICAL Hx Cancer: No - INTEGUMENTARY Hx Dermatological Problems: No - MUSCULOSKELETAL/RHEUMATOLOGICAL Hx Musculoskeletal Disorders: Yes Other/Comment: R KNEE INJURY - GASTROINTESTINAL Hx Gastrointestinal Disorders: Yes Other/Comment: HERNIA - GENITOURINARY/GYNECOLOGICAL Hx Sexually Transmitted Disorders: No - PSYCHIATRIC Hx Depression: Yes Hx Substance Use: No Other/Comment: ETOH abuse - SURGICAL HISTORY Hx Orthopedic Surgery: Yes (RIGHT KNEE SX) - ANESTHESIA Hx Anesthesia: Yes Hx Anesthesia Reactions: No Hx Malignant Hyperthermia: No Meds Allergies/Adverse Reactions: Allergies Allergy/AdvReac Type Severity Reaction Status Date / Time No Known Allergies Allergy Verified 09/17/18 16:17 Physical Exam - Constitutional Appears: Cachectic, Chronically Ill - Head Exam Head Exam: ATRAUMATIC, NORMAL INSPECTION, NORMOCEPHALIC - Eye Exam Eye Exam: EOMI, Normal appearance, PERRL Pupil Exam: NORMAL ACCOMODATION - ENT Exam ENT Exam: Mucous Membranes Moist, Normal Exam - Neck Exam Neck exam: Positive for: Full Rom, Normal Inspection - Respiratory Exam Respiratory Exam: Clear to Auscultation Bilateral, NORMAL BREATHING PATTERN. absent: Decreased Breath Sounds, Prolonged Expiratory Phase, Rhonchi, Wheezes, Respiratory Distress - Cardiovascular Exam Cardiovascular Exam: REGULAR RHYTHM, +S1, +S2 - GI/Abdominal Exam GI & Abdominal Exam: Normal Bowel Sounds, Soft, Tenderness Additional comments: RLQ - Extremities Exam Extremities exam: Positive for: normal inspection - Back Exam Back exam: NORMAL INSPECTION. absent: CVA tenderness (L), CVA tenderness (R) - Neurological Exam Neurological exam: Alert, CN II-XII Intact, Oriented x3 - Psychiatric Exam Psychiatric exam: Normal Affect, Normal Mood - Skin Skin Exam: Dry, Intact, Warm Additional comments: jaundice Results - Vital Signs Recent Vital Signs: Last Vital Signs Temp 98.0 F 11/20/18 17:00 Pulse 120 H 11/20/18 19:00 Resp 18 11/20/18 19:00 BP 123/83 11/20/18 19:00 Pulse Ox 95 11/20/18 19:00 - Labs Result Diagrams: 11/20/18 16:50 11/20/18 16:50 Labs: Laboratory Results - last 24 hr 11/20/18 11/20/18 11/20/18 16:50 16:50 16:50 WBC 12.0 H D RBC 4.17 Hgb 13.5 L Hct 40.3 L MCV 96.6 MCH 32.4 MCHC 33.5 RDW 13.7 Plt Count 224 MPV 11.2 H Neut % (Auto) 86.2 H Lymph % (Auto) 8.2 L [place] % (Auto) 5.4 Eos % (Auto) 0.1 L Baso % (Auto) 0.1 Lymph # (Auto) 1.0 L [place] # (Auto) 0.7 H Eos # (Auto) 0.0 Baso # (Auto) 0.01 Absolute Neuts (auto) 10.30 H Sodium 135 Potassium 3.4 L Chloride 95 L Carbon Dioxide 31 Anion Gap 13 BUN 19 Creatinine 0.8 Est GFR ( Amer) > 60 Est GFR (Non-Af Amer) > 60 Random Glucose 185 H Calcium 9.6 Magnesium 1.7 Total Bilirubin 3.5 H AST 88 H D ALT 74 H Alkaline Phosphatase 318 H D Total Protein 8.6 H Albumin 4.1 Globulin 4.5 Albumin/Globulin Ratio 0.9 L Amylase 52 Lipase 47 Alcohol, Quantitative < 10 Assessment & Plan - Assessment and Plan (Free Text) Assessment: 58-year-old M with a PMH of depression and ETOH abuse, presenting for complaints epigastric pain and RLQ abdominal pain x 2-3 days. Epigastric/LLQ pain - Abdomen Ultrasound: cholelithiasis, no gallbladder wall thickening, no pericholecysitic fluids, - EKG: - CXR: no air under diaphragm noted (read by me) - General Surgery consulted (Dr. Storey) recommendations appreciated - GI consulted (Dr. Celary) recommendations appreciated - CBC/CMP is consistent with cholestatic pattern on LFT - Tbili 3.5 - Lipase wnl - Leukocytosis (WBC=12) - F/U ETOH serum - F/U Mg and Phos - F/U Direct bili - Keep NPO - Zofran PRN for nausea - IVF 1L bolus given in ED - Pepcid, zofran given in ED - Continue Zofran PRN - Continue IVF @75cc/hr - Continue Pepcid Hypokalemia - K+=3.4 - Replete as needed - Monitor CMP, Mg, Phos History of ETOH abuse - [facility] protocol - Banana bag - Ativan PRN - Monitor Ppx: - GI: - DVT: SCD Discussed with Dr. Bryan Whalen PGY1 <Evangelist Adams - Last Filed: 11/21/18 06:49> Results - Vital Signs Recent Vital Signs: Last Vital Signs Temp 98.8 F 11/20/18 23:59 Pulse 117 H 11/21/18 02:25 Resp 19 11/21/18 02:25 BP 130/70 11/20/18 23:59 Pulse Ox 98 11/20/18 23:59 - Labs Result Diagrams: 11/20/18 16:50 11/20/18 16:50 Labs: Laboratory Results - last 24 hr 11/20/18 11/20/18 11/20/18 16:50 16:50 16:50 WBC 12.0 H D RBC 4.17 Hgb 13.5 L Hct 40.3 L MCV 96.6 MCH 32.4 MCHC 33.5 RDW 13.7 Plt Count 224 MPV 11.2 H Neut % (Auto) 86.2 H Lymph % (Auto) 8.2 L [place] % (Auto) 5.4 Eos % (Auto) 0.1 L Baso % (Auto) 0.1 Lymph # (Auto) 1.0 L [place] # (Auto) 0.7 H Eos # (Auto) 0.0 Baso # (Auto) 0.01 Absolute Neuts (auto) 10.30 H PT INR APTT Sodium 135 Potassium 3.4 L Chloride 95 L Carbon Dioxide 31 Anion Gap 13 BUN 19 Creatinine 0.8 Est GFR ( Amer) > 60 Est GFR (Non-Af Amer) > 60 Random Glucose 185 H Lactic Acid Calcium 9.6 Phosphorus Magnesium 1.7 Total Bilirubin 3.5 H Direct Bilirubin AST 88 H D ALT 74 H Alkaline Phosphatase 318 H D Total Protein 8.6 H Albumin 4.1 Globulin 4.5 Albumin/Globulin Ratio 0.9 L Amylase 52 Lipase 47 Alcohol, Quantitative < 10 Blood Type Antibody Screen Crossmatch BBK History Checked 11/20/18 11/21/18 11/21/18 16:50 01:48 01:48 WBC RBC Hgb Hct MCV MCH MCHC RDW Plt Count MPV Neut % (Auto) Lymph % (Auto) [place] % (Auto) Eos % (Auto) Baso % (Auto) Lymph # (Auto) [place] # (Auto) Eos # (Auto) Baso # (Auto) Absolute Neuts (auto) PT 14.6 H INR 1.32 APTT 30.6 Sodium Potassium Chloride Carbon Dioxide Anion Gap BUN Creatinine Est GFR ( Amer) Est GFR (Non-Af Amer) Random Glucose Lactic Acid 2.1 Calcium Phosphorus 2.9 Magnesium 1.7 Total Bilirubin Direct Bilirubin 2.6 H AST ALT Alkaline Phosphatase Total Protein Albumin Globulin Albumin/Globulin Ratio Amylase Lipase Alcohol, Quantitative Blood Type Antibody Screen Crossmatch BBK History Checked 11/21/18 02:50 WBC RBC Hgb Hct MCV MCH MCHC RDW Plt Count MPV Neut % (Auto) Lymph % (Auto) [place] % (Auto) Eos % (Auto) Baso % (Auto) Lymph # (Auto) [place] # (Auto) Eos # (Auto) Baso # (Auto) Absolute Neuts (auto) PT INR APTT Sodium Potassium Chloride Carbon Dioxide Anion Gap BUN Creatinine Est GFR ( Amer) Est GFR (Non-Af Amer) Random Glucose Lactic Acid Calcium Phosphorus Magnesium Total Bilirubin Direct Bilirubin AST ALT Alkaline Phosphatase Total Protein Albumin Globulin Albumin/Globulin Ratio Amylase Lipase Alcohol, Quantitative Blood Type A POSITIVE Antibody Screen Negative Crossmatch See Detail BBK History Checked No verified bt Attending/Attestation - Attestation I have personally seen and examined this patient.: Yes I have fully participated in the care of the patient.: Yes I have reviewed all pertinent clinical information: Yes Notes (Text): 11/21/18 06:47 Seen and examined. Pt. now with severe RLQ tenderness. 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 Pt. will be taken emergently to OR for detorsion.
[2018-11-20] MEDS ORDERED: Morphine 2 mg/ml ISec IVP PRN (21:13)
[2018-11-20] MEDS ORDERED: Lactated Ringer's 1,000 ML IV SCH ×2 (21:15→21:25)
--- NOTE | 2018-11-20 21:17 | CP.PCM.CON ---
History of Present Illness - History of Present Illness History of Present Illness: General Surgery consult note for Dr. Storey consulted for abdominal pain Patient is a 58 M with PMH ETOH abuse presenting with new onset RUQ and RLQ abdominal pain beginning today. Upon beginning interview patient is holding/bracing his RLQ. Patient states pain is sharp and over the right side. Patient states his last normal BM was yesterday and was slightly hard. He otherwise denies any RAMOS, n/v, f/c, chest pain, SOB, dysuria, stool changes, blood in stool and dizziness. PMH: ETOh abuse, Left inguinal hernia PSH: denies Social: ETOH last drink Sunday All: NKDA Review of Systems - Review of Systems All systems: reviewed and no additional remarkable complaints except (as per HPI) Past Patient History - Infectious Disease Hx of Infectious Diseases: None - Tetanus Immunizations Tetanus Immunization: Unknown - Past Social History Smoking Status: Heavy Smoker > 10 Cigarettes Daily - CARDIAC Hx Cardiac Disorders: Yes Hx Hypertension: Yes - PULMONARY Hx Tuberculosis: No - NEUROLOGICAL HX Cerebrovascular Accident: No Hx Seizures: No - HEENT Hx HEENT Problems: No - RENAL Hx Chronic Kidney Disease: No - ENDOCRINE/METABOLIC Hx Endocrine Disorders: No - HEMATOLOGICAL/ONCOLOGICAL Hx Cancer: No - INTEGUMENTARY Hx Dermatological Problems: No - MUSCULOSKELETAL/RHEUMATOLOGICAL Hx Musculoskeletal Disorders: Yes Other/Comment: R KNEE INJURY - GASTROINTESTINAL Hx Gastrointestinal Disorders: Yes Other/Comment: HERNIA - GENITOURINARY/GYNECOLOGICAL Hx Sexually Transmitted Disorders: No - PSYCHIATRIC Hx Depression: Yes Hx Substance Use: No Other/Comment: ETOH abuse - SURGICAL HISTORY Hx Orthopedic Surgery: Yes (RIGHT KNEE SX) - ANESTHESIA Hx Anesthesia: Yes Hx Anesthesia Reactions: No Hx Malignant Hyperthermia: No Meds Allergies/Adverse Reactions: Allergies Allergy/AdvReac Type Severity Reaction Status Date / Time No Known Allergies Allergy Verified 09/17/18 16:17 - Medications Medications: Current Medications Metronidazole (Flagyl) 500 mg in 100 mls @ 100 mls/hr IVPB Q8 ELY; Protocol Lactated Ringer's (Lactated Ringer's) 1,000 mls @ 125 mls/hr IV .Q8H ELY Ceftriaxone Sodium (Rocephin 1 Gram Ivpb) 1 gm in 100 mls @ 100 mls/hr IVPB DAILY ELY; Protocol Ketorolac Tromethamine (Toradol) 30 mg IVP Q6 PRN PRN Reason: Pain, moderate (4-7) Ondansetron HCl (Zofran Inj) 4 mg IVP Q6H PRN PRN Reason: Nausea/Vomiting Physical Exam - Constitutional Appears: Well, Non-toxic, No Acute Distress - Head Exam Head Exam: ATRAUMATIC - Eye Exam Eye Exam: EOMI, Scleral icterus - ENT Exam ENT Exam: Mucous Membranes Moist - Respiratory Exam Respiratory Exam: NORMAL BREATHING PATTERN - Cardiovascular Exam Cardiovascular Exam: Tachycardia, REGULAR RHYTHM - GI/Abdominal Exam GI & Abdominal Exam: Guarding (RLQ), Soft, Tenderness (RLQ, RUQ) - Extremities Exam Extremities exam: Negative for: calf tenderness - Neurological Exam Neurological exam: Alert, Oriented x3 - Psychiatric Exam Psychiatric exam: Normal Affect, Normal Mood - Skin Skin Exam: Dry, Intact, Warm Additional comments: Jaundiced Results - Vital Signs Recent Vital Signs: Last Vital Signs Temp 98.0 F 11/20/18 17:00 Pulse 120 H 11/20/18 19:00 Resp 18 11/20/18 19:00 BP 123/83 11/20/18 19:00 Pulse Ox 95 11/20/18 19:00 - Labs Result Diagrams: 11/20/18 16:50 11/20/18 16:50 Labs: Laboratory Results - last 24 hr 11/20/18 11/20/18 11/20/18 16:50 16:50 16:50 WBC 12.0 H D RBC 4.17 Hgb 13.5 L Hct 40.3 L MCV 96.6 MCH 32.4 MCHC 33.5 RDW 13.7 Plt Count 224 MPV 11.2 H Neut % (Auto) 86.2 H Lymph % (Auto) 8.2 L [place] % (Auto) 5.4 Eos % (Auto) 0.1 L Baso % (Auto) 0.1 Lymph # (Auto) 1.0 L [place] # (Auto) 0.7 H Eos # (Auto) 0.0 Baso # (Auto) 0.01 Absolute Neuts (auto) 10.30 H Sodium 135 Potassium 3.4 L Chloride 95 L Carbon Dioxide 31 Anion Gap 13 BUN 19 Creatinine 0.8 Est GFR ( Amer) > 60 Est GFR (Non-Af Amer) > 60 Random Glucose 185 H Calcium 9.6 Magnesium 1.7 Total Bilirubin 3.5 H AST 88 H D ALT 74 H Alkaline Phosphatase 318 H D Total Protein 8.6 H Albumin 4.1 Globulin 4.5 Albumin/Globulin Ratio 0.9 L Amylase 52 Lipase 47 Alcohol, Quantitative < 10 Assessment & Plan - Assessment and Plan (Free Text) Assessment: 58 yr old male with avute RUQ and RLQ abdominal pain, uncertain etiology Plan: IVF Pain control CT A/P Rocephin and flagyl NPO Zofran PRN will discuss with Dr. Raleigh Smith, PGY 1 0150: Progress note after evaluation and CT scan patient became increasingly tender and began to exhibit peritoneal signs despite pain medication. Upon obtaining the CT scan results showing Cecal Volvulus Dr. Storey was notified and the decision was made to take the patient to the operating room for detorsion and all other necessary procedures. PT, PTT, INR, Type and Cross, Lactate were ordered nursing job site supervisor was made aware, Dr. Cleary was made aware of the patient and his condition, agreed to review CT scan. Patient was made aware of his condition and the necessary intervention. Consent was obtained. - Date & Time Date: 11/20/18 Time: 20:55
[2018-11-20] MEDS ORDERED: Multivitamin (MVI) 10 ML, Thiamine 100 MG, Folic Acid 1 MG in Sodium Chloride 0.9% 1,00... IV ONE ×2 (21:26)
[2018-11-20] MEDS ORDERED: Iohexol 350 MG/100 ML VIAL ONE (21:41)
--- NOTE | 2018-11-20 22:38 | CARD ---
APPROVED REPORT Date of service: 11/20/2018 EKG Measurement Heart [id number] <Conclusion> Sinus tachycardia Minor nonspecific ST abnormality CPT dated 09/17/18 little change Abnormal ECG
[2018-11-20] MEDS: metroNIDAZOLE IV 500 mg/100 ml 500 MG/100 ML BAG IVPB SCH (22:56)
[2018-11-20 23:52] LABS: BILIRUBIN,DIRECT 2.6 mg/dL (0.0-0.4)
[2018-11-21] MEDS ORDERED: Lactated Ringer's 1,000 ML IV SCH ×5 (01:20→09:59)
[2018-11-21] MEDS ORDERED: HYDROmorphone 1 mg/ml ISec IVP STA (01:56)
[2018-11-21 02:33] LABS: INR 1.32; PARTIAL THROMBOPLASTIN TIME 30.6 Seconds (26.9-38.3); PROTHROMBIN TIME 14.6 SECONDS (9.4-12.5)
[2018-11-21 04:52] VITALS: BMI 26.6
[2018-11-21] MEDS: metroNIDAZOLE IV 500 mg/100 ml 500 MG/100 ML BAG IVPB SCH (05:19)
[2018-11-21] MEDS ORDERED: Midazolam 2 MG/2 ML VIAL ONE (06:28)
[2018-11-21] MEDS ORDERED: Propofol 10 mg/ml Inj (20 ML) ONE (06:28)
[2018-11-21] MEDS ORDERED: Rocuronium 10 mg/ml (5 ml) ONE ×2 (06:29→07:06)
[2018-11-21] MEDS ORDERED: Succinylcholine 200 mg/10 ml Inj IV ONE (06:29)
[2018-11-21] MEDS ORDERED: Oxychlorosene Topical 2 gm Packet TOP ONE (06:43)
[2018-11-21] MEDS ORDERED: cefTRIAXone (Rocephin) 1 gm Inj ONE (06:52)
[2018-11-21] MEDS ORDERED: metroNIDAZOLE IV 500 mg/100 ml 500 MG/100 ML BAG ONE (06:52)
--- NOTE | 2018-11-21 08:11 | RAD ---
Date of service: 11/20/2018 HISTORY: sob COMPARISON: 03/19/2018 FINDINGS: LUNGS: No active pulmonary disease. PLEURA: No significant pleural effusion identified, no pneumothorax apparent. CARDIOVASCULAR: No aortic atherosclerotic calcification present. Normal cardiac size. No pulmonary vascular congestion. OSSEOUS STRUCTURES: Old rib fractures on the right side VISUALIZED UPPER ABDOMEN: Normal. OTHER FINDINGS: None. IMPRESSION: No active disease.
[2018-11-21] MEDS ORDERED: Neostigmine 1:2000 (0.5 mg/mL) Inj ONE (08:29)
[2018-11-21] MEDS ORDERED: Bupivacaine Liposomal Inj 20 ml ONE (08:52)
--- NOTE | 2018-11-21 09:25 | CT ---
Date of service: 11/21/2018 PROCEDURE: CT Abdomen and Pelvis with contrast HISTORY: RUQ, RLQ abdominal pain COMPARISON: None. TECHNIQUE: Following the intravenous administration of iodinated contrast material, a CT examination of the abdomen and pelvis was performed from the domes of the diaphragms to the symphysis pubis with reformatted datasets provided in axial, sagittal and coronal planes. Oral contrast was not administered as per referring physician request. Contrast dose: Omnipaque 350, 100 cc Radiation dose: Total exam DLP = 508.21 mGy-cm. This CT exam was performed using one or more of the following dose reduction techniques: Automated exposure control, adjustment of the mA and/or kV according to patient size, and/or use of iterative reconstruction technique. FINDINGS: LOWER THORAX: Emphysematous changes are reiterated the bases as well as the medial right basilar fibrosis. Small hiatal hernia. Esophageal thickening is not excluded distally. LIVER: Prominent periportal edema is reiterated the liver grossly nonfocal. Peripancreatic reactive changes are identified and appear moderate in severity, identified surrounding the right lobe. GALLBLADDER AND BILE DUCTS: Gallbladder is thick-walled, mildly distended with prominent Bianka cholecystic reaction including possible abscess posteriorly, measuring 4.0 x 2.9 cm. Normal CBD caliber overall. No radiodense cholelithiasis or radiodense choledocholithiasis. PANCREAS: Unremarkable. No gross lesion or ductal dilatation. SPLEEN: Unremarkable. ADRENALS: Unremarkable. No mass. KIDNEYS AND URETERS: No obstructive uropathy bilaterally or radiodense urolithiasis. No interval change in perinephric spaces. Tiny lucency seen the upper poles of both kidneys too small to characterize once again but stable in appearance. VASCULATURE: Nonaneurysmal abdominal aortic calcific atherosclerotic changes are identified. BOWEL: Probable limited ileus right-sided bowel loops sympathetic to apparent acute/subacute cholecystitis. No gross mural thickening. APPENDIX: Normal appendix. PERITONEUM: A small left inguinal hernia is reiterated containing only fat, not significantly changed in size. No free intra peritoneal gas collection identified. Trace gas simulating free intrarenal gas is seen anterior to the left hemidiaphragm in the left upper quadrant and not posterior LYMPH NODES: Unremarkable. No enlarged lymph nodes. BLADDER: Unremarkable. REPRODUCTIVE: Enlarged prostate gland again evident. BONES: No acute fracture. OTHER FINDINGS: None. IMPRESSION: 1. Findings suspicious for subacute or acute cholecystitis with pericholecystic abscess. Moderate right sided perihepatic reactive changes are related. 2. Likely sympathetic ileus right-sided bowel loops related to the impression 1. Axial cecal volvulus occurring at the right upper quadrant is not completely excluded and clinical and radiographic follow-up are advised. 3. No additional acute findings appreciated. Findings discordant from preliminary report in that primary diagnosis I think is potentially perforated cholecystitis with local abscess and sympathetic local bowel ileus resulting rather than perforated cecal volvulus which is a secondary diagnostic possibility. Findings discussed with the patient's attending physician Dr. Drake as well as Dr. Velasquez,a resident from the surgical team, however, the patient already in the operating theater, 11/21/2018 9:15 a.m.. Preliminary report provided by Tyson, 11/21/2018, 1:49 a.m..
--- NOTE | 2018-11-21 09:49 | PCM.SURG1 ---
Surgeon's Initial Post Op Note - Surgeon's Notes Surgeon: Dr. Storey Bsa/Aml Compliance Officer: Dr. Gallego PGY 4, Dr. Walters PGY 3, Dr. Smith PGY 1 Type of Anesthesia: General Endo Anesthesia Administered By: Dr. Rand Pre-Operative Diagnosis: right colon distention possible obtruction possible volvulus, pericolic/perigallbladder abscess Operative Findings: see operative note Post-Operative Diagnosis: Obstruction of the colon at the Hepatic Flexure due to malignant mass Operation Performed: Extended right hemicolectomy, exploratory laparotomy, intraabdominal abscess drainage Specimen/Specimens Removed: right colon, appendix, proximal transverse colon Estimated Blood Loss: EBL {In ML}: 300 Blood Products Given: N/A Drains Used: Ajay Post-Op Condition: Fair Date of Surgery/Procedure: 11/21/18 Time of Surgery/Procedure: 06:30
[2018-11-21] MEDS ORDERED: HYDROmorphone 0.5 mg/0.5 ml ISec IVP PRN (09:57)
[2018-11-21] MEDS ORDERED: HYDROmorphone 1 mg/ml PCA IV SCH (10:00)
[2018-11-21] MEDS ORDERED: cefTRIAXone 1 gm 1 GM/100 ML BAG IVPB SCH (10:00)
[2018-11-21] MEDS ORDERED: HYDROmorphone 0.5 mg/0.5 ml ISec IVP ONE ×2 (10:10→10:35)
[2018-11-21] MEDS ORDERED: HYDROmorphone 0.5 mg/0.5 ml ISec ONE ×2 (10:11→10:37)
[2018-11-21 10:59] LABS: BASO # 0.01 K/mm3 (0.0-2.0); BASO % 0.1 % (0.0-3.0); HEMOGLOBIN 12.2 g/dL (14.0-18.0); LYMPH # 0.9 (1.2-3.4); LYMPH % 6.6 % (22.0-35.0); MEAN CELL VOLUME 97.1 fl (80.0-105.0); MEAN CORPUSCULAR HEMOGLOBIN 32.4 pg (25.0-35.0); MEAN CORPUSCULAR HGB CONC 33.4 g/dl (31.0-37.0); MONO # 0.8 (0.1-0.6); MONO % 5.8 % (1.0-6.0); RBC 3.76 10^6/uL (3.5-6.1); WHITE BLOOD COUNT 13.9 10^3/uL (4.5-11.0)
[2018-11-21 11:09] LABS: INR 1.29; PARTIAL THROMBOPLASTIN TIME 30.6 Seconds (26.9-38.3); PROTHROMBIN TIME 14.6 SECONDS (9.4-12.5)
[2018-11-21 11:19] LABS: ALB/GLOB RATIO 0.8 (1.1-1.8); ALBUMIN 2.7 g/dL (3.0-4.8); ALT/SGPT 59 U/L (7-56); AST/SGOT 89 U/L (17-59); BLOOD UREA NITROGEN 12 mg/dL (7-21); CALCIUM 8.2 mg/dL (8.4-10.5); GFR NON-AFRICAN AMERICAN > 60
[2018-11-21] MEDS ORDERED: HYDROmorphone 0.2 mg/ml (30ml) 30 ML IV ONE (11:35)
[2018-11-21] MEDS: HYDROmorphone 0.2 mg/ml (30ml) 30 ML IV PRN (11:40)
--- NOTE | 2018-11-21 11:44 | US ---
Date of service: 11/20/2018 HISTORY: r/o cholecystitis ; ruq pain COMPARISON: None. TECHNIQUE: Sonographic evaluation of the abdomen. FINDINGS: LIVER: Measures 13.14 x 7.56 cm. Increased echogenicity of the liver parenchyma. No mass. No intrahepatic bile duct dilatation. GALLBLADDER: Gallstones. No evidence of wall thickening COMMON BILE DUCT: Measures 6 mm. No stones. No dilatation. PANCREAS: Unremarkable as visualized. No mass. No ductal dilatation. RIGHT KIDNEY: Measures 10.38 x 5.65 x 6.19cm. Normal echogenicity. No calculus, mass, or hydronephrosis. LEFT KIDNEY: Measures 10.50 x 4.65 x 5.11cm. Normal echogenicity. No calculus, mass, or hydronephrosis. SPLEEN: Normal in size and contour. No mass. 11.55 x 5.72 AORTA: No aneurysmal dilatation. IVC: Unremarkable. OTHER FINDINGS: The report concurs with the preliminary [facility] report IMPRESSION: Fatty liver. Gallstones
--- NOTE | 2018-11-21 12:56 | CP.PCM.PN ---
<ChaimsierraSandrah - Last Filed: 11/21/18 13:47> Subjective - Date & Time of Evaluation Date of Evaluation: 11/21/18 Time of Evaluation: 12:52 - Subjective Subjective: Medicine Progress Note for Dr. Lundberg 58M seen and evaluated this afternoon. Patient s/p exploratory laparotomy, right hemicolectomy POD#0. Patient currently stable. Afebrile. Denies f/c, n/v/d, SOB, CP, or urinary symptoms. Objective - Vital Signs/Intake and Output Vital Signs (last 24 hours): Temp Pulse Resp BP Pulse Ox 98.4 F 84 18 114/72 100 11/21/18 10:36 11/21/18 10:36 11/21/18 10:36 11/21/18 10:36 11/21/18 10:36 Intake and Output: 11/21/18 11/21/18 06:59 18:59 Intake Total 100 Output Total 100 Balance 0 - Medications Medications: Current Medications Dextrose (Dextrose 50% Inj) 0 ml IV STAT PRN; Protocol PRN Reason: Hypoglycemia Protocol Metronidazole (Flagyl) 500 mg in 100 mls @ 100 mls/hr IVPB Q8 ELY; Protocol Last Admin: 11/21/18 05:19 Dose: Not Given Ceftriaxone Sodium (Rocephin 1 Gram Ivpb) 1 gm in 100 mls @ 100 mls/hr IVPB DAILY ELY; Protocol Dextrose (Dextrose 5% In Water 1000 Ml) 1,000 mls @ 0 mls/hr IV .Q0M PRN; Protocol PRN Reason: Hypoglycemia Protocol Lactated Ringer's (Lactated Ringer's) 1,000 mls @ 100 mls/hr IV .Q10H ELY Stop: 11/22/18 08:00 Hydromorphone HCl (Dilaudid 0.2 Mg/Ml Central Processing Tech) 30 mls @ 0.2 mls/hr IV PRN PRN; Protocol PRN Reason: Pain, moderate (4-7) Last Admin: 11/21/18 11:40 Dose: 0.001 mls/hr Insulin Human Regular (Humulin R Low) 0 units SC ACHS ELY; Protocol Ketorolac Tromethamine (Toradol) 15 mg IVP Q6H ELY Stop: 11/25/18 22:01 Lorazepam (Ativan) 1 mg IVP Q6H PRN; Protocol PRN Reason: Anxiety Morphine Sulfate (Morphine) 2 mg IVP Q4H PRN PRN Reason: Pain, severe (8-10) Last Admin: 11/20/18 22:09 Dose: 2 mg Ondansetron HCl (Zofran Inj) 4 mg IVP Q6H PRN PRN Reason: Nausea/Vomiting Pantoprazole Sodium (Protonix Inj) 40 mg IVP DAILY ELY - Labs Labs: 11/21/18 10:45 11/21/18 10:45 PT 14.6 SECONDS (9.4-12.5) H 11/21/18 10:45 INR 1.29 11/21/18 10:45 APTT 30.6 Seconds (26.9-38.3) 11/21/18 10:45 - Constitutional Appears: Non-toxic, No Acute Distress - Head Exam Head Exam: ATRAUMATIC, NORMAL INSPECTION, NORMOCEPHALIC - Eye Exam Eye Exam: EOMI - ENT Exam ENT Exam: Mucous Membranes Dry - Respiratory Exam Respiratory Exam: NORMAL BREATHING PATTERN. absent: Respiratory Distress Additional comments: NC 2L - Cardiovascular Exam Cardiovascular Exam: REGULAR RHYTHM. absent: Tachycardia - GI/Abdominal Exam GI & Abdominal Exam: Distended, Soft, Tenderness. absent: Guarding, Rebound Additional comments: dressings c/d/i - Neurological Exam Neurological Exam: Alert, Awake, Oriented x3 - Psychiatric Exam Psychiatric exam: Normal Affect, Normal Mood - Skin Skin Exam: Dry, Intact, Normal Color, Warm Assessment and Plan - Assessment and Plan (Free Text) Assessment: 58M, PMH of alcohol abuse and depression, admitted w/ peritoneal signs and suspected cecal volvulus w/ intraabdominal abscess Plan: Colonic Obstruction w/ intraabdominal abscess 2/2 Malignancy - Patient underwent exploratory laparotomy and right hemicolectomy with signs of cecal ischemia 2/2 obstructing mass and possible malignancy - Pending surgical biopsy pathology - Liquid Diet - Zosyn 3.375 Q6H - Lactated Ringers @ 110cc/hr - Zofran PRN - Morphine PRN - Incentive spirometer use - F/u CEA, CA 19-9, AFP - Infectious disease consulted - GI consulted - Surgery following Leukocytosis - Zosyn 3.375 Q6H - Infectious Disease consulted - Continue to monitor Transaminitis - AST/ALT: 89/59 - During surgical procedure, patient noted to have an obstructing mass possible originating from the gallbladder/liver - Gastroenterology consulted, follow up recommendations and further work-up Normocytic Anemia - H/H stable - Daily labs Alcohol Abuse - [facility] protocol - Ativan PRN - MV/Thiamine/Folic Acid - Continue to monitor for withdrawal PPX: GI: Protonix DVT: SCDs Patient plan discussed with Dr. Tamika Wood PGY1 <Aston Lundberg - Last Filed: 11/21/18 14:24> Objective - Vital Signs/Intake and Output Vital Signs (last 24 hours): Temp Pulse Resp BP Pulse Ox 98.4 F 19 L 15 113/73 97 11/21/18 12:20 11/21/18 12:20 11/21/18 12:20 11/21/18 12:20 11/21/18 12:20 Intake and Output: 11/21/18 11/21/18 06:59 18:59 Intake Total 100 Output Total 100 Balance 0 - Medications Medications: Current Medications Dextrose (Dextrose 50% Inj) 0 ml IV STAT PRN; Protocol PRN Reason: Hypoglycemia Protocol Folic Acid (Folic Acid) 1 mg PO DAILY ELY Dextrose (Dextrose 5% In Water 1000 Ml) 1,000 mls @ 0 mls/hr IV .Q0M PRN; Protocol PRN Reason: Hypoglycemia Protocol Hydromorphone HCl (Dilaudid 0.2 Mg/Ml Central Processing Tech) 30 mls @ 0.2 mls/hr IV PRN PRN; Protocol PRN Reason: Pain, moderate (4-7) Last Admin: 11/21/18 11:40 Dose: 0.001 mls/hr Lactated Ringer's (Lactated Ringer's) 1,000 mls @ 110 mls/hr IV .Q9H6M ELY Piperacillin Sod/Tazobactam Sod (Zosyn 3.375 In Ns 100ml) 100 mls @ 25 mls/hr IVPB Q6H ELY; Protocol Stop: 11/21/18 23:14 Insulin Human Regular (Humulin R Low) 0 units SC ACHS ELY; Protocol Ketorolac Tromethamine (Toradol) 15 mg IVP Q6H ELY Stop: 11/25/18 22:01 Lorazepam (Ativan) 1 mg IVP Q6H PRN; Protocol PRN Reason: Anxiety Morphine Sulfate (Morphine) 2 mg IVP Q4H PRN PRN Reason: Pain, severe (8-10) Last Admin: 11/20/18 22:09 Dose: 2 mg Multivitamins/Minerals (Therapeutic-M Tab) 1 tab PO [facility] Ondansetron HCl (Zofran Inj) 4 mg IVP Q6H PRN PRN Reason: Nausea/Vomiting Pantoprazole Sodium (Protonix Inj) 40 mg IVP DAILY ELY Thiamine HCl (Vitamin B1 Tab) 100 mg PO DAILY ELY - Labs Labs: 11/21/18 10:45 11/21/18 10:45 PT 14.6 SECONDS (9.4-12.5) H 11/21/18 10:45 INR 1.29 11/21/18 10:45 APTT 30.6 Seconds (26.9-38.3) 11/21/18 10:45 Attending/Attestation - Attestation I have personally seen and examined this patient.: Yes I have fully participated in the care of the patient.: Yes I have reviewed all pertinent clinical information, including history, physical exam and plan: Yes Notes (Text): 11/21/18 14:21 Medical record note made by the resident after discussion with my direction and input after the patient was personally seen and examined by me. I have reviewed the chart and agree that the record accurately reflects by personal performance of the history, physical exam, data review, and medical decision-making, in the course for the patient. I have also personally directed the plan of care. 58M, PMH of alcohol abuse and depression was abdominal pain, CT scan showed suspected cecal volvulus w/ intraabdominal abscess. Patient was evaluated by Surgery and was taken to OR .He was found to have Colonic Obstruction w/ intraabdominal abscess 2/2 Malignancy and abdominal abscess.He underwent exploratory laparotomy and right hemicolectomy with signs of cecal ischemia 2/2 obstructing mass and possible malignancy - Pending surgical biopsy pathology.He is Liquid Diet . We will continue IV zosyn and will get ID consult. We will also watch for alcohol withdrawal.
[2018-11-21] MEDS ORDERED: Piperacillin/Tazobact 3.375 gm 100 ML IVPB SCH ×2 (13:15→22:00)
--- NOTE | 2018-11-21 15:07 | CP.PCM.CON ---
<Juan Pablo Walters - Last Filed: 11/21/18 16:35> History of Present Illness - History of Present Illness History of Present Illness: 58M with history of EtOH abuse presented to ED with complaints of abdominal pain. Patient was found to be peritoneal with presumptive CT findings of cecal volvulus. Patient underwent exploratory laparotomy with extended right hemicolectomy. A transition point was noted at the hepatic flexure. As per operative reports and inflammatory mass was palpated in RUQ intraoperatively. Patient had an ilecolic anastomosis. Decision was made to consult hepatobiliary surgery for further work up and management. PMH: ETOh abuse, Left inguinal hernia PSH: denies Social: ETOH last drink Sunday All: NKDA Review of Systems - Review of Systems All systems: reviewed and no additional remarkable complaints except Review of Systems: as stated in HPI Past Patient History - Infectious Disease Hx of Infectious Diseases: None - Tetanus Immunizations Tetanus Immunization: Unknown - Past Social History Smoking Status: Heavy Smoker > 10 Cigarettes Daily - CARDIAC Hx Cardiac Disorders: Yes Hx Hypertension: Yes - PULMONARY Hx Tuberculosis: No - NEUROLOGICAL HX Cerebrovascular Accident: No Hx Seizures: No - HEENT Hx HEENT Problems: No - RENAL Hx Chronic Kidney Disease: No - ENDOCRINE/METABOLIC Hx Endocrine Disorders: No - HEMATOLOGICAL/ONCOLOGICAL Hx Blood Transfusions: No - INTEGUMENTARY Hx Dermatological Problems: No - MUSCULOSKELETAL/RHEUMATOLOGICAL Hx Musculoskeletal Disorders: Yes Other/Comment: R KNEE INJURY - GASTROINTESTINAL Hx Gastrointestinal Disorders: Yes Other/Comment: HERNIA - GENITOURINARY/GYNECOLOGICAL Hx Sexually Transmitted Disorders: No - PSYCHIATRIC Hx Depression: Yes Hx Substance Use: No Other/Comment: ETOH abuse - SURGICAL HISTORY Hx Surgeries: Yes - ANESTHESIA Hx Anesthesia Reactions: No Hx Malignant Hyperthermia: No Meds Allergies/Adverse Reactions: Allergies Allergy/AdvReac Type Severity Reaction Status Date / Time No Known Allergies Allergy Verified 09/17/18 16:17 - Medications Medications: Current Medications Dextrose (Dextrose 50% Inj) 0 ml IV STAT PRN; Protocol PRN Reason: Hypoglycemia Protocol Folic Acid (Folic Acid) 1 mg PO DAILY [facility] Last Admin: 11/21/18 14:33 Dose: Not Given Dextrose (Dextrose 5% In Water 1000 Ml) 1,000 mls @ 0 mls/hr IV .Q0M PRN; Protocol PRN Reason: Hypoglycemia Protocol Hydromorphone HCl (Dilaudid 0.2 Mg/Ml Engineering Technology Instructor) 30 mls @ 0.2 mls/hr IV PRN PRN; Protocol PRN Reason: Pain, moderate (4-7) Last Admin: 11/21/18 11:40 Dose: 0.001 mls/hr Lactated Ringer's (Lactated Ringer's) 1,000 mls @ 110 mls/hr IV .Q9H6M [facility] Piperacillin Sod/Tazobactam Sod (Zosyn 3.375 In Ns 100ml) 100 mls @ 25 mls/hr IVPB Q8 [facility]; Protocol Stop: 11/22/18 09:59 Insulin Human Regular (Humulin R Low) 0 units SC ACHS [facility]; Protocol Ketorolac Tromethamine (Toradol) 15 mg IVP Q6H [facility] Stop: 11/25/18 22:01 Lorazepam (Ativan) 1 mg IVP Q6H PRN; Protocol PRN Reason: Anxiety Morphine Sulfate (Morphine) 2 mg IVP Q4H PRN PRN Reason: Pain, severe (8-10) Last Admin: 11/20/18 22:09 Dose: 2 mg Multivitamins/Minerals (Therapeutic-M Tab) 1 tab PO 0800 [facility] Ondansetron HCl (Zofran Inj) 4 mg IVP Q6H PRN PRN Reason: Nausea/Vomiting Pantoprazole Sodium (Protonix Inj) 40 mg IVP DAILY [facility] Thiamine HCl (Vitamin B1 Tab) 100 mg PO DAILY [facility] Last Admin: 11/21/18 14:33 Dose: Not Given Physical Exam - Constitutional Appears: No Acute Distress - Head Exam Head Exam: NORMOCEPHALIC - Eye Exam Eye Exam: EOMI, Normal appearance - ENT Exam ENT Exam: Mucous Membranes Moist - Respiratory Exam Respiratory Exam: NORMAL BREATHING PATTERN - Cardiovascular Exam Cardiovascular Exam: +S1, +S2 - GI/Abdominal Exam GI & Abdominal Exam: Soft, Tenderness. absent: Firm, Guarding Additional comments: laparotomy incision, packed with iodoform Ajay drain in LLQ - Neurological Exam Neurological exam: Alert, Oriented x3 - Skin Skin Exam: Dry, Intact, Warm Results - Vital Signs Recent Vital Signs: Last Vital Signs Temp 98.9 F 11/21/18 14:00 Pulse 79 11/21/18 14:00 Resp 20 11/21/18 14:00 BP 121/80 11/21/18 14:00 Pulse Ox 100 11/21/18 14:00 - Labs Result Diagrams: 11/21/18 10:45 11/21/18 10:45 Labs: Laboratory Results - last 24 hr 11/20/18 11/20/18 11/20/18 16:50 16:50 16:50 WBC 12.0 H D RBC 4.17 Hgb 13.5 L Hct 40.3 L MCV 96.6 MCH 32.4 MCHC 33.5 RDW 13.7 Plt Count 224 MPV 11.2 H Neut % (Auto) 86.2 H Lymph % (Auto) 8.2 L Lamar % (Auto) 5.4 Eos % (Auto) 0.1 L Baso % (Auto) 0.1 Lymph # (Auto) 1.0 L Lamar # (Auto) 0.7 H Eos # (Auto) 0.0 Baso # (Auto) 0.01 Absolute Neuts (auto) 10.30 H PT INR APTT Sodium 135 Potassium 3.4 L Chloride 95 L Carbon Dioxide 31 Anion Gap 13 BUN 19 Creatinine 0.8 Est GFR ( Amer) > 60 Est GFR (Non-Af Amer) > 60 Random Glucose 185 H Lactic Acid Calcium 9.6 Phosphorus Magnesium 1.7 Total Bilirubin 3.5 H Direct Bilirubin AST 88 H D ALT 74 H Alkaline Phosphatase 318 H D Total Protein 8.6 H Albumin 4.1 Globulin 4.5 Albumin/Globulin Ratio 0.9 L Amylase 52 Lipase 47 Alcohol, Quantitative < 10 Blood Type Blood Type Confirm Antibody Screen Crossmatch BBK History Checked 11/20/18 11/21/18 11/21/18 16:50 01:48 01:48 WBC RBC Hgb Hct MCV MCH MCHC RDW Plt Count MPV Neut % (Auto) Lymph % (Auto) Lamar % (Auto) Eos % (Auto) Baso % (Auto) Lymph # (Auto) Lamar # (Auto) Eos # (Auto) Baso # (Auto) Absolute Neuts (auto) PT 14.6 H INR 1.32 APTT 30.6 Sodium Potassium Chloride Carbon Dioxide Anion Gap BUN Creatinine Est GFR ( Amer) Est GFR (Non-Af Amer) Random Glucose Lactic Acid 2.1 Calcium Phosphorus 2.9 Magnesium 1.7 Total Bilirubin Direct Bilirubin 2.6 H AST ALT Alkaline Phosphatase Total Protein Albumin Globulin Albumin/Globulin Ratio Amylase Lipase Alcohol, Quantitative Blood Type Blood Type Confirm Antibody Screen Crossmatch BBK History Checked 11/21/18 11/21/18 11/21/18 02:50 10:45 10:45 WBC 13.9 H RBC 3.76 Hgb 12.2 L Hct 36.5 L MCV 97.1 MCH 32.4 MCHC 33.4 RDW 14.0 Plt Count 171 MPV 11.0 Neut % (Auto) 87.5 H Lymph % (Auto) 6.6 L Lamar % (Auto) 5.8 Eos % (Auto) 0.0 L Baso % (Auto) 0.1 Lymph # (Auto) 0.9 L Lamar # (Auto) 0.8 H Eos # (Auto) 0.0 Baso # (Auto) 0.01 Absolute Neuts (auto) 12.15 H PT 14.6 H INR 1.29 APTT 30.6 Sodium Potassium Chloride Carbon Dioxide Anion Gap BUN Creatinine Est GFR ( Amer) Est GFR (Non-Af Amer) Random Glucose Lactic Acid Calcium Phosphorus Magnesium Total Bilirubin Direct Bilirubin AST ALT Alkaline Phosphatase Total Protein Albumin Globulin Albumin/Globulin Ratio Amylase Lipase Alcohol, Quantitative Blood Type A POSITIVE Blood Type Confirm Antibody Screen Negative Crossmatch See Detail BBK History Checked No verified bt 11/21/18 11/21/18 10:45 10:45 WBC RBC Hgb Hct MCV MCH MCHC RDW Plt Count MPV Neut % (Auto) Lymph % (Auto) Lamar % (Auto) Eos % (Auto) Baso % (Auto) Lymph # (Auto) Lamar # (Auto) Eos # (Auto) Baso # (Auto) Absolute Neuts (auto) PT INR APTT Sodium 135 Potassium 4.0 Chloride 104 Carbon Dioxide 27 Anion Gap 9 L BUN 12 Creatinine 0.6 L Est GFR ( Amer) > 60 Est GFR (Non-Af Amer) > 60 Random Glucose 107 Lactic Acid Calcium 8.2 L Phosphorus Magnesium Total Bilirubin 1.5 H Direct Bilirubin AST 89 H ALT 59 H Alkaline Phosphatase 161 H D Total Protein 5.9 Albumin 2.7 L Globulin 3.2 Albumin/Globulin Ratio 0.8 L Amylase Lipase Alcohol, Quantitative Blood Type Blood Type Confirm A POSITIVE Antibody Screen Crossmatch BBK History Checked Assessment & Plan - Assessment and Plan (Free Text) Assessment: 58M with large bowel obstruction 2/2 inflammatory mass in RUQ 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 De Jesus PGY3 <Arsenio Seo N - Last Filed: 11/22/18 19:02> Meds - Medications Medications: Current Medications Dextrose (Dextrose 50% Inj) 0 ml IV STAT PRN; Protocol PRN Reason: Hypoglycemia Protocol Folic Acid (Folic Acid) 1 mg PO DAILY [facility] Last Admin: 11/22/18 12:19 Dose: 1 mg Heparin Sodium (Porcine) (Heparin) 5,000 units SC Q8 [facility]; Protocol Last Admin: 11/22/18 17:56 Dose: 5,000 units Hydromorphone HCl (Dilaudid) 0.5 mg IVP Q3H PRN PRN Reason: Pain, severe (8-10) Last Admin: 11/22/18 15:29 Dose: 0.5 mg Dextrose (Dextrose 5% In Water 1000 Ml) 1,000 mls @ 0 mls/hr IV .Q0M PRN; Protocol PRN Reason: Hypoglycemia Protocol Piperacillin Sod/Tazobactam Sod (Zosyn 4.5 Gm In Ns 100ml) 4.5 gm in 100 mls @ 25 mls/hr IVPB Q8 [facility]; Protocol Stop: 11/30/18 22:01 Last Admin: 11/22/18 17:57 Dose: 25 mls/hr Lactated Ringer's (Lactated Ringer's) 1,000 mls @ 110 mls/hr IV .Q9H6M [facility] Insulin Human Regular (Humulin R Low) 0 units SC ACHS [facility]; Protocol Last Admin: 11/22/18 12:38 Dose: Not Given Ketorolac Tromethamine (Toradol) 15 mg IVP Q6H [facility] Stop: 11/25/18 22:01 Last Admin: 11/22/18 17:56 Dose: 15 mg Lorazepam (Ativan) 1 mg IVP Q6H PRN; Protocol PRN Reason: Anxiety Multivitamins/Minerals (Therapeutic-M Tab) 1 tab PO 0800 [facility] Last Admin: 11/22/18 12:18 Dose: 1 tab Ondansetron HCl (Zofran Inj) 4 mg IVP Q6H PRN PRN Reason: Nausea/Vomiting Pantoprazole Sodium (Protonix Inj) 40 mg IVP DAILY [facility] Last Admin: 11/22/18 12:18 Dose: 40 mg Thiamine HCl (Vitamin B1 Tab) 100 mg PO DAILY [facility] Last Admin: 11/22/18 12:18 Dose: 100 mg Tramadol HCl (Ultram) 50 mg PO Q6H PRN PRN Reason: Pain, moderate (4-7) Results - Vital Signs Recent Vital Signs: Last Vital Signs Temp 98.1 F 11/22/18 06:00 Pulse 110 H 11/21/18 22:04 Resp 19 11/21/18 22:04 BP 142/79 11/21/18 22:04 Pulse Ox 96 11/22/18 06:00 - Labs Result Diagrams: 11/22/18 07:00 11/22/18 07:00 Labs: Laboratory Results - last 24 hr 11/21/18 11/22/18 11/22/18 21:28 06:31 07:00 WBC RBC Hgb Hct MCV MCH MCHC RDW Plt Count MPV Sodium Potassium Chloride Carbon Dioxide Anion Gap BUN Creatinine Est GFR ( Amer) Est GFR (Non-Af Amer) POC Glucose (mg/dL) 106 115 H Random Glucose Calcium Phosphorus Magnesium Total Bilirubin AST ALT Alkaline Phosphatase Total Protein Albumin Globulin Albumin/Globulin Ratio Alpha Fetoprotein < 0.8 Carcinoembryonic Ag CA 19-9 Antigen 11/22/18 11/22/18 11/22/18 07:00 07:00 07:00 WBC 17.4 H D RBC 3.50 Hgb 11.2 L Hct 33.7 L MCV 96.3 MCH 32.0 MCHC 33.2 RDW 14.1 Plt Count 206 MPV 10.3 Sodium 136 Potassium 3.7 Chloride 98 Carbon Dioxide 30 Anion Gap 11 BUN 8 Creatinine 0.6 L Est GFR ( Amer) > 60 Est GFR (Non-Af Amer) > 60 POC Glucose (mg/dL) Random Glucose 101 Calcium 8.2 L Phosphorus 3.3 Magnesium 1.5 L Total Bilirubin 1.5 H AST 63 H D ALT 44 Alkaline Phosphatase 127 H D Total Protein 6.2 Albumin 2.8 L Globulin 3.4 Albumin/Globulin Ratio 0.8 L Alpha Fetoprotein Carcinoembryonic Ag 2.5 CA 19-9 Antigen 66.0 H 11/22/18 11/22/18 11:45 16:22 WBC RBC Hgb Hct MCV MCH MCHC RDW Plt Count MPV Sodium Potassium Chloride Carbon Dioxide Anion Gap BUN Creatinine Est GFR ( Amer) Est GFR (Non-Af Amer) POC Glucose (mg/dL) 90 111 H Random Glucose Calcium Phosphorus Magnesium Total Bilirubin AST ALT Alkaline Phosphatase Total Protein Albumin Globulin Albumin/Globulin Ratio Alpha Fetoprotein Carcinoembryonic Ag CA 19-9 Antigen Assessment & Plan - Assessment and Plan (Free Text) Assessment: 58 year old male as noted above. Has either an abscess or necrotic tumor invovling the gallbladder. Oddly he had no fever, elevated WBC, left shift, or bandemia on presentation. His admission albumin was > 4.0. According to Dr Storey, intra-op there was a "rock" hard mass adjacent to the gallbladder. There was cholelithiasis on ultrasound, but no mention of wall thickening or pericholecystic fluid. His T bili was 3 and AP 315 on admission, and have since normalized. It is possible he passed a stone during the course of his admission. Plan: Contininue post op care for right jesus-colectomy. At some point he should have an aspiration of ? abscess. If no purulent fluid acquired, would obtain biopsy. Check tumor markers.
[2018-11-21] MEDS: Insulin Reg-LOW-Coverage SC SCH ×2 (16:30→21:40)
[2018-11-21 17:00] LABS: HEPATITIS B SURFACE AG Negative (NEGATIVE)
[2018-11-21 17:06] LABS: HEPATITIS A IGM NEGATIVE (NEGATIVE); HEPATITIS B CORE AB NEGATIVE (NEGATIVE)
[2018-11-21 17:15] LABS: HEPATITIS C ANTIBODY NEGATIVE (NEGATIVE)
[2018-11-21] MEDS: Lactated Ringer's 1,000 ML IV SCH ×2 (17:37→21:58)
[2018-11-21] MEDS: Piperacill/Tazo 4.5gm in NS 4.5 GM/100 ML BAG IVPB SCH (21:57)
--- NOTE | 2018-11-22 00:12 | CON ---
DATE: 11/21/2018 REASON FOR CONSULTATION: Abdominal pain, abnormal CAT scan, cecal volvulus, cholecystitis, and rule out gallbladder neoplasm. HISTORY OF PRESENT ILLNESS: This 58-year-old patient with past medical history of alcohol abuse, admitted to the hospital with complaint of the worsening abdominal pain for the past 3 days. In the ER, he was suspected to have cecal volvulus and also acute cholecystitis with thickening of the gallbladder wall area. The patient underwent exploratory laparotomy with extended right hemicolectomy and transition point was noticed to be in the hepatic flexure area appear to have any inflammatory mass in the right upper quadrant area. PAST MEDICAL HISTORY: Other past medical history is significant for see as above, history of EtOH abuse. SOCIAL HISTORY: Positive for alcohol and last drink was on Sunday. ALLERGIES: NO KNOWN DRUG ALLERGIES. REVIEW OF SYSTEMS: Limited postop on pain medication, drowsy. PHYSICAL EXAMINATION: GENERAL: The patient is lying on the bed, not in acute distress. VITAL SIGNS: Temperature 98.4, blood pressure 114/68, respirations 15, and O2 saturation on 3 L nasal cannula 97%. HEENT: Atraumatic and anicteric. Jaundiced. NECK: Supple. HEART: S1 and S2 heard. LUNGS: Bilateral air entry present. ABDOMEN: Soft. Surgical incision noticed. EXTREMITIES: No cyanosis. No clubbing. NEUROLOGIC: The patient is on sedation, on pain medication, drowsy, status post surgery. LABORATORY DATA: Hemoglobin 12.2, hematocrit 36.5, WBC count is 13.9, and platelets 171. Chemistry: When the patient came in total bilirubin was 3.5, it is come down to 1.5, AST 88, ALT 74, alkaline phosphatase 318, it has come come down to 161, so there is significant improvement of the liver enzymes. The patient did have a CT scan of the abdomen and pelvis done, it is reported as suspected perforated cholecystitis with local abscess and sympathetic local bowel ileus rather than cecal volvulus. The patient did have ultrasound scan of the abdomen done showed gallstones. IMPRESSION: This 58-year-old patient admitted with worsening of the abdominal pain and imaging studies were reviewed. The patient did have inflammatory changes in the gallbladder fossa with significant pericholecystic inflammatory changes and has a gallstone, it looks like it is probably inflammatory mass with some inflammation extending to the hepatic flexure area. Some distention of the cecum noticed. Now, the patient did have status post right hemicolectomy. The patient has significant improvement of liver function tests. Clinically, this picture was more suggestive of inflammatory pathology from the gallbladder rather than gallbladder carcinoma. Hepatobiliary consult has been requested and liver function tests shows significant improvement. PLAN: 1. We would recommend to continue the antibiotics. 2. Follow up of the LFTs. 3. MRI if feasible, otherwise would recommend HIDA scan to further evaluate the gallbladder area and also the common bile duct. We will discuss with the surgical team. Thank you very much for allowing me to participate in the care of the patient. Angelica Cleary MD
[2018-11-22] MEDS: HYDROmorphone 0.2 mg/ml (30ml) 30 ML IV PRN (02:10)
[2018-11-22] MEDS: Piperacill/Tazo 4.5gm in NS 4.5 GM/100 ML BAG IVPB SCH ×3 (06:39→21:21)
--- NOTE | 2018-11-22 07:09 | CP.PCM.PN ---
<Darrion Young - Last Filed: 11/22/18 13:17> Subjective - Date & Time of Evaluation Date of Evaluation: 11/22/18 Time of Evaluation: 07:09 - Subjective Subjective: PGY-1 Medicine Progress Note for Dr. Lundberg Patient seen and evaluated at bedside. Patient s/p exploratory laparotomy and right hemicolectomy POD#1. Patient remains afebrile. Complains of abdominal pain around the surgical site. Ajay draining 10cc of serosanguinous fluids. Denies shortness of breath, chest pain, nausea, vomiting, diarrhea, or urinary symptoms. Objective - Vital Signs/Intake and Output Vital Signs (last 24 hours): Temp Pulse Resp BP Pulse Ox 99.6 F 110 H 19 142/79 97 11/21/18 22:04 11/21/18 22:04 11/21/18 22:04 11/21/18 22:04 11/21/18 22:04 Intake and Output: 11/22/18 11/22/18 06:59 18:59 Intake Total 750 Output Total 425 Balance 325 - Medications Medications: Current Medications Dextrose (Dextrose 50% Inj) 0 ml IV STAT PRN; Protocol PRN Reason: Hypoglycemia Protocol Folic Acid (Folic Acid) 1 mg PO DAILY [facility] Last Admin: 11/21/18 14:33 Dose: Not Given Heparin Sodium (Porcine) (Heparin) 5,000 units SC Q8 [facility]; Protocol Dextrose (Dextrose 5% In Water 1000 Ml) 1,000 mls @ 0 mls/hr IV .Q0M PRN; Protocol PRN Reason: Hypoglycemia Protocol Hydromorphone HCl (Dilaudid 0.2 Mg/Ml Voice Studies Director) 30 mls @ 0.2 mls/hr IV PRN PRN; Protocol PRN Reason: Pain, moderate (4-7) Last Admin: 11/22/18 02:10 Dose: 0.001 mls/hr Lactated Ringer's (Lactated Ringer's) 1,000 mls @ 110 mls/hr IV .Q9H6M [facility] Last Admin: 11/21/18 21:58 Dose: 110 mls/hr Piperacillin Sod/Tazobactam Sod (Zosyn 4.5 Gm In Ns 100ml) 4.5 gm in 100 mls @ 25 mls/hr IVPB Q8 [facility]; Protocol Stop: 11/30/18 22:01 Last Admin: 11/22/18 06:39 Dose: 25 mls/hr Insulin Human Regular (Humulin R Low) 0 units SC [facility]; Protocol Last Admin: 11/21/18 21:40 Dose: Not Given Ketorolac Tromethamine (Toradol) 15 mg IVP Q6H [facility] Stop: 11/25/18 22:01 Last Admin: 11/22/18 06:40 Dose: Not Given Lorazepam (Ativan) 1 mg IVP Q6H PRN; Protocol PRN Reason: Anxiety Morphine Sulfate (Morphine) 2 mg IVP Q4H PRN PRN Reason: Pain, severe (8-10) Last Admin: 11/20/18 22:09 Dose: 2 mg Multivitamins/Minerals (Therapeutic-M Tab) 1 tab PO 0800 [facility] Ondansetron HCl (Zofran Inj) 4 mg IVP Q6H PRN PRN Reason: Nausea/Vomiting Pantoprazole Sodium (Protonix Inj) 40 mg IVP DAILY [facility] Thiamine HCl (Vitamin B1 Tab) 100 mg PO DAILY [facility] Last Admin: 11/21/18 14:33 Dose: Not Given - Labs Labs: 11/21/18 10:45 11/21/18 10:45 PT 14.6 SECONDS (9.4-12.5) H 11/21/18 10:45 INR 1.29 11/21/18 10:45 APTT 30.6 Seconds (26.9-38.3) 11/21/18 10:45 - Constitutional Appears: Well, Non-toxic, No Acute Distress - Head Exam Head Exam: ATRAUMATIC, NORMAL INSPECTION - Eye Exam Eye Exam: EOMI, Normal appearance - ENT Exam ENT Exam: Mucous Membranes Moist - Respiratory Exam Respiratory Exam: Clear to Ausculation Bilateral. absent: Rales, Rhonchi, Wheezes, Respiratory Distress - Cardiovascular Exam Cardiovascular Exam: REGULAR RHYTHM, +S1, +S2. absent: Gallop, Rubs, Murmur - GI/Abdominal Exam GI & Abdominal Exam: Soft, Tenderness (Tender around ), Normal Bowel Sounds. absent: Distended Additional comments: Abdominal binder in place. 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 Patient is POD #1 s/p exploratory laparotomy and right hemicolectomy. Plan: Colonic Obstruction w/ intraabdominal abscess 2/2 Malignancy - Patient underwent exploratory laparotomy and right hemicolectomy with signs of cecal ischemia 2/2 obstructing mass and possible malignancy - Pending surgical biopsy pathology - Clear liquid Diet - Zosyn 4.5g IV Q8H (Started on 11/21) - Lactated Ringers @ 55cc/hr - Zofran PRN - Dilaudid 0.5mg IV Q3 PRN - Incentive spirometer use - CA 19-9 elevated - CEA,AFP WNL - Infectious disease consulted, Dr. Lipscomb - GI consulted, Dr. Cleary - Surgery consulted, Dr. Storey Leukocytosis - Zosyn 4.5g IV Q8H (Started on 11/21) - Infectious Disease consulted - Continue to monitor Transaminitis - During surgical procedure, patient noted to have an obstructing mass possible originating from the gallbladder/liver - Hepatitis panel negative - Gastroenterology consulted - Continue to monitor Alcohol Abuse - CIWA protocol - Ativan PRN - MV/Thiamine/Folic Acid - Continue to monitor for withdrawal PPX: GI: Protonix DVT: SCDs Patient plan discussed with Dr. Tamika Young, PGY-1 <Aston Lundberg - Last Filed: 11/23/18 11:57> Objective - Vital Signs/Intake and Output Vital Signs (last 24 hours): Temp Pulse Resp BP Pulse Ox 98.1 F 110 H 19 142/79 96 11/22/18 06:00 11/21/18 22:04 11/21/18 22:04 11/21/18 22:04 11/22/18 06:00 Intake and Output: 11/23/18 11/23/18 06:59 18:59 Intake Total 300 Output Total 580 Balance -280 - Medications Medications: Current Medications Dextrose (Dextrose 50% Inj) 0 ml IV STAT PRN; Protocol PRN Reason: Hypoglycemia Protocol Folic Acid (Folic Acid) 1 mg PO DAILY [facility] Last Admin: 11/23/18 11:13 Dose: 1 mg Heparin Sodium (Porcine) (Heparin) 5,000 units SC Q8 [facility]; Protocol Last Admin: 11/23/18 05:18 Dose: 5,000 units Hydromorphone HCl (Dilaudid) 0.5 mg IVP Q3H PRN PRN Reason: Pain, severe (8-10) Last Admin: 11/23/18 09:07 Dose: 0.5 mg Dextrose (Dextrose 5% In Water 1000 Ml) 1,000 mls @ 0 mls/hr IV .Q0M PRN; Protocol PRN Reason: Hypoglycemia Protocol Piperacillin Sod/Tazobactam Sod (Zosyn 4.5 Gm In Ns 100ml) 4.5 gm in 100 mls @ 25 mls/hr IVPB Q8 [facility]; Protocol Stop: 11/30/18 22:01 Last Admin: 11/23/18 05:18 Dose: 25 mls/hr Dextrose/Sodium Chloride (Dextrose 5%/0.45% Ns 1000 Ml) 1,000 mls @ 100 mls/hr IV .Q10H [facility] Last Admin: 11/23/18 11:12 Dose: 100 mls/hr Insulin Human Regular (Humulin R Low) 0 units SC ACHS [facility]; Protocol Last Admin: 11/23/18 11:55 Dose: Not Given Ketorolac Tromethamine (Toradol) 15 mg IVP Q6H [facility] Stop: 11/25/18 22:01 Last Admin: 11/23/18 11:13 Dose: 15 mg Lorazepam (Ativan) 1 mg IVP Q6H PRN; Protocol PRN Reason: Anxiety Last Admin: 11/23/18 11:14 Dose: 1 mg Multivitamins/Minerals (Therapeutic-M Tab) 1 tab PO 0800 [facility] Last Admin: 11/23/18 09:12 Dose: 1 tab Ondansetron HCl (Zofran Inj) 4 mg IVP Q6H PRN PRN Reason: Nausea/Vomiting Last Admin: 11/23/18 09:12 Dose: 4 mg Pantoprazole Sodium (Protonix Inj) 40 mg IVP DAILY [facility] Last Admin: 11/23/18 09:12 Dose: 40 mg Thiamine HCl (Vitamin B1 Tab) 100 mg PO DAILY [facility] Last Admin: 11/23/18 09:12 Dose: 100 mg Tramadol HCl (Ultram) 50 mg PO Q6H PRN PRN Reason: Pain, moderate (4-7) - Labs Labs: 11/23/18 06:45 11/23/18 06:45 PT 14.6 SECONDS (9.4-12.5) H 11/21/18 10:45 INR 1.29 11/21/18 10:45 APTT 30.6 Seconds (26.9-38.3) 11/21/18 10:45 Attending/Attestation - Attestation I have personally seen and examined this patient.: Yes I have fully participated in the care of the patient.: Yes I have reviewed all pertinent clinical information, including history, physical exam and plan: Yes Notes (Text): 11/23/18 11:57 Medical record note made by the resident after discussion with my direction and input after the patient was personally seen and examined by me. I have reviewed the chart and agree that the record accurately reflects by personal performance of the history, physical exam, data review, and medical decision-making, in the course for the patient. I have also personally directed the plan of care.
[2018-11-22] MEDS: Insulin Reg-LOW-Coverage SC SCH ×3 (07:30→21:19)
[2018-11-22 07:34] LABS: HEMOGLOBIN 11.2 g/dL (14.0-18.0); MEAN CELL VOLUME 96.3 fl (80.0-105.0); MEAN CORPUSCULAR HGB CONC 33.2 g/dl (31.0-37.0); MEAN PLATELET VOLUME 10.3 fl (7.0-11.0); RBC 3.5 10^6/uL (3.5-6.1); RED CELL DISTRIBUTION WIDTH 14.1 % (11.5-14.5); WHITE BLOOD COUNT 17.4 10^3/uL (4.5-11.0)
[2018-11-22 07:58] LABS: ALB/GLOB RATIO 0.8 (1.1-1.8); ALBUMIN 2.8 g/dL (3.0-4.8); ALT/SGPT 44 U/L (7-56); AST/SGOT 63 U/L (17-59); BLOOD UREA NITROGEN 8 mg/dL (7-21); CALCIUM 8.2 mg/dL (8.4-10.5); GFR NON-AFRICAN AMERICAN > 60
[2018-11-22] MEDS ORDERED: Lactated Ringer's 1,000 ML IV SCH ×2 (08:30→14:53)
[2018-11-22] MEDS ORDERED: Magnesium Sulfate 2 gm/50 ml 2 GM/50 ML BAG IVPB ONE (09:02)
--- NOTE | 2018-11-22 10:29 | CT ---
Date of service: 11/22/2018 PROCEDURE: CT Chest without contrast HISTORY: presumptive gallbladder CA COMPARISON: None available. TECHNIQUE: Contiguous axial images were obtained through the chest without intravenous contrast enhancement. Sagittal and coronal reconstructions were performed. Radiation dose: Total exam DLP = 187.31 mGy-cm. This CT exam was performed using one or more of the following dose reduction techniques: Automated exposure control, adjustment of the mA and/or kV according to patient size, and/or use of iterative reconstruction technique. FINDINGS: LUNGS: Minimal linear atelectasis of both lung bases. Emphysematous changes seen with multiple small bulla MEDIASTINUM: Unremarkable thoracic aorta. No aneurysm. Normal sized heart. Main pulmonary artery unremarkable. No vascular congestion. No lymphadenopathy. No aortic atherosclerotic calcification. PLEURA: Small bilateral pleural effusions. BONES: No fracture. No destructive lesion. UPPER ABDOMEN: Grossly unremarkable. OTHER FINDINGS: None. IMPRESSION: Emphysematous changes. Minimal linear atelectasis both lung bases. Small pleural effusions. No evidence of metastatic disease
[2018-11-22] MEDS: HYDROmorphone 0.5 mg/0.5 ml ISec IVP PRN ×3 (11:25→20:28)
[2018-11-22] MEDS: Multivitamin With Minerals Tab PO SCH (12:18)
--- NOTE | 2018-11-22 15:13 | CP.PCM.PN ---
<Braden Jason - Last Filed: 11/22/18 17:46> Subjective - Date & Time of Evaluation Date of Evaluation: 11/22/18 Time of Evaluation: 15:10 - Subjective Subjective: patient is feeling much better postoperatively. Abdominal pain is less. He denies fevers, vomiting. He is not been passing flatus or bowel movements. No acute overnight events, no fevers. Objective - Vital Signs/Intake and Output Vital Signs (last 24 hours): Temp Pulse Resp BP Pulse Ox 98.1 F 110 H 19 142/79 96 11/22/18 06:00 11/21/18 22:04 11/21/18 22:04 11/21/18 22:04 11/22/18 06:00 Intake and Output: 11/22/18 11/22/18 06:59 18:59 Intake Total 750 54211 Output Total 425 25 Balance 325 33204 - Medications Medications: Current Medications Dextrose (Dextrose 50% Inj) 0 ml IV STAT PRN; Protocol PRN Reason: Hypoglycemia Protocol Folic Acid (Folic Acid) 1 mg PO DAILY [facility]Y Last Admin: 11/22/18 12:19 Dose: 1 mg Heparin Sodium (Porcine) (Heparin) 5,000 units SC Q8 [facility]; Protocol Last Admin: 11/22/18 12:18 Dose: 5,000 units Hydromorphone HCl (Dilaudid) 0.5 mg IVP Q3H PRN PRN Reason: Pain, severe (8-10) Last Admin: 11/22/18 11:25 Dose: 0.5 mg Dextrose (Dextrose 5% In Water 1000 Ml) 1,000 mls @ 0 mls/hr IV .Q0M PRN; Protocol PRN Reason: Hypoglycemia Protocol Piperacillin Sod/Tazobactam Sod (Zosyn 4.5 Gm In Ns 100ml) 4.5 gm in 100 mls @ 25 mls/hr IVPB Q8 [facility]; Protocol Stop: 11/30/18 22:01 Last Admin: 11/22/18 06:39 Dose: 25 mls/hr Lactated Ringer's (Lactated Ringer's) 1,000 mls @ 110 mls/hr IV .Q9H6M [facility]Y Insulin Human Regular (Humulin R Low) 0 units SC ACHS [facility]Y; Protocol Last Admin: 11/22/18 12:38 Dose: Not Given Ketorolac Tromethamine (Toradol) 15 mg IVP Q6H [facility] Stop: 11/25/18 22:01 Last Admin: 11/22/18 12:19 Dose: Not Given Lorazepam (Ativan) 1 mg IVP Q6H PRN; Protocol PRN Reason: Anxiety Multivitamins/Minerals (Therapeutic-M Tab) 1 tab PO 0800 [facility] Last Admin: 11/22/18 12:18 Dose: 1 tab Ondansetron HCl (Zofran Inj) 4 mg IVP Q6H PRN PRN Reason: Nausea/Vomiting Pantoprazole Sodium (Protonix Inj) 40 mg IVP DAILY [facility] Last Admin: 11/22/18 12:18 Dose: 40 mg Thiamine HCl (Vitamin B1 Tab) 100 mg PO DAILY [facility] Last Admin: 11/22/18 12:18 Dose: 100 mg Tramadol HCl (Ultram) 50 mg PO Q6H PRN PRN Reason: Pain, moderate (4-7) - Labs Labs: 11/22/18 07:00 11/22/18 07:00 PT 14.6 SECONDS (9.4-12.5) H 11/21/18 10:45 INR 1.29 11/21/18 10:45 APTT 30.6 Seconds (26.9-38.3) 11/21/18 10:45 - Constitutional Appears: Non-toxic, No Acute Distress - Head Exam Head Exam: ATRAUMATIC, NORMAL INSPECTION - Eye Exam Eye Exam: EOMI, Normal appearance - Respiratory Exam Respiratory Exam: Clear to Ausculation Bilateral, NORMAL BREATHING PATTERN - Cardiovascular Exam Cardiovascular Exam: Tachycardia, +S1, +S2 - GI/Abdominal Exam GI & Abdominal Exam: Soft, Diminished Bowel Sounds. absent: Tenderness - Extremities Exam Extremities Exam: Normal Inspection. absent: Pedal Edema - Neurological Exam Neurological Exam: Alert, Awake, Oriented x3 - Psychiatric Exam Psychiatric exam: Normal Affect, Normal Mood - Skin Skin Exam: Normal Color, Warm Assessment and Plan - Assessment and Plan (Free Text) Assessment: #Suspected acute cholecystitis and possible abscess formation causing colonic obstruction #alcoholism #depression Plan: -Previous CT scans reviewed and no obvious GB mass malignancy at that time 08/2018. Status post exploratory laparotomy and hemicolectomy 11/21/18. Pathology pending We will consider HIDA scan versus MRI/MRCP to help better identify suspected gallbladder disease -Diet per surgical team Case discussed with Dr. Cleary, see attestation. <Angelica Cleary V - Last Filed: 11/22/18 23:28> Objective - Vital Signs/Intake and Output Vital Signs (last 24 hours): Temp Pulse Resp BP Pulse Ox 98.1 F 110 H 19 142/79 96 11/22/18 06:00 11/21/18 22:04 11/21/18 22:04 11/21/18 22:04 11/22/18 06:00 Intake and Output: 11/22/18 11/23/18 18:59 06:59 Intake Total 02164 180 Output Total 155 480 Balance 59164 -300 - Medications Medications: Current Medications Dextrose (Dextrose 50% Inj) 0 ml IV STAT PRN; Protocol PRN Reason: Hypoglycemia Protocol Folic Acid (Folic Acid) 1 mg PO DAILY ELY Last Admin: 11/22/18 12:19 Dose: 1 mg Heparin Sodium (Porcine) (Heparin) 5,000 units SC Q8 [facility]; Protocol Last Admin: 11/22/18 21:19 Dose: Not Given Hydromorphone HCl (Dilaudid) 0.5 mg IVP Q3H PRN PRN Reason: Pain, severe (8-10) Last Admin: 11/22/18 20:28 Dose: 0.5 mg Dextrose (Dextrose 5% In Water 1000 Ml) 1,000 mls @ 0 mls/hr IV .Q0M PRN; Protocol PRN Reason: Hypoglycemia Protocol Piperacillin Sod/Tazobactam Sod (Zosyn 4.5 Gm In Ns 100ml) 4.5 gm in 100 mls @ 25 mls/hr IVPB Q8 [facility]; Protocol Stop: 11/30/18 22:01 Last Admin: 11/22/18 21:21 Dose: 25 mls/hr Lactated Ringer's (Lactated Ringer's) 1,000 mls @ 110 mls/hr IV .Q9H6M [facility] Insulin Human Regular (Humulin R Low) 0 units SC ACHS [facility]; Protocol Last Admin: 11/22/18 21:19 Dose: Not Given Ketorolac Tromethamine (Toradol) 15 mg IVP Q6H [facility] Stop: 11/25/18 22:01 Last Admin: 11/22/18 17:56 Dose: 15 mg Lorazepam (Ativan) 1 mg IVP Q6H PRN; Protocol PRN Reason: Anxiety Multivitamins/Minerals (Therapeutic-M Tab) 1 tab PO 0800 [facility] Last Admin: 11/22/18 12:18 Dose: 1 tab Ondansetron HCl (Zofran Inj) 4 mg IVP Q6H PRN PRN Reason: Nausea/Vomiting Pantoprazole Sodium (Protonix Inj) 40 mg IVP DAILY [facility] Last Admin: 11/22/18 12:18 Dose: 40 mg Thiamine HCl (Vitamin B1 Tab) 100 mg PO DAILY [facility] Last Admin: 11/22/18 12:18 Dose: 100 mg Tramadol HCl (Ultram) 50 mg PO Q6H PRN PRN Reason: Pain, moderate (4-7) - Labs Labs: 11/22/18 07:00 11/22/18 07:00 PT 14.6 SECONDS (9.4-12.5) H 11/21/18 10:45 INR 1.29 11/21/18 10:45 APTT 30.6 Seconds (26.9-38.3) 11/21/18 10:45 Attending/Attestation - Attestation I have personally seen and examined this patient.: Yes I have fully participated in the care of the patient.: Yes I have reviewed all pertinent clinical information, including history, physical exam and plan: Yes Notes (Text): This is an addendum to GI progress report dictated by the GI Fellow. The patient was seen and examined earlier. Medical records, lab studies, imagings were reviewed. Last 24 hours events reviewed. Agreed with the above treatment plan as outlined in GI Fellow 's notes with the addition of the following 11/22/18 23:28
--- NOTE | 2018-11-23 03:14 | CON ---
DATE: 11/22/2018 LOCATION: The patient seen earlier today in 574, bed 2. CHIEF COMPLAINT: He is awaken and he is complaining of weakness. 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 Infectious disease consultation requested. REVIEW OF SYSTEMS: The patient states he is having problems urinating. He has had low-grade fever. No chest pain. No headache or blurred vision. A 12-point review of systems is performed. PAST MEDICAL HISTORY: Significant for hypertension, pulmonary emboli, cholelithiasis, and Citrobacter pneumonia. PAST SURGICAL HISTORY: Significant for right knee surgery. ALLERGIES: THE PATIENT HAS NO KNOWN ALLERGIES. MEDICATIONS AT HOME: Risperdal, Sonata, and thiamine. PHYSICAL EXAMINATION VITAL SIGNS: Temperature is 98, blood pressure is 140/70, respiratory rate is 20, and heart rate of 79. HEENT: Unremarkable. NECK: Supple. LUNGS: Decreased breath sounds. HEART: Normal S1 and S2. ABDOMEN: Dressing. LABORATORY DATA: Reveals white count of 12,000 is up to 17,000, hemoglobin of 11. BUN of 8, and creatinine of 0.6. CA 19-9 antigen is elevated at 6.6. Toxicology is noted. Serology is negative. Microbiology reveals the blood cultures are negative. CAT scan of the chest emphysematous changes, no evidence of metastatic disease. CAT scan of the abdomen is reviewed. Dr. Arsenio Madden's consultation is reviewed. He states the patient was found to have presumptive CAT scan from cecal volvulus underwent exploratory lap and extended right hemicolectomy and operative report is inflammatory mass and ileocolic anastomosis. ASSESSMENT AND PLAN: A 58-year-old who was admitted with sepsis status post exploratory laparotomy, right hemicolectomy, and there is a mass . We will treat the patient with Zosyn and pending pathology report and culture results. We will follow WBC. As far the blood cultures are negative, we will follow closely with you. Overall prognosis is poor. Gene Lipscomb MD [facility] # [id number]
[2018-11-23] MEDS: HYDROmorphone 0.5 mg/0.5 ml ISec IVP PRN ×3 (05:16→19:48)
[2018-11-23] MEDS: Piperacill/Tazo 4.5gm in NS 4.5 GM/100 ML BAG IVPB SCH ×3 (05:18→22:25)
[2018-11-23 07:25] LABS: HEMOGLOBIN 10.8 g/dL (14.0-18.0); MEAN CELL VOLUME 93.5 fl (80.0-105.0); MEAN CORPUSCULAR HEMOGLOBIN 31.8 pg (25.0-35.0); MEAN PLATELET VOLUME 10.1 fl (7.0-11.0); RBC 3.4 10^6/uL (3.5-6.1); RED CELL DISTRIBUTION WIDTH 13.7 % (11.5-14.5); WHITE BLOOD COUNT 16.7 10^3/uL (4.5-11.0)
[2018-11-23] MEDS: Insulin Reg-LOW-Coverage SC SCH ×4 (07:30→22:20)
[2018-11-23 07:54] LABS: ALB/GLOB RATIO 0.8 (1.1-1.8); ALBUMIN 2.7 g/dL (3.0-4.8); ALT/SGPT 36 U/L (7-56); AST/SGOT 45 U/L (17-59); BLOOD UREA NITROGEN 11 mg/dL (7-21); CALCIUM 8.1 mg/dL (8.4-10.5); GFR NON-AFRICAN AMERICAN > 60
[2018-11-23] MEDS: Multivitamin With Minerals Tab PO SCH (09:12)
--- NOTE | 2018-11-23 09:35 | CP.PCM.PN ---
<Darrion Young - Last Filed: 11/23/18 09:31> Subjective - Date & Time of Evaluation Date of Evaluation: 11/23/18 Time of Evaluation: 09:31 - Subjective Subjective: PGY-1 Medicine Progress Note for Dr. Lundberg Patient seen and evaluated at bedside. No acute events overnight. Patient remains afebrile. He denies passing gas or having any bowel movement. Complains of abdominal pain around the surgical site. Ajay draining 5cc of serosanguinous fluid. Denies shortness of breath, chest pain, nausea, vomiting or urinary symptoms. Objective - Vital Signs/Intake and Output Vital Signs (last 24 hours): Temp Pulse Resp BP Pulse Ox 98.1 F 110 H 19 142/79 96 11/22/18 06:00 11/21/18 22:04 11/21/18 22:04 11/21/18 22:04 11/22/18 06:00 Intake and Output: 11/23/18 11/23/18 06:59 18:59 Intake Total 300 Output Total 580 Balance -280 - Medications Medications: Current Medications Dextrose (Dextrose 50% Inj) 0 ml IV STAT PRN; Protocol PRN Reason: Hypoglycemia Protocol Folic Acid (Folic Acid) 1 mg PO DAILY ELY Last Admin: 11/22/18 12:19 Dose: 1 mg Heparin Sodium (Porcine) (Heparin) 5,000 units SC Q8 [facility]; Protocol Last Admin: 11/23/18 05:18 Dose: 5,000 units Hydromorphone HCl (Dilaudid) 0.5 mg IVP Q3H PRN PRN Reason: Pain, severe (8-10) Last Admin: 11/23/18 09:07 Dose: 0.5 mg Dextrose (Dextrose 5% In Water 1000 Ml) 1,000 mls @ 0 mls/hr IV .Q0M PRN; Protocol PRN Reason: Hypoglycemia Protocol Piperacillin Sod/Tazobactam Sod (Zosyn 4.5 Gm In Ns 100ml) 4.5 gm in 100 mls @ 25 mls/hr IVPB Q8 [facility]; Protocol Stop: 11/30/18 22:01 Last Admin: 11/23/18 05:18 Dose: 25 mls/hr Lactated Ringer's (Lactated Ringer's) 1,000 mls @ 110 mls/hr IV .Q9H6M [facility] Last Admin: 11/23/18 09:13 Dose: 110 mls/hr Insulin Human Regular (Humulin R Low) 0 units SC ACHS [facility]; Protocol Last Admin: 11/23/18 07:30 Dose: Not Given Ketorolac Tromethamine (Toradol) 15 mg IVP Q6H [facility] Stop: 11/25/18 22:01 Last Admin: 11/23/18 05:16 Dose: 15 mg Lorazepam (Ativan) 1 mg IVP Q6H PRN; Protocol PRN Reason: Anxiety Last Admin: 11/23/18 01:59 Dose: 1 mg Multivitamins/Minerals (Therapeutic-M Tab) 1 tab PO 0800 [facility] Last Admin: 11/23/18 09:12 Dose: 1 tab Ondansetron HCl (Zofran Inj) 4 mg IVP Q6H PRN PRN Reason: Nausea/Vomiting Last Admin: 11/23/18 09:12 Dose: 4 mg Pantoprazole Sodium (Protonix Inj) 40 mg IVP DAILY [facility] Last Admin: 11/23/18 09:12 Dose: 40 mg Thiamine HCl (Vitamin B1 Tab) 100 mg PO DAILY [facility] Last Admin: 11/23/18 09:12 Dose: 100 mg Tramadol HCl (Ultram) 50 mg PO Q6H PRN PRN Reason: Pain, moderate (4-7) - Labs Labs: 11/23/18 06:45 11/23/18 06:45 PT 14.6 SECONDS (9.4-12.5) H 11/21/18 10:45 INR 1.29 11/21/18 10:45 APTT 30.6 Seconds (26.9-38.3) 11/21/18 10:45 - Additional Findings Additional findings: - Constitutional Appears: Well, Non-toxic, No Acute Distress - Head Exam Head Exam: ATRAUMATIC, NORMAL INSPECTION - Eye Exam Eye Exam: EOMI, Normal appearance - ENT Exam ENT Exam: Mucous Membranes Moist - Respiratory Exam Respiratory Exam: Clear to Ausculation Bilateral. absent: Rales, Rhonchi, Wheezes, Respiratory Distress - Cardiovascular Exam Cardiovascular Exam: REGULAR RHYTHM, +S1, +S2. absent: Gallop, Rubs, Murmur - GI/Abdominal Exam GI & Abdominal Exam: Soft, Tenderness (Tender around surgical site), Normal Bowel Sounds. absent: Distended Additional comments: Abdominal binder in place. 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 Patient is POD #2 s/p exploratory laparotomy and right hemicolectomy. Plan: Colonic Obstruction w/ intraabdominal abscess 2/2 Malignancy - Patient underwent exploratory laparotomy and right hemicolectomy with signs of cecal ischemia 2/2 obstructing mass and possible malignancy - Pending surgical biopsy pathology - Clear liquid Diet - Zosyn 4.5g IV Q8H (Started on 11/21) - Dilaudid 0.5mg IV Q3 PRN - Toradol 15mg IVP Q6 ELY - Tramadol 50mg PO Q6 PRN - Lactated Ringers @ 110cc/hr - Zofran PRN - Incentive spirometer use - CA 19-9 elevated - CEA,AFP WNL - Infectious disease consulted, Dr. Lipscomb - GI consulted, Dr. Cleary - Surgery consulted, Dr. Storey Leukocytosis - Zosyn 4.5g IV Q8H (Started on 11/21) - Infectious Disease consulted - Continue to monitor Transaminitis - Hepatitis panel negative - Gastroenterology consulted - Continue to monitor Alcohol Abuse - CIMI protocol - Ativan 1mg IV Q6 PRN - MV/Thiamine/Folic Acid - Continue to monitor for withdrawal PPX: GI: Protonix 40mg QD DVT: Heparin 5000 units SC Q8 and SCDs Patient seen and plan discussed with attending, Dr. Tamika Young, PGY-1 <Aston Lundberg - Last Filed: 11/23/18 11:55> Objective - Vital Signs/Intake and Output Vital Signs (last 24 hours): Temp Pulse Resp BP Pulse Ox 98.1 F 110 H 19 142/79 96 11/22/18 06:00 11/21/18 22:04 11/21/18 22:04 11/21/18 22:04 11/22/18 06:00 Intake and Output: 11/23/18 11/23/18 06:59 18:59 Intake Total 300 Output Total 580 Balance -280 - Medications Medications: Current Medications Dextrose (Dextrose 50% Inj) 0 ml IV STAT PRN; Protocol PRN Reason: Hypoglycemia Protocol Folic Acid (Folic Acid) 1 mg PO DAILY [facility] Last Admin: 11/23/18 11:13 Dose: 1 mg Heparin Sodium (Porcine) (Heparin) 5,000 units SC Q8 [facility]; Protocol Last Admin: 11/23/18 05:18 Dose: 5,000 units Hydromorphone HCl (Dilaudid) 0.5 mg IVP Q3H PRN PRN Reason: Pain, severe (8-10) Last Admin: 11/23/18 09:07 Dose: 0.5 mg Dextrose (Dextrose 5% In Water 1000 Ml) 1,000 mls @ 0 mls/hr IV .Q0M PRN; Protocol PRN Reason: Hypoglycemia Protocol Piperacillin Sod/Tazobactam Sod (Zosyn 4.5 Gm In Ns 100ml) 4.5 gm in 100 mls @ 25 mls/hr IVPB Q8 [facility]; Protocol Stop: 11/30/18 22:01 Last Admin: 11/23/18 05:18 Dose: 25 mls/hr Dextrose/Sodium Chloride (Dextrose 5%/0.45% Ns 1000 Ml) 1,000 mls @ 100 mls/hr IV .Q10H [facility] Last Admin: 11/23/18 11:12 Dose: 100 mls/hr Insulin Human Regular (Humulin R Low) 0 units SC ACHS [facility]; Protocol Last Admin: 11/23/18 07:30 Dose: Not Given Ketorolac Tromethamine (Toradol) 15 mg IVP Q6H [facility] Stop: 11/25/18 22:01 Last Admin: 11/23/18 11:13 Dose: 15 mg Lorazepam (Ativan) 1 mg IVP Q6H PRN; Protocol PRN Reason: Anxiety Last Admin: 11/23/18 11:14 Dose: 1 mg Multivitamins/Minerals (Therapeutic-M Tab) 1 tab PO 0800 [facility] Last Admin: 11/23/18 09:12 Dose: 1 tab Ondansetron HCl (Zofran Inj) 4 mg IVP Q6H PRN PRN Reason: Nausea/Vomiting Last Admin: 11/23/18 09:12 Dose: 4 mg Pantoprazole Sodium (Protonix Inj) 40 mg IVP DAILY [facility] Last Admin: 11/23/18 09:12 Dose: 40 mg Thiamine HCl (Vitamin B1 Tab) 100 mg PO DAILY [facility] Last Admin: 11/23/18 09:12 Dose: 100 mg Tramadol HCl (Ultram) 50 mg PO Q6H PRN PRN Reason: Pain, moderate (4-7) - Labs Labs: 11/23/18 06:45 11/23/18 06:45 PT 14.6 SECONDS (9.4-12.5) H 11/21/18 10:45 INR 1.29 11/21/18 10:45 APTT 30.6 Seconds (26.9-38.3) 11/21/18 10:45 Attending/Attestation - Attestation I have personally seen and examined this patient.: Yes I have fully participated in the care of the patient.: Yes I have reviewed all pertinent clinical information, including history, physical exam and plan: Yes Notes (Text): 11/23/18 11:51 Medical record note made by the resident after discussion with my direction and input after the patient was personally seen and examined by me. I have reviewed the chart and agree that the record accurately reflects by personal performance of the history, physical exam, data review, and medical decision-making, in the course for the patient. I have also personally directed the plan of care. 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 Patient was evaluated by surgery and underwent exploratory laparotomy , was found to have right colon obstruction and intra abdominal abscess..Patient is SP right hemicolectomy and drainage of abscess. Pathology results are pending.Patient is on IV zosyn as per ID.Cultures are negative so far. Pending surgical biopsy pathology Patient is on Clear liquid Diet . There is no sign of alcohol withdrawal at this time. Prognosis is guarded
[2018-11-23] MEDS ORDERED: Potassium Chloride 20 mEq ER Tab PO ONE (09:47)
--- NOTE | 2018-11-23 10:09 | PN ---
DATE: 11/23/2018 SUBJECTIVE: The patient is in bed in no acute distress. PHYSICAL EXAMINATION: VITAL SIGNS: Temperature is 99, blood pressure is 140/70, respiratory rate of 18. HEENT: Unremarkable. NECK: Supple. LUNGS: Have decreased breath sounds. HEART: Normal S1, S2. ABDOMEN: Soft. LABORATORY EXAMINATION: Reveals a white count of 16,700, hemoglobin of 10. Chemistries are noted. toxicology is noted. Serology is noted. Microbiology reveals the blood cultures are no growth. ASSESSMENT AND PLAN: This is a 58-year-old male who is admitted with sepsis, status post exploratory lap right hemicolectomy, there is a mass. Currently on Zosyn. Awaiting for pathology report. Thus far the blood cultures are no growth and the patient's white count still 16,000. We will follow with you. Gene Lipscomb MD
--- NOTE | 2018-11-23 10:44 | CP.PCM.PN ---
<Angel Cox - Last Filed: 11/23/18 13:10> Subjective - Date & Time of Evaluation Date of Evaluation: 11/23/18 Time of Evaluation: 09:05 - Subjective Subjective: PGYfor GI follow-up progress note Patient sitting in bedside chair using incentive spirometry when seen this morning. States he is doing okay. He states he is not sure about his belly pain, but states that it seems to be stable. he is not sure when he last had a bowel movement or passed flatus.he reports that he is tolerating diet Five-point review of systems negative other than stated above Objective - Vital Signs/Intake and Output Vital Signs (last 24 hours): Temp Pulse Resp BP Pulse Ox 98.1 F 110 H 19 142/79 96 11/22/18 06:00 11/21/18 22:04 11/21/18 22:04 11/21/18 22:04 11/22/18 06:00 Intake and Output: 11/23/18 11/23/18 06:59 18:59 Intake Total 300 Output Total 580 Balance -280 - Medications Medications: Current Medications Dextrose (Dextrose 50% Inj) 0 ml IV STAT PRN; Protocol PRN Reason: Hypoglycemia Protocol Folic Acid (Folic Acid) 1 mg PO DAILY [facility] Last Admin: 11/22/18 12:19 Dose: 1 mg Heparin Sodium (Porcine) (Heparin) 5,000 units SC Q8 [facility]; Protocol Last Admin: 11/23/18 05:18 Dose: 5,000 units Hydromorphone HCl (Dilaudid) 0.5 mg IVP Q3H PRN PRN Reason: Pain, severe (8-10) Last Admin: 11/23/18 09:07 Dose: 0.5 mg Dextrose (Dextrose 5% In Water 1000 Ml) 1,000 mls @ 0 mls/hr IV .Q0M PRN; Protocol PRN Reason: Hypoglycemia Protocol Piperacillin Sod/Tazobactam Sod (Zosyn 4.5 Gm In Ns 100ml) 4.5 gm in 100 mls @ 25 mls/hr IVPB Q8 [facility]; Protocol Stop: 11/30/18 22:01 Last Admin: 11/23/18 05:18 Dose: 25 mls/hr Lactated Ringer's (Lactated Ringer's) 1,000 mls @ 110 mls/hr IV .Q9H6M [facility] Last Admin: 11/23/18 09:13 Dose: 110 mls/hr Insulin Human Regular (Humulin R Low) 0 units SC ACHS [facility]; Protocol Last Admin: 11/23/18 07:30 Dose: Not Given Ketorolac Tromethamine (Toradol) 15 mg IVP Q6H [facility] Stop: 11/25/18 22:01 Last Admin: 11/23/18 05:16 Dose: 15 mg Lorazepam (Ativan) 1 mg IVP Q6H PRN; Protocol PRN Reason: Anxiety Last Admin: 11/23/18 01:59 Dose: 1 mg Multivitamins/Minerals (Therapeutic-M Tab) 1 tab PO 0800 [facility] Last Admin: 11/23/18 09:12 Dose: 1 tab Ondansetron HCl (Zofran Inj) 4 mg IVP Q6H PRN PRN Reason: Nausea/Vomiting Last Admin: 11/23/18 09:12 Dose: 4 mg Pantoprazole Sodium (Protonix Inj) 40 mg IVP DAILY [facility] Last Admin: 11/23/18 09:12 Dose: 40 mg Thiamine HCl (Vitamin B1 Tab) 100 mg PO DAILY [facility] Last Admin: 11/23/18 09:12 Dose: 100 mg Tramadol HCl (Ultram) 50 mg PO Q6H PRN PRN Reason: Pain, moderate (4-7) - Labs Labs: 11/23/18 06:45 11/23/18 06:45 PT 14.6 SECONDS (9.4-12.5) H 11/21/18 10:45 INR 1.29 11/21/18 10:45 APTT 30.6 Seconds (26.9-38.3) 11/21/18 10:45 - Constitutional Appears: No Acute Distress, Chronically Ill - Head Exam Head Exam: ATRAUMATIC, NORMAL INSPECTION - Eye Exam Eye Exam: EOMI. absent: Scleral icterus - ENT Exam ENT Exam: Mucous Membranes Moist. absent: Mucous Membranes Dry - Respiratory Exam Respiratory Exam: NORMAL BREATHING PATTERN. absent: Accessory Muscle Use - GI/Abdominal Exam GI & Abdominal Exam: Soft, Hypoactive Bowel Sounds. absent: Bruit, Distended, Firm, Guarding, Rigid, Tenderness Additional comments: abdominal binder in place limiting abdominal exam. Assessment and Plan - Assessment and Plan (Free Text) Assessment: #Suspected acute cholecystitis and possible abscess formation causing colonic obstruction #alcoholism #depression #Abnormal live tests: Cholecystitis, DILI, vs other Plan: -Previous CT scans reviewed and no obvious GB mass malignancy at that time 08/2018. Status post exploratory laparotomy and hemicolectomy 11/21/18 Pathology pending Will consider HIDA scan versus MRI/MRCP to help better identify suspected gallbladder disease should liver tests not improve over weekend -Diet per surgical team Case discussed with Dr. Cleary, see attestation. <Angelica Cleary V - Last Filed: 11/23/18 22:11> Objective - Vital Signs/Intake and Output Vital Signs (last 24 hours): Temp Pulse Resp BP Pulse Ox 97.5 F L 89 16 156/87 H 99 11/23/18 14:00 11/23/18 16:25 11/23/18 16:25 11/23/18 16:25 11/23/18 16:25 Intake and Output: 11/23/18 11/24/18 18:59 07:59 Intake Total 840 Output Total 385 Balance 455 - Medications Medications: Current Medications Dextrose (Dextrose 50% Inj) 0 ml IV STAT PRN; Protocol PRN Reason: Hypoglycemia Protocol Folic Acid (Folic Acid) 1 mg PO DAILY [facility] Last Admin: 11/23/18 11:13 Dose: 1 mg Heparin Sodium (Porcine) (Heparin) 5,000 units SC Q8 [facility]; Protocol Last Admin: 11/23/18 13:34 Dose: 5,000 units Hydromorphone HCl (Dilaudid) 0.5 mg IVP Q3H PRN PRN Reason: Pain, severe (8-10) Last Admin: 11/23/18 19:48 Dose: 0.5 mg Dextrose (Dextrose 5% In Water 1000 Ml) 1,000 mls @ 0 mls/hr IV .Q0M PRN; Protocol PRN Reason: Hypoglycemia Protocol Piperacillin Sod/Tazobactam Sod (Zosyn 4.5 Gm In Ns 100ml) 4.5 gm in 100 mls @ 25 mls/hr IVPB Q8 [facility]; Protocol Stop: 11/30/18 22:01 Last Admin: 11/23/18 13:35 Dose: 25 mls/hr Dextrose/Sodium Chloride (Dextrose 5%/0.45% Ns 1000 Ml) 1,000 mls @ 100 mls/hr IV .Q10H [facility] Last Admin: 11/23/18 11:12 Dose: 100 mls/hr Insulin Human Regular (Humulin R Low) 0 units SC ACHS [facility]; Protocol Last Admin: 11/23/18 16:45 Dose: Not Given Ketorolac Tromethamine (Toradol) 15 mg IVP Q6H [facility] Stop: 11/25/18 22:01 Last Admin: 11/23/18 16:00 Dose: Not Given Lorazepam (Ativan) 1 mg IVP Q6H PRN; Protocol PRN Reason: Anxiety Last Admin: 11/23/18 11:14 Dose: 1 mg Multivitamins/Minerals (Therapeutic-M Tab) 1 tab PO 0800 [facility] Last Admin: 11/23/18 09:12 Dose: 1 tab Ondansetron HCl (Zofran Inj) 4 mg IVP Q6H PRN PRN Reason: Nausea/Vomiting Last Admin: 11/23/18 17:13 Dose: 4 mg Pantoprazole Sodium (Protonix Inj) 40 mg IVP DAILY [facility] Last Admin: 11/23/18 09:12 Dose: 40 mg Thiamine HCl (Vitamin B1 Tab) 100 mg PO DAILY [facility] Last Admin: 11/23/18 09:12 Dose: 100 mg Tramadol HCl (Ultram) 50 mg PO Q6H PRN PRN Reason: Pain, moderate (4-7) Last Admin: 11/23/18 17:13 Dose: 50 mg - Labs Labs: 11/23/18 06:45 11/23/18 06:45 PT 14.6 SECONDS (9.4-12.5) H 11/21/18 10:45 INR 1.29 11/21/18 10:45 APTT 30.6 Seconds (26.9-38.3) 11/21/18 10:45 Attending/Attestation - Attestation I have personally seen and examined this patient.: Yes I have fully participated in the care of the patient.: Yes I have reviewed all pertinent clinical information, including history, physical exam and plan: Yes Notes (Text): This is an addendum to GI progress report dictated by the GI Fellow.The patient was seen and examined earlier. Medical records, lab studies, imagings were reviewed. Last 24 hours events reviewed. Agreed with the above treatment plan as outlined in GI Fellow 's notes with the addition of the following 11/23/18 22:11
[2018-11-23] MEDS: Dextrose 5%/0.45% NS 1,000 ML IV SCH (11:12)
[2018-11-24] MEDS: HYDROmorphone 0.5 mg/0.5 ml ISec IVP PRN ×3 (01:50→20:41)
[2018-11-24] MEDS: Piperacill/Tazo 4.5gm in NS 4.5 GM/100 ML BAG IVPB SCH ×3 (06:35→22:37)
[2018-11-24 07:35] LABS: HEMOGLOBIN 10.8 g/dL (14.0-18.0); MEAN CELL VOLUME 93.5 fl (80.0-105.0); MEAN CORPUSCULAR HEMOGLOBIN 31.8 pg (25.0-35.0); MEAN PLATELET VOLUME 9.8 fl (7.0-11.0); RBC 3.4 10^6/uL (3.5-6.1); RED CELL DISTRIBUTION WIDTH 13.9 % (11.5-14.5)
[2018-11-24] MEDS: Insulin Reg-LOW-Coverage SC SCH ×4 (07:45→22:37)
[2018-11-24 08:02] LABS: ALB/GLOB RATIO 0.8 (1.1-1.8); ALBUMIN 2.7 g/dL (3.0-4.8); ALT/SGPT 25 U/L (7-56); AST/SGOT 36 U/L (17-59); BLOOD UREA NITROGEN 10 mg/dL (7-21); GFR NON-AFRICAN AMERICAN > 60
[2018-11-24] MEDS ORDERED: Potassium Chloride 20 mEq ER Tab PO STA (08:06)
--- NOTE | 2018-11-24 08:55 | CP.PCM.PN ---
Subjective - Date & Time of Evaluation Date of Evaluation: 11/24/18 Time of Evaluation: 06:45 - Subjective Subjective: Surgery Progress note. Dr. Storey Pt seen and examined at bedside. No acute events overnight. States abd pain is still present, no improvement. Reports 1 episode of vomiting overnight. Denies any fevers or chills. Denies any bowel movements. Drain with 85cc output recorded, murky brown output noted. Objective - Vital Signs/Intake and Output Vital Signs (last 24 hours): Temp Pulse Resp BP Pulse Ox 97.9 F 85 18 140/90 97 11/24/18 08:17 11/24/18 08:17 11/24/18 08:17 11/24/18 08:17 11/24/18 08:17 Intake and Output: 11/24/18 11/24/18 06:59 18:59 Intake Total Output Total Balance - Medications Medications: Current Medications Dextrose (Dextrose 50% Inj) 0 ml IV STAT PRN; Protocol PRN Reason: Hypoglycemia Protocol Folic Acid (Folic Acid) 1 mg PO DAILY [facility] Last Admin: 11/23/18 11:13 Dose: 1 mg Heparin Sodium (Porcine) (Heparin) 5,000 units SC Q8 [facility]; Protocol Last Admin: 11/24/18 06:36 Dose: 5,000 units Hydromorphone HCl (Dilaudid) 0.5 mg IVP Q3H PRN PRN Reason: Pain, severe (8-10) Last Admin: 11/24/18 01:50 Dose: 0.5 mg Dextrose (Dextrose 5% In Water 1000 Ml) 1,000 mls @ 0 mls/hr IV .Q0M PRN; Protocol PRN Reason: Hypoglycemia Protocol Piperacillin Sod/Tazobactam Sod (Zosyn 4.5 Gm In Ns 100ml) 4.5 gm in 100 mls @ 25 mls/hr IVPB Q8 [facility]; Protocol Stop: 11/30/18 22:01 Last Admin: 11/24/18 06:35 Dose: 25 mls/hr Dextrose/Sodium Chloride (Dextrose 5%/0.45% Ns 1000 Ml) 1,000 mls @ 100 mls/hr IV .Q10H [facility] Last Admin: 11/23/18 11:12 Dose: 100 mls/hr Insulin Human Regular (Humulin R Low) 0 units SC ACHS [facility]; Protocol Last Admin: 11/24/18 07:45 Dose: Not Given Ketorolac Tromethamine (Toradol) 15 mg IVP Q6H [facility] Stop: 11/25/18 22:01 Last Admin: 11/24/18 06:38 Dose: 15 mg Lorazepam (Ativan) 1 mg IVP Q6H PRN; Protocol PRN Reason: Anxiety Last Admin: 11/23/18 11:14 Dose: 1 mg Multivitamins/Minerals (Therapeutic-M Tab) 1 tab PO 0800 [facility] Last Admin: 11/23/18 09:12 Dose: 1 tab Ondansetron HCl (Zofran Inj) 4 mg IVP Q6H PRN PRN Reason: Nausea/Vomiting Last Admin: 11/23/18 17:13 Dose: 4 mg Pantoprazole Sodium (Protonix Inj) 40 mg IVP DAILY [facility] Last Admin: 11/23/18 09:12 Dose: 40 mg Thiamine HCl (Vitamin B1 Tab) 100 mg PO DAILY [facility] Last Admin: 11/23/18 09:12 Dose: 100 mg Tramadol HCl (Ultram) 50 mg PO Q6H PRN PRN Reason: Pain, moderate (4-7) Last Admin: 11/23/18 17:13 Dose: 50 mg - Labs Labs: 11/24/18 07:00 11/24/18 07:00 PT 14.6 SECONDS (9.4-12.5) H 11/21/18 10:45 INR 1.29 11/21/18 10:45 APTT 30.6 Seconds (26.9-38.3) 11/21/18 10:45 - Constitutional Appears: Non-toxic, No Acute Distress, Chronically Ill - Head Exam Head Exam: ATRAUMATIC, NORMAL INSPECTION, NORMOCEPHALIC - Eye Exam Eye Exam: EOMI, Normal appearance. absent: Scleral icterus - ENT Exam ENT Exam: Mucous Membranes Moist - Respiratory Exam Respiratory Exam: NORMAL BREATHING PATTERN. absent: Accessory Muscle Use, Respiratory Distress - Cardiovascular Exam Cardiovascular Exam: absent: JVD - GI/Abdominal Exam GI & Abdominal Exam: Soft. absent: Distended, Firm, Guarding, Rigid, Rebound Additional comments: Mild melita-incisional tenderness. Drain with murky, brown feculant and bile tinged output noted. - Extremities Exam Extremities Exam: Normal Inspection. absent: Calf Tenderness - Neurological Exam Neurological Exam: Alert, Awake, Oriented x3 - Psychiatric Exam Psychiatric exam: Normal Affect, Normal Mood - Skin Skin Exam: Dry, Intact, Warm Assessment and Plan - Assessment and Plan (Free Text) Assessment: 58yo M with hepatic flexure colonic obstruction due to intraabdominal mass. S/p Extended Right hemicolectomy with primary anastamosis. POD 3 Plan: - Drain output with some feculent quality noted. - Will obtain CT abd/pelvis with PO/IV contrast to evaluate - NPO for now. May advance diet if negative CT - Encourage OOBTC. Ambulation. IS use - Pain management - Strict Is & Os Further recs as per Dr. Raleigh Mitchell PGY2 surgery
[2018-11-24] MEDS ORDERED: Barium Sulfate Susp 2.1% w/v, 2.0% w/w 450 mL Bottle PO ONE (09:33)
[2018-11-24] MEDS ORDERED: Iohexol 240 (50 ml) ONE (09:34)
[2018-11-24] MEDS: Multivitamin With Minerals Tab PO SCH (10:26)
[2018-11-24] MEDS: Dextrose 5%/0.45% NS 1,000 ML IV SCH ×3 (10:27→22:41)
[2018-11-24] MEDS ORDERED: Iohexol 350 MG/100 ML VIAL ONE (11:08)
--- NOTE | 2018-11-24 11:46 | CP.PCM.PN ---
<Darrion Young - Last Filed: 11/24/18 11:38> Subjective - Date & Time of Evaluation Date of Evaluation: 11/24/18 Time of Evaluation: 11:38 - Subjective Subjective: PGY-1 Medicine Progress Note for Dr. Lundberg Patient seen and evaluated at bedside. Reports 1 episode of vomiting overnight. Patient remains to be afebrile. He denies passing gas or having any bowel movement. Complains of abdominal pain around the surgical site. Ajay draining 85cc of murky brown output. Objective - Vital Signs/Intake and Output Vital Signs (last 24 hours): Temp Pulse Resp BP Pulse Ox 97.9 F 85 18 140/90 97 11/24/18 08:17 11/24/18 08:17 11/24/18 08:17 11/24/18 08:17 11/24/18 08:17 Intake and Output: 11/24/18 11/24/18 06:59 18:59 Intake Total Output Total Balance - Medications Medications: Current Medications Dextrose (Dextrose 50% Inj) 0 ml IV STAT PRN; Protocol PRN Reason: Hypoglycemia Protocol Folic Acid (Folic Acid) 1 mg PO DAILY [facility] Last Admin: 11/24/18 10:26 Dose: Not Given Heparin Sodium (Porcine) (Heparin) 5,000 units SC Q8 [facility]; Protocol Last Admin: 11/24/18 06:36 Dose: 5,000 units Hydromorphone HCl (Dilaudid) 0.5 mg IVP Q3H PRN PRN Reason: Pain, severe (8-10) Last Admin: 11/24/18 01:50 Dose: 0.5 mg Dextrose (Dextrose 5% In Water 1000 Ml) 1,000 mls @ 0 mls/hr IV .Q0M PRN; Protocol PRN Reason: Hypoglycemia Protocol Piperacillin Sod/Tazobactam Sod (Zosyn 4.5 Gm In Ns 100ml) 4.5 gm in 100 mls @ 25 mls/hr IVPB Q8 [facility]; Protocol Stop: 11/30/18 22:01 Last Admin: 11/24/18 06:35 Dose: 25 mls/hr Dextrose/Sodium Chloride (Dextrose 5%/0.45% Ns 1000 Ml) 1,000 mls @ 100 mls/hr IV .Q10H [facility] Last Admin: 03/10/19 10:27 Dose: 100 mls/hr Insulin Human Regular (Humulin R Low) 0 units SC ACHS [facility]; Protocol Last Admin: 11/24/18 07:45 Dose: Not Given Ketorolac Tromethamine (Toradol) 15 mg IVP Q6H [facility] Stop: 11/25/18 22:01 Last Admin: 11/24/18 10:27 Dose: 15 mg Lorazepam (Ativan) 1 mg IVP Q6H PRN; Protocol PRN Reason: Anxiety Last Admin: 11/23/18 11:14 Dose: 1 mg Multivitamins/Minerals (Therapeutic-M Tab) 1 tab PO 0800 [facility] Last Admin: 11/24/18 10:26 Dose: Not Given Ondansetron HCl (Zofran Inj) 4 mg IVP Q6H PRN PRN Reason: Nausea/Vomiting Last Admin: 11/23/18 17:13 Dose: 4 mg Pantoprazole Sodium (Protonix Inj) 40 mg IVP DAILY [facility] Last Admin: 11/24/18 10:29 Dose: 40 mg Thiamine HCl (Vitamin B1 Tab) 100 mg PO DAILY [facility] Last Admin: 11/24/18 10:29 Dose: Not Given Tramadol HCl (Ultram) 50 mg PO Q6H PRN PRN Reason: Pain, moderate (4-7) Last Admin: 11/23/18 17:13 Dose: 50 mg - Labs Labs: 11/24/18 07:00 11/24/18 07:00 PT 14.6 SECONDS (9.4-12.5) H 11/21/18 10:45 INR 1.29 11/21/18 10:45 APTT 30.6 Seconds (26.9-38.3) 11/21/18 10:45 - Additional Findings Additional findings: - Constitutional Appears: Well, Non-toxic, No Acute Distress - Head Exam Head Exam: ATRAUMATIC, NORMAL INSPECTION - Eye Exam Eye Exam: EOMI, Normal appearance - ENT Exam ENT Exam: Mucous Membranes Moist - Respiratory Exam Respiratory Exam: Clear to Ausculation Bilateral. absent: Rales, Rhonchi, Wheezes, Respiratory Distress - Cardiovascular Exam Cardiovascular Exam: REGULAR RHYTHM, +S1, +S2. absent: Gallop, Rubs, Murmur - GI/Abdominal Exam GI & Abdominal Exam: Soft, Tenderness (Tender around surgical site), Normal Bowel Sounds. absent: Distended Additional comments: Abdominal binder in place. 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 Patient is s/p exploratory laparotomy and right hemicolectomy. Plan: Colonic Obstruction w/ intraabdominal abscess 2/2 Malignancy - Patient underwent exploratory laparotomy and right hemicolectomy with signs of cecal ischemia 2/2 obstructing mass and possible malignancy (11/21/18) - Pending surgical biopsy pathology - CT abd/pelvis with PO/IV contrast: pending - NPO for CT abd/pelvis today, advance diet as per surgery - Zosyn 4.5g IV Q8H (Started on 11/21) - Dilaudid 0.5mg IV Q3 PRN - Toradol 15mg IVP Q6 [facility] - Tramadol 50mg PO Q6 PRN - Lactated Ringers @ 100cc/hr - Zofran PRN - Incentive spirometer use - CA 19-9 elevated - CEA,AFP WNL - Infectious disease consulted, Dr. Lipscomb - GI consulted, Dr. Cleary - Surgery consulted, Dr. Storey Leukocytosis - Zosyn 4.5g IV Q8H (Started on 11/21) - Infectious Disease consulted - Continue to monitor Transaminitis - Hepatitis panel negative - Gastroenterology consulted - Continue to monitor Alcohol Abuse - CIWA protocol - Ativan 1mg IV Q6 PRN - MV/Thiamine/Folic Acid - Continue to monitor for withdrawal PPX: GI: Protonix 40mg QD DVT: Heparin 5000 units SC Q8 and SCDs Patient seen and plan discussed with attending, Dr. Tamika Young, PGY-1 <Aston Lundberg - Last Filed: 11/24/18 12:09> Objective - Vital Signs/Intake and Output Vital Signs (last 24 hours): Temp Pulse Resp BP Pulse Ox 97.9 F 85 18 140/90 97 11/24/18 08:17 11/24/18 08:17 11/24/18 08:17 11/24/18 08:17 11/24/18 08:17 Intake and Output: 11/24/18 11/24/18 06:59 18:59 Intake Total Output Total Balance - Medications Medications: Current Medications Dextrose (Dextrose 50% Inj) 0 ml IV STAT PRN; Protocol PRN Reason: Hypoglycemia Protocol Folic Acid (Folic Acid) 1 mg PO DAILY [facility] Last Admin: 11/24/18 10:26 Dose: Not Given Heparin Sodium (Porcine) (Heparin) 5,000 units SC Q8 [facility]; Protocol Last Admin: 11/24/18 06:36 Dose: 5,000 units Hydromorphone HCl (Dilaudid) 0.5 mg IVP Q3H PRN PRN Reason: Pain, severe (8-10) Last Admin: 11/24/18 01:50 Dose: 0.5 mg Dextrose (Dextrose 5% In Water 1000 Ml) 1,000 mls @ 0 mls/hr IV .Q0M PRN; Protocol PRN Reason: Hypoglycemia Protocol Piperacillin Sod/Tazobactam Sod (Zosyn 4.5 Gm In Ns 100ml) 4.5 gm in 100 mls @ 25 mls/hr IVPB Q8 [facility]; Protocol Stop: 11/30/18 22:01 Last Admin: 11/24/18 06:35 Dose: 25 mls/hr Dextrose/Sodium Chloride (Dextrose 5%/0.45% Ns 1000 Ml) 1,000 mls @ 100 mls/hr IV .Q10H [facility] Last Admin: 11/24/18 10:27 Dose: 100 mls/hr Insulin Human Regular (Humulin R Low) 0 units SC ACHS [facility]; Protocol Last Admin: 11/24/18 07:45 Dose: Not Given Ketorolac Tromethamine (Toradol) 15 mg IVP Q6H [facility] Stop: 11/25/18 22:01 Last Admin: 11/24/18 10:27 Dose: 15 mg Lorazepam (Ativan) 1 mg IVP Q6H PRN; Protocol PRN Reason: Anxiety Last Admin: 11/23/18 11:14 Dose: 1 mg Multivitamins/Minerals (Therapeutic-M Tab) 1 tab PO 0800 [facility] Last Admin: 11/24/18 10:26 Dose: Not Given Ondansetron HCl (Zofran Inj) 4 mg IVP Q6H PRN PRN Reason: Nausea/Vomiting Last Admin: 11/23/18 17:13 Dose: 4 mg Pantoprazole Sodium (Protonix Inj) 40 mg IVP DAILY [facility] Last Admin: 11/24/18 10:29 Dose: 40 mg Thiamine HCl (Vitamin B1 Tab) 100 mg PO DAILY [facility] Last Admin: 11/24/18 10:29 Dose: Not Given Tramadol HCl (Ultram) 50 mg PO Q6H PRN PRN Reason: Pain, moderate (4-7) Last Admin: 11/23/18 17:13 Dose: 50 mg - Labs Labs: 11/24/18 07:00 11/24/18 07:00 PT 14.6 SECONDS (9.4-12.5) H 11/21/18 10:45 INR 1.29 11/21/18 10:45 APTT 30.6 Seconds (26.9-38.3) 11/21/18 10:45 Attending/Attestation - Attestation I have personally seen and examined this patient.: Yes I have fully participated in the care of the patient.: Yes I have reviewed all pertinent clinical information, including history, physical exam and plan: Yes Notes (Text): 11/24/18 12:08 Medical record note made by the resident after discussion with my direction and input after the patient was personally seen and examined by me. I have reviewed the chart and agree that the record accurately reflects by personal performance of the history, physical exam, data review, and medical decision-making, in the course for the patient. I have also personally directed the plan of care. 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 Patient was evaluated by surgery and underwent exploratory laparotomy , was found to have right colon obstruction and intra-abdominal abscess. Patient is SP right hemicolectomy and drainage of abscess. Pathology results are pending. Patient is on IV zosyn as per ID.Wound cultures are growing gram negative cara, Surgery follow up is appreciated. We will follow up repeat CT abdomen and Pelvis. There is no sign of alcohol withdrawal at this time. Prognosis is guarded.
--- NOTE | 2018-11-24 13:31 | CP.PCM.PN ---
Subjective - Date & Time of Evaluation Date of Evaluation: 11/24/18 Time of Evaluation: 10:08 - Subjective Subjective: PGY-4 GI Fellow Prog Note Pt lying in bed when seen this AM. Tolerating liq diet, but still w/o flatus nor BM. Abd pain persists. 5 point ROS negative other than stated above Objective - Vital Signs/Intake and Output Vital Signs (last 24 hours): Temp Pulse Resp BP Pulse Ox 97.9 F 85 18 140/90 97 11/24/18 08:17 11/24/18 08:17 11/24/18 08:17 11/24/18 08:17 11/24/18 08:17 Intake and Output: 11/24/18 11/24/18 06:59 18:59 Intake Total Output Total Balance - Medications Medications: Current Medications Dextrose (Dextrose 50% Inj) 0 ml IV STAT PRN; Protocol PRN Reason: Hypoglycemia Protocol Folic Acid (Folic Acid) 1 mg PO DAILY [facility] Last Admin: 11/24/18 10:26 Dose: Not Given Heparin Sodium (Porcine) (Heparin) 5,000 units SC Q8 [facility]; Protocol Last Admin: 11/24/18 06:36 Dose: 5,000 units Hydromorphone HCl (Dilaudid) 0.5 mg IVP Q3H PRN PRN Reason: Pain, severe (8-10) Last Admin: 11/24/18 01:50 Dose: 0.5 mg Dextrose (Dextrose 5% In Water 1000 Ml) 1,000 mls @ 0 mls/hr IV .Q0M PRN; Protocol PRN Reason: Hypoglycemia Protocol Piperacillin Sod/Tazobactam Sod (Zosyn 4.5 Gm In Ns 100ml) 4.5 gm in 100 mls @ 25 mls/hr IVPB Q8 [facility]; Protocol Stop: 11/30/18 22:01 Last Admin: 11/24/18 06:35 Dose: 25 mls/hr Dextrose/Sodium Chloride (Dextrose 5%/0.45% Ns 1000 Ml) 1,000 mls @ 100 mls/hr IV .Q10H [facility] Last Admin: 11/24/18 10:27 Dose: 100 mls/hr Insulin Human Regular (Humulin R Low) 0 units SC ACHS [facility]; Protocol Last Admin: 11/24/18 13:21 Dose: Not Given Ketorolac Tromethamine (Toradol) 15 mg IVP Q6H [facility] Stop: 11/25/18 22:01 Last Admin: 11/24/18 10:27 Dose: 15 mg Lorazepam (Ativan) 1 mg IVP Q6H PRN; Protocol PRN Reason: Anxiety Last Admin: 11/23/18 11:14 Dose: 1 mg Multivitamins/Minerals (Therapeutic-M Tab) 1 tab PO 0800 [facility] Last Admin: 11/24/18 10:26 Dose: Not Given Ondansetron HCl (Zofran Inj) 4 mg IVP Q6H PRN PRN Reason: Nausea/Vomiting Last Admin: 11/23/18 17:13 Dose: 4 mg Pantoprazole Sodium (Protonix Inj) 40 mg IVP DAILY [facility] Last Admin: 11/24/18 10:29 Dose: 40 mg Thiamine HCl (Vitamin B1 Tab) 100 mg PO DAILY [facility] Last Admin: 11/24/18 10:29 Dose: Not Given Tramadol HCl (Ultram) 50 mg PO Q6H PRN PRN Reason: Pain, moderate (4-7) Last Admin: 11/23/18 17:13 Dose: 50 mg - Labs Labs: 11/24/18 07:00 11/24/18 07:00 PT 14.6 SECONDS (9.4-12.5) H 11/21/18 10:45 INR 1.29 11/21/18 10:45 APTT 30.6 Seconds (26.9-38.3) 11/21/18 10:45 - Constitutional Appears: No Acute Distress, Chronically Ill - Head Exam Head Exam: ATRAUMATIC, NORMAL INSPECTION - Eye Exam Eye Exam: EOMI. absent: Scleral icterus - ENT Exam ENT Exam: Mucous Membranes Moist. absent: Mucous Membranes Dry - Respiratory Exam Respiratory Exam: NORMAL BREATHING PATTERN. absent: Accessory Muscle Use - GI/Abdominal Exam GI & Abdominal Exam: Distended (mildly), Soft, Tenderness (mildly ttp but binder in place limiting exam), Hypoactive Bowel Sounds. absent: Bruit, Firm, Guarding, Rigid Assessment and Plan - Assessment and Plan (Free Text) Assessment: #Suspected acute cholecystitis and possible abscess formation causing colonic obstruction, concern for underlying malignancy as well. S/p R hemicolectomy. #alcoholism #depression #Abnormal live tests: Cholecystitis, DILI, vs other Plan: -Previous CT scans reviewed and no obvious GB mass malignancy at that time 08/2018. Status post exploratory laparotomy and hemicolectomy 11/21/[address] scan ordered by Gen Surg; await results -Diet per surgical team Case discussed with Dr. Cleary, see attestation.
--- NOTE | 2018-11-24 14:19 | PN ---
DATE: 11/24/2018 SUBJECTIVE: The patient is in bed in no acute distress, nontoxic. PHYSICAL EXAMINATION: VITAL SIGNS: Temperature is 97, blood pressure is 140/90, respiratory rate of 18, heart rate of . HEENT: Unremarkable. NECK: Supple. LUNGS: Have decreased breath sounds. HEART: Normal S1, S2. ABDOMEN: Soft, nontender. LABORATORY EXAMINATION: Reveals a white count of 10,000, hemoglobin of 10, platelets of 163. BUN of 10, creatinine of 0.6. Toxicology is noted. Serology is noted. Microbiology reveals a Gram-negative cara from the abdominal fluid. Blood cultures are negative. Review of orders reveals the patient is on Zosyn. White count is normalized today. Dr. Aston Lundberg's progress note from today is reviewed. Dr. Storey's progress note is reviewed. ASSESSMENT AND PLAN: This is a 58-year-old male who was admitted with sepsis, status post exploratory laparotomy, right jesus colectomy with a mass with a Gram-negative cara for a peritoneal fluid on Zosyn. Awaiting for identification sensitivity, Gram-negative cara and awaiting also for the pathology report. The patient is doing well. May be able to switch to p.o. antibiotics soon. Gene Lipscomb MD
--- NOTE | 2018-11-24 14:38 | CT ---
Date of service: 11/24/2018 PROCEDURE: CT Abdomen and Pelvis with contrast HISTORY: r/o intraabd collection; feculent drainage from right jesus abdomen drainage catheter status post right hemicolectomy 11/21/2018. 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 COMPARISON: Abdomen pelvis CT with contrast 11/21/2017. TECHNIQUE: Following oral and intravenous contrast administration, a CT examination of the abdomen and pelvis was performed from the domes of the diaphragms to the symphysis pubis with reformatted datasets provided not only axial but also sagittal and coronal series. Contrast dose: Omnipaque 350, 96 cc Radiation dose: Total exam DLP = 345.95 mGy-cm. This CT exam was performed using one or more of the following dose reduction techniques: Automated exposure control, adjustment of the mA and/or kV according to patient size, and/or use of iterative reconstruction technique. FINDINGS: LOWER THORAX: Mild bilateral pleural effusions have developed exerting limited compressive atelectasis at the bilateral lower lobes. Pulmonary emphysema reiterated. LIVER: Hepatic granulomata again noted near the dome. Mild periportal edema is appreciated which is a nonspecific finding in the liver. GALLBLADDER AND BILE DUCTS: The gallbladder remains thickened but is partially contracted as well with pericholecystic fluid present once again. Enhancement is seen related to this fluid collection periphery which measures 3.6 x 3.3 cm at the gallbladder fossa and 3.3 x 4.2 cm inferomedial to the inferior margins of the gallbladder. Minimal cholelithiasis is questioned at the dependent gallbladder. PANCREAS: Unremarkable. No gross lesion or ductal dilatation. SPLEEN: Unremarkable. ADRENALS: Unremarkable. No mass. KIDNEYS AND URETERS: Tiny lucency seen related to the upper pole right kidney too small to characterize with similar focus at the left kidney as well. No interval obstructive uropathy bilaterally VASCULATURE: Nonaneurysmal abdominal aortic calcific atherosclerotic changes are identified. BOWEL: Patient is status post right hemicolectomy in the interval with unremarkable appearing anastomotic suture line at the ileocolic anastomosis at the right jesus abdomen. No advanced abscess is seen associated with the anastomosis or throughout any other segment of the abdomen although residual limited abscess at the gallbladder fossa/inferior gallbladder region remains as discussed above. Distended small and large bowel loops are identified with fluid and gas suggestive of postoperative ileus developing. APPENDIX: Status post right hemicolectomy. PERITONEUM: Right jesus abdomen peritoneal drain in situ approximating the inferior margins of the abscess related to the gallbladder. Trace free intrarenal gas is scattered in the nondependent abdomen postoperatively. None is seen related to the anastomotic suture line right jesus abdomen. LYMPH NODES: No significant lymphadenopathy. BLADDER: Urinary bladder is mildly distended and is partially involved with a left inguinal hernia. REPRODUCTIVE: Enlarged prostate gland. BONES: No acute fracture. OTHER FINDINGS: None. IMPRESSION: 1. Status post right hemicolectomy with mild ileus developing. Trace postoperative free intrarenal gas identified. No large/advanced peritoneal abscess is appreciated. Right jesus abdomen peritoneal drain is identified postoperatively, however, small abscesses are seen related to a contracted, thick-walled gallbladder both at the gallbladder fossa and inferior to it. The peritoneal drain approximates the inferior collection. Ileocolic anastomotic suture line appears intact. 2. Left inguinal hernia now involves a segment of the urinary bladder. Findings discussed with Dr. Mitchell with written down read back verification 11/24/2018 2:20 p.m..
--- NOTE | 2018-11-24 18:39 | CP.PCM.PN ---
Subjective - Date & Time of Evaluation Date of Evaluation: 11/22/18 Time of Evaluation: 07:00 - Subjective Subjective: Patient seen and examined. No acute events over night. Denies passing flatus. 600cc/12 hr UOP. 25cc serosanguinous output from [facility]. Objective - Vital Signs/Intake and Output Vital Signs (last 24 hours): Temp Pulse Resp BP Pulse Ox 97.4 F L 96 H 18 159/97 H 93 L 11/24/18 14:00 11/24/18 14:00 11/24/18 14:00 11/24/18 14:00 11/24/18 14:00 Intake and Output: 11/24/18 11/24/18 06:59 18:59 Intake Total Output Total Balance - Medications Medications: Current Medications Dextrose (Dextrose 50% Inj) 0 ml IV STAT PRN; Protocol PRN Reason: Hypoglycemia Protocol Folic Acid (Folic Acid) 1 mg PO DAILY [facility] Last Admin: 11/24/18 10:26 Dose: Not Given Heparin Sodium (Porcine) (Heparin) 5,000 units SC Q8 [facility]; Protocol Last Admin: 11/24/18 14:27 Dose: 5,000 units Hydromorphone HCl (Dilaudid) 0.5 mg IVP Q3H PRN PRN Reason: Pain, severe (8-10) Last Admin: 11/24/18 13:49 Dose: 0.5 mg Dextrose (Dextrose 5% In Water 1000 Ml) 1,000 mls @ 0 mls/hr IV .Q0M PRN; Protocol PRN Reason: Hypoglycemia Protocol Piperacillin Sod/Tazobactam Sod (Zosyn 4.5 Gm In Ns 100ml) 4.5 gm in 100 mls @ 25 mls/hr IVPB Q8 [facility]; Protocol Stop: 11/30/18 22:01 Last Admin: 11/24/18 14:27 Dose: 25 mls/hr Dextrose/Sodium Chloride (Dextrose 5%/0.45% Ns 1000 Ml) 1,000 mls @ 100 mls/hr IV .Q10H [facility] Last Admin: 11/24/18 10:27 Dose: 100 mls/hr Insulin Human Regular (Humulin R Low) 0 units SC ACHS [facility]; Protocol Last Admin: 11/24/18 16:34 Dose: Not Given Ketorolac Tromethamine (Toradol) 15 mg IVP Q6H [facility] Stop: 11/25/18 22:01 Last Admin: 11/24/18 10:27 Dose: 15 mg Lorazepam (Ativan) 1 mg IVP Q6H PRN; Protocol PRN Reason: Anxiety Last Admin: 11/23/18 11:14 Dose: 1 mg Multivitamins/Minerals (Therapeutic-M Tab) 1 tab PO 0800 [facility] Last Admin: 11/24/18 10:26 Dose: Not Given Ondansetron HCl (Zofran Inj) 4 mg IVP Q6H PRN PRN Reason: Nausea/Vomiting Last Admin: 11/23/18 17:13 Dose: 4 mg Pantoprazole Sodium (Protonix Inj) 40 mg IVP DAILY [facility] Last Admin: 11/24/18 10:29 Dose: 40 mg Thiamine HCl (Vitamin B1 Tab) 100 mg PO DAILY [facility] Last Admin: 11/24/18 10:29 Dose: Not Given Tramadol HCl (Ultram) 50 mg PO Q6H PRN PRN Reason: Pain, moderate (4-7) Last Admin: 11/23/18 17:13 Dose: 50 mg - Labs Labs: 11/24/18 07:00 11/24/18 07:00 PT 14.6 SECONDS (9.4-12.5) H 11/21/18 10:45 INR 1.29 11/21/18 10:45 APTT 30.6 Seconds (26.9-38.3) 11/21/18 10:45 - Constitutional Appears: No Acute Distress - Head Exam Head Exam: NORMOCEPHALIC - Eye Exam Eye Exam: EOMI, Normal appearance - ENT Exam ENT Exam: Mucous Membranes Moist - Respiratory Exam Respiratory Exam: NORMAL BREATHING PATTERN - Cardiovascular Exam Cardiovascular Exam: +S1, +S2 - GI/Abdominal Exam GI & Abdominal Exam: Soft, Tenderness - Neurological Exam Neurological Exam: Alert, Awake, Oriented x3 - Psychiatric Exam Psychiatric exam: Normal Mood - Skin Skin Exam: Dry, Warm Assessment and Plan - Assessment and Plan (Free Text) Assessment: 58M s/p extended right hemicolectomy 2/2 obstruction at hepatic flexure likely related to gallbladder CA vs. 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 Raleigh Gilmore PGY3
--- NOTE | 2018-11-24 18:50 | CP.PCM.PN ---
Subjective - Date & Time of Evaluation Date of Evaluation: 11/23/18 Time of Evaluation: 07:00 - Subjective Subjective: Patient seen and examined. No acute events over night. Complaining of incisional site pain. Denies n/v. Denies passing flatus. Tolerated liquids. 160ccs/24 larissa drain output serosanguinous with sediment. Objective - Vital Signs/Intake and Output Vital Signs (last 24 hours): Temp Pulse Resp BP Pulse Ox 97.4 F L 96 H 18 159/97 H 93 L 11/24/18 14:00 11/24/18 14:00 11/24/18 14:00 11/24/18 14:00 11/24/18 14:00 Intake and Output: 11/24/18 11/24/18 06:59 18:59 Intake Total Output Total Balance - Medications Medications: Current Medications Dextrose (Dextrose 50% Inj) 0 ml IV STAT PRN; Protocol PRN Reason: Hypoglycemia Protocol Folic Acid (Folic Acid) 1 mg PO DAILY [facility] Last Admin: 11/24/18 10:26 Dose: Not Given Heparin Sodium (Porcine) (Heparin) 5,000 units SC Q8 [facility]; Protocol Last Admin: 11/24/18 14:27 Dose: 5,000 units Hydromorphone HCl (Dilaudid) 0.5 mg IVP Q3H PRN PRN Reason: Pain, severe (8-10) Last Admin: 11/24/18 13:49 Dose: 0.5 mg Dextrose (Dextrose 5% In Water 1000 Ml) 1,000 mls @ 0 mls/hr IV .Q0M PRN; Protocol PRN Reason: Hypoglycemia Protocol Piperacillin Sod/Tazobactam Sod (Zosyn 4.5 Gm In Ns 100ml) 4.5 gm in 100 mls @ 25 mls/hr IVPB Q8 [facility]; Protocol Stop: 11/30/18 22:01 Last Admin: 11/24/18 14:27 Dose: 25 mls/hr Dextrose/Sodium Chloride (Dextrose 5%/0.45% Ns 1000 Ml) 1,000 mls @ 100 mls/hr IV .Q10H [facility] Last Admin: 11/24/18 18:41 Dose: 100 mls/hr Insulin Human Regular (Humulin R Low) 0 units SC ACHS [facility]; Protocol Last Admin: 11/24/18 16:34 Dose: Not Given Ketorolac Tromethamine (Toradol) 15 mg IVP Q6H [facility] Stop: 11/25/18 22:01 Last Admin: 11/24/18 18:41 Dose: 15 mg Lorazepam (Ativan) 1 mg IVP Q6H PRN; Protocol PRN Reason: Anxiety Last Admin: 11/23/18 11:14 Dose: 1 mg Multivitamins/Minerals (Therapeutic-M Tab) 1 tab PO 0800 [facility] Last Admin: 11/24/18 10:26 Dose: Not Given Ondansetron HCl (Zofran Inj) 4 mg IVP Q6H PRN PRN Reason: Nausea/Vomiting Last Admin: 11/23/18 17:13 Dose: 4 mg Pantoprazole Sodium (Protonix Inj) 40 mg IVP DAILY [facility] Last Admin: 11/24/18 10:29 Dose: 40 mg Thiamine HCl (Vitamin B1 Tab) 100 mg PO DAILY [facility] Last Admin: 11/24/18 10:29 Dose: Not Given Tramadol HCl (Ultram) 50 mg PO Q6H PRN PRN Reason: Pain, moderate (4-7) Last Admin: 11/23/18 17:13 Dose: 50 mg - Labs Labs: 11/24/18 07:00 11/24/18 07:00 PT 14.6 SECONDS (9.4-12.5) H 11/21/18 10:45 INR 1.29 11/21/18 10:45 APTT 30.6 Seconds (26.9-38.3) 11/21/18 10:45 - Constitutional Appears: No Acute Distress - Head Exam Head Exam: NORMOCEPHALIC - Eye Exam Eye Exam: Normal appearance (f) Pupil Exam: NORMAL ACCOMODATION - ENT Exam ENT Exam: Mucous Membranes Moist - Respiratory Exam Respiratory Exam: NORMAL BREATHING PATTERN - Cardiovascular Exam Cardiovascular Exam: +S1, +S2 - GI/Abdominal Exam GI & Abdominal Exam: Soft, Tenderness. absent: Firm, Guarding, Rigid, Rebound - Psychiatric Exam Psychiatric exam: Normal Mood - Skin Skin Exam: Dry, Warm Assessment and Plan - Assessment and Plan (Free Text) Assessment: 58M s/p extended right hemicolectomy 2/2 obstruction at hepatic flexure likely related to gallbladder CA vs. chronic cholecystitis and abscess formation POD 2 Plan: C/w CLD IVF Analgesics prn Anti-emetics prn ABx per ID DVT ppx I&O's OOB to chair Encourage IS use Culture larissa drain fluid JAKE D/w Dr. Raleigh Gilmore PGY3
[2018-11-25] MEDS: HYDROmorphone 0.5 mg/0.5 ml ISec IVP PRN ×5 (01:23→20:50)
[2018-11-25] MEDS: Dextrose 5%/0.45% NS 1,000 ML IV SCH (04:00)
[2018-11-25] MEDS: Piperacill/Tazo 4.5gm in NS 4.5 GM/100 ML BAG IVPB SCH ×4 (05:45→21:06)
[2018-11-25 08:01] LABS: HEMOGLOBIN 10.3 g/dL (14.0-18.0); MEAN CELL VOLUME 92.6 fl (80.0-105.0); MEAN CORPUSCULAR HEMOGLOBIN 31.7 pg (25.0-35.0); MEAN CORPUSCULAR HGB CONC 34.2 g/dl (31.0-37.0); MEAN PLATELET VOLUME 9.8 fl (7.0-11.0); RBC 3.25 10^6/uL (3.5-6.1); RED CELL DISTRIBUTION WIDTH 13.8 % (11.5-14.5); WHITE BLOOD COUNT 10.4 10^3/uL (4.5-11.0)
[2018-11-25 08:16] LABS: ALB/GLOB RATIO 0.8 (1.1-1.8); ALBUMIN 2.6 g/dL (3.0-4.8); ALT/SGPT 30 U/L (7-56); AST/SGOT 30 U/L (17-59); BLOOD UREA NITROGEN 7 mg/dL (7-21); CALCIUM 8.2 mg/dL (8.4-10.5); GFR NON-AFRICAN AMERICAN > 60
[2018-11-25] MEDS: Insulin Reg-LOW-Coverage SC SCH ×4 (08:32→21:05)
[2018-11-25] MEDS ORDERED: Potassium Chloride 20 mEq ER Tab PO STA (08:40)
--- NOTE | 2018-11-25 09:04 | CP.PCM.PN ---
Subjective - Date & Time of Evaluation Date of Evaluation: 11/25/18 Time of Evaluation: 07:05 - Subjective Subjective: General Surgery progress note for Dr. Storey Patient seen an examined this am at bedside. patient tolerating diet well. no n/v overnight. 80 cc serosanguinous larissa drain output. Objective - Vital Signs/Intake and Output Vital Signs (last 24 hours): Temp Pulse Resp BP Pulse Ox 98.5 F 96 H 20 162/102 H 92 L 11/25/18 06:00 11/25/18 06:00 11/25/18 06:00 11/25/18 06:00 11/25/18 06:00 Intake and Output: 11/25/18 11/25/18 06:59 18:59 Output Total 620 Balance -620 - Medications Medications: Current Medications Dextrose (Dextrose 50% Inj) 0 ml IV STAT PRN; Protocol PRN Reason: Hypoglycemia Protocol Folic Acid (Folic Acid) 1 mg PO DAILY [facility] Last Admin: 11/24/18 10:26 Dose: Not Given Heparin Sodium (Porcine) (Heparin) 5,000 units SC Q8 [facility]; Protocol Last Admin: 11/25/18 05:45 Dose: 5,000 units Hydromorphone HCl (Dilaudid) 0.5 mg IVP Q3H PRN PRN Reason: Pain, severe (8-10) Last Admin: 11/25/18 05:48 Dose: 0.5 mg Dextrose (Dextrose 5% In Water 1000 Ml) 1,000 mls @ 0 mls/hr IV .Q0M PRN; Protocol PRN Reason: Hypoglycemia Protocol Piperacillin Sod/Tazobactam Sod (Zosyn 4.5 Gm In Ns 100ml) 4.5 gm in 100 mls @ 25 mls/hr IVPB Q8 [facility]; Protocol Stop: 11/30/18 22:01 Last Admin: 11/25/18 05:45 Dose: 25 mls/hr Dextrose/Sodium Chloride (Dextrose 5%/0.45% Ns 1000 Ml) 1,000 mls @ 100 mls/hr IV .Q10H [facility] Last Admin: 11/25/18 04:00 Dose: 100 mls/hr Insulin Human Regular (Humulin R Low) 0 units SC ACHS [facility]; Protocol Last Admin: 11/25/18 08:32 Dose: Not Given Ketorolac Tromethamine (Toradol) 15 mg IVP Q6H [facility] Stop: 11/25/18 22:01 Last Admin: 11/25/18 04:35 Dose: 15 mg Lorazepam (Ativan) 1 mg IVP Q6H PRN; Protocol PRN Reason: Anxiety Last Admin: 11/25/18 00:30 Dose: 1 mg Multivitamins/Minerals (Therapeutic-M Tab) 1 tab PO 0800 [facility] Last Admin: 11/24/18 10:26 Dose: Not Given Ondansetron HCl (Zofran Inj) 4 mg IVP Q6H PRN PRN Reason: Nausea/Vomiting Last Admin: 11/23/18 17:13 Dose: 4 mg Pantoprazole Sodium (Protonix Inj) 40 mg IVP DAILY [facility] Last Admin: 11/24/18 10:29 Dose: 40 mg Thiamine HCl (Vitamin B1 Tab) 100 mg PO DAILY [facility] Last Admin: 11/24/18 10:29 Dose: Not Given Tramadol HCl (Ultram) 50 mg PO Q6H PRN PRN Reason: Pain, moderate (4-7) Last Admin: 11/23/18 17:13 Dose: 50 mg - Labs Labs: 11/25/18 07:30 11/25/18 07:30 PT 14.6 SECONDS (9.4-12.5) H 11/21/18 10:45 INR 1.29 11/21/18 10:45 APTT 30.6 Seconds (26.9-38.3) 11/21/18 10:45 - Constitutional Appears: Well, Non-toxic, No Acute Distress - Head Exam Head Exam: ATRAUMATIC - Eye Exam Eye Exam: EOMI - ENT Exam ENT Exam: Mucous Membranes Moist - Respiratory Exam Respiratory Exam: NORMAL BREATHING PATTERN - Cardiovascular Exam Cardiovascular Exam: Tachycardia, REGULAR RHYTHM - GI/Abdominal Exam GI & Abdominal Exam: Soft, Tenderness (mild over midline incision). absent: Guarding, Rebound Additional comments: midline incision cdi, fortino in place - Extremities Exam Extremities Exam: absent: Calf Tenderness - Neurological Exam Neurological Exam: Alert, Awake, Oriented x3 - Psychiatric Exam Psychiatric exam: Normal Affect, Normal Mood - Skin Skin Exam: Dry, Intact, Normal Color, Warm Additional comments: incision dressing cdi Assessment and Plan - Assessment and Plan (Free Text) Assessment: 58yo M with hepatic flexure colonic obstruction due to intraabdominal mass. S/p Extended Right hemicolectomy with primary anastamosis. POD 5 Plan: - Drain output now serosanguinous - CT negative for anastamotic leak, continue FLD today - not currently scheduled for IR drain, will discuss with Dr. Kidd - Encourage OOBTC. Ambulation. IS use - Pain management - Strict Is & Os
[2018-11-25] MEDS: Multivitamin With Minerals Tab PO SCH (09:08)
--- NOTE | 2018-11-25 11:27 | CP.PCM.PN ---
<Brice Bowles - Last Filed: 11/25/18 23:45> Subjective - Date & Time of Evaluation Date of Evaluation: 11/25/18 Time of Evaluation: 10:27 - Subjective Subjective: Brice Bowles PGY2 GI Progress Note for Dr. Cleary Patient was seen and examined at bedside. He states that his abdominal pain is present but controlled, and he is passing gas but no BM. HE denies fevers/chills, n/v. There were no acute overnight events. He is tolerating liquid diet. Objective - Vital Signs/Intake and Output Vital Signs (last 24 hours): Temp Pulse Resp BP Pulse Ox 98.5 F 96 H 20 162/102 H 92 L 11/25/18 06:00 11/25/18 06:00 11/25/18 06:00 11/25/18 06:00 11/25/18 06:00 Intake and Output: 11/25/18 11/25/18 06:59 18:59 Output Total 620 Balance -620 - Medications Medications: Current Medications Dextrose (Dextrose 50% Inj) 0 ml IV STAT PRN; Protocol PRN Reason: Hypoglycemia Protocol Folic Acid (Folic Acid) 1 mg PO DAILY [facility] Last Admin: 11/25/18 09:08 Dose: 1 mg Heparin Sodium (Porcine) (Heparin) 5,000 units SC Q8 [facility]; Protocol Last Admin: 11/25/18 05:45 Dose: 5,000 units Hydromorphone HCl (Dilaudid) 0.5 mg IVP Q6H PRN PRN Reason: Pain, severe (8-10) Dextrose (Dextrose 5% In Water 1000 Ml) 1,000 mls @ 0 mls/hr IV .Q0M PRN; Protocol PRN Reason: Hypoglycemia Protocol Piperacillin Sod/Tazobactam Sod (Zosyn 4.5 Gm In Ns 100ml) 4.5 gm in 100 mls @ 25 mls/hr IVPB Q8 [facility]; Protocol Stop: 11/30/18 22:01 Last Admin: 11/25/18 05:45 Dose: 25 mls/hr Dextrose/Sodium Chloride (Dextrose 5%/0.45% Ns 1000 Ml) 1,000 mls @ 100 mls/hr IV .Q10H [facility] Last Admin: 11/25/18 04:00 Dose: 100 mls/hr Insulin Human Regular (Humulin R Low) 0 units SC ACHS [facility]; Protocol Last Admin: 11/25/18 08:32 Dose: Not Given Ketorolac Tromethamine (Toradol) 15 mg IVP Q6H [facility] Stop: 11/25/18 22:01 Last Admin: 11/25/18 04:35 Dose: 15 mg Lorazepam (Ativan) 1 mg IVP Q6H PRN; Protocol PRN Reason: Anxiety Last Admin: 11/25/18 00:30 Dose: 1 mg Multivitamins/Minerals (Therapeutic-M Tab) 1 tab PO 0800 [facility] Last Admin: 11/25/18 09:08 Dose: 1 tab Ondansetron HCl (Zofran Inj) 4 mg IVP Q6H PRN PRN Reason: Nausea/Vomiting Last Admin: 11/23/18 17:13 Dose: 4 mg Pantoprazole Sodium (Protonix Inj) 40 mg IVP DAILY [facility] Last Admin: 11/25/18 09:09 Dose: 40 mg Thiamine HCl (Vitamin B1 Tab) 100 mg PO DAILY [facility] Last Admin: 11/25/18 09:08 Dose: 100 mg Tramadol HCl (Ultram) 50 mg PO Q6H PRN PRN Reason: Pain, moderate (4-7) Last Admin: 11/23/18 17:13 Dose: 50 mg - Labs Labs: 11/25/18 07:30 11/25/18 07:30 PT 14.6 SECONDS (9.4-12.5) H 11/21/18 10:45 INR 1.29 11/21/18 10:45 APTT 30.6 Seconds (26.9-38.3) 11/21/18 10:45 - Constitutional Appears: Well, Non-toxic, No Acute Distress - Head Exam Head Exam: ATRAUMATIC, NORMAL INSPECTION, NORMOCEPHALIC - Eye Exam Eye Exam: EOMI, Normal appearance, PERRL Pupil Exam: NORMAL ACCOMODATION, PERRL - ENT Exam ENT Exam: Mucous Membranes Moist, Normal Exam - Neck Exam Neck Exam: Full ROM, Normal Inspection. absent: Lymphadenopathy - Respiratory Exam Respiratory Exam: Clear to Ausculation Bilateral, NORMAL BREATHING PATTERN. absent: Wheezes - Cardiovascular Exam Cardiovascular Exam: REGULAR RHYTHM, +S1, +S2. absent: Murmur - GI/Abdominal Exam GI & Abdominal Exam: Soft. absent: Distended, Guarding, Rigid, Tenderness Additional comments: abdomen binder in place drain in place - Extremities Exam Extremities Exam: Full ROM, Normal Inspection. absent: Joint Swelling, Pedal Edema - Back Exam Back Exam: NORMAL INSPECTION - Neurological Exam Neurological Exam: Alert, Awake, Normal Gait, Oriented x3 - Psychiatric Exam Psychiatric exam: Normal Affect, Normal Mood - Skin Skin Exam: Dry, Intact, Normal Color, Warm Assessment and Plan - Assessment and Plan (Free Text) Assessment: 58 year old male with a PMH of ETOH abuse admitted for suspected cholecystitis/abscess causing colonic obstruction vs malignancy, post-op for ex- lap w/ intra-abdominal abscess drainage and right hemicolectomy. Plan: - Pathology pending - cont Zosyn per ID recs - advance diet per surgery recs - PPI ppx Case was discussed with Attending, Dr. Cleary <Angelica Cleary V - Last Filed: 11/25/18 23:54> Objective - Vital Signs/Intake and Output Vital Signs (last 24 hours): Temp Pulse Resp BP Pulse Ox 98.5 F 102 H 19 157/82 H 91 L 11/25/18 21:26 11/25/18 21:26 11/25/18 21:26 11/25/18 21:26 11/25/18 21:26 Intake and Output: 11/25/18 11/26/18 18:59 06:59 Intake Total 360 Balance 360 - Medications Medications: Current Medications Dextrose (Dextrose 50% Inj) 0 ml IV STAT PRN; Protocol PRN Reason: Hypoglycemia Protocol Folic Acid (Folic Acid) 1 mg PO DAILY [facility] Last Admin: 11/25/18 09:08 Dose: 1 mg Heparin Sodium (Porcine) (Heparin) 5,000 units SC Q8 [facility]; Protocol Last Admin: 11/25/18 21:06 Dose: Not Given Hydromorphone HCl (Dilaudid) 0.5 mg IVP Q6H PRN PRN Reason: Pain, severe (8-10) Last Admin: 11/25/18 20:50 Dose: 0.5 mg Dextrose (Dextrose 5% In Water 1000 Ml) 1,000 mls @ 0 mls/hr IV .Q0M PRN; Protocol PRN Reason: Hypoglycemia Protocol Piperacillin Sod/Tazobactam Sod (Zosyn 4.5 Gm In Ns 100ml) 4.5 gm in 100 mls @ 25 mls/hr IVPB Q8 [facility]; Protocol Stop: 11/30/18 22:01 Last Admin: 11/25/18 21:06 Dose: Not Given Dextrose/Sodium Chloride (Dextrose 5%/0.45% Ns 1000 Ml) 1,000 mls @ 100 mls/hr IV .Q10H [facility] Last Admin: 11/25/18 04:00 Dose: 100 mls/hr Insulin Human Regular (Humulin R Low) 0 units SC ACHS [facility]; Protocol Last Admin: 11/25/18 21:05 Dose: Not Given Lorazepam (Ativan) 1 mg IVP Q6H [facility]; Protocol PRN Reason: Anxiety Last Admin: 11/25/18 23:13 Dose: 1 mg Multivitamins/Minerals (Therapeutic-M Tab) 1 tab PO 0800 [facility] Last Admin: 11/25/18 09:08 Dose: 1 tab Ondansetron HCl (Zofran Inj) 4 mg IVP Q6H PRN PRN Reason: Nausea/Vomiting Last Admin: 11/23/18 17:13 Dose: 4 mg Pantoprazole Sodium (Protonix Inj) 40 mg IVP DAILY [facility] Last Admin: 11/25/18 09:09 Dose: 40 mg Thiamine HCl (Vitamin B1 Tab) 100 mg PO DAILY [facility] Last Admin: 11/25/18 09:08 Dose: 100 mg Tramadol HCl (Ultram) 50 mg PO Q6H PRN PRN Reason: Pain, moderate (4-7) Last Admin: 11/23/18 17:13 Dose: 50 mg - Labs Labs: 11/25/18 07:30 11/25/18 07:30 PT 14.6 SECONDS (9.4-12.5) H 11/21/18 10:45 INR 1.29 11/21/18 10:45 APTT 30.6 Seconds (26.9-38.3) 11/21/18 10:45 Attending/Attestation - Attestation I have personally seen and examined this patient.: Yes I have fully participated in the care of the patient.: Yes I have reviewed all pertinent clinical information, including history, physical exam and plan: Yes Notes (Text): This is an addendum to GI progress report dictated by the medical office secretary. The patient was seen and examined earlier. Medical records, lab studies, imagings were reviewed. Last 24 hours events reviewed. Agreed with the above treatment plan as outlined in resident's notes with the addition of the following Repeat CAT scan was reviewed LFTs improving Probably gallbladder abscess Await for colon pathology Patient now was finally started passing flatus bowel movements Postop as per surgery 11/25/18 23:52
--- NOTE | 2018-11-25 12:29 | CP.PCM.PN ---
<IsraelChauncey - Last Filed: 11/25/18 12:26> Subjective - Date & Time of Evaluation Date of Evaluation: 11/25/18 Time of Evaluation: 12:26 - Subjective Subjective: Medicine Progress Note for Dr. Abebe 58M seen and evaluated at bedside this morning. No acute events overnight. Patient complains of abdominal pain. SHAY drain output 80cc serosanguinous overnight, currently 5cc serous fluid in drain. Patient is passing gas, had one small bowel movement, and voiding without difficulty. He is not ambulating. Denies f/c, n/v/d, SOB, CP, or urinary symptoms. Objective - Vital Signs/Intake and Output Vital Signs (last 24 hours): Temp Pulse Resp BP Pulse Ox 98.5 F 96 H 20 162/102 H 92 L 11/25/18 06:00 11/25/18 06:00 11/25/18 06:00 11/25/18 06:00 11/25/18 06:00 Intake and Output: 11/25/18 11/25/18 06:59 18:59 Output Total 620 Balance -620 - Medications Medications: Current Medications Dextrose (Dextrose 50% Inj) 0 ml IV STAT PRN; Protocol PRN Reason: Hypoglycemia Protocol Folic Acid (Folic Acid) 1 mg PO DAILY [facility] Last Admin: 11/25/18 09:08 Dose: 1 mg Heparin Sodium (Porcine) (Heparin) 5,000 units SC Q8 [facility]; Protocol Last Admin: 11/25/18 05:45 Dose: 5,000 units Hydromorphone HCl (Dilaudid) 0.5 mg IVP Q6H PRN PRN Reason: Pain, severe (8-10) Dextrose (Dextrose 5% In Water 1000 Ml) 1,000 mls @ 0 mls/hr IV .Q0M PRN; Protocol PRN Reason: Hypoglycemia Protocol Piperacillin Sod/Tazobactam Sod (Zosyn 4.5 Gm In Ns 100ml) 4.5 gm in 100 mls @ 25 mls/hr IVPB Q8 [facility]; Protocol Stop: 11/30/18 22:01 Last Admin: 11/25/18 05:45 Dose: 25 mls/hr Dextrose/Sodium Chloride (Dextrose 5%/0.45% Ns 1000 Ml) 1,000 mls @ 100 mls/hr IV .Q10H [facility] Last Admin: 11/25/18 04:00 Dose: 100 mls/hr Insulin Human Regular (Humulin R Low) 0 units SC ACHS [facility]; Protocol Last Admin: 11/25/18 12:00 Dose: Not Given Ketorolac Tromethamine (Toradol) 15 mg IVP Q6H [facility] Stop: 11/25/18 22:01 Last Admin: 11/25/18 04:35 Dose: 15 mg Lorazepam (Ativan) 1 mg IVP Q6H PRN; Protocol PRN Reason: Anxiety Last Admin: 11/25/18 00:30 Dose: 1 mg Multivitamins/Minerals (Therapeutic-M Tab) 1 tab PO 0800 [facility] Last Admin: 11/25/18 09:08 Dose: 1 tab Ondansetron HCl (Zofran Inj) 4 mg IVP Q6H PRN PRN Reason: Nausea/Vomiting Last Admin: 11/23/18 17:13 Dose: 4 mg Pantoprazole Sodium (Protonix Inj) 40 mg IVP DAILY [facility] Last Admin: 11/25/18 09:09 Dose: 40 mg Thiamine HCl (Vitamin B1 Tab) 100 mg PO DAILY [facility] Last Admin: 11/25/18 09:08 Dose: 100 mg Tramadol HCl (Ultram) 50 mg PO Q6H PRN PRN Reason: Pain, moderate (4-7) Last Admin: 11/23/18 17:13 Dose: 50 mg - Labs Labs: 11/25/18 07:30 11/25/18 07:30 PT 14.6 SECONDS (9.4-12.5) H 11/21/18 10:45 INR 1.29 11/21/18 10:45 APTT 30.6 Seconds (26.9-38.3) 11/21/18 10:45 - Constitutional Appears: Non-toxic, No Acute Distress - Head Exam Head Exam: ATRAUMATIC, NORMAL INSPECTION, NORMOCEPHALIC - Eye Exam Eye Exam: EOMI - ENT Exam ENT Exam: Mucous Membranes Moist - Respiratory Exam Respiratory Exam: NORMAL BREATHING PATTERN. absent: Respiratory Distress - Cardiovascular Exam Cardiovascular Exam: REGULAR RHYTHM. absent: Tachycardia - GI/Abdominal Exam GI & Abdominal Exam: Distended, Soft, Tenderness, Normal Bowel Sounds Additional comments: Abdominal binder in place w/ dressings c/d/i SHAY drain w/ serous output - Neurological Exam Neurological Exam: Alert, Awake, Oriented x3 - Psychiatric Exam Psychiatric exam: Normal Affect, Normal Mood - Skin Skin Exam: Dry, Intact, Normal Color, Warm Assessment and Plan - Assessment and Plan (Free Text) Assessment: 58M, PMH of EtOH abuse and depression, presented with peritonitis, admitted for suspected cecal volvulus vs perforation w/ intraabdominal abscess. Patient s/p exploratory laparotomy w/ extended right hemicolectomy and intraabdominal abscess drainage POD5. Plan: Colonic Obstruction w/ intraabdominal abscess 2/2 suspected Malignancy - POD5 exploratory laparotomy w/ extended right hemicolectomy and intraabdominal abscess drainage - Continue to monitor SHAY drain output - Body fluid cultures positive for Citrobacter Diversus - Pending surgrical pathology results - Repeat CTAP 11/24: Postoperative mild ileus, small abscesses. Left inguinal hernia w/ bladder in hernia sac. - Per ID, Zosyn started on 11/21/18 - Dilaudid decreased frequency to 0.5mg Q6H - Toradal and Tramadol for pain - Zofran for nausea - CLD, advance per Surgery - Monitor diet tolerance - Monitor bowel function - F/u GI recommendations: consider HIDA vs MRCP/MRI for further evaluation - F/u surgery recommendations: as of now, no further biopsy/drainage of gallbladder or fluid collection, per IR. Monitor closely. Hypokalemia - Repleted w/ K-Dur 40 mEq ONCE - Daily labs - Replete electrolytes PRN Hx of Alcohol Abuse - [facility] protocol - Ativan PRN - MV/Thiamine/Folate PPX GI: Protonix DVT: Heparin Patient plan discussed with Dr. Mis Wood PGY1 <Negar Abebe - Last Filed: 11/25/18 13:12> Objective - Vital Signs/Intake and Output Vital Signs (last 24 hours): Temp Pulse Resp BP Pulse Ox 98.5 F 96 H 20 162/102 H 92 L 11/25/18 06:00 11/25/18 06:00 11/25/18 06:00 11/25/18 06:00 11/25/18 06:00 Intake and Output: 11/25/18 11/25/18 06:59 18:59 Output Total 620 Balance -620 - Medications Medications: Current Medications Dextrose (Dextrose 50% Inj) 0 ml IV STAT PRN; Protocol PRN Reason: Hypoglycemia Protocol Folic Acid (Folic Acid) 1 mg PO DAILY [facility] Last Admin: 11/25/18 09:08 Dose: 1 mg Heparin Sodium (Porcine) (Heparin) 5,000 units SC Q8 [facility]; Protocol Last Admin: 11/25/18 05:45 Dose: 5,000 units Hydromorphone HCl (Dilaudid) 0.5 mg IVP Q6H PRN PRN Reason: Pain, severe (8-10) Dextrose (Dextrose 5% In Water 1000 Ml) 1,000 mls @ 0 mls/hr IV .Q0M PRN; Protocol PRN Reason: Hypoglycemia Protocol Piperacillin Sod/Tazobactam Sod (Zosyn 4.5 Gm In Ns 100ml) 4.5 gm in 100 mls @ 25 mls/hr IVPB Q8 [facility]; Protocol Stop: 11/30/18 22:01 Last Admin: 11/25/18 05:45 Dose: 25 mls/hr Dextrose/Sodium Chloride (Dextrose 5%/0.45% Ns 1000 Ml) 1,000 mls @ 100 mls/hr IV .Q10H [facility] Last Admin: 11/25/18 04:00 Dose: 100 mls/hr Insulin Human Regular (Humulin R Low) 0 units SC ACHS [facility]; Protocol Last Admin: 11/25/18 12:00 Dose: Not Given Ketorolac Tromethamine (Toradol) 15 mg IVP Q6H [facility] Stop: 11/25/18 22:01 Last Admin: 11/25/18 04:35 Dose: 15 mg Lorazepam (Ativan) 1 mg IVP Q6H PRN; Protocol PRN Reason: Anxiety Last Admin: 11/25/18 00:30 Dose: 1 mg Multivitamins/Minerals (Therapeutic-M Tab) 1 tab PO 0800 [facility] Last Admin: 11/25/18 09:08 Dose: 1 tab Ondansetron HCl (Zofran Inj) 4 mg IVP Q6H PRN PRN Reason: Nausea/Vomiting Last Admin: 11/23/18 17:13 Dose: 4 mg Pantoprazole Sodium (Protonix Inj) 40 mg IVP DAILY [facility] Last Admin: 11/25/18 09:09 Dose: 40 mg Thiamine HCl (Vitamin B1 Tab) 100 mg PO DAILY [facility] Last Admin: 11/25/18 09:08 Dose: 100 mg Tramadol HCl (Ultram) 50 mg PO Q6H PRN PRN Reason: Pain, moderate (4-7) Last Admin: 11/23/18 17:13 Dose: 50 mg - Labs Labs: 11/25/18 07:30 11/25/18 07:30 PT 14.6 SECONDS (9.4-12.5) H 11/21/18 10:45 INR 1.29 11/21/18 10:45 APTT 30.6 Seconds (26.9-38.3) 11/21/18 10:45 Attending/Attestation - Attestation I have personally seen and examined this patient.: Yes I have fully participated in the care of the patient.: Yes I have reviewed all pertinent clinical information, including history, physical exam and plan: Yes Notes (Text): 11/25/18 13:01 58 year old male with past medical history of anxiety and depression who presented with complaint of abdominal pains with peritoneal signs and 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 Patient was seen by surgery and underwent exploratory laparotomy, found to have right colon obstruction and intra-abdominal abscess. He is s/p right hemicolectomy. S/p drainage of abscess. Pathology result is pending. Continue with iv antibiotics. Wound culture is growing citrobacter diversus. Repeat CT abd/pelvis from yesterday was reviewed. GI and surgery are following. Will replete and repeat lytes. Negar Abebe MD Hospitalist.
--- NOTE | 2018-11-25 13:30 | PN ---
DATE: 11/25/2018 SUBJECTIVE: I reviewed the patient's recent postoperative CT scan dated 11/24/2018. The contracted gallbladder and pericholecystic fluid have not changed compared with the preop imaging. The patient is status post right hemicolectomy. He is afebrile and his white count is decreasing. At the current time, I do not think he needs a drainage. Certainly, if he develops a fever or increasing white count, the CT scan can be repeated and possible aspiration/drainage performed. Dino Kidd MD MTDD
--- NOTE | 2018-11-25 21:45 | PN ---
DATE: 11/25/2018 SUBJECTIVE: The patient is in bed in no acute distress. PHYSICAL EXAMINATION: VITAL SIGNS: Temperature is 98, blood pressure is 170/100, respiratory rate of 20, and heart rate of 102. HEENT: Unremarkable. NECK: Supple. LUNGS: Have decreased breath sounds. HEART: Normal S1 and S2. ABDOMEN: Soft. LABORATORY DATA: Reveals a white count of 10,000 and hemoglobin of 10. BUN of 7 and creatinine 0.6. Serology is noted. Microbiology reveals Citrobacter which is pansensitive. ASSESSMENT AND PLAN: This is a 58-year-old male, was admitted with sepsis, status post exploratory laparotomy, has right hemicolectomy with mass with the Citrobacter from the culture. The patient's pathology report of the colon reveals the patient is negative for malignancy, abscess formation. Review of orders reveals the patient to be on Zosyn. We will follow with you once the patient is able to tolerate p.o. and will be able to switch to p.o. antibiotics. Gene Lipscomb MD
[2018-11-26] MEDS: HYDROmorphone 0.5 mg/0.5 ml ISec IVP PRN ×2 (02:45→09:54)
[2018-11-26] MEDS: Piperacill/Tazo 4.5gm in NS 4.5 GM/100 ML BAG IVPB SCH ×3 (06:04→21:34)
[2018-11-26 07:22] LABS: HEMOGLOBIN 11.2 g/dL (14.0-18.0); MEAN CELL VOLUME 93.3 fl (80.0-105.0); MEAN CORPUSCULAR HEMOGLOBIN 31.5 pg (25.0-35.0); MEAN CORPUSCULAR HGB CONC 33.7 g/dl (31.0-37.0); MEAN PLATELET VOLUME 9.4 fl (7.0-11.0); RBC 3.56 10^6/uL (3.5-6.1); WHITE BLOOD COUNT 18.5 10^3/uL (4.5-11.0)
[2018-11-26 07:46] LABS: ALB/GLOB RATIO 0.8 (1.1-1.8); ALBUMIN 3.1 g/dL (3.0-4.8); ALT/SGPT 22 U/L (7-56); AST/SGOT 34 U/L (17-59); BLOOD UREA NITROGEN 4 mg/dL (7-21); CALCIUM 8.3 mg/dL (8.4-10.5); GFR NON-AFRICAN AMERICAN > 60
--- NOTE | 2018-11-26 08:18 | CP.PCM.PN ---
Subjective - Date & Time of Evaluation Date of Evaluation: 11/26/18 Time of Evaluation: 07:40 - Subjective Subjective: General surgery progress note for Dr. Storey Patient seen and examined this am at bedside. no acute overnight events. Patient endorses loose BM this morning. Patient otherwise denies f/c, n/v. Abdominal pain is improving. Patient is able to tolerate diet and ambulate in his room. larissa drain output seropurulent Objective - Vital Signs/Intake and Output Vital Signs (last 24 hours): Temp Pulse Resp BP Pulse Ox 100 F H 100 H 20 165/91 H 94 L 11/26/18 06:00 11/26/18 06:00 11/26/18 06:00 11/26/18 06:00 11/26/18 06:00 Intake and Output: 11/26/18 11/26/18 06:59 18:59 Intake Total 120 Output Total 500 Balance -380 - Medications Medications: Current Medications Dextrose (Dextrose 50% Inj) 0 ml IV STAT PRN; Protocol PRN Reason: Hypoglycemia Protocol Folic Acid (Folic Acid) 1 mg PO DAILY [facility] Last Admin: 11/25/18 09:08 Dose: 1 mg Heparin Sodium (Porcine) (Heparin) 5,000 units SC Q8 [facility]; Protocol Last Admin: 11/26/18 06:05 Dose: 5,000 units Hydromorphone HCl (Dilaudid) 0.5 mg IVP Q6H PRN PRN Reason: Pain, severe (8-10) Last Admin: 11/26/18 02:45 Dose: 0.5 mg Dextrose (Dextrose 5% In Water 1000 Ml) 1,000 mls @ 0 mls/hr IV .Q0M PRN; P rotocol PRN Reason: Hypoglycemia Protocol Piperacillin Sod/Tazobactam Sod (Zosyn 4.5 Gm In Ns 100ml) 4.5 gm in 100 mls @ 25 mls/hr IVPB Q8 [facility]; Protocol Stop: 11/30/18 22:01 Last Admin: 11/26/18 06:04 Dose: 25 mls/hr Dextrose/Sodium Chloride (Dextrose 5%/0.45% Ns 1000 Ml) 1,000 mls @ 100 mls/hr IV .Q10H [facility] Last Admin: 11/25/18 04:00 Dose: 100 mls/hr Potassium Chloride (Potassium Chloride 20 Meq/100 Ml) 20 meq in 100 mls @ 50 mls/hr IVPB Q2H [facility] Stop: 11/26/18 12:14 Insulin Human Regular (Humulin R Low) 0 units SC ACHS [facility]; Protocol Last Admin: 11/25/18 21:05 Dose: Not Given Lorazepam (Ativan) 1 mg IVP Q6H PRN; Protocol PRN Reason: Anxiety Last Admin: 11/25/18 23:13 Dose: 1 mg Multivitamins/Minerals (Therapeutic-M Tab) 1 tab PO 0800 [facility] Last Admin: 11/25/18 09:08 Dose: 1 tab Ondansetron HCl (Zofran Inj) 4 mg IVP Q6H PRN PRN Reason: Nausea/Vomiting Last Admin: 11/23/18 17:13 Dose: 4 mg Pantoprazole Sodium (Protonix Inj) 40 mg IVP DAILY [facility] Last Admin: 11/25/18 09:09 Dose: 40 mg Thiamine HCl (Vitamin B1 Tab) 100 mg PO DAILY [facility] Last Admin: 11/25/18 09:08 Dose: 100 mg Tramadol HCl (Ultram) 50 mg PO Q6H PRN PRN Reason: Pain, moderate (4-7) Last Admin: 11/23/18 17:13 Dose: 50 mg - Labs Labs: 11/26/18 07:00 11/26/18 07:00 PT 14.6 SECONDS (9.4-12.5) H 11/21/18 10:45 INR 1.29 11/21/18 10:45 APTT 30.6 Seconds (26.9-38.3) 11/21/18 10:45 - Constitutional Appears: Well, Non-toxic, No Acute Distress - Head Exam Head Exam: ATRAUMATIC - Eye Exam Eye Exam: EOMI - ENT Exam ENT Exam: Mucous Membranes Moist - Respiratory Exam Respiratory Exam: NORMAL BREATHING PATTERN - Cardiovascular Exam Cardiovascular Exam: Tachycardia, REGULAR RHYTHM - GI/Abdominal Exam GI & Abdominal Exam: Soft, Tenderness (appropriate3 incisional tenderness). absent: Guarding, Rebound Additional comments: midline incisions cdi with fortino in place, drain site cdi - Extremities Exam Extremities Exam: absent: Calf Tenderness - Neurological Exam Neurological Exam: Alert, Awake, Oriented x3 - Psychiatric Exam Psychiatric exam: Normal Affect, Normal Mood - Skin Skin Exam: Dry, Intact, Normal Color, Warm Assessment and Plan - Assessment and Plan (Free Text) Assessment: 58 M s/p extended right jesus-colectomy POD 5 2/2 hepatic flexure obstruction from gallbladder pathology Plan: - Drain output now seropurulent - will consider advancing diet - in setting of fever and leukocytosis requesting reevaluation by IR for drainage - Encourage OOBTC. Ambulation. IS use - Pain management - Strict Is & Os - will discuss with Dr. Raleigh Smith, PGY-1
[2018-11-26] MEDS: Insulin Reg-LOW-Coverage SC SCH ×4 (08:25→22:03)
[2018-11-26] MEDS: Multivitamin With Minerals Tab PO SCH (08:45)
--- NOTE | 2018-11-26 11:32 | CP.PCM.PN ---
<Emily Bolton - Last Filed: 11/26/18 11:32> Subjective - Date & Time of Evaluation Date of Evaluation: 11/26/18 Time of Evaluation: 11:29 - Subjective Subjective: GI progress note for Dr. Immanuel Bolton, PGY-2 Pt seen/examined at bedside. Pt reports that he soiled himself x 2 with loose BM today, had flatus. Continues to c/o LLQ abdominal pain. Denies N & V, F & C, CP, SOB. Objective - Vital Signs/Intake and Output Vital Signs (last 24 hours): Temp Pulse Resp BP Pulse Ox 100 F H 100 H 20 165/91 H 94 L 11/26/18 06:00 11/26/18 06:00 11/26/18 06:00 11/26/18 06:00 11/26/18 06:00 Intake and Output: 11/26/18 11/26/18 06:59 18:59 Intake Total 120 Output Total 500 201 Balance -380 -201 - Medications Medications: Current Medications Dextrose (Dextrose 50% Inj) 0 ml IV STAT PRN; Protocol PRN Reason: Hypoglycemia Protocol Folic Acid (Folic Acid) 1 mg PO DAILY [facility] Last Admin: 11/26/18 10:30 Dose: 1 mg Heparin Sodium (Porcine) (Heparin) 5,000 units SC Q8 [facility]; Protocol Last Admin: 11/26/18 06:05 Dose: 5,000 units Hydromorphone HCl (Dilaudid) 0.5 mg IVP Q6H PRN PRN Reason: Pain, severe (8-10) Last Admin: 11/26/18 09:54 Dose: 0.5 mg Dextrose (Dextrose 5% In Water 1000 Ml) 1,000 mls @ 0 mls/hr IV .Q0M PRN; Protocol PRN Reason: Hypoglycemia Protocol Piperacillin Sod/Tazobactam Sod (Zosyn 4.5 Gm In Ns 100ml) 4.5 gm in 100 mls @ 25 mls/hr IVPB Q8 [facility]; Protocol Stop: 11/30/18 22:01 Last Admin: 11/26/18 06:04 Dose: 25 mls/hr Dextrose/Sodium Chloride (Dextrose 5%/0.45% Ns 1000 Ml) 1,000 mls @ 100 mls/hr IV .Q10H [facility] Last Admin: 11/25/18 04:00 Dose: 100 mls/hr Potassium Chloride (Potassium Chloride 20 Meq/100 Ml) 20 meq in 100 mls @ 50 mls/hr IVPB Q2H [facility] Stop: 11/26/18 12:14 Last Admin: 11/26/18 08:46 Dose: 50 mls/hr Insulin Human Regular (Humulin R Low) 0 units SC ACHS [facility]; Protocol Last Admin: 11/26/18 08:25 Dose: Not Given Lorazepam (Ativan) 1 mg IVP Q6H PRN; Protocol PRN Reason: Anxiety Last Admin: 11/25/18 23:13 Dose: 1 mg Multivitamins/Minerals (Therapeutic-M Tab) 1 tab PO 0800 [facility] Last Admin: 11/26/18 08:45 Dose: 1 tab Ondansetron HCl (Zofran Inj) 4 mg IVP Q6H PRN PRN Reason: Nausea/Vomiting Last Admin: 11/23/18 17:13 Dose: 4 mg Pantoprazole Sodium (Protonix Inj) 40 mg IVP DAILY [facility] Last Admin: 11/26/18 10:29 Dose: 40 mg Thiamine HCl (Vitamin B1 Tab) 100 mg PO DAILY [facility] Last Admin: 11/25/18 09:08 Dose: 100 mg Tramadol HCl (Ultram) 50 mg PO Q6H PRN PRN Reason: Pain, moderate (4-7) Last Admin: 11/23/18 17:13 Dose: 50 mg - Labs Labs: 11/26/18 07:00 11/26/18 07:00 PT 14.6 SECONDS (9.4-12.5) H 11/21/18 10:45 INR 1.29 11/21/18 10:45 APTT 30.6 Seconds (26.9-38.3) 11/21/18 10:45 - Constitutional Appears: Non-toxic, No Acute Distress - Head Exam Head Exam: ATRAUMATIC, NORMAL INSPECTION, NORMOCEPHALIC - Eye Exam Eye Exam: EOMI, Normal appearance - ENT Exam ENT Exam: Mucous Membranes Moist, Normal Exam - Neck Exam Neck Exam: Full ROM, Normal Inspection - Respiratory Exam Respiratory Exam: NORMAL BREATHING PATTERN - Cardiovascular Exam Cardiovascular Exam: REGULAR RHYTHM, +S1, +S2 - GI/Abdominal Exam GI & Abdominal Exam: Soft, Tenderness (Along midline incision site and LLQ- mild), Normal Bowel Sounds. absent: Distended, Firm, Guarding, Rigid Additional comments: Midline incision site with fortino in place- no erythema, fluctuance or induration; SHAY in place with ~15 cc serous drainage in RLQ - Neurological Exam Neurological Exam: Alert, Awake, CN II-XII Intact, Oriented x3 - Psychiatric Exam Psychiatric exam: Normal Affect, Normal Mood - Skin Skin Exam: Dry, Intact, Normal Color, Warm Assessment and Plan - Assessment and Plan (Free Text) Assessment: 58 year old male with a PMH of ETOH abuse admitted for suspected cholecystitis/abscess causing colonic obstruction vs malignancy, post-op for ex- lap w/ intra-abdominal abscess drainage and right hemicolectomy. Now having bowel function. Plan: Fu Pathology cont Zosyn as per ID Diet as per surgery Continue to monitor bowel function PPI ppx Further care as per surgery & primary teams DW Dr. Madiha Bolton, PGY-2 <Angelica Cleary V - Last Filed: 11/27/18 00:05> Objective - Vital Signs/Intake and Output Vital Signs (last 24 hours): Temp Pulse Resp BP Pulse Ox 99 F 98 H 18 136/57 L 94 L 11/26/18 22:21 11/26/18 22:21 11/26/18 22:21 11/26/18 22:21 11/26/18 22:21 Intake and Output: 11/26/18 11/27/18 18:59 06:59 Intake Total 540 Output Total 551 200 Balance -551 340 - Medications Medications: Current Medications Dextrose (Dextrose 50% Inj) 0 ml IV STAT PRN; Protocol PRN Reason: Hypoglycemia Protocol Folic Acid (Folic Acid) 1 mg PO DAILY [facility] Last Admin: 11/26/18 10:30 Dose: 1 mg Heparin Sodium (Porcine) (Heparin) 5,000 units SC Q8 [facility]; Protocol Last Admin: 11/26/18 21:34 Dose: 5,000 units Dextrose (Dextrose 5% In Water 1000 Ml) 1,000 mls @ 0 mls/hr IV .Q0M PRN; Protocol PRN Reason: Hypoglycemia Protocol Piperacillin Sod/Tazobactam Sod (Zosyn 4.5 Gm In Ns 100ml) 4.5 gm in 100 mls @ 25 mls/hr IVPB Q8 [facility]; Protocol Stop: 11/30/18 22:01 Last Admin: 11/26/18 21:34 Dose: 25 mls/hr Dextrose/Sodium Chloride (Dextrose 5%/0.45% Ns 1000 Ml) 1,000 mls @ 100 mls/hr IV .Q10H [facility] Last Admin: 11/26/18 20:13 Dose: 100 mls/hr Insulin Human Regular (Humulin R Low) 0 units SC ACHS [facility]; Protocol Last Admin: 11/26/18 22:03 Dose: Not Given Lorazepam (Ativan) 1 mg IVP Q6H [facility]; Protocol PRN Reason: Anxiety Last Admin: 11/25/18 23:13 Dose: 1 mg Multivitamins/Minerals (Therapeutic-M Tab) 1 tab PO 0800 [facility] Last Admin: 11/26/18 08:45 Dose: 1 tab Ondansetron HCl (Zofran Inj) 4 mg IVP Q6H PRN PRN Reason: Nausea/Vomiting Last Admin: 11/23/18 17:13 Dose: 4 mg Oxycodone/Acetaminophen (Percocet 10/325 Mg Tab) 1 tab PO Q4H PRN PRN Reason: Pain, severe (8-10) Last Admin: 11/26/18 14:35 Dose: 1 tab Pantoprazole Sodium (Protonix Ec Tab) 40 mg PO ACB [facility] Thiamine HCl (Vitamin B1 Tab) 100 mg PO DAILY [facility] Last Admin: 11/26/18 14:49 Dose: 100 mg Tramadol HCl (Ultram) 50 mg PO Q6H PRN PRN Reason: Pain, moderate (4-7) Last Admin: 11/23/18 17:13 Dose: 50 mg - Labs Labs: 11/26/18 07:00 11/26/18 07:00 PT 14.6 SECONDS (9.4-12.5) H 11/21/18 10:45 INR 1.29 11/21/18 10:45 APTT 30.6 Seconds (26.9-38.3) 11/21/18 10:45 Attending/Attestation - Attestation I have personally seen and examined this patient.: Yes I have fully participated in the care of the patient.: Yes I have reviewed all pertinent clinical information, including history, physical exam and plan: Yes Notes (Text): This is an addendum to GI progress report dictated by the resident. The patient was seen and examined earlier. Medical records, lab studies, imagings were reviewed. Last 24 hours events reviewed. Agreed with the above treatment plan as outlined in resident 's notes with the addition of the following 11/27/18 00:04
--- NOTE | 2018-11-26 13:39 | CP.PCM.PN ---
<Lulu Wan - Last Filed: 11/26/18 13:33> Subjective - Date & Time of Evaluation Date of Evaluation: 11/26/18 Time of Evaluation: 13:33 - Subjective Subjective: PGY-[address] Abebe 2 loose bm today. LLQ abd pain controlled by current pain regimen. Not motivated to OOB except to use bathroom. T 100 and WBC 18.5. Objective - Vital Signs/Intake and Output Vital Signs (last 24 hours): Temp Pulse Resp BP Pulse Ox 100 F H 100 H 20 165/91 H 94 L 11/26/18 06:00 11/26/18 06:00 11/26/18 06:00 11/26/18 06:00 11/26/18 06:00 Intake and Output: 11/26/18 11/26/18 06:59 18:59 Intake Total 120 Output Total 500 201 Balance -380 -201 - Medications Medications: Current Medications Dextrose (Dextrose 50% Inj) 0 ml IV STAT PRN; Protocol PRN Reason: Hypoglycemia Protocol Folic Acid (Folic Acid) 1 mg PO DAILY [facility] Last Admin: 11/26/18 10:30 Dose: 1 mg Heparin Sodium (Porcine) (Heparin) 5,000 units SC Q8 [facility]; Protocol Last Admin: 11/26/18 06:05 Dose: 5,000 units Dextrose (Dextrose 5% In Water 1000 Ml) 1,000 mls @ 0 mls/hr IV .Q0M PRN; Protocol PRN Reason: Hypoglycemia Protocol Piperacillin Sod/Tazobactam Sod (Zosyn 4.5 Gm In Ns 100ml) 4.5 gm in 100 mls @ 25 mls/hr IVPB Q8 [facility]; Protocol Stop: 11/30/18 22:01 Last Admin: 11/26/18 06:04 Dose: 25 mls/hr Dextrose/Sodium Chloride (Dextrose 5%/0.45% Ns 1000 Ml) 1,000 mls @ 100 mls/hr IV .Q10H [facility] Last Admin: 11/25/18 04:00 Dose: 100 mls/hr Insulin Human Regular (Humulin R Low) 0 units SC ACHS [facility]; Protocol Last Admin: 11/26/18 12:00 Dose: Not Given Lorazepam (Ativan) 1 mg IVP Q6H PRN; Protocol PRN Reason: Anxiety Last Admin: 11/25/18 23:13 Dose: 1 mg Multivitamins/Minerals (Therapeutic-M Tab) 1 tab PO 0800 [facility] Last Admin: 11/26/18 08:45 Dose: 1 tab Ondansetron HCl (Zofran Inj) 4 mg IVP Q6H PRN PRN Reason: Nausea/Vomiting Last Admin: 11/23/18 17:13 Dose: 4 mg Oxycodone/Acetaminophen (Percocet 10/325 Mg Tab) 1 tab PO Q4H PRN PRN Reason: Pain, severe (8-10) Pantoprazole Sodium (Protonix Ec Tab) 40 mg PO ACB [facility] Thiamine HCl (Vitamin B1 Tab) 100 mg PO DAILY [facility] Last Admin: 11/25/18 09:08 Dose: 100 mg Tramadol HCl (Ultram) 50 mg PO Q6H PRN PRN Reason: Pain, moderate (4-7) Last Admin: 11/23/18 17:13 Dose: 50 mg - Labs Labs: 11/26/18 07:00 11/26/18 07:00 PT 14.6 SECONDS (9.4-12.5) H 11/21/18 10:45 INR 1.29 11/21/18 10:45 APTT 30.6 Seconds (26.9-38.3) 11/21/18 10:45 - Constitutional Appears: No Acute Distress - Head Exam Head Exam: ATRAUMATIC, NORMAL INSPECTION, NORMOCEPHALIC - Eye Exam Eye Exam: EOMI, Normal appearance, PERRL. absent: Scleral icterus Pupil Exam: NORMAL ACCOMODATION - ENT Exam ENT Exam: Mucous Membranes Moist - Neck Exam Additional comments: supple - Respiratory Exam Respiratory Exam: Decreased Breath Sounds (b/l lung bases), Clear to Ausculation Bilateral - Cardiovascular Exam Cardiovascular Exam: REGULAR RHYTHM, +S1, +S2 - GI/Abdominal Exam GI & Abdominal Exam: Soft, Tenderness (at surgical site), Normal Bowel Sounds Additional comments: binder d/c/i - Extremities Exam Extremities Exam: absent: Calf Tenderness - Back Exam Additional comments: drain serosanqu - Neurological Exam Neurological Exam: Alert, Awake, Oriented x3 - Psychiatric Exam Psychiatric exam: Normal Affect, Normal Mood - Skin Skin Exam: Dry, Warm Assessment and Plan - Assessment and Plan (Free Text) Plan: 58M, PMH of EtOH abuse and depression, presented with acute abdomin s/p emergent exploratory laparotomy, 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 POD 6. Today pt has T100 with WBC 18 Plan: Colonic Obstruction w/ intraabdominal abscess. Had ruled out Malignancy - POD6 exploratory laparotomy w/ extended right hemicolectomy and intraabdominal abscess drainage - Continue to monitor SHAY drain output - Body fluid cultures positive for Citrobacter Diversus - Surgical report had ruled out cancer - Repeat CTAP 11/24: Postoperative mild ileus, small abscesses. Left inguinal hernia w/ bladder in hernia sac. - Per ID, Zosyn started on 11/21/18 - Further decrease pain meds to percocet 10. d/c dilaudid - Toradal and Tramadol for pain - Zofran for nausea - CLD, advance per Surgery. GI recommended advance diet as tolerated - Monitor diet tolerance - Monitor bowel function - F/u GI recommendations: consider HIDA vs MRCP/MRI for further evaluation - F/u surgery recommendations: as of now, no further biopsy/drainage of gallbladder or fluid collection, per IR. Monitor closely. New Leukocytosis and mild temperature elevation - pending surgery decision to re-scan or not. - Pending surgery/IR re: further intervention New diarrhea - pending c-diff Hx of Alcohol Abuse - [facility] protocol - Ativan PRN - MV/Thiamine/Folate PPX GI: Protonix DVT: Heparin s/r/d/w Dr Abebe <Negar Abebe - Last Filed: 11/26/18 16:32> Objective - Vital Signs/Intake and Output Vital Signs (last 24 hours): Temp Pulse Resp BP Pulse Ox 98.3 F 99 H 18 147/93 H 95 11/26/18 14:00 11/26/18 14:00 11/26/18 14:00 11/26/18 14:00 11/26/18 14:00 Intake and Output: 11/26/18 11/26/18 06:59 18:59 Intake Total 120 Output Total 500 551 Balance -219 -017 - Medications Medications: Current Medications Dextrose (Dextrose 50% Inj) 0 ml IV STAT PRN; Protocol PRN Reason: Hypoglycemia Protocol Folic Acid (Folic Acid) 1 mg PO DAILY [facility] Last Admin: 11/26/18 10:30 Dose: 1 mg Heparin Sodium (Porcine) (Heparin) 5,000 units SC Q8 [facility]; Protocol Last Admin: 11/26/18 06:05 Dose: 5,000 units Dextrose (Dextrose 5% In Water 1000 Ml) 1,000 mls @ 0 mls/hr IV .Q0M PRN; Protocol PRN Reason: Hypoglycemia Protocol Piperacillin Sod/Tazobactam Sod (Zosyn 4.5 Gm In Ns 100ml) 4.5 gm in 100 mls @ 25 mls/hr IVPB Q8 [facility]; Protocol Stop: 11/30/18 22:01 Last Admin: 11/26/18 14:35 Dose: 25 mls/hr Dextrose/Sodium Chloride (Dextrose 5%/0.45% Ns 1000 Ml) 1,000 mls @ 100 mls/hr IV .Q10H [facility] Last Admin: 11/25/18 04:00 Dose: 100 mls/hr Insulin Human Regular (Humulin R Low) 0 units SC ACHS [facility]; Protocol Last Admin: 11/26/18 12:00 Dose: Not Given Lorazepam (Ativan) 1 mg IVP Q6H PRN; Protocol PRN Reason: Anxiety Last Admin: 11/25/18 23:13 Dose: 1 mg Multivitamins/Minerals (Therapeutic-M Tab) 1 tab PO 0800 [facility] Last Admin: 11/26/18 08:45 Dose: 1 tab Ondansetron HCl (Zofran Inj) 4 mg IVP Q6H PRN PRN Reason: Nausea/Vomiting Last Admin: 11/23/18 17:13 Dose: 4 mg Oxycodone/Acetaminophen (Percocet 10/325 Mg Tab) 1 tab PO Q4H PRN PRN Reason: Pain, severe (8-10) Last Admin: 11/26/18 14:35 Dose: 1 tab Pantoprazole Sodium (Protonix Ec Tab) 40 mg PO ACB [facility] Thiamine HCl (Vitamin B1 Tab) 100 mg PO DAILY [facility] Last Admin: 11/26/18 14:49 Dose: 100 mg Tramadol HCl (Ultram) 50 mg PO Q6H PRN PRN Reason: Pain, moderate (4-7) Last Admin: 11/23/18 17:13 Dose: 50 mg - Labs Labs: 11/26/18 07:00 11/26/18 07:00 PT 14.6 SECONDS (9.4-12.5) H 11/21/18 10:45 INR 1.29 11/21/18 10:45 APTT 30.6 Seconds (26.9-38.3) 11/21/18 10:45 Attending/Attestation - Attestation I have personally seen and examined this patient.: Yes I have fully participated in the care of the patient.: Yes I have reviewed all pertinent clinical information, including history, physical exam and plan: Yes Notes (Text): 11/26/18 16:30 58 year old male with past medical history of anxiety and depression who presented with complaint of abdominal pains with peritoneal signs and 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 Patient was seen by surgery and underwent exploratory laparotomy, found to have right colon obstruction and intra-abdominal abscess. He is s/p right hemicolectomy. S/p drainage of abscess. Pathology result was negative for malignancy. Continue with iv antibiotics as per ID. Wound culture is growing citrobacter diversus. Leukocytosis (18.5) today noted with low grade temperature. Will ask for IR/surgery follow up. Cdif study ordered as patient also reports diarrhea. Will replete and repeat lytes. Negar Abebe MD Hospitalist.
[2018-11-26] MEDS: Oxycodone/Acetaminophen 10/325 mg Tab PO PRN (14:35)
[2018-11-26] MEDS ORDERED: Potassium Chloride 40 mEq/30 ml LIQ UD PO ONE (17:20)
[2018-11-26] MEDS: Dextrose 5%/0.45% NS 1,000 ML IV SCH (20:13)
--- NOTE | 2018-11-26 23:24 | PN ---
DATE: 11/26/2018 SUBJECTIVE: The patient is seen earlier this morning in 574, bed 2. No fevers and chills. PHYSICAL EXAMINATION: VITAL SIGNS: Temperature is 98, blood pressure is 140/90, respiratory rate of 18. HEENT: Unremarkable. NECK: Supple. LUNGS: Have decreased breath sounds. HEART: Normal S1, S2. ABDOMEN: Soft, nontender. LABORATORY DATA: White count of 18,500, hemoglobin of 11. BUN of 4, creatinine of 0.7. Toxicology is noted. Serology is noted. Microbiology reveals Citrobacter versus pansensitive from the abdominal fluid. Review of orders reveals the patient to be on piperacillin and Zosyn. ASSESSMENT AND PLAN: This is a 58-year-old male who was admitted with sepsis, status post exploratory laparoscopy and a right hemicolectomy with a massive Citrobacter, pathology is negative for malignancy. Currently on Zosyn and now has new systemic inflammatory response syndrome. We will repeat pancultures and urinalysis and sputum cultures, blood cultures and chest x-ray and procalcitonin. We will make further recommendations based on repeat cultures and repeat CBC, chest x-ray and procalcitonin and tomorrow CBC and we will make further determination. If all cultures are negative and the leukocytosis persists, we will need a CAT scan of the abdomen and pelvis to rule out a collection. Gene Lipscomb MD
[2018-11-27] MEDS: Oxycodone/Acetaminophen 10/325 mg Tab PO PRN ×3 (00:18→19:27)
[2018-11-27] MEDS: Piperacill/Tazo 4.5gm in NS 4.5 GM/100 ML BAG IVPB SCH ×3 (05:43→21:21)
[2018-11-27] MEDS: Multivitamin With Minerals Tab PO SCH (07:18)
[2018-11-27] MEDS: Pantoprazole 40 mg EC Tab PO SCH (07:18)
[2018-11-27] MEDS: Insulin Reg-LOW-Coverage SC SCH ×4 (08:29→21:22)
[2018-11-27 10:05] LABS: ALB/GLOB RATIO 0.8 (1.1-1.8); ALBUMIN 2.7 g/dL (3.0-4.8); ALT/SGPT 16 U/L (7-56); AST/SGOT 20 U/L (17-59); BLOOD UREA NITROGEN 4 mg/dL (7-21); GFR NON-AFRICAN AMERICAN > 60
[2018-11-27 10:46] LABS: BASO # 0.01 K/mm3 (0.0-2.0); BASO % 0.1 % (0.0-3.0); EOS # 0.1 (0.0-0.7); EOS % 0.6 % (1.5-5.0); LYMPH # 1.1 (1.2-3.4); LYMPH % 7.1 % (22.0-35.0); MEAN CELL VOLUME 93.2 fl (80.0-105.0); MEAN CORPUSCULAR HEMOGLOBIN 31.1 pg (25.0-35.0); MEAN CORPUSCULAR HGB CONC 33.3 g/dl (31.0-37.0); MEAN PLATELET VOLUME 9.6 fl (7.0-11.0); MONO # 1.3 (0.1-0.6); MONO % 7.8 % (1.0-6.0); RBC 3.22 10^6/uL (3.5-6.1); RED CELL DISTRIBUTION WIDTH 14.2 % (11.5-14.5)
--- NOTE | 2018-11-27 10:57 | CP.PCM.PN ---
Subjective - Date & Time of Evaluation Date of Evaluation: 11/27/18 Time of Evaluation: 10:54 - Subjective Subjective: Diana Richardson PGY1 Progress Note for Dr. Storey Pt was examined at bedside this morning. He reports continuation of watery diarr hea, with the last episode yesterday. He reports mild abdominal pain. He denies fever, chills, nausea or vomiting. Objective - Vital Signs/Intake and Output Vital Signs (last 24 hours): Temp Pulse Resp BP Pulse Ox 98.7 F 72 18 129/83 95 11/27/18 06:00 11/27/18 06:00 11/27/18 06:00 11/27/18 06:00 11/27/18 06:00 Intake and Output: 11/27/18 11/27/18 06:59 18:59 Intake Total 780 Output Total 600 Balance 180 - Medications Medications: Current Medications Dextrose (Dextrose 50% Inj) 0 ml IV STAT PRN; Protocol PRN Reason: Hypoglycemia Protocol Folic Acid (Folic Acid) 1 mg PO DAILY [facility] Last Admin: 11/27/18 10:11 Dose: 1 mg Heparin Sodium (Porcine) (Heparin) 5,000 units SC Q8 [facility]; Protocol Last Admin: 11/27/18 05:42 Dose: 5,000 units Dextrose (Dextrose 5% In Water 1000 Ml) 1,000 mls @ 0 mls/hr IV .Q0M PRN; Protocol PRN Reason: Hypoglycemia Protocol Piperacillin Sod/Tazobactam Sod (Zosyn 4.5 Gm In Ns 100ml) 4.5 gm in 100 mls @ 25 mls/hr IVPB Q8 [facility]; Protocol Stop: 11/30/18 22:01 Last Admin: 11/27/18 05:43 Dose: 25 mls/hr Dextrose/Sodium Chloride (Dextrose 5%/0.45% Ns 1000 Ml) 1,000 mls @ 100 mls/hr IV .Q10H [facility] Last Admin: 11/26/18 20:13 Dose: 100 mls/hr Insulin Human Regular (Humulin R Low) 0 units SC ACHS [facility]; Protocol Last Admin: 11/27/18 08:29 Dose: Not Given Lorazepam (Ativan) 1 mg IVP Q6H PRN; Protocol PRN Reason: Anxiety Last Admin: 11/25/18 23:13 Dose: 1 mg Multivitamins/Minerals (Therapeutic-M Tab) 1 tab PO 0800 [facility] Last Admin: 11/27/18 07:18 Dose: 1 tab Ondansetron HCl (Zofran Inj) 4 mg IVP Q6H PRN PRN Reason: Nausea/Vomiting Last Admin: 11/23/18 17:13 Dose: 4 mg Oxycodone/Acetaminophen (Percocet 10/325 Mg Tab) 1 tab PO Q4H PRN PRN Reason: Pain, severe (8-10) Last Admin: 11/27/18 00:18 Dose: 1 tab Pantoprazole Sodium (Protonix Ec Tab) 40 mg PO ACB [facility] Last Admin: 11/27/18 07:18 Dose: 40 mg Thiamine HCl (Vitamin B1 Tab) 100 mg PO DAILY [facility] Last Admin: 11/27/18 10:11 Dose: 100 mg Tramadol HCl (Ultram) 50 mg PO Q6H PRN PRN Reason: Pain, moderate (4-7) Last Admin: 11/23/18 17:13 Dose: 50 mg - Labs Labs: 11/27/18 10:00 11/27/18 08:30 PT 14.6 SECONDS (9.4-12.5) H 11/21/18 10:45 INR 1.29 11/21/18 10:45 APTT 30.6 Seconds (26.9-38.3) 11/21/18 10:45 - Constitutional Appears: Well, No Acute Distress - Head Exam Head Exam: ATRAUMATIC, NORMOCEPHALIC - Eye Exam Eye Exam: Normal appearance Pupil Exam: NORMAL ACCOMODATION - ENT Exam ENT Exam: Mucous Membranes Moist - Neck Exam Neck Exam: Full ROM - Respiratory Exam Respiratory Exam: Clear to Ausculation Bilateral, NORMAL BREATHING PATTERN. absent: Rales, Rhonchi, Wheezes - Cardiovascular Exam Cardiovascular Exam: REGULAR RHYTHM, +S1, +S2. absent: Gallop, Rubs, Murmur - GI/Abdominal Exam GI & Abdominal Exam: Soft, Tenderness, Normal Bowel Sounds. absent: Distended Additional comments: suture site clean/dry/intact SHAY drain clear light brown fluid drained 40cc overnight, 90cc this morning - Extremities Exam Extremities Exam: Normal Inspection. absent: Pedal Edema - Back Exam Back Exam: NORMAL INSPECTION - Neurological Exam Neurological Exam: Alert, Awake, Oriented x3 - Psychiatric Exam Psychiatric exam: Normal Affect, Normal Mood - Skin Skin Exam: Normal Color Assessment and Plan - Assessment and Plan (Free Text) Assessment: 58 M s/p extended right jesus-colectomy POD 6 2/2 hepatic flexure obstruction from gallbladder pathology Plan: - Regular diet - Drain fluid Cx: Citrobacter tejeda-sensitive - IR draining for 11/29 - Encourage OOBTC. Ambulation. IS use - Pain management - Strict Is & Os Case discussed with Dr. Storey
--- NOTE | 2018-11-27 13:06 | CP.PCM.PN ---
<Chauncey Wood - Last Filed: 11/27/18 13:03> Subjective - Date & Time of Evaluation Date of Evaluation: 11/27/18 Time of Evaluation: 13:03 - Subjective Subjective: Medicine Progress Note for Dr. Abebe 58M seen and evaluated at bedside this morning. Patient out of bed to chair today. Complaints of difficulty breathing when lying flat. No acute events overnight. Tolerating diet, having bowel movements. Denies f/c, n/v/d, CP, or urinary symptoms. Objective - Vital Signs/Intake and Output Vital Signs (last 24 hours): Temp Pulse Resp BP Pulse Ox 98.7 F 72 18 129/83 95 11/27/18 06:00 11/27/18 06:00 11/27/18 06:00 11/27/18 06:00 11/27/18 06:00 Intake and Output: 11/27/18 11/27/18 06:59 18:59 Intake Total 780 60 Output Total 600 200 Balance 180 -140 - Medications Medications: Current Medications Dextrose (Dextrose 50% Inj) 0 ml IV STAT PRN; Protocol PRN Reason: Hypoglycemia Protocol Folic Acid (Folic Acid) 1 mg PO DAILY [facility] Last Admin: 11/27/18 10:11 Dose: 1 mg Heparin Sodium (Porcine) (Heparin) 5,000 units SC Q8 [facility]; Protocol Last Admin: 11/27/18 05:42 Dose: 5,000 units Dextrose (Dextrose 5% In Water 1000 Ml) 1,000 mls @ 0 mls/hr IV .Q0M PRN; Protocol PRN Reason: Hypoglycemia Protocol Piperacillin Sod/Tazobactam Sod (Zosyn 4.5 Gm In Ns 100ml) 4.5 gm in 100 mls @ 25 mls/hr IVPB Q8 [facility]; Protocol Stop: 11/30/18 22:01 Last Admin: 11/27/18 05:43 Dose: 25 mls/hr Dextrose/Sodium Chloride (Dextrose 5%/0.45% Ns 1000 Ml) 1,000 mls @ 100 mls/hr IV .Q10H [facility] Last Admin: 11/26/18 20:13 Dose: 100 mls/hr Insulin Human Regular (Humulin R Low) 0 units SC ACHS [facility]; Protocol Last Admin: 11/27/18 12:42 Dose: Not Given Lorazepam (Ativan) 1 mg IVP Q6H PRN; Protocol PRN Reason: Anxiety Last Admin: 11/25/18 23:13 Dose: 1 mg Multivitamins/Minerals (Therapeutic-M Tab) 1 tab PO 0800 [facility] Last Admin: 11/27/18 07:18 Dose: 1 tab Ondansetron HCl (Zofran Inj) 4 mg IVP Q6H PRN PRN Reason: Nausea/Vomiting Last Admin: 11/23/18 17:13 Dose: 4 mg Oxycodone/Acetaminophen (Percocet 10/325 Mg Tab) 1 tab PO Q4H PRN PRN Reason: Pain, severe (8-10) Last Admin: 11/27/18 10:56 Dose: 1 tab Pantoprazole Sodium (Protonix Ec Tab) 40 mg PO ACB [facility] Last Admin: 11/27/18 07:18 Dose: 40 mg Thiamine HCl (Vitamin B1 Tab) 100 mg PO DAILY [facility] Last Admin: 11/27/18 10:11 Dose: 100 mg Tramadol HCl (Ultram) 50 mg PO Q6H PRN PRN Reason: Pain, moderate (4-7) Last Admin: 11/23/18 17:13 Dose: 50 mg - Labs Labs: 11/27/18 10:00 11/27/18 08:30 PT 14.6 SECONDS (9.4-12.5) H 11/21/18 10:45 INR 1.29 11/21/18 10:45 APTT 30.6 Seconds (26.9-38.3) 11/21/18 10:45 - Constitutional Appears: Non-toxic, No Acute Distress - Head Exam Head Exam: ATRAUMATIC, NORMAL INSPECTION, NORMOCEPHALIC - Eye Exam Eye Exam: EOMI - ENT Exam ENT Exam: Mucous Membranes Moist - Respiratory Exam Respiratory Exam: NORMAL BREATHING PATTERN. absent: Respiratory Distress - Cardiovascular Exam Cardiovascular Exam: Tachycardia, REGULAR RHYTHM - GI/Abdominal Exam GI & Abdominal Exam: Distended, Soft, Tenderness, Normal Bowel Sounds. 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 Patient s/p exploratory laparotomy w/ extended right hemicolectomy and intraabdominal abscess drainage POD7. Plan: Colonic Obstruction w/ intraabdominal abscess 2/2 suspected Malignancy - POD7 exploratory laparotomy w/ extended right hemicolectomy and intraabdominal abscess drainage - Continue to monitor SHAY drain output - Body fluid cultures positive for Citrobacter Diversus - Surgical pathology: negative for malignancy - Repeat CTAP 11/24: Postoperative mild ileus, small abscesses. Left inguinal hernia w/ bladder in hernia sac. - Per ID, Zosyn started on 11/21/18 - Percocet 10/325mg, Toradal and Tramadol for pain - Zofran for nausea - CLD, advance per Surgery - Monitor diet tolerance - Monitor bowel function - F/u GI recommendations: consider HIDA vs MRCP/MRI for further evaluation - F/u surgery recommendations Leukocytosis, downtrending - F/u CXR - F/u UA - Afebrile for 24 hours - Daily labs - Continue Zosyn per infectious disease - Encourage incentive spirometer use - Continue to monitor vitals - Pending re-evaluation by IR New Onset Diarrhea - Pending C.diff - Infectious Disease following Hx of Alcohol Abuse - [facility] protocol - Ativan PRN - MV/Thiamine/Folate PPX GI: Protonix DVT: Heparin Patient plan discussed with Dr. Mis Wood PGY1 <Negar Abebe - Last Filed: 11/27/18 13:31> Objective - Vital Signs/Intake and Output Vital Signs (last 24 hours): Temp Pulse Resp BP Pulse Ox 98.7 F 72 18 129/83 95 11/27/18 06:00 11/27/18 06:00 11/27/18 06:00 11/27/18 06:00 11/27/18 06:00 Intake and Output: 11/27/18 11/27/18 06:59 18:59 Intake Total 780 60 Output Total 600 200 Balance 180 -140 - Medications Medications: Current Medications Dextrose (Dextrose 50% Inj) 0 ml IV STAT PRN; Protocol PRN Reason: Hypoglycemia Protocol Folic Acid (Folic Acid) 1 mg PO DAILY [facility] Last Admin: 11/27/18 10:11 Dose: 1 mg Heparin Sodium (Porcine) (Heparin) 5,000 units SC Q8 [facility]; Protocol Last Admin: 11/27/18 05:42 Dose: 5,000 units Dextrose (Dextrose 5% In Water 1000 Ml) 1,000 mls @ 0 mls/hr IV .Q0M PRN; Protocol PRN Reason: Hypoglycemia Protocol Piperacillin Sod/Tazobactam Sod (Zosyn 4.5 Gm In Ns 100ml) 4.5 gm in 100 mls @ 25 mls/hr IVPB Q8 [facility]; Protocol Stop: 11/30/18 22:01 Last Admin: 11/27/18 05:43 Dose: 25 mls/hr Dextrose/Sodium Chloride (Dextrose 5%/0.45% Ns 1000 Ml) 1,000 mls @ 100 mls/hr IV .Q10H [facility] Last Admin: 11/26/18 20:13 Dose: 100 mls/hr Insulin Human Regular (Humulin R Low) 0 units SC ACHS [facility]; Protocol Last Admin: 11/27/18 12:42 Dose: Not Given Lorazepam (Ativan) 1 mg IVP Q6H PRN; Protocol PRN Reason: Anxiety Last Admin: 11/25/18 23:13 Dose: 1 mg Multivitamins/Minerals (Therapeutic-M Tab) 1 tab PO 0800 [facility] Last Admin: 11/27/18 07:18 Dose: 1 tab Ondansetron HCl (Zofran Inj) 4 mg IVP Q6H PRN PRN Reason: Nausea/Vomiting Last Admin: 11/23/18 17:13 Dose: 4 mg Oxycodone/Acetaminophen (Percocet 10/325 Mg Tab) 1 tab PO Q4H PRN PRN Reason: Pain, severe (8-10) Last Admin: 11/27/18 10:56 Dose: 1 tab Pantoprazole Sodium (Protonix Ec Tab) 40 mg PO ACB [facility] Last Admin: 11/27/18 07:18 Dose: 40 mg Thiamine HCl (Vitamin B1 Tab) 100 mg PO DAILY [facility] Last Admin: 11/27/18 10:11 Dose: 100 mg Tramadol HCl (Ultram) 50 mg PO Q6H PRN PRN Reason: Pain, moderate (4-7) Last Admin: 11/23/18 17:13 Dose: 50 mg - Labs Labs: 11/27/18 10:00 11/27/18 08:30 PT 14.6 SECONDS (9.4-12.5) H 11/21/18 10:45 INR 1.29 11/21/18 10:45 APTT 30.6 Seconds (26.9-38.3) 11/21/18 10:45 Attending/Attestation - Attestation I have personally seen and examined this patient.: Yes I have fully participated in the care of the patient.: Yes I have reviewed all pertinent clinical information, including history, physical exam and plan: Yes Notes (Text): 11/27/18 13:30 58 year old male with past medical history of anxiety and depression who presented with complaint of abdominal pains with peritoneal signs and 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 Patient was seen by surgery and underwent exploratory laparotomy, found to have right colon obstruction and intra-abdominal abscess. He is s/p right hemicolectomy. S/p drainage of abscess. Pathology result was n egative for malignancy. Continue with iv antibiotics as per ID. Wound culture is growing citrobacter diversus. Yesterday he was noted to have low grade fever and leukocytosis, slightly improved today. CXR was done today and repeat CT abd/pelvis as well. IR follow up requested. Negar Abebe MD Hospitalist.
[2018-11-27] MEDS ORDERED: Iohexol 350 MG/100 ML VIAL ONE (14:11)
--- NOTE | 2018-11-27 14:54 | CP.PCM.PN ---
<Braden Jason - Last Filed: 11/27/18 18:22> Subjective - Date & Time of Evaluation Date of Evaluation: 11/27/18 Time of Evaluation: 14:49 - Subjective Subjective: no acute overnight events. Nursing reports increased dark bilious output of SHAY drain. No fevers overnight. Abdominal pain has not changed. Objective - Vital Signs/Intake and Output Vital Signs (last 24 hours): Temp Pulse Resp BP Pulse Ox 98 F 96 H 20 139/83 97 11/27/18 14:13 11/27/18 14:13 11/27/18 14:13 11/27/18 14:13 11/27/18 14:13 Intake and Output: 11/27/18 11/27/18 06:59 18:59 Intake Total 780 60 Output Total 600 200 Balance 180 -140 - Medications Medications: Current Medications Dextrose (Dextrose 50% Inj) 0 ml IV STAT PRN; Protocol PRN Reason: Hypoglycemia Protocol Folic Acid (Folic Acid) 1 mg PO DAILY ELY Last Admin: 11/27/18 10:11 Dose: 1 mg Heparin Sodium (Porcine) (Heparin) 5,000 units SC Q8 ELY; Protocol Last Admin: 11/27/18 13:53 Dose: 5,000 units Dextrose (Dextrose 5% In Water 1000 Ml) 1,000 mls @ 0 mls/hr IV .Q0M PRN; Protocol PRN Reason: Hypoglycemia Protocol Piperacillin Sod/Tazobactam Sod (Zosyn 4.5 Gm In Ns 100ml) 4.5 gm in 100 mls @ 25 mls/hr IVPB Q8 ELY; Protocol Stop: 11/30/18 22:01 Last Admin: 11/27/18 13:37 Dose: 25 mls/hr Dextrose/Sodium Chloride (Dextrose 5%/0.45% Ns 1000 Ml) 1,000 mls @ 100 mls/hr IV .Q10H ELY Last Admin: 11/26/18 20:13 Dose: 100 mls/hr Insulin Human Regular (Humulin R Low) 0 units SC ACHS ELY; Protocol Last Admin: 11/27/18 12:42 Dose: Not Given Lorazepam (Ativan) 1 mg IVP Q6H PRN; Protocol PRN Reason: Anxiety Last Admin: 11/25/18 23:13 Dose: 1 mg Multivitamins/Minerals (Therapeutic-M Tab) 1 tab PO 0800 ELY Last Admin: 11/27/18 07:18 Dose: 1 tab Ondansetron HCl (Zofran Inj) 4 mg IVP Q6H PRN PRN Reason: Nausea/Vomiting Last Admin: 11/23/18 17:13 Dose: 4 mg Oxycodone/Acetaminophen (Percocet 10/325 Mg Tab) 1 tab PO Q4H PRN PRN Reason: Pain, severe (8-10) Last Admin: 11/27/18 10:56 Dose: 1 tab Pantoprazole Sodium (Protonix Ec Tab) 40 mg PO ACB ELY Last Admin: 11/27/18 07:18 Dose: 40 mg Thiamine HCl (Vitamin B1 Tab) 100 mg PO DAILY [facility] Last Admin: 11/27/18 10:11 Dose: 100 mg Tramadol HCl (Ultram) 50 mg PO Q6H PRN PRN Reason: Pain, moderate (4-7) Last Admin: 11/23/18 17:13 Dose: 50 mg - Labs Labs: 11/27/18 10:00 11/27/18 08:30 PT 14.6 SECONDS (9.4-12.5) H 11/21/18 10:45 INR 1.29 11/21/18 10:45 APTT 30.6 Seconds (26.9-38.3) 11/21/18 10:45 Assessment and Plan - Assessment and Plan (Free Text) Assessment: #Suspected acute cholecystitis and abscess formation with colonic obstruction. S/p R hemicolectomy. #alcoholism #depression #Abnormal live tests: Cholecystitis, DILI, vs other #Citrobacter sepsis Plan: -Previous CT scans reviewed and no obvious GB mass malignancy at that time 08/2018. -CT chest abdomen pelvis pending read. -SHAY drain increasing output. If concern for biliary leak, may consider HIDA scan. -Discussed with surgical team, pending IR intervention and drainage of gallblad russell Status post exploratory laparotomy and hemicolectomy 11/21/18 Pathology shows colonic abscesses without malignancy CT scan ordered by Gen Surg; await results -Diet per surgical team Case discussed with Dr. Cleary, see attestation. <Angelica Cleary V - Last Filed: 11/28/18 00:12> Objective - Vital Signs/Intake and Output Vital Signs (last 24 hours): Temp Pulse Resp BP Pulse Ox 98.6 F 79 18 135/86 96 11/27/18 22:00 11/27/18 22:00 11/27/18 22:00 11/27/18 22:00 11/27/18 22:00 Intake and Output: 11/27/18 11/28/18 18:59 06:59 Intake Total 60 120 Output Total 200 580 Balance -140 -460 - Medications Medications: Current Medications Dextrose (Dextrose 50% Inj) 0 ml IV STAT PRN; Protocol PRN Reason: Hypoglycemia Protocol Folic Acid (Folic Acid) 1 mg PO DAILY ELY Last Admin: 11/27/18 10:11 Dose: 1 mg Heparin Sodium (Porcine) (Heparin) 5,000 units SC Q8 ELY; Protocol Last Admin: 11/27/18 21:21 Dose: 5,000 units Dextrose (Dextrose 5% In Water 1000 Ml) 1,000 mls @ 0 mls/hr IV .Q0M PRN; Protocol PRN Reason: Hypoglycemia Protocol Piperacillin Sod/Tazobactam Sod (Zosyn 4.5 Gm In Ns 100ml) 4.5 gm in 100 mls @ 25 mls/hr IVPB Q8 ELY; Protocol Stop: 11/30/18 22:01 Last Admin: 11/27/18 21:21 Dose: 25 mls/hr Dextrose/Sodium Chloride (Dextrose 5%/0.45% Ns 1000 Ml) 1,000 mls @ 100 mls/hr IV .Q10H ELY Last Admin: 11/26/18 20:13 Dose: 100 mls/hr Vancomycin HCl (Vancomycin 1gm) 1 gm in 250 mls @ 167 mls/hr IVPB Q12H ELY; Protocol Stop: 12/05/18 21:16 Last Admin: 11/27/18 21:26 Dose: 167 mls/hr Insulin Human Regular (Humulin R Low) 0 units SC ACHS ELY; Protocol Last Admin: 11/27/18 21:22 Dose: Not Given Lorazepam (Ativan) 1 mg IVP Q6H PRN; Protocol PRN Reason: Anxiety Last Admin: 11/25/18 23:13 Dose: 1 mg Multivitamins/Minerals (Therapeutic-M Tab) 1 tab PO 0800 ELY Last Admin: 11/27/18 07:18 Dose: 1 tab Ondansetron HCl (Zofran Inj) 4 mg IVP Q6H PRN PRN Reason: Nausea/Vomiting Last Admin: 11/23/18 17:13 Dose: 4 mg Oxycodone/Acetaminophen (Percocet 10/325 Mg Tab) 1 tab PO Q4H PRN PRN Reason: Pain, severe (8-10) Last Admin: 11/27/18 19:27 Dose: 1 tab Pantoprazole Sodium (Protonix Ec Tab) 40 mg PO ACB ELY Last Admin: 11/27/18 07:18 Dose: 40 mg Thiamine HCl (Vitamin B1 Tab) 100 mg PO DAILY ELY Last Admin: 11/27/18 10:11 Dose: 100 mg Tramadol HCl (Ultram) 50 mg PO Q6H PRN PRN Reason: Pain, moderate (4-7) Last Admin: 11/23/18 17:13 Dose: 50 mg - Labs Labs: 11/27/18 10:00 11/27/18 08:30 PT 14.6 SECONDS (9.4-12.5) H 11/21/18 10:45 INR 1.29 11/21/18 10:45 APTT 30.6 Seconds (26.9-38.3) 11/21/18 10:45 Attending/Attestation - Attestation I have personally seen and examined this patient.: Yes I have fully participated in the care of the patient.: Yes I have reviewed all pertinent clinical information, including history, physical exam and plan: Yes Notes (Text): This is an addendum to GI progress report dictated by the GI Fellow. The patient was seen and examined earlier. Medical records, lab studies, imagings were reviewed. Last 24 hours events reviewed. Agreed with the above treatment plan as outlined in GI Fellow 's notes with the addition of the following Imaging studies were reviewed we will request HIDA scan to evaluate for biliary leak Will discuss with the surgical team 11/28/18 00:10
--- NOTE | 2018-11-27 15:24 | RAD ---
Date of service: 11/27/2018 HISTORY: wbc of 18k COMPARISON: No prior. TECHNIQUE: Chest PA and lateral FINDINGS: LUNGS: Mild bibasilar atelectasis right greater than left. Developing lower lobe infiltrate could be excluded with follow-up radiographs. Small bilateral effusions right larger than left. PLEURA: As above. No pneumothorax apparent. CARDIOVASCULAR: No aortic atherosclerotic calcification present. Heart appears mildly enlarged.. OSSEOUS STRUCTURES: Redemonstrated are multiple old healed right-sided rib fracture deformities.. There also appears to be some bony bridging across posterior right 7th and 8th ribs. VISUALIZED UPPER ABDOMEN: Normal. OTHER FINDINGS: None. IMPRESSION: Mild bibasilar atelectasis right greater than left. Developing lower lobe infiltrate could be excluded with follow-up radiographs. Small bilateral effusions right larger than left.
--- NOTE | 2018-11-27 16:20 | CT ---
Date of service: 11/27/2018 PROCEDURE: CT Chest, Abdomen and Pelvis with intravenous contrast HISTORY: Mild temperature-postoperative; new leukocytosis COMPARISON: Comparison made with chest radiograph obtained earlier same day and prior CT scan chest 11/22/[address] scan of the abdomen and pelvis dated 11/24/2018.. TECHNIQUE: Contiguous helical/transaxial sections of the chest abdomen pelvis performed before and following intravenous injection of approximately 96 cc Omnipaque 350 contrast material.. Additional 2D sagittal and coronal reformats generated.. Radiation dose: Total exam DLP = 1003.55 mGy-cm. This CT exam was performed using one or more of the following dose reduction techniques: Automated exposure control, adjustment of the mA and/or kV according to patient size, and/or use of iterative reconstruction technique. FINDINGS: CT CHEST WITH CONTRAST: LUNGS: Centrilobular and panlobular emphysematous seen in the upper and lower lobes. There are a few scattered blebs and small bullous changes in the both lung apices. Again noted is a stellate nodular density in the left lung apex that extends with the linear spiculations seen extending superiorly contiguous with apical pleural thickening. Findings likely represent postinflammatory scarring however possibility of underlying scar carcinoma not excluded. Clinical correlation recommended. There is a left-sided small effusion and mild left basilar atelectasis slightly increased in size from prior study.. Tiny right-sided effusion and mild right slightly decreased since prior exam. Small amount of fluid is felt be tracking along the inferior margin of the major fissure the right side. Mild right basilar atelectasis also present MEDIASTINUM: Heart size within range of normal. Trace pericardial effusion and/or minimal pericardial thickening. The ascending thoracic aorta measures approximately 3.0 cm. Descending thoracic aorta measures approximately 2.6 cm. Minor aortic atherosclerotic calcification present. No evidence of aortic dissection Trachea midline and patent with no large endoluminal lesions There is a small hiatal hernia. LYMPH NODES: There are multiple small to medium-sized nonspecific mediastinal lymph nodes are present., the largest of which is located in the subcarinal region measuring 13 mm. No significant hilar adenopathy. PLEURA: Unremarkable. No pneumothorax. No pleural fluid. BONES: Mild multilevel degenerative spondylosis of the thoracic spine. No obvious acute compression fractures nor retropulsed fragments. Few old healed right-sided rib fracture deformities again noted. OTHER FINDINGS: None. CT ABDOMEN AND PELVIS: LIVER: Liver exhibits relatively normal size measuring approximately GALLBLADDER AND BILE DUCTS: Gallbladder appears contracted and thick-walled in appearance. Surrounding infiltration fluid and a few bubbles of air are again seen. PANCREAS: Pancreas a is slightly atrophic. No obvious pancreatic masses collections or calcifications. SPLEEN: Spleen exhibits normal size and attenuation pattern without mass collection or calcification. ADRENALS: No adrenal lesions. KIDNEYS AND URETERS: Kidneys demonstrate symmetric nephrograms. No evidence of nephrolithiasis or hydronephrosis. VASCULATURE: Mild aortic atherosclerotic calcification or mural plaque present. Unremarkable. No aortic aneurysm. BOWEL: Evaluation of bowel is limited due to lack of oral contrast material. The stomach is relatively collapsed. Multiple mildly distended partially air and fluid-filled loops of small bowel again noted consistent with generalized ileus. Stool and air seen throughout the large bowel. Right hemicolectomy with ileocolic anastomosis in the region of the hepatic flexure. Note that the possibility of a postoperative leak cannot be excluded. APPENDIX: Normal appendix. PERITONEUM: Redemonstrated is in situ drainage catheter which extends which extends into the right abdomen discordant to the inferior tip of the liver. Also again seen is amorphous fluid collection which extends inferiorly from the gallbladder fossa to mid abdomen with infiltration changes of the adjacent mesentery.. LYMPH NODES: Unremarkable. No enlarged lymph nodes. There is a large left-sided inguinal hernia that contains mesenteric fat and a moderate amount of fluid. BLADDER: Urinary bladder is incompletely distended which in part accounts for thick-walled appearance. There is mild diffuse wall thickening with more localized thickening in the along the anterior left lateral roof which extends towards the mouth of a left inguinal hernia. Rule out intrinsic/invasive bladder wall lesion. REPRODUCTIVE: The prostate gland appears slightly enlarged. BONES: Mild multilevel degenerative spondylosis of the lumbar spine. OTHER FINDINGS: None. IMPRESSION: Small left-sided effusions and atelectasis slightly increased from prior study. Small tiny right-sided effusion and minor right basilar atelectasis slightly decreased although there is fluid tracking along the inferior margin of the right major fissure. In situ drainage catheter with a amorphous collection of fluid in the right abdomen coronal to the inferior tip of the liver extending into the gallbladder fossa region.. There are infiltration changes seen in the surrounding mesentery as well. Gallbladder is contracted and thick-walled in appearance. Few residual bubbles of air present in the gallbladder fossa region.. Right hemicolectomy with ileocolic anastomosis in the region of the hepatic flexure. Note that the possibility of a postoperatively cannot be excluded. Findings likely represent ileus with several loops of small bowel exhibiting thick-walled appearance. Moderate-sized left-sided inguinal hernia containing fluid and mesenteric fat. Small right-sided fat containing inguinal hernia. There is localized prominent wall thickening of the urinary bladder wall along the left superior anterior margin which extends towards the mouth of the left inguinal hernia. Rule out intrinsic/invasive bladder wall lesion.
[2018-11-27] MEDS: Vancomycin 1gm in NS 250ml 1 GM/250 ML BAG IVPB SCH (21:26)
--- NOTE | 2018-11-28 02:03 | PN ---
DATE: 11/27/2018 SUBJECTIVE: The patient is in bed, in no acute distress, nontoxic. The patient is seen earlier this morning in room 574, bed 2. PHYSICAL EXAMINATION: VITAL SIGNS: Temperature is 98, blood pressure 139/80, respiratory rate 18. HEENT: Unremarkable. NECK: Supple. LUNGS: Have decreased breath sounds. HEART: Normal S1 and S2. ABDOMEN: Soft and nontender. LABORATORY DATA: Reveals a white count of 16,000, hemoglobin of 10. Chemistries revealed BUN of 4 and creatinine of 0.6. Toxicology is noted. Serology is noted. Microbiology is reviewed with Citrobacter. Review of the orders reveals the patient to be on heparin subcutaneously and Zosyn. The patient had a chest x-ray today with atelectasis, developing right lower lobe infiltrate. The patient had a CAT scan of the abdomen and pelvis and chest, read by Dr. Narinder Valdivia, basilar atelectasis and questionable collection of fluids, and review of orders reveals the cultures are pending. ASSESSMENT AND PLAN: A 58-year-old male, was admitted with sepsis, status post exploratory laparoscopy and right hemicolectomy with Citrobacter, pathology is negative for malignancy, on Zosyn now with systemic inflammatory response syndrome. CAT scan of the chest and abdomen is reviewed. Follow WBCs and culture results. The patient's procalcitonin is 0.55. We will check on tomorrow's WBCs. We will add vancomycin at this point. Gene Lipscomb MD
[2018-11-28] MEDS: Piperacill/Tazo 4.5gm in NS 4.5 GM/100 ML BAG IVPB SCH ×3 (05:14→21:05)
[2018-11-28] MEDS: Oxycodone/Acetaminophen 10/325 mg Tab PO PRN ×4 (05:14→22:43)
--- NOTE | 2018-11-28 07:45 | CP.PCM.PN ---
Subjective - Date & Time of Evaluation Date of Evaluation: 11/28/18 Time of Evaluation: 07:42 - Subjective Subjective: iDana Richardson PGY1 Progress Note for Dr. Storey Patient was examined at bedside this morning. He reports continuation of bowel m ovements and that he is able to tolerate diet. He denies fever, chills, nausea, vomiting. Objective - Vital Signs/Intake and Output Vital Signs (last 24 hours): Temp Pulse Resp BP Pulse Ox 98.6 F 79 18 135/86 96 11/27/18 22:00 11/27/18 22:00 11/27/18 22:00 11/27/18 22:00 11/27/18 22:00 Intake and Output: 11/28/18 11/28/18 06:59 18:59 Intake Total 360 Output Total 1080 Balance -720 - Medications Medications: Current Medications Dextrose (Dextrose 50% Inj) 0 ml IV STAT PRN; Protocol PRN Reason: Hypoglycemia Protocol Folic Acid (Folic Acid) 1 mg PO DAILY ELY Last Admin: 11/27/18 10:11 Dose: 1 mg Heparin Sodium (Porcine) (Heparin) 5,000 units SC Q8 ELY; Protocol Last Admin: 11/28/18 05:14 Dose: 5,000 units Dextrose (Dextrose 5% In Water 1000 Ml) 1,000 mls @ 0 mls/hr IV .Q0M PRN; Protocol PRN Reason: Hypoglycemia Protocol Piperacillin Sod/Tazobactam Sod (Zosyn 4.5 Gm In Ns 100ml) 4.5 gm in 100 mls @ 25 mls/hr IVPB Q8 ELY; Protocol Stop: 11/30/18 22:01 Last Admin: 11/28/18 05:14 Dose: 25 mls/hr Dextrose/Sodium Chloride (Dextrose 5%/0.45% Ns 1000 Ml) 1,000 mls @ 100 mls/hr IV .Q10H ELY Last Admin: 11/26/18 20:13 Dose: 100 mls/hr Vancomycin HCl (Vancomycin 1gm) 1 gm in 250 mls @ 167 mls/hr IVPB Q12H ELY; Protocol Stop: 12/05/18 21:16 Last Admin: 11/27/18 21:26 Dose: 167 mls/hr Insulin Human Regular (Humulin R Low) 0 units SC ACHS ELY; Protocol Last Admin: 11/27/18 21:22 Dose: Not Given Lorazepam (Ativan) 1 mg IVP Q6H PRN; Protocol PRN Reason: Anxiety Last Admin: 11/25/18 23:13 Dose: 1 mg Multivitamins/Minerals (Therapeutic-M Tab) 1 tab PO 0800 ELY Last Admin: 11/27/18 07:18 Dose: 1 tab Ondansetron HCl (Zofran Inj) 4 mg IVP Q6H PRN PRN Reason: Nausea/Vomiting Last Admin: 11/23/18 17:13 Dose: 4 mg Oxycodone/Acetaminophen (Percocet 10/325 Mg Tab) 1 tab PO Q4H PRN PRN Reason: Pain, severe (8-10) Last Admin: 11/28/18 05:14 Dose: 1 tab Pantoprazole Sodium (Protonix Ec Tab) 40 mg PO ACB [facility] Last Admin: 11/27/18 07:18 Dose: 40 mg Thiamine HCl (Vitamin B1 Tab) 100 mg PO DAILY [facility] Last Admin: 11/27/18 10:11 Dose: 100 mg Tramadol HCl (Ultram) 50 mg PO Q6H PRN PRN Reason: Pain, moderate (4-7) Last Admin: 11/23/18 17:13 Dose: 50 mg - Labs Labs: 11/27/18 10:00 11/27/18 08:30 PT 14.6 SECONDS (9.4-12.5) H 11/21/18 10:45 INR 1.29 11/21/18 10:45 APTT 30.6 Seconds (26.9-38.3) 11/21/18 10:45 - Constitutional Appears: Well, No Acute Distress - Head Exam Head Exam: ATRAUMATIC, NORMOCEPHALIC - Eye Exam Eye Exam: EOMI, Normal appearance - ENT Exam ENT Exam: Mucous Membranes Moist - Respiratory Exam Respiratory Exam: Clear to Ausculation Bilateral, NORMAL BREATHING PATTERN. absent: Rales, Rhonchi, Wheezes - Cardiovascular Exam Cardiovascular Exam: REGULAR RHYTHM, +S1, +S2. absent: Gallop, Rubs, Murmur - GI/Abdominal Exam GI & Abdominal Exam: Soft, Normal Bowel Sounds. absent: Tenderness Additional comments: suture site clean/dry/intact SHAY drain clear light brown fluid drained 40cc overnight - Extremities Exam Extremities Exam: Normal Inspection. absent: Pedal Edema - Neurological Exam Neurological Exam: Alert, Awake, Oriented x3 - Psychiatric Exam Psychiatric exam: Normal Affect, Normal Mood - Skin Skin Exam: Normal Color Assessment and Plan - Assessment and Plan (Free Text) Assessment: 58 M s/p extended right jesus-colectomy POD 7 2/2 hepatic flexure obstruction from gallbladder pathology. Plan: - Regular diet - Drain fluid Cx: Citrobacter tejeda-sensitive - IR draining for 11/29 - f/u HIDA - GI recs appreciated - Encourage OOBTC. Ambulation. IS use - Pain management - Strict Is & Os - NPO past midnight for draining tomorrow Further recs as per Dr. Storey
[2018-11-28] MEDS: Pantoprazole 40 mg EC Tab PO SCH (08:01)
[2018-11-28] MEDS: Multivitamin With Minerals Tab PO SCH (08:01)
[2018-11-28] MEDS: Insulin Reg-LOW-Coverage SC SCH ×4 (08:02→22:45)
[2018-11-28 08:09] LABS: BASO # 0.02 K/mm3 (0.0-2.0); BASO % 0.1 % (0.0-3.0); EOS # 0.2 (0.0-0.7); EOS % 1.1 % (1.5-5.0); HEMOGLOBIN 10.5 g/dL (14.0-18.0); LYMPH # 1.3 (1.2-3.4); LYMPH % 9.1 % (22.0-35.0); MEAN CELL VOLUME 92.5 fl (80.0-105.0); MEAN CORPUSCULAR HEMOGLOBIN 31.4 pg (25.0-35.0); MEAN PLATELET VOLUME 9.3 fl (7.0-11.0); MONO # 0.8 (0.1-0.6); MONO % 5.5 % (1.0-6.0); RBC 3.34 10^6/uL (3.5-6.1); RED CELL DISTRIBUTION WIDTH 14.1 % (11.5-14.5); WHITE BLOOD COUNT 14.7 10^3/uL (4.5-11.0)
--- NOTE | 2018-11-28 08:24 | CP.PCM.PN ---
<Emily Bolton - Last Filed: 11/28/18 08:22> Subjective - Date & Time of Evaluation Date of Evaluation: 11/28/18 Time of Evaluation: 08:23 - Subjective Subjective: GI progress note for Dr. Immanuel Bolton, PGY-2 Pt seen/examined at bedside Pt reports continued but intermittent abdominal pain. No acute events overnight. Tolerating diet- no nausea or vomiting. Having BMs- liquid with pieces, flatus. SHAY with dark bilious output- 50cc Objective - Vital Signs/Intake and Output Vital Signs (last 24 hours): Temp Pulse Resp BP Pulse Ox 99 F 90 18 150/87 96 11/28/18 07:53 11/28/18 07:53 11/28/18 07:53 11/28/18 07:53 11/28/18 07:53 Intake and Output: 11/28/18 11/28/18 06:59 18:59 Intake Total 360 Output Total 1080 Balance -720 - Medications Medications: Current Medications Dextrose (Dextrose 50% Inj) 0 ml IV STAT PRN; Protocol PRN Reason: Hypoglycemia Protocol Folic Acid (Folic Acid) 1 mg PO DAILY [facility] Last Admin: 11/27/18 10:11 Dose: 1 mg Heparin Sodium (Porcine) (Heparin) 5,000 units SC Q8 [facility]; Protocol Last Admin: 11/28/18 05:14 Dose: 5,000 units Dextrose (Dextrose 5% In Water 1000 Ml) 1,000 mls @ 0 mls/hr IV .Q0M PRN; P rotocol PRN Reason: Hypoglycemia Protocol Piperacillin Sod/Tazobactam Sod (Zosyn 4.5 Gm In Ns 100ml) 4.5 gm in 100 mls @ 25 mls/hr IVPB Q8 [facility]; Protocol Stop: 11/30/18 22:01 Last Admin: 11/28/18 05:14 Dose: 25 mls/hr Dextrose/Sodium Chloride (Dextrose 5%/0.45% Ns 1000 Ml) 1,000 mls @ 100 mls/hr IV .Q10H [facility] Last Admin: 11/26/18 20:13 Dose: 100 mls/hr Vancomycin HCl (Vancomycin 1gm) 1 gm in 250 mls @ 167 mls/hr IVPB Q12H [facility]; Protocol Stop: 12/05/18 21:16 Last Admin: 11/27/18 21:26 Dose: 167 mls/hr Insulin Human Regular (Humulin R Low) 0 units SC ACHS [facility]; Protocol Last Admin: 11/28/18 08:02 Dose: Not Given Lorazepam (Ativan) 1 mg IVP Q6H PRN; Protocol PRN Reason: Anxiety Last Admin: 11/25/18 23:13 Dose: 1 mg Multivitamins/Minerals (Therapeutic-M Tab) 1 tab PO 0800 [facility] Last Admin: 11/28/18 08:01 Dose: 1 tab Ondansetron HCl (Zofran Inj) 4 mg IVP Q6H PRN PRN Reason: Nausea/Vomiting Last Admin: 11/23/18 17:13 Dose: 4 mg Oxycodone/Acetaminophen (Percocet 10/325 Mg Tab) 1 tab PO Q4H PRN PRN Reason: Pain, severe (8-10) Last Admin: 11/28/18 05:14 Dose: 1 tab Pantoprazole Sodium (Protonix Ec Tab) 40 mg PO ACB [facility] Last Admin: 11/28/18 08:01 Dose: 40 mg Thiamine HCl (Vitamin B1 Tab) 100 mg PO DAILY [facility] Last Admin: 11/27/18 10:11 Dose: 100 mg Tramadol HCl (Ultram) 50 mg PO Q6H PRN PRN Reason: Pain, moderate (4-7) Last Admin: 11/23/18 17:13 Dose: 50 mg - Labs Labs: 11/28/18 07:45 11/27/18 08:30 PT 14.6 SECONDS (9.4-12.5) H 11/21/18 10:45 INR 1.29 11/21/18 10:45 APTT 30.6 Seconds (26.9-38.3) 11/21/18 10:45 - Constitutional Appears: Non-toxic, No Acute Distress - Head Exam Head Exam: ATRAUMATIC, NORMAL INSPECTION, NORMOCEPHALIC - Eye Exam Eye Exam: EOMI, Normal appearance - ENT Exam ENT Exam: Mucous Membranes Moist, Normal Exam - Neck Exam Neck Exam: Full ROM - Respiratory Exam Respiratory Exam: Clear to Ausculation Bilateral, NORMAL BREATHING PATTERN - Cardiovascular Exam Cardiovascular Exam: REGULAR RHYTHM, +S1, +S2 - GI/Abdominal Exam GI & Abdominal Exam: Soft. absent: Distended, Firm, Guarding, Rigid, Tenderness Additional comments: midline fortino in place- no erythema or drainage, SHAY with ~50 cc bilious output - Extremities Exam Extremities Exam: Normal Inspection - Neurological Exam Neurological Exam: Alert, Awake, CN II-XII Intact, Oriented x3 - Psychiatric Exam Psychiatric exam: Normal Affect, Normal Mood - Skin Skin Exam: Dry, Intact, Normal Color, Warm Assessment and Plan - Assessment and Plan (Free Text) Assessment: 58M s/p R hemicolectomy w/intermittent post operative abdominal pain Plan: CT A/P -Small L sided effusions & atelectasis; Small tiny R-sided effusion and minor right basilar atelectasis In situ drainage catheter w/fluid collection in the R abdomen coronal to the inf erior tip of the liver extending into the gallbladder fossa region. Gallbladder is contracted and thick-walled in appearance. Few residual bubbles of air present in the gallbladder fossa region. Right hemicolectomy with ileocolic anastomosis in the region of the hepatic flexure. Findings likely represent ileus with several loops of small bowel exhibiting thick-walled appearance. Moderate-sized left-sided inguinal hernia containing fluid and mesenteric fat. Small right-sided fat containing inguinal hernia. There is localized prominent wall thickening of the urinary bladder wall along the left superior anterior margin which extends towards the mouth of the left inguinal hernia. Rule out intrinsic/invasive bladder wall lesion. FU possible IR drainage of GB Continue diet as per surgical team continue pain control Continue to monitor bowel function Will MIKE Cleary <Angelica Cleary V - Last Filed: 11/28/18 23:41> Objective - Vital Signs/Intake and Output Vital Signs (last 24 hours): Temp Pulse Resp BP Pulse Ox 98.9 F 82 18 145/85 96 11/28/18 22:08 11/28/18 22:08 11/28/18 22:08 11/28/18 22:08 11/28/18 22:08 Intake and Output: 11/28/18 11/29/18 18:59 06:59 Intake Total 480 180 Output Total 250 200 Balance 230 -20 - Medications Medications: Current Medications Dextrose (Dextrose 50% Inj) 0 ml IV STAT PRN; Protocol PRN Reason: Hypoglycemia Protocol Folic Acid (Folic Acid) 1 mg PO DAILY [facility] Last Admin: 11/28/18 10:15 Dose: 1 mg Heparin Sodium (Porcine) (Heparin) 5,000 units SC Q8 [facility]; Protocol Last Admin: 11/28/18 21:05 Dose: 5,000 units Dextrose (Dextrose 5% In Water 1000 Ml) 1,000 mls @ 0 mls/hr IV .Q0M PRN; Protocol PRN Reason: Hypoglycemia Protocol Piperacillin Sod/Tazobactam Sod (Zosyn 4.5 Gm In Ns 100ml) 4.5 gm in 100 mls @ 25 mls/hr IVPB Q8 [facility]; Protocol Stop: 11/30/18 22:01 Last Admin: 11/28/18 21:05 Dose: 25 mls/hr Dextrose/Sodium Chloride (Dextrose 5%/0.45% Ns 1000 Ml) 1,000 mls @ 100 mls/hr IV .Q10H [facility] Last Admin: 11/28/18 11:00 Dose: Not Given Vancomycin HCl (Vancomycin 1gm) 1 gm in 250 mls @ 167 mls/hr IVPB Q12H [facility]; Protocol Stop: 12/05/18 21:16 Last Admin: 11/28/18 21:00 Dose: 167 mls/hr Insulin Human Regular (Humulin R Low) 0 units SC ACHS [facility]; Protocol Last Admin: 11/28/18 22:45 Dose: Not Given Lorazepam (Ativan) 1 mg IVP Q6H PRN; Protocol PRN Reason: Anxiety Last Admin: 11/25/18 23:13 Dose: 1 mg Multivitamins/Minerals (Therapeutic-M Tab) 1 tab PO 0800 [facility] Last Admin: 11/28/18 08:01 Dose: 1 tab Ondansetron HCl (Zofran Inj) 4 mg IVP Q6H PRN PRN Reason: Nausea/Vomiting Last Admin: 11/23/18 17:13 Dose: 4 mg Oxycodone/Acetaminophen (Percocet 10/325 Mg Tab) 1 tab PO Q4H PRN PRN Reason: Pain, severe (8-10) Last Admin: 11/28/18 22:43 Dose: 1 tab Pantoprazole Sodium (Protonix Ec Tab) 40 mg PO ACB [facility] Last Admin: 11/28/18 08:01 Dose: 40 mg Thiamine HCl (Vitamin B1 Tab) 100 mg PO DAILY [facility] Last Admin: 11/28/18 10:15 Dose: 100 mg Tramadol HCl (Ultram) 50 mg PO Q6H PRN PRN Reason: Pain, moderate (4-7) Last Admin: 11/23/18 17:13 Dose: 50 mg - Labs Labs: 11/28/18 07:45 11/28/18 07:45 PT 14.6 SECONDS (9.4-12.5) H 11/21/18 10:45 INR 1.29 11/21/18 10:45 APTT 30.6 Seconds (26.9-38.3) 11/21/18 10:45 Attending/Attestation - Attestation I have personally seen and examined this patient.: Yes I have fully participated in the care of the patient.: Yes I have reviewed all pertinent clinical information, including history, physical exam and plan: Yes Notes (Text): This is an addendum to GI progress report dictated by the resident. The patient was seen and examined earlier. Medical records, lab studies, imagings were reviewed. Last 24 hours events reviewed. Agreed with the above treatment plan as outlined in resident's notes with the addition of the following CT and the nuclear imagings were reviewed The drainage showed a biliary fluid Will discuss with the interventional radiologist regarding the collection Continue antibiotics as per ID 11/28/18 23:40
[2018-11-28 08:34] LABS: ALB/GLOB RATIO 0.8 (1.1-1.8); ALBUMIN 2.7 g/dL (3.0-4.8); ALT/SGPT 15 U/L (7-56); AST/SGOT 25 U/L (17-59); BLOOD UREA NITROGEN 3 mg/dL (7-21); CALCIUM 8.1 mg/dL (8.4-10.5); GFR NON-AFRICAN AMERICAN > 60
[2018-11-28] MEDS: Vancomycin 1gm in NS 250ml 1 GM/250 ML BAG IVPB SCH ×2 (10:14→21:00)
[2018-11-28] MEDS: Dextrose 5%/0.45% NS 1,000 ML IV SCH (11:00)
--- NOTE | 2018-11-28 13:28 | CP.PCM.PN ---
<IsraelChauncey - Last Filed: 11/28/18 13:34> Subjective - Date & Time of Evaluation Date of Evaluation: 11/28/18 Time of Evaluation: 13:24 - Subjective Subjective: Medicine Progress Note for Dr. Abebe 58M seen and evaluated at bedside this morning. No acute events overnight. No complaints this morning. States he is feeling better, pain controlled. Patient is having bowel movements. He is willing to work with physical therapy today. Using his incentive spirometer. SHAY Drain 50cc dark brown output overnight. Denies f/c, n/v/d, SOB, CP, or urinary symptoms. Objective - Vital Signs/Intake and Output Vital Signs (last 24 hours): Temp Pulse Resp BP Pulse Ox 99 F 90 18 150/87 96 11/28/18 07:53 11/28/18 07:53 11/28/18 07:53 11/28/18 07:53 11/28/18 07:53 Intake and Output: 11/28/18 11/28/18 06:59 18:59 Intake Total 360 Output Total 1080 75 Balance -720 -75 - Medications Medications: Current Medications Dextrose (Dextrose 50% Inj) 0 ml IV STAT PRN; Protocol PRN Reason: Hypoglycemia Protocol Folic Acid (Folic Acid) 1 mg PO DAILY [facility] Last Admin: 11/28/18 10:15 Dose: 1 mg Heparin Sodium (Porcine) (Heparin) 5,000 units SC Q8 [facility]; Protocol Last Admin: 11/28/18 05:14 Dose: 5,000 units Dextrose (Dextrose 5% In Water 1000 Ml) 1,000 mls @ 0 mls/hr IV .Q0M PRN; Protocol PRN Reason: Hypoglycemia Protocol Piperacillin Sod/Tazobactam Sod (Zosyn 4.5 Gm In Ns 100ml) 4.5 gm in 100 mls @ 25 mls/hr IVPB Q8 [facility]; Protocol Stop: 11/30/18 22:01 Last Admin: 11/28/18 05:14 Dose: 25 mls/hr Dextrose/Sodium Chloride (Dextrose 5%/0.45% Ns 1000 Ml) 1,000 mls @ 100 mls/hr IV .Q10H [facility] Last Admin: 11/26/18 20:13 Dose: 100 mls/hr Vancomycin HCl (Vancomycin 1gm) 1 gm in 250 mls @ 167 mls/hr IVPB Q12H [facility]; Protocol Stop: 12/05/18 21:16 Last Admin: 11/28/18 10:14 Dose: 167 mls/hr Insulin Human Regular (Humulin R Low) 0 units SC ACHS [facility]; Protocol Last Admin: 11/28/18 08:02 Dose: Not Given Lorazepam (Ativan) 1 mg IVP Q6H PRN; Protocol PRN Reason: Anxiety Last Admin: 11/25/18 23:13 Dose: 1 mg Multivitamins/Minerals (Therapeutic-M Tab) 1 tab PO 0800 [facility] Last Admin: 11/28/18 08:01 Dose: 1 tab Ondansetron HCl (Zofran Inj) 4 mg IVP Q6H PRN PRN Reason: Nausea/Vomiting Last Admin: 11/23/18 17:13 Dose: 4 mg Oxycodone/Acetaminophen (Percocet 10/325 Mg Tab) 1 tab PO Q4H PRN PRN Reason: Pain, severe (8-10) Last Admin: 11/28/18 10:15 Dose: 1 tab Pantoprazole Sodium (Protonix Ec Tab) 40 mg PO ACB [facility] Last Admin: 11/28/18 08:01 Dose: 40 mg Thiamine HCl (Vitamin B1 Tab) 100 mg PO DAILY [facility] Last Admin: 11/28/18 10:15 Dose: 100 mg Tramadol HCl (Ultram) 50 mg PO Q6H PRN PRN Reason: Pain, moderate (4-7) Last Admin: 11/23/18 17:13 Dose: 50 mg - Labs Labs: 11/28/18 07:45 11/28/18 07:45 PT 14.6 SECONDS (9.4-12.5) H 11/21/18 10:45 INR 1.29 11/21/18 10:45 APTT 30.6 Seconds (26.9-38.3) 11/21/18 10:45 - Constitutional Appears: Well, Non-toxic, No Acute Distress - Head Exam Head Exam: ATRAUMATIC, NORMAL INSPECTION, NORMOCEPHALIC - Eye Exam Eye Exam: EOMI - ENT Exam ENT Exam: Mucous Membranes Dry - Respiratory Exam Respiratory Exam: NORMAL BREATHING PATTERN. absent: Accessory Muscle Use, Chest Wall Tenderness, Wheezes, Respiratory Distress - Cardiovascular Exam Cardiovascular Exam: REGULAR RHYTHM, +S1, +S2. absent: Tachycardia - GI/Abdominal Exam GI & Abdominal Exam: Soft, Tenderness, Normal Bowel Sounds. absent: Distended, Guarding, Rebound Additional comments: Abdominal binder in place Dressings c/d/i No leakage or drainage from wound noted SHAY Drain 50cc dark brown output, currently 50cc in drain as well - Extremities Exam Extremities Exam: absent: Calf Tenderness, Pedal Edema - Neurological Exam Neurological Exam: Alert, Awake, Oriented x3 - Psychiatric Exam Psychiatric exam: Normal Affect, Normal Mood - Skin Skin Exam: Dry, Intact, Normal Color, Warm Assessment and Plan - Assessment and Plan (Free Text) Assessment: 58M, PMH of EtOH abuse and depression, presented with peritonitis, admitted for suspected cecal volvulus vs perforation w/ intraabdominal abscess. Patient s/p exploratory laparotomy w/ extended right hemicolectomy and intraabdominal abscess drainage POD8. Scheduled for IR drainage 11/29/18. Plan: Colonic Obstruction w/ intraabdominal abscess 2/2 suspected Malignancy - POD8 exploratory laparotomy w/ extended right hemicolectomy and intraabdominal abscess drainage - Continue to monitor SHAY drain output - Body fluid cultures positive for Citrobacter Diversus - Surgical pathology: negative for malignancy - Repeat CTAP 11/24: Postoperative mild ileus, small abscesses. Left inguinal hernia w/ bladder in hernia sac. - Repeat CT C/A/P 11/27: Atelectasis slightly increased, drainage catheter inferior to liver tip, likely ileus, b/l fat containing inguinal hernias L>R - Zosyn started on 11/21/18 - Vancomycin started 11/27/18 - Percocet 10/325mg, Toradal and Tramadol for pain - Zofran for nausea - Regular diet, NPO past midnight for IR procedure - Monitor diet tolerance - Monitor bowel function - F/u GI recommendations: pending HIDA scan for evaluation of biliary leak - F/u surgery recommendations Leukocytosis, downtrending - CXR 11/27: Mild atelectasis R>L, developing lower lobe infiltrate. Small b/l effusions R>L - F/u UA - Remains afebrile - Daily labs - Continue Zosyn and newly added Vancomycin, per infectious disease - Encourage incentive spirometer use - Continue to monitor vitals - IR drainage scheduled for 11/29; NPO past midnight New Onset Diarrhea - Pending C.diff - Infectious Disease following Hx of Alcohol Abuse - CIWA protocol - Ativan PRN - MV/Thiamine/Folate PPX GI: Protonix DVT: Heparin Patient plan discussed with Dr. Mis Wood PGY1 <Negar Abebe - Last Filed: 11/28/18 14:16> Objective - Vital Signs/Intake and Output Vital Signs (last 24 hours): Temp Pulse Resp BP Pulse Ox 99 F 90 18 150/87 96 11/28/18 07:53 11/28/18 07:53 11/28/18 07:53 11/28/18 07:53 11/28/18 07:53 Intake and Output: 11/28/18 11/28/18 06:59 18:59 Intake Total 360 Output Total 1080 75 Balance -720 -75 - Medications Medications: Current Medications Dextrose (Dextrose 50% Inj) 0 ml IV STAT PRN; Protocol PRN Reason: Hypoglycemia Protocol Folic Acid (Folic Acid) 1 mg PO DAILY [facility] Last Admin: 11/28/18 10:15 Dose: 1 mg Heparin Sodium (Porcine) (Heparin) 5,000 units SC Q8 [facility]; Protocol Last Admin: 11/28/18 05:14 Dose: 5,000 units Dextrose (Dextrose 5% In Water 1000 Ml) 1,000 mls @ 0 mls/hr IV .Q0M PRN; Protocol PRN Reason: Hypoglycemia Protocol Piperacillin Sod/Tazobactam Sod (Zosyn 4.5 Gm In Ns 100ml) 4.5 gm in 100 mls @ 25 mls/hr IVPB Q8 [facility]; Protocol Stop: 11/30/18 22:01 Last Admin: 11/28/18 05:14 Dose: 25 mls/hr Dextrose/Sodium Chloride (Dextrose 5%/0.45% Ns 1000 Ml) 1,000 mls @ 100 mls/hr IV .Q10H [facility] Last Admin: 11/26/18 20:13 Dose: 100 mls/hr Vancomycin HCl (Vancomycin 1gm) 1 gm in 250 mls @ 167 mls/hr IVPB Q12H [facility]; Protocol Stop: 12/05/18 21:16 Last Admin: 11/28/18 10:14 Dose: 167 mls/hr Insulin Human Regular (Humulin R Low) 0 units SC ACHS [facility]; Protocol Last Admin: 11/28/18 08:02 Dose: Not Given Lorazepam (Ativan) 1 mg IVP Q6H PRN; Protocol PRN Reason: Anxiety Last Admin: 11/25/18 23:13 Dose: 1 mg Multivitamins/Minerals (Therapeutic-M Tab) 1 tab PO 0800 [facility] Last Admin: 11/28/18 08:01 Dose: 1 tab Ondansetron HCl (Zofran Inj) 4 mg IVP Q6H PRN PRN Reason: Nausea/Vomiting Last Admin: 11/23/18 17:13 Dose: 4 mg Oxycodone/Acetaminophen (Percocet 10/325 Mg Tab) 1 tab PO Q4H PRN PRN Reason: Pain, severe (8-10) Last Admin: 11/28/18 10:15 Dose: 1 tab Pantoprazole Sodium (Protonix Ec Tab) 40 mg PO ACB [facility] Last Admin: 11/28/18 08:01 Dose: 40 mg Thiamine HCl (Vitamin B1 Tab) 100 mg PO DAILY [facility] Last Admin: 11/28/18 10:15 Dose: 100 mg Tramadol HCl (Ultram) 50 mg PO Q6H PRN PRN Reason: Pain, moderate (4-7) Last Admin: 11/23/18 17:13 Dose: 50 mg - Labs Labs: 11/28/18 07:45 11/28/18 07:45 PT 14.6 SECONDS (9.4-12.5) H 11/21/18 10:45 INR 1.29 11/21/18 10:45 APTT 30.6 Seconds (26.9-38.3) 11/21/18 10:45 Attending/Attestation - Attestation I have personally seen and examined this patient.: Yes I have fully participated in the care of the patient.: Yes I have reviewed all pertinent clinical information, including history, physical exam and plan: Yes Notes (Text): 11/28/18 14:14 58 year old male with past medical history of anxiety and depression who presented with complaint of abdominal pains with peritoneal signs and 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 Patient was seen by surgery and underwent exploratory laparotomy, found to have right colon obstruction and intra-abdominal abscess. He is s/p right hemicolectomy. S/p drainage of abscess. Pathology result was negative for malignancy. Continue with iv antibiotics as per ID. Wound culture is growing citrobacter diversus. Leukocytosis is improving. Repeat CT c/a/p from yesterday was reviewed. Will follow up with IR input. GI is also following and ordered HIDA scan to rule out bile leak. Negar Abebe MD Hospitalist.
--- NOTE | 2018-11-28 14:10 | PN ---
DATE: 11/28/2018 SUBJECTIVE: The patient is in bed in no acute distress, nontoxic. PHYSICAL EXAMINATION: VITAL SIGNS: Temperature is 99, blood pressure is 150/80, respiratory rate of 20, heart rate of 96. HEENT: Unremarkable. NECK: Supple. LUNGS: Have decreased breath sounds. HEART: Normal S1, S2. ABDOMEN: Soft, nontender. LABORATORY EXAMINATION: Reveals a white count of 14,700, hemoglobin of 10. Chemistries; BUN of 3, creatinine of 0.7 and toxicology is noted. Abdominal fluid is noted. Chest x-ray is reviewed. Dr. Bolton's progress note is reviewed. The repeat cultures are noted. ASSESSMENT AND PLAN: This is a 58-year-old male admitted with sepsis, status post exploratory laparoscopy, right hemicolectomy and Citrobacter from the wound culture from the OR. Pathology is negative for malignancy with sepsis and now with systemic inflammatory response syndrome and an elevated pro WBCs, questionable collection. Dr. Dino Kidd to review the CAT scan. Currently on vancomycin and Zosyn, leukocytosis, improving. Pending Dr. Kidd's opinion regarding CAT scan findings. We will follow with you. Gene Lipscomb MD
--- NOTE | 2018-11-28 17:46 | NM ---
Date of service: 11/28/2018 PROCEDURE: Nuclear Medicine Hepatobiliary Scan HISTORY: evaluate for bile leak COMPARISON: November 27, 2018. TECHNIQUE: 5.0 mCi of technetium 99m Mebrofenin was administered intravenously. Planar images of the abdomen were obtained at 5 min intervals to 60 mins. Delayed images were also obtained. FINDINGS: LIVER: Timely and homogenous uptake. COMMON BILE DUCT: identified at 10 mins. GALLBLADDER: Not identified at 2 hours SMALL BOWEL: Identified at 15 mins. IMPRESSION: Abnormal hepatobiliary Scan. The cystic duct is occluded, presumptive evidence for acute cholecystitis
[2018-11-29] MEDS: Piperacill/Tazo 4.5gm in NS 4.5 GM/100 ML BAG IVPB SCH ×3 (05:02→21:34)
[2018-11-29] MEDS: Oxycodone/Acetaminophen 10/325 mg Tab PO PRN ×4 (05:06→19:43)
[2018-11-29] MEDS: Multivitamin With Minerals Tab PO SCH (07:04)
[2018-11-29] MEDS: Pantoprazole 40 mg EC Tab PO SCH (07:04)
--- NOTE | 2018-11-29 07:07 | CP.PCM.PN ---
Subjective - Date & Time of Evaluation Date of Evaluation: 11/29/18 Time of Evaluation: 07:03 - Subjective Subjective: Diana Richardson PGY1 Progress Note for Dr. Storey Pt was examined at bedside this morning. He reports feeling well, denying any fe jarvis, chills, nausea, vomiting, abdominal pain. He continues to have loose stools. Objective - Vital Signs/Intake and Output Vital Signs (last 24 hours): Temp Pulse Resp BP Pulse Ox 98.9 F 82 18 145/85 96 11/28/18 22:08 11/28/18 22:08 11/28/18 22:08 11/28/18 22:08 11/28/18 22:08 Intake and Output: 11/29/18 11/29/18 06:59 18:59 Intake Total 180 Output Total 680 Balance -500 - Medications Medications: Current Medications Dextrose (Dextrose 50% Inj) 0 ml IV STAT PRN; Protocol PRN Reason: Hypoglycemia Protocol Folic Acid (Folic Acid) 1 mg PO DAILY [facility] Last Admin: 11/28/18 10:15 Dose: 1 mg Heparin Sodium (Porcine) (Heparin) 5,000 units SC Q8 [facility]; Protocol Last Admin: 11/29/18 06:07 Dose: Not Given Dextrose (Dextrose 5% In Water 1000 Ml) 1,000 mls @ 0 mls/hr IV .Q0M PRN; Protocol PRN Reason: Hypoglycemia Protocol Piperacillin Sod/Tazobactam Sod (Zosyn 4.5 Gm In Ns 100ml) 4.5 gm in 100 mls @ 25 mls/hr IVPB Q8 [facility]; Protocol Stop: 11/30/18 22:01 Last Admin: 11/29/18 05:02 Dose: 25 mls/hr Dextrose/Sodium Chloride (Dextrose 5%/0.45% Ns 1000 Ml) 1,000 mls @ 100 mls/hr IV .Q10H [facility] Last Admin: 11/28/18 11:00 Dose: Not Given Vancomycin HCl (Vancomycin 1gm) 1 gm in 250 mls @ 167 mls/hr IVPB Q12H [facility]; Protocol Stop: 12/05/18 21:16 Last Admin: 11/28/18 21:00 Dose: 167 mls/hr Insulin Human Regular (Humulin R Low) 0 units SC ACHS [facility]; Protocol Last Admin: 11/28/18 22:45 Dose: Not Given Lorazepam (Ativan) 1 mg IVP Q6H PRN; Protocol PRN Reason: Anxiety Last Admin: 11/25/18 23:13 Dose: 1 mg Multivitamins/Minerals (Therapeutic-M Tab) 1 tab PO 0800 [facility] Last Admin: 11/28/18 08:01 Dose: 1 tab Ondansetron HCl (Zofran Inj) 4 mg IVP Q6H PRN PRN Reason: Nausea/Vomiting Last Admin: 11/23/18 17:13 Dose: 4 mg Oxycodone/Acetaminophen (Percocet 10/325 Mg Tab) 1 tab PO Q4H PRN PRN Reason: Pain, severe (8-10) Last Admin: 11/29/18 05:06 Dose: 1 tab Pantoprazole Sodium (Protonix Ec Tab) 40 mg PO ACB [facility] Last Admin: 11/28/18 08:01 Dose: 40 mg Thiamine HCl (Vitamin B1 Tab) 100 mg PO DAILY [facility] Last Admin: 11/28/18 10:15 Dose: 100 mg Tramadol HCl (Ultram) 50 mg PO Q6H PRN PRN Reason: Pain, moderate (4-7) Last Admin: 11/23/18 17:13 Dose: 50 mg - Labs Labs: 11/28/18 07:45 11/28/18 07:45 PT 14.6 SECONDS (9.4-12.5) H 11/21/18 10:45 INR 1.29 11/21/18 10:45 APTT 30.6 Seconds (26.9-38.3) 11/21/18 10:45 - Constitutional Appears: Well, No Acute Distress - Head Exam Head Exam: ATRAUMATIC, NORMOCEPHALIC - Eye Exam Eye Exam: EOMI, PERRL Pupil Exam: NORMAL ACCOMODATION - Respiratory Exam Respiratory Exam: Clear to Ausculation Bilateral, NORMAL BREATHING PATTERN. absent: Rales, Rhonchi, Wheezes - Cardiovascular Exam Cardiovascular Exam: REGULAR RHYTHM, +S1, +S2. absent: Gallop, Rubs, Murmur - GI/Abdominal Exam GI & Abdominal Exam: Soft, Normal Bowel Sounds. absent: Distended, Tenderness Additional comments: incision site clean/dry/intact drain with 80cc clear green output overnight - Extremities Exam Extremities Exam: Normal Inspection. absent: Pedal Edema - Neurological Exam Neurological Exam: Alert, Awake, Oriented x3 - Psychiatric Exam Psychiatric exam: Normal Affect, Normal Mood - Skin Skin Exam: Normal Color Assessment and Plan - Assessment and Plan (Free Text) Assessment: 58 M s/p extended right jesus-colectomy POD 7 2/2 hepatic flexure obstruction from gallbladder pathology. Plan: - IR not draining today, f/u future date - Drain fluid Cx: Citrobacter tejeda-sensitive - HIDA showing occlusion of cystic duct - GI recs appreciated - Encourage OOBTC. Ambulation. IS use - Pain management - Strict Is & Os - Regular diet Further recs as per Dr. Storey
[2018-11-29 07:26] LABS: BASO # 0.02 K/mm3 (0.0-2.0); BASO % 0.1 % (0.0-3.0); EOS # 0.1 (0.0-0.7); EOS % 0.8 % (1.5-5.0); HEMOGLOBIN 10.7 g/dL (14.0-18.0); LYMPH # 1.2 (1.2-3.4); LYMPH % 7.9 % (22.0-35.0); MEAN CELL VOLUME 93.3 fl (80.0-105.0); MEAN CORPUSCULAR HEMOGLOBIN 31.3 pg (25.0-35.0); MEAN CORPUSCULAR HGB CONC 33.5 g/dl (31.0-37.0); MEAN PLATELET VOLUME 9.5 fl (7.0-11.0); MONO # 0.8 (0.1-0.6); MONO % 5.7 % (1.0-6.0); RBC 3.42 10^6/uL (3.5-6.1); RED CELL DISTRIBUTION WIDTH 14.3 % (11.5-14.5); WHITE BLOOD COUNT 14.7 10^3/uL (4.5-11.0)
[2018-11-29 07:48] LABS: ALB/GLOB RATIO 0.8 (1.1-1.8); ALBUMIN 2.8 g/dL (3.0-4.8); ALT/SGPT < 6 U/L (7-56); AST/SGOT 26 U/L (17-59); BLOOD UREA NITROGEN 4 mg/dL (7-21); CALCIUM 8.3 mg/dL (8.4-10.5); GFR NON-AFRICAN AMERICAN > 60
[2018-11-29] MEDS: Insulin Reg-LOW-Coverage SC SCH ×3 (08:00→16:56)
--- NOTE | 2018-11-29 08:16 | CP.PCM.PN ---
<Emily Bolton - Last Filed: 11/29/18 08:16> Subjective - Date & Time of Evaluation Date of Evaluation: 11/29/18 Time of Evaluation: 08:15 - Subjective Subjective: GI progress note for Dr. Immanuel Bolton, PGY-2 Pt seen/examined at bedside. Pt reports no change in his intermittent RUQ abdominal pain. Reports he wakes up in a light sweat. Is for IR drainage today of RUQ abdominal fluid collection. Denies N & V, F & C, SOB, CP. SHAY with dark bilious output, approximately 50cc. Objective - Vital Signs/Intake and Output Vital Signs (last 24 hours): Temp Pulse Resp BP Pulse Ox 98.3 F 86 18 154/90 H 94 L 11/29/18 06:00 11/29/18 06:00 11/29/18 06:00 11/29/18 06:00 11/29/18 06:00 Intake and Output: 11/29/18 11/29/18 06:59 18:59 Intake Total 180 Output Total 680 Balance -500 - Medications Medications: Current Medications Dextrose (Dextrose 50% Inj) 0 ml IV STAT PRN; Protocol PRN Reason: Hypoglycemia Protocol Folic Acid (Folic Acid) 1 mg PO DAILY [facility] Last Admin: 11/28/18 10:15 Dose: 1 mg Heparin Sodium (Porcine) (Heparin) 5,000 units SC Q8 [facility]; Protocol Last Admin: 11/29/18 06:07 Dose: Not Given Dextrose (Dextrose 5% In Water 1000 Ml) 1,000 mls @ 0 mls/hr IV .Q0M PRN; Protocol PRN Reason: Hypoglycemia Protocol Piperacillin Sod/Tazobactam Sod (Zosyn 4.5 Gm In Ns 100ml) 4.5 gm in 100 mls @ 25 mls/hr IVPB Q8 [facility]; Protocol Stop: 11/30/18 22:01 Last Admin: 11/29/18 05:02 Dose: 25 mls/hr Dextrose/Sodium Chloride (Dextrose 5%/0.45% Ns 1000 Ml) 1,000 mls @ 100 mls/hr IV .Q10H [facility] Last Admin: 11/28/18 11:00 Dose: Not Given Vancomycin HCl (Vancomycin 1gm) 1 gm in 250 mls @ 167 mls/hr IVPB Q12H [facility]; Protocol Stop: 12/05/18 21:16 Last Admin: 11/28/18 21:00 Dose: 167 mls/hr Insulin Human Regular (Humulin R Low) 0 units SC [facility]; Protocol Last Admin: 11/29/18 08:00 Dose: Not Given Lorazepam (Ativan) 1 mg IVP Q6H PRN; Protocol PRN Reason: Anxiety Last Admin: 11/25/18 23:13 Dose: 1 mg Multivitamins/Minerals (Therapeutic-M Tab) 1 tab PO 0800 [facility] Last Admin: 11/29/18 07:04 Dose: 1 tab Ondansetron HCl (Zofran Inj) 4 mg IVP Q6H PRN PRN Reason: Nausea/Vomiting Last Admin: 11/23/18 17:13 Dose: 4 mg Oxycodone/Acetaminophen (Percocet 10/325 Mg Tab) 1 tab PO Q4H PRN PRN Reason: Pain, severe (8-10) Last Admin: 11/29/18 05:06 Dose: 1 tab Pantoprazole Sodium (Protonix Ec Tab) 40 mg PO ACB [facility] Last Admin: 11/29/18 07:04 Dose: 40 mg Thiamine HCl (Vitamin B1 Tab) 100 mg PO DAILY [facility] Last Admin: 11/28/18 10:15 Dose: 100 mg Tramadol HCl (Ultram) 50 mg PO Q6H PRN PRN Reason: Pain, moderate (4-7) Last Admin: 11/23/18 17:13 Dose: 50 mg - Labs Labs: 11/29/18 07:00 11/29/18 07:00 PT 14.6 SECONDS (9.4-12.5) H 11/21/18 10:45 INR 1.29 11/21/18 10:45 APTT 30.6 Seconds (26.9-38.3) 11/21/18 10:45 - Constitutional Appears: Non-toxic, No Acute Distress - Head Exam Head Exam: ATRAUMATIC, NORMAL INSPECTION, NORMOCEPHALIC - Eye Exam Eye Exam: EOMI, Normal appearance - ENT Exam ENT Exam: Mucous Membranes Moist, Normal Exam - Neck Exam Neck Exam: Full ROM, Normal Inspection - Respiratory Exam Respiratory Exam: NORMAL BREATHING PATTERN - Cardiovascular Exam Cardiovascular Exam: REGULAR RHYTHM, +S1, +S2 - GI/Abdominal Exam GI & Abdominal Exam: Soft, Tenderness (R side, especially at drain insertion site, along midline incision with fortino in place). absent: Distended, Firm, Guarding, Rigid Additional comments: Midline incision with fortino in place- no drainage noted, SHAY in RLQ with dark bilious output- ~50 cc - Neurological Exam Neurological Exam: Alert, Awake, CN II-XII Intact, Oriented x3 - Psychiatric Exam Psychiatric exam: Normal Affect, Normal Mood - Skin Skin Exam: Intact, Normal Color, Warm. absent: Dry (damp forehead) Assessment and Plan - Assessment and Plan (Free Text) Assessment: 58M s/p R hemicolectomy w/intermittent post operative abdominal pain Plan: HIDA with cystic duct occlusion FU IR drainage of collection NPO for IR intervention continue pain control Continue to monitor bowel function Will DW Dr. Cleary <Angelica Cleary V - Last Filed: 11/29/18 19:56> Objective - Vital Signs/Intake and Output Vital Signs (last 24 hours): Temp Pulse Resp BP Pulse Ox 98.6 F 84 18 134/86 96 11/29/18 16:14 11/29/18 16:14 11/29/18 16:14 11/29/18 16:14 11/29/18 16:14 Intake and Output: 11/29/18 11/30/18 18:59 06:59 Intake Total 0 Output Total 300 Balance -300 - Medications Medications: Current Medications Dextrose (Dextrose 50% Inj) 0 ml IV STAT PRN; Protocol PRN Reason: Hypoglycemia Protocol Folic Acid (Folic Acid) 1 mg PO DAILY [facility] Last Admin: 11/29/18 10:59 Dose: 1 mg Heparin Sodium (Porcine) (Heparin) 5,000 units SC Q8 [facility]; Protocol Last Admin: 11/29/18 14:35 Dose: 5,000 units Dextrose (Dextrose 5% In Water 1000 Ml) 1,000 mls @ 0 mls/hr IV .Q0M PRN; P rotocol PRN Reason: Hypoglycemia Protocol Piperacillin Sod/Tazobactam Sod (Zosyn 4.5 Gm In Ns 100ml) 4.5 gm in 100 mls @ 25 mls/hr IVPB Q8 [facility]; Protocol Stop: 11/30/18 22:01 Last Admin: 11/29/18 14:13 Dose: 25 mls/hr Dextrose/Sodium Chloride (Dextrose 5%/0.45% Ns 1000 Ml) 1,000 mls @ 100 mls/hr IV .Q10H [facility] Last Admin: 11/29/18 18:37 Dose: 100 mls/hr Vancomycin HCl (Vancomycin 1gm) 1 gm in 250 mls @ 167 mls/hr IVPB Q12H [facility]; Protocol Stop: 12/05/18 21:16 Last Admin: 11/29/18 10:46 Dose: 167 mls/hr Insulin Human Regular (Humulin R Low) 0 units SC ACHS [facility]; Protocol Last Admin: 11/29/18 16:56 Dose: Not Given Lorazepam (Ativan) 1 mg IVP Q6H PRN; Protocol PRN Reason: Anxiety Last Admin: 11/25/18 23:13 Dose: 1 mg Multivitamins/Minerals (Therapeutic-M Tab) 1 tab PO 0800 [facility] Last Admin: 11/29/18 07:04 Dose: 1 tab Ondansetron HCl (Zofran Inj) 4 mg IVP Q6H PRN PRN Reason: Nausea/Vomiting Last Admin: 11/23/18 17:13 Dose: 4 mg Oxycodone/Acetaminophen (Percocet 10/325 Mg Tab) 1 tab PO Q4H PRN PRN Reason: Pain, severe (8-10) Last Admin: 11/29/18 19:43 Dose: 1 tab Pantoprazole Sodium (Protonix Ec Tab) 40 mg PO ACB [facility] Last Admin: 11/29/18 07:04 Dose: 40 mg Thiamine HCl (Vitamin B1 Tab) 100 mg PO DAILY [facility] Last Admin: 11/29/18 12:07 Dose: 100 mg Tramadol HCl (Ultram) 50 mg PO Q6H PRN PRN Reason: Pain, moderate (4-7) Last Admin: 11/23/18 17:13 Dose: 50 mg - Labs Labs: 11/29/18 07:00 11/29/18 07:00 PT 14.6 SECONDS (9.4-12.5) H 11/21/18 10:45 INR 1.29 11/21/18 10:45 APTT 30.6 Seconds (26.9-38.3) 11/21/18 10:45 Attending/Attestation - Attestation I have personally seen and examined this patient.: Yes I have fully participated in the care of the patient.: Yes I have reviewed all pertinent clinical information, including history, physical exam and plan: Yes Notes (Text): This patient was seen and evaluated here earlier with resident. Imaging studies were reviewed. HIDA scan showed cystic duct obstruction and also pooling of contrast on the left side of the colon. Abdominal drain showed a significant bilious drainage Surgical note reviewed Waiting for IR input Continue antibiotics as per ID 11/29/18 19:53
[2018-11-29] MEDS: Vancomycin 1gm in NS 250ml 1 GM/250 ML BAG IVPB SCH ×2 (10:46→21:34)
[2018-11-29] MEDS: Dextrose 5%/0.45% NS 1,000 ML IV SCH ×2 (10:50→18:37)
[2018-11-29] MEDS ORDERED: Potassium Chloride 20 mEq ER Tab PO ONE (11:35)
--- NOTE | 2018-11-29 12:49 | CP.PCM.PN ---
<Chauncey Wood - Last Filed: 11/29/18 12:44> Subjective - Date & Time of Evaluation Date of Evaluation: 11/29/18 Time of Evaluation: 12:44 - Subjective Subjective: Medicine Progress Note for Dr. Abebe 58M seen and evaluated at bedside this morning. No acute events overnight. Remains afebrile. NPO past midnight. Patient is using his incentive spirometer. He is getting OOBTC. Passing gas and having bowel movements. Denies difficulty with urination. Denies f/c, n/v/d, SOB, CP, or urinary symptoms. Pending IR procedure today. Objective - Vital Signs/Intake and Output Vital Signs (last 24 hours): Temp Pulse Resp BP Pulse Ox 98.3 F 86 18 154/90 H 94 L 11/29/18 06:00 11/29/18 06:00 11/29/18 06:00 11/29/18 06:00 11/29/18 06:00 Intake and Output: 11/29/18 11/29/18 06:59 18:59 Intake Total 180 Output Total 680 Balance -500 - Medications Medications: Current Medications Dextrose (Dextrose 50% Inj) 0 ml IV STAT PRN; Protocol PRN Reason: Hypoglycemia Protocol Folic Acid (Folic Acid) 1 mg PO DAILY [facility] Last Admin: 11/29/18 10:59 Dose: 1 mg Heparin Sodium (Porcine) (Heparin) 5,000 units SC Q8 [facility]; Protocol Last Admin: 11/29/18 06:07 Dose: Not Given Dextrose (Dextrose 5% In Water 1000 Ml) 1,000 mls @ 0 mls/hr IV .Q0M PRN; Protocol PRN Reason: Hypoglycemia Protocol Piperacillin Sod/Tazobactam Sod (Zosyn 4.5 Gm In Ns 100ml) 4.5 gm in 100 mls @ 25 mls/hr IVPB Q8 [facility]; Protocol Stop: 11/30/18 22:01 Last Admin: 11/29/18 05:02 Dose: 25 mls/hr Dextrose/Sodium Chloride (Dextrose 5%/0.45% Ns 1000 Ml) 1,000 mls @ 100 mls/hr IV .Q10H [facility] Last Admin: 11/29/18 10:50 Dose: 100 mls/hr Vancomycin HCl (Vancomycin 1gm) 1 gm in 250 mls @ 167 mls/hr IVPB Q12[facility]; Protocol Stop: 12/05/18 21:16 Last Admin: 11/29/18 10:46 Dose: 167 mls/hr Insulin Human Regular (Humulin R Low) 0 units SC [facility]; Protocol Last Admin: 11/29/18 11:54 Dose: Not Given Lorazepam (Ativan) 1 mg IVP Q6H PRN; Protocol PRN Reason: Anxiety Last Admin: 11/25/18 23:13 Dose: 1 mg Multivitamins/Minerals (Therapeutic-M Tab) 1 tab PO 0800 [facility] Last Admin: 11/29/18 07:04 Dose: 1 tab Ondansetron HCl (Zofran Inj) 4 mg IVP Q6H PRN PRN Reason: Nausea/Vomiting Last Admin: 11/23/18 17:13 Dose: 4 mg Oxycodone/Acetaminophen (Percocet 10/325 Mg Tab) 1 tab PO Q4H PRN PRN Reason: Pain, severe (8-10) Last Admin: 11/29/18 09:47 Dose: 1 tab Pantoprazole Sodium (Protonix Ec Tab) 40 mg PO ACB [facility] Last Admin: 11/29/18 07:04 Dose: 40 mg Thiamine HCl (Vitamin B1 Tab) 100 mg PO DAILY [facility] Last Admin: 11/29/18 12:07 Dose: 100 mg Tramadol HCl (Ultram) 50 mg PO Q6H PRN PRN Reason: Pain, moderate (4-7) Last Admin: 11/23/18 17:13 Dose: 50 mg - Labs Labs: 11/29/18 07:00 11/29/18 07:00 PT 14.6 SECONDS (9.4-12.5) H 11/21/18 10:45 INR 1.29 11/21/18 10:45 APTT 30.6 Seconds (26.9-38.3) 11/21/18 10:45 - Constitutional Appears: Well, Non-toxic, No Acute Distress - Head Exam Head Exam: ATRAUMATIC, NORMAL INSPECTION, NORMOCEPHALIC - Eye Exam Eye Exam: EOMI - ENT Exam ENT Exam: Mucous Membranes Moist - Respiratory Exam Respiratory Exam: NORMAL BREATHING PATTERN. absent: Wheezes, Respiratory Distress - Cardiovascular Exam Cardiovascular Exam: REGULAR RHYTHM. absent: Tachycardia - GI/Abdominal Exam GI & Abdominal Exam: Soft, Tenderness, Normal Bowel Sounds. absent: Distended, Guarding, Rebound Additional comments: SHAY 90cc brown fluid output overnight - Neurological Exam Neurological Exam: Alert, Awake, Oriented x3 - Psychiatric Exam Psychiatric exam: Normal Affect, Normal Mood - Skin Skin Exam: Dry, Intact, Normal Color, Warm Assessment and Plan - Assessment and Plan (Free Text) Assessment: 58M, PMH of EtOH abuse and depression, presented with peritonitis, admitted for suspected cecal volvulus vs perforation w/ intraabdominal abscess. Patient s/p exploratory laparotomy w/ extended right hemicolectomy and intraabdominal abscess drainage POD9. Scheduled for IR drainage today. Plan: Colonic Obstruction w/ intraabdominal abscess 2/2 suspected Malignancy - POD9 exploratory laparotomy w/ extended right hemicolectomy and intraabdominal abscess drainage - Continue to monitor SHAY drain output - Body fluid cultures positive for Citrobacter Diversus - Surgical pathology: negative for malignancy - Repeat CTAP 11/24: Postoperative mild ileus, small abscesses. Left inguinal hernia w/ bladder in hernia sac. - Repeat CT C/A/P 11/27: Atelectasis slightly increased, drainage catheter inferior to liver tip, likely ileus, b/l fat containing inguinal hernias L>R - Zosyn started on 11/21/18 - Vancomycin started 11/27/18 - Percocet 10/325mg, Toradal and Tramadol for pain - Zofran for nausea - NPO past midnight for procedure with IR - Monitor diet tolerance - Monitor bowel function - F/u GI recommendations: HIDA shows occluded cystic duct - F/u surgery recommendations Leukocytosis, downtrending - CXR 11/27: Mild atelectasis R>L, developing lower lobe infiltrate. Small b/l effusions R>L - F/u UA - Remains afebrile - Daily labs - Continue Zosyn and Vancomycin, per infectious disease - Encourage incentive spirometer use - Continue to monitor vitals - Pending IR drainage today Hypokalemia - K 3.5 today - K-dur 40 mEq PO - Replete electrolytes as needed - Daily labs Diarrhea, improving - Pending C.diff - Infectious Disease following Hx of Alcohol Abuse - CIWA protocol - Ativan PRN - MV/Thiamine/Folate PPX GI: Protonix DVT: Heparin Patient plan discussed with Dr. Mis Wood PGY1 <Negar Abebe - Last Filed: 11/29/18 15:06> Objective - Vital Signs/Intake and Output Vital Signs (last 24 hours): Temp Pulse Resp BP Pulse Ox 98.6 F 84 18 134/86 96 11/29/18 14:00 11/29/18 14:00 11/29/18 14:00 11/29/18 14:00 11/29/18 14:00 Intake and Output: 11/29/18 11/29/18 06:59 18:59 Intake Total 180 0 Output Total 680 Balance -500 0 - Medications Medications: Current Medications Dextrose (Dextrose 50% Inj) 0 ml IV STAT PRN; Protocol PRN Reason: Hypoglycemia Protocol Folic Acid (Folic Acid) 1 mg PO DAILY [facility] Last Admin: 11/29/18 10:59 Dose: 1 mg Heparin Sodium (Porcine) (Heparin) 5,000 units SC Q8 [facility]; Protocol Last Admin: 11/29/18 14:35 Dose: 5,000 units Dextrose (Dextrose 5% In Water 1000 Ml) 1,000 mls @ 0 mls/hr IV .Q0M PRN; Protocol PRN Reason: Hypoglycemia Protocol Piperacillin Sod/Tazobactam Sod (Zosyn 4.5 Gm In Ns 100ml) 4.5 gm in 100 mls @ 25 mls/hr IVPB Q8 [facility]; Protocol Stop: 11/30/18 22:01 Last Admin: 11/29/18 14:13 Dose: 25 mls/hr Dextrose/Sodium Chloride (Dextrose 5%/0.45% Ns 1000 Ml) 1,000 mls @ 100 mls/hr IV .Q10H [facility] Last Admin: 11/29/18 10:50 Dose: 100 mls/hr Vancomycin HCl (Vancomycin 1gm) 1 gm in 250 mls @ 167 mls/hr IVPB Q12H [facility]; Protocol Stop: 12/05/18 21:16 Last Admin: 11/29/18 10:46 Dose: 167 mls/hr Insulin Human Regular (Humulin R Low) 0 units SC ACHS [facility]; Protocol Last Admin: 11/29/18 11:54 Dose: Not Given Lorazepam (Ativan) 1 mg IVP Q6H PRN; Protocol PRN Reason: Anxiety Last Admin: 11/25/18 23:13 Dose: 1 mg Multivitamins/Minerals (Therapeutic-M Tab) 1 tab PO 0800 [facility] Last Admin: 11/29/18 07:04 Dose: 1 tab Ondansetron HCl (Zofran Inj) 4 mg IVP Q6H PRN PRN Reason: Nausea/Vomiting Last Admin: 11/23/18 17:13 Dose: 4 mg Oxycodone/Acetaminophen (Percocet 10/325 Mg Tab) 1 tab PO Q4H PRN PRN Reason: Pain, severe (8-10) Last Admin: 11/29/18 09:47 Dose: 1 tab Pantoprazole Sodium (Protonix Ec Tab) 40 mg PO ACB [facility] Last Admin: 11/29/18 07:04 Dose: 40 mg Thiamine HCl (Vitamin B1 Tab) 100 mg PO DAILY [facility] Last Admin: 11/29/18 12:07 Dose: 100 mg Tramadol HCl (Ultram) 50 mg PO Q6H PRN PRN Reason: Pain, moderate (4-7) Last Admin: 11/23/18 17:13 Dose: 50 mg - Labs Labs: 11/29/18 07:00 11/29/18 07:00 PT 14.6 SECONDS (9.4-12.5) H 11/21/18 10:45 INR 1.29 11/21/18 10:45 APTT 30.6 Seconds (26.9-38.3) 11/21/18 10:45 Attending/Attestation - Attestation I have personally seen and examined this patient.: Yes I have fully participated in the care of the patient.: Yes I have reviewed all pertinent clinical information, including history, physical exam and plan: Yes Notes (Text): 11/29/18 15:05 58 year old male with past medical history of anxiety and depression who presented with complaint of abdominal pains with peritoneal signs and 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 Patient was seen by surgery and underwent exploratory laparotomy, found to have right colon obstruction and intra-abdominal abscess. He is s/p right hemicolectomy. S/p drainage of abscess. Pathology result was negative for malignancy. Continue with iv antibiotics as per ID. Wound culture is growing citrobacter diversus. Leukocytosis is stable. Repeat CT c/a/p was reviewed. Plan is for possible IR drainage today. HIDA scan was positive as we ll. Will follow up with GI/surgery recommendations. Will replete and repeat potassium. Negar Abebe MD Hospitalist.
[2018-11-29 19:45] LABS: PH,URINE 6.5 (4.7-8.0); URINE BILIRUBIN NEGATIVE (NEGATIVE); URINE BLOOD NEGATIVE (NEGATIVE); URINE GLUCOSE (UA) NEGATIVE (NEGATIVE); URINE LEUKOCYTE ESTERASE NEGATIVE Leu/uL (NEGATIVE); URINE PROTEIN NEGATIVE mg/dL (<30 mg/dL); URINE UROBILINOGEN 0.2 E.U./dL (<1 E.U./dL)
[2018-11-29 20:23] LABS: URINE APPEARANCE CLEAR (CLEAR); URINE COLOR YELLOW (YELLOW)
--- NOTE | 2018-11-30 02:05 | PN ---
DATE: 11/29/2018 SUBJECTIVE: The patient is in bed in no acute distress, nontoxic. PHYSICAL EXAMINATION: VITAL SIGNS: Temperature is 98, blood pressure is 130/80, respiratory rate of 18. HEENT: Unremarkable. NECK: Supple. LUNGS: Have decreased breath sounds. HEART: Normal S1 and S2. ABDOMEN: Soft. LABORATORY DATA: Reveals a white count of 14,700, hemoglobin of 10, BUN of 4 and creatinine of 0.8. Urinalysis is noted. Serology is noted. Microbiology reveals cultures are noted. Review of orders reveals the patient to be on Zosyn and vancomycin. ASSESSMENT AND PLAN: A 58-year-old male admitted with sepsis status post exploratory laparoscopy, right hemicolectomy, Citrobacter from the wound from the operating room. Culture and pathology is negative for malignancy with sepsis with systemic inflammatory response syndrome, elevated white blood cell count, questionable collection, on vancomycin and Zosyn. The patient clinically is improving although the persistent leukocytosis of concern. Repeat CT questionable abscess. Case is discussed with Dr. Dino Kidd. Possible drainage if the leukocytosis persists. We will follow with you. Gene Lipscomb MD
[2018-11-30] MEDS: Insulin Reg-LOW-Coverage SC SCH ×5 (02:30→22:02)
[2018-11-30] MEDS: Oxycodone/Acetaminophen 10/325 mg Tab PO PRN ×4 (02:33→20:05)
[2018-11-30] MEDS: Dextrose 5%/0.45% NS 1,000 ML IV SCH ×3 (02:59→21:11)
[2018-11-30] MEDS: Piperacill/Tazo 4.5gm in NS 4.5 GM/100 ML BAG IVPB SCH ×3 (05:27→21:08)
[2018-11-30 08:05] LABS: BASO # 0.01 K/mm3 (0.0-2.0); BASO % 0.1 % (0.0-3.0); EOS # 0.1 (0.0-0.7); EOS % 1.1 % (1.5-5.0); HEMOGLOBIN 9.8 g/dL (14.0-18.0); LYMPH # 1.5 (1.2-3.4); LYMPH % 12.9 % (22.0-35.0); MEAN CELL VOLUME 95.3 fl (80.0-105.0); MEAN CORPUSCULAR HEMOGLOBIN 30.7 pg (25.0-35.0); MEAN CORPUSCULAR HGB CONC 32.2 g/dl (31.0-37.0); MEAN PLATELET VOLUME 9.3 fl (7.0-11.0); MONO # 0.6 (0.1-0.6); RBC 3.19 10^6/uL (3.5-6.1); RED CELL DISTRIBUTION WIDTH 14.4 % (11.5-14.5); WHITE BLOOD COUNT 11.7 10^3/uL (4.5-11.0)
[2018-11-30 08:20] LABS: ALB/GLOB RATIO 0.6 (1.1-1.8); ALBUMIN 2.3 g/dL (3.0-4.8); ALT/SGPT 6 U/L (7-56); AST/SGOT 30 U/L (17-59); BLOOD UREA NITROGEN 3 mg/dL (7-21); CALCIUM 8.1 mg/dL (8.4-10.5); GFR NON-AFRICAN AMERICAN > 60
--- NOTE | 2018-11-30 08:59 | CP.PCM.PN ---
Subjective - Date & Time of Evaluation Date of Evaluation: 11/30/18 Time of Evaluation: 08:56 - Subjective Subjective: Surgery Progress Note for Dr. Storey 58M seen and evaluated at bedside this morning. No acute events overnight. No complaints this morning. Passing gas and having bowel movements. Voiding. Patient OOBTC. Shortness of breath and cough have improved, patient is using IS. Minimal brown output from SHAY drain. Abdominal binder removed. Denies f/c, n/v/d, SOB, CP, or urinary symptoms. Objective - Vital Signs/Intake and Output Vital Signs (last 24 hours): Temp Pulse Resp BP Pulse Ox 98.3 F 88 18 145/92 H 96 11/30/18 06:00 11/30/18 06:00 11/30/18 06:00 11/30/18 06:00 11/30/18 06:00 Intake and Output: 11/30/18 11/30/18 06:59 18:59 Intake Total 360 Output Total 700 Balance -340 - Medications Medications: Current Medications Dextrose (Dextrose 50% Inj) 0 ml IV STAT PRN; Protocol PRN Reason: Hypoglycemia Protocol Folic Acid (Folic Acid) 1 mg PO DAILY [facility] Last Admin: 11/29/18 10:59 Dose: 1 mg Heparin Sodium (Porcine) (Heparin) 5,000 units SC Q8 [facility]; Protocol Last Admin: 11/30/18 06:27 Dose: Not Given Dextrose (Dextrose 5% In Water 1000 Ml) 1,000 mls @ 0 mls/hr IV .Q0M PRN; Protocol PRN Reason: Hypoglycemia Protocol Piperacillin Sod/Tazobactam Sod (Zosyn 4.5 Gm In Ns 100ml) 4.5 gm in 100 mls @ 25 mls/hr IVPB Q8 [facility]; Protocol Stop: 11/30/18 22:01 Last Admin: 11/30/18 05:27 Dose: 25 mls/hr Dextrose/Sodium Chloride (Dextrose 5%/0.45% Ns 1000 Ml) 1,000 mls @ 100 mls/hr IV .Q10H [facility] Last Admin: 11/30/18 02:59 Dose: 100 mls/hr Vancomycin HCl (Vancomycin 1gm) 1 gm in 250 mls @ 167 mls/hr IVPB Q12H [facility]; Protocol Stop: 12/05/18 21:16 Last Admin: 11/29/18 21:34 Dose: 167 mls/hr Insulin Human Regular (Humulin R Low) 0 units SC ACHS [facility]; Protocol Last Admin: 11/30/18 02:30 Dose: Not Given Lorazepam (Ativan) 1 mg IVP Q6H PRN; Protocol PRN Reason: Anxiety Last Admin: 11/25/18 23:13 Dose: 1 mg Multivitamins/Minerals (Therapeutic-M Tab) 1 tab PO 0800 [facility] Last Admin: 11/29/18 07:04 Dose: 1 tab Ondansetron HCl (Zofran Inj) 4 mg IVP Q6H PRN PRN Reason: Nausea/Vomiting Last Admin: 11/23/18 17:13 Dose: 4 mg Oxycodone/Acetaminophen (Percocet 10/325 Mg Tab) 1 tab PO Q4H PRN PRN Reason: Pain, severe (8-10) Last Admin: 11/30/18 02:33 Dose: 1 tab Pantoprazole Sodium (Protonix Ec Tab) 40 mg PO ACB [facility] Last Admin: 11/29/18 07:04 Dose: 40 mg Thiamine HCl (Vitamin B1 Tab) 100 mg PO DAILY [facility] Last Admin: 11/29/18 12:07 Dose: 100 mg Tramadol HCl (Ultram) 50 mg PO Q6H PRN PRN Reason: Pain, moderate (4-7) Last Admin: 11/23/18 17:13 Dose: 50 mg - Labs Labs: 11/30/18 07:30 11/30/18 07:30 PT 14.6 SECONDS (9.4-12.5) H 11/21/18 10:45 INR 1.29 11/21/18 10:45 APTT 30.6 Seconds (26.9-38.3) 11/21/18 10:45 - Constitutional Appears: Well, Non-toxic, No Acute Distress - Head Exam Head Exam: ATRAUMATIC, NORMAL INSPECTION, NORMOCEPHALIC - Eye Exam Eye Exam: EOMI - ENT Exam ENT Exam: Mucous Membranes Moist - Respiratory Exam Respiratory Exam: NORMAL BREATHING PATTERN. absent: Wheezes, Respiratory Distress - Cardiovascular Exam Cardiovascular Exam: REGULAR RHYTHM. absent: Tachycardia - GI/Abdominal Exam GI & Abdominal Exam: Soft, Tenderness, Normal Bowel Sounds. absent: Distended Additional comments: Simms intact, no erythema or purulence noted SHAY drain in place with minimal brown liquid output overnight Abdominal binder removed - Neurological Exam Neurological Exam: Alert, Awake, Oriented x3 - Psychiatric Exam Psychiatric exam: Normal Affect, Normal Mood - Skin Skin Exam: Dry, Intact, Normal Color, Warm Assessment and Plan - Assessment and Plan (Free Text) Assessment: 58 M s/p extended right jesus-colectomy POD#9 2/2 hepatic flexure obstruction from gallbladder pathology. Plan: F/u IR drainage, possibly early next week Drain fluid Cx: Citrobacter tejeda-sensitive Monitor drain output HIDA showing occlusion of cystic duct F/u further GI recommendations Encourage OOBTC and Ambulation Encourage IS use Pain management and antiemetics Strict Is & Os Regular diet - monitor tolerance Medical management per primary Further recs as per Dr. Raleigh Wood PGY1
[2018-11-30] MEDS: Multivitamin With Minerals Tab PO SCH (11:07)
[2018-11-30] MEDS: Pantoprazole 40 mg EC Tab PO SCH (11:07)
[2018-11-30] MEDS: Vancomycin 1gm in NS 250ml 1 GM/250 ML BAG IVPB SCH ×2 (11:08→21:08)
--- NOTE | 2018-11-30 11:18 | CP.PCM.PN ---
<Noelle Martinez - Last Filed: 11/30/18 16:22> Subjective - Date & Time of Evaluation Date of Evaluation: 11/30/18 Time of Evaluation: 16:22 - Subjective Subjective: Noelle Martinez PGY1 Medicine Progress Note: Pt was seen and examined this AM at bedside. Pt had no acute overnight events. Pt did not have procedure yesterday. Pt states he is hungry due to being placed on liquid diet. No other acute complaints at this time. Objective - Vital Signs/Intake and Output Vital Signs (last 24 hours): Temp Pulse Resp BP Pulse Ox 98.3 F 88 18 145/92 H 96 11/30/18 06:00 11/30/18 06:00 11/30/18 06:00 11/30/18 06:00 11/30/18 06:00 Intake and Output: 11/30/18 11/30/18 06:59 18:59 Intake Total 360 Output Total 700 Balance -340 - Medications Medications: Current Medications Dextrose (Dextrose 50% Inj) 0 ml IV STAT PRN; Protocol PRN Reason: Hypoglycemia Protocol Folic Acid (Folic Acid) 1 mg PO DAILY [facility] Last Admin: 11/30/18 11:07 Dose: 1 mg Heparin Sodium (Porcine) (Heparin) 5,000 units SC Q8 [facility]; Protocol Last Admin: 11/30/18 06:27 Dose: Not Given Dextrose (Dextrose 5% In Water 1000 Ml) 1,000 mls @ 0 mls/hr IV .Q0M PRN; Protocol PRN Reason: Hypoglycemia Protocol Piperacillin Sod/Tazobactam Sod (Zosyn 4.5 Gm In Ns 100ml) 4.5 gm in 100 mls @ 25 mls/hr IVPB Q8 [facility]; Protocol Stop: 11/30/18 22:01 Last Admin: 11/30/18 05:27 Dose: 25 mls/hr Dextrose/Sodium Chloride (Dextrose 5%/0.45% Ns 1000 Ml) 1,000 mls @ 100 mls/hr IV .Q10H [facility] Last Admin: 11/30/18 02:59 Dose: 100 mls/hr Vancomycin HCl (Vancomycin 1gm) 1 gm in 250 mls @ 167 mls/hr IVPB Q12H [facility]; Protocol Stop: 12/05/18 21:16 Last Admin: 11/30/18 11:08 Dose: 167 mls/hr Insulin Human Regular (Humulin R Low) 0 units SC ACHS [facility]; Protocol Last Admin: 11/30/18 10:57 Dose: Not Given Lorazepam (Ativan) 1 mg IVP Q6H PRN; Protocol PRN Reason: Anxiety Last Admin: 11/25/18 23:13 Dose: 1 mg Multivitamins/Minerals (Therapeutic-M Tab) 1 tab PO 0800 [facility] Last Admin: 11/30/18 11:07 Dose: 1 tab Ondansetron HCl (Zofran Inj) 4 mg IVP Q6H PRN PRN Reason: Nausea/Vomiting Last Admin: 11/23/18 17:13 Dose: 4 mg Oxycodone/Acetaminophen (Percocet 10/325 Mg Tab) 1 tab PO Q4H PRN PRN Reason: Pain, severe (8-10) Last Admin: 11/30/18 11:08 Dose: 1 tab Pantoprazole Sodium (Protonix Ec Tab) 40 mg PO ACB [facility] Last Admin: 11/30/18 11:07 Dose: 40 mg Thiamine HCl (Vitamin B1 Tab) 100 mg PO DAILY [facility] Last Admin: 11/30/18 11:07 Dose: 100 mg Tramadol HCl (Ultram) 50 mg PO Q6H PRN PRN Reason: Pain, moderate (4-7) Last Admin: 11/23/18 17:13 Dose: 50 mg - Labs Labs: 11/30/18 07:30 11/30/18 07:30 PT 14.6 SECONDS (9.4-12.5) H 11/21/18 10:45 INR 1.29 11/21/18 10:45 APTT 30.6 Seconds (26.9-38.3) 11/21/18 10:45 - Constitutional Appears: Well, Non-toxic, No Acute Distress - Head Exam Head Exam: ATRAUMATIC, NORMAL INSPECTION, NORMOCEPHALIC - Eye Exam Eye Exam: EOMI - ENT Exam ENT Exam: Mucous Membranes Moist - Respiratory Exam Respiratory Exam: NORMAL BREATHING PATTERN. absent: Wheezes, Respiratory Distress - Cardiovascular Exam Cardiovascular Exam: REGULAR RHYTHM. absent: Tachycardia - GI/Abdominal Exam GI & Abdominal Exam: Soft, Tenderness, Normal Bowel Sounds. absent: Distended, Guarding, Rebound Additional comments: SHAY 90cc brown fluid output overnight, midline incision is noted, closed with fortino and there is no erythema and purulent discharge noted. 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 Patient s/p exploratory laparotomy w/ extended right hemicolectomy and intraabdominal abscess drainage POD9. Scheduled for IR drainage today. Plan: Colonic Obstruction w/ intraabdominal abscess 2/2 suspected Malignancy - POD10 exploratory laparotomy w/ extended right hemicolectomy and intraabdominal abscess drainage - Continue to monitor SHAY drain output - Body fluid cultures positive for Citrobacter Diversus - Surgical pathology: negative for malignancy - Repeat CTAP 11/24: Postoperative mild ileus, small abscesses. Left inguinal hernia w/ bladder in hernia sac. - Repeat CT C/A/P 11/27: Atelectasis slightly increased, drainage catheter inferior to liver tip, likely ileus, b/l fat containing inguinal hernias L>R - Zosyn started on 11/21/18 - Vancomycin started 11/27/18 - Percocet 10/325mg, Toradal and Tramadol for pain - Zofran for nausea - NPO past midnight for procedure with IR - Monitor diet tolerance - Monitor bowel function - F/u GI recommendations: HIDA shows occluded cystic duct - F/u surgery recommendations Leukocytosis, downtrending - CXR 11/27: Mild atelectasis R>L, developing lower lobe infiltrate. Small b/l effusions R>L - F/u UA - Remains afebrile - Daily labs - Continue Zosyn and Vancomycin, per infectious disease - Encourage incentive spirometer use - Continue to monitor vitals - Pending IR drainage likely on Sunday Hypokalemia - K 3.9 today - Replete electrolytes as needed - Daily labs Diarrhea, improving - Pending C.diff - Infectious Disease following Hx of Alcohol Abuse - [facility] protocol - Ativan PRN - MV/Thiamine/Folate PPX GI: Protonix DVT: Heparin Patient plan discussed with Dr. Mis Martinez PGY1 <Negar Abebe A - Last Filed: 11/30/18 16:42> Objective - Vital Signs/Intake and Output Vital Signs (last 24 hours): Temp Pulse Resp BP Pulse Ox 98.5 F 73 20 152/80 H 97 11/30/18 14:00 11/30/18 14:00 11/30/18 14:00 11/30/18 14:00 11/30/18 14:00 Intake and Output: 11/30/18 11/30/18 06:59 18:59 Intake Total 360 Output Total 700 Balance -340 - Medications Medications: Current Medications Dextrose (Dextrose 50% Inj) 0 ml IV STAT PRN; Protocol PRN Reason: Hypoglycemia Protocol Folic Acid (Folic Acid) 1 mg PO DAILY [facility] Last Admin: 11/30/18 11:07 Dose: 1 mg Heparin Sodium (Porcine) (Heparin) 5,000 units SC Q8 [facility]; Protocol Last Admin: 11/30/18 16:10 Dose: 5,000 units Dextrose (Dextrose 5% In Water 1000 Ml) 1,000 mls @ 0 mls/hr IV .Q0M PRN; Protocol PRN Reason: Hypoglycemia Protocol Piperacillin Sod/Tazobactam Sod (Zosyn 4.5 Gm In Ns 100ml) 4.5 gm in 100 mls @ 25 mls/hr IVPB Q8 [facility]; Protocol Stop: 11/30/18 22:01 Last Admin: 11/30/18 15:38 Dose: 25 mls/hr Dextrose/Sodium Chloride (Dextrose 5%/0.45% Ns 1000 Ml) 1,000 mls @ 100 mls/hr IV .Q10H [facility] Last Admin: 11/30/18 02:59 Dose: 100 mls/hr Vancomycin HCl (Vancomycin 1gm) 1 gm in 250 mls @ 167 mls/hr IVPB Q12H [facility]; Protocol Stop: 12/05/18 21:16 Last Admin: 11/30/18 11:08 Dose: 167 mls/hr Insulin Human Regular (Humulin R Low) 0 units SC ACHS [facility]; Protocol Last Admin: 11/30/18 13:38 Dose: Not Given Lorazepam (Ativan) 1 mg IVP Q6H PRN; Protocol PRN Reason: Anxiety Last Admin: 11/25/18 23:13 Dose: 1 mg Multivitamins/Minerals (Therapeutic-M Tab) 1 tab PO 0800 [facility] Last Admin: 11/30/18 11:07 Dose: 1 tab Ondansetron HCl (Zofran Inj) 4 mg IVP Q6H PRN PRN Reason: Nausea/Vomiting Last Admin: 11/23/18 17:13 Dose: 4 mg Oxycodone/Acetaminophen (Percocet 10/325 Mg Tab) 1 tab PO Q4H PRN PRN Reason: Pain, severe (8-10) Last Admin: 11/30/18 16:02 Dose: 1 tab Pantoprazole Sodium (Protonix Ec Tab) 40 mg PO ACB [facility] Last Admin: 11/30/18 11:07 Dose: 40 mg Thiamine HCl (Vitamin B1 Tab) 100 mg PO DAILY [facility] Last Admin: 11/30/18 11:07 Dose: 100 mg Tramadol HCl (Ultram) 50 mg PO Q6H PRN PRN Reason: Pain, moderate (4-7) Last Admin: 11/23/18 17:13 Dose: 50 mg - Labs Labs: 11/30/18 07:30 11/30/18 07:30 PT 14.6 SECONDS (9.4-12.5) H 11/21/18 10:45 INR 1.29 11/21/18 10:45 APTT 30.6 Seconds (26.9-38.3) 11/21/18 10:45 Attending/Attestation - Attestation I have personally seen and examined this patient.: Yes I have fully participated in the care of the patient.: Yes I have reviewed all pertinent clinical information, including history, physical exam and plan: Yes Notes (Text): 11/30/18 16:41 58 year old male with past medical history of anxiety and depression who presented with complaint of abdominal pains with peritoneal signs and 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 Patient was seen by surgery and underwent exploratory laparotom y, found to have right colon obstruction and intra-abdominal abscess. He is s/p right hemicolectomy. S/p drainage of abscess. Pathology result was negative for malignancy. Continue with iv antibiotics as per ID. Wound culture is growing citrobacter diversus. Leukocytosis continues to improve. Repeat CT c/a/p was reviewed. Plan is for possible IR drainage early next week. HIDA scan reviewed. Will follow up with GI/surgery recommendations. Negar Abebe MD Hospitalist.
--- NOTE | 2018-11-30 12:07 | CP.PCM.PN ---
<ErenBraden - Last Filed: 11/30/18 12:01> Subjective - Date & Time of Evaluation Date of Evaluation: 11/30/18 Time of Evaluation: 12:01 - Subjective Subjective: Patient complains of black stool. Hb Dropped 1pt. BUN has remained the same and he has been on PPI therapy. Nurse reports mild amount of dark green SHAY drainage overnight. Objective - Vital Signs/Intake and Output Vital Signs (last 24 hours): Temp Pulse Resp BP Pulse Ox 98.3 F 88 18 145/92 H 96 11/30/18 06:00 11/30/18 06:00 11/30/18 06:00 11/30/18 06:00 11/30/18 06:00 Intake and Output: 11/30/18 11/30/18 06:59 18:59 Intake Total 360 Output Total 700 Balance -340 - Medications Medications: Current Medications Dextrose (Dextrose 50% Inj) 0 ml IV STAT PRN; Protocol PRN Reason: Hypoglycemia Protocol Folic Acid (Folic Acid) 1 mg PO DAILY [facility] Last Admin: 11/30/18 11:07 Dose: 1 mg Heparin Sodium (Porcine) (Heparin) 5,000 units SC Q8 [facility]; Protocol Last Admin: 11/30/18 06:27 Dose: Not Given Dextrose (Dextrose 5% In Water 1000 Ml) 1,000 mls @ 0 mls/hr IV .Q0M PRN; Pr otocol PRN Reason: Hypoglycemia Protocol Piperacillin Sod/Tazobactam Sod (Zosyn 4.5 Gm In Ns 100ml) 4.5 gm in 100 mls @ 25 mls/hr IVPB Q8 [facility]; Protocol Stop: 11/30/18 22:01 Last Admin: 11/30/18 05:27 Dose: 25 mls/hr Dextrose/Sodium Chloride (Dextrose 5%/0.45% Ns 1000 Ml) 1,000 mls @ 100 mls/hr IV .Q10H [facility] Last Admin: 11/30/18 02:59 Dose: 100 mls/hr Vancomycin HCl (Vancomycin 1gm) 1 gm in 250 mls @ 167 mls/hr IVPB Q12H [facility]; Protocol Stop: 12/05/18 21:16 Last Admin: 11/30/18 11:08 Dose: 167 mls/hr Insulin Human Regular (Humulin R Low) 0 units SC ACHS [facility]; Protocol Last Admin: 11/30/18 10:57 Dose: Not Given Lorazepam (Ativan) 1 mg IVP Q6H PRN; Protocol PRN Reason: Anxiety Last Admin: 11/25/18 23:13 Dose: 1 mg Multivitamins/Minerals (Therapeutic-M Tab) 1 tab PO 0800 [facility] Last Admin: 11/30/18 11:07 Dose: 1 tab Ondansetron HCl (Zofran Inj) 4 mg IVP Q6H PRN PRN Reason: Nausea/Vomiting Last Admin: 11/23/18 17:13 Dose: 4 mg Oxycodone/Acetaminophen (Percocet 10/325 Mg Tab) 1 tab PO Q4H PRN PRN Reason: Pain, severe (8-10) Last Admin: 11/30/18 11:08 Dose: 1 tab Pantoprazole Sodium (Protonix Ec Tab) 40 mg PO ACB [facility] Last Admin: 11/30/18 11:07 Dose: 40 mg Thiamine HCl (Vitamin B1 Tab) 100 mg PO DAILY [facility] Last Admin: 11/30/18 11:07 Dose: 100 mg Tramadol HCl (Ultram) 50 mg PO Q6H PRN PRN Reason: Pain, moderate (4-7) Last Admin: 11/23/18 17:13 Dose: 50 mg - Labs Labs: 11/30/18 07:30 11/30/18 07:30 PT 14.6 SECONDS (9.4-12.5) H 11/21/18 10:45 INR 1.29 11/21/18 10:45 APTT 30.6 Seconds (26.9-38.3) 11/21/18 10:45 - Constitutional Appears: Non-toxic, No Acute Distress - Head Exam Head Exam: ATRAUMATIC, NORMAL INSPECTION - ENT Exam ENT Exam: Mucous Membranes Moist, Normal Exam - Respiratory Exam Respiratory Exam: Clear to Ausculation Bilateral, NORMAL BREATHING PATTERN - GI/Abdominal Exam GI & Abdominal Exam: Soft, Tenderness, Normal Bowel Sounds - Rectal Exam Rectal Exam: Deferred - Extremities Exam Extremities Exam: Normal Inspection. absent: Pedal Edema - Neurological Exam Neurological Exam: Alert, Awake, Oriented x3 - Psychiatric Exam Psychiatric exam: Normal Affect, Normal Mood Assessment and Plan - Assessment and Plan (Free Text) Assessment: 58M s/p R hemicolectomy w/intermittent post operative abdominal pain. Possible acute cholecystitis and bile leak. Plan: HIDA with cystic duct occlusion and abnormal findings of the radioisotope. I discussed findings with radiologist, and possible leak, but not obvious. He recommends repeating HIDA scan if concerned. FU IR drainage of collection Diet per surgery continue pain control Continue to monitor bowel function Monitor for black stool, Hb, i notified patient and nurse to document next BM color. Continue PPI Discussed with Dr. Cleary, see attestation. <Angelica Cleary V - Last Filed: 11/30/18 16:51> Objective - Vital Signs/Intake and Output Vital Signs (last 24 hours): Temp Pulse Resp BP Pulse Ox 98.5 F 73 20 152/80 H 97 11/30/18 14:00 11/30/18 14:00 11/30/18 14:00 11/30/18 14:00 11/30/18 14:00 Intake and Output: 11/30/18 11/30/18 06:59 18:59 Intake Total 360 Output Total 700 Balance -340 - Medications Medications: Current Medications Dextrose (Dextrose 50% Inj) 0 ml IV STAT PRN; Protocol PRN Reason: Hypoglycemia Protocol Folic Acid (Folic Acid) 1 mg PO DAILY [facility] Last Admin: 11/30/18 11:07 Dose: 1 mg Heparin Sodium (Porcine) (Heparin) 5,000 units SC Q8 [facility]; Protocol Last Admin: 11/30/18 16:10 Dose: 5,000 units Dextrose (Dextrose 5% In Water 1000 Ml) 1,000 mls @ 0 mls/hr IV .Q0M PRN; Protocol PRN Reason: Hypoglycemia Protocol Piperacillin Sod/Tazobactam Sod (Zosyn 4.5 Gm In Ns 100ml) 4.5 gm in 100 mls @ 25 mls/hr IVPB Q8 [facility]; Protocol Stop: 11/30/18 22:01 Last Admin: 11/30/18 15:38 Dose: 25 mls/hr Dextrose/Sodium Chloride (Dextrose 5%/0.45% Ns 1000 Ml) 1,000 mls @ 100 mls/hr IV .Q10H [facility] Last Admin: 11/30/18 02:59 Dose: 100 mls/hr Vancomycin HCl (Vancomycin 1gm) 1 gm in 250 mls @ 167 mls/hr IVPB Q12H [facility]; Protocol Stop: 12/05/18 21:16 Last Admin: 11/30/18 11:08 Dose: 167 mls/hr Insulin Human Regular (Humulin R Low) 0 units SC ACHS [facility]; Protocol Last Admin: 11/30/18 13:38 Dose: Not Given Lorazepam (Ativan) 1 mg IVP Q6H PRN; Protocol PRN Reason: Anxiety Last Admin: 11/25/18 23:13 Dose: 1 mg Multivitamins/Minerals (Therapeutic-M Tab) 1 tab PO 0800 [facility] Last Admin: 11/30/18 11:07 Dose: 1 tab Ondansetron HCl (Zofran Inj) 4 mg IVP Q6H PRN PRN Reason: Nausea/Vomiting Last Admin: 11/23/18 17:13 Dose: 4 mg Oxycodone/Acetaminophen (Percocet 10/325 Mg Tab) 1 tab PO Q4H PRN PRN Reason: Pain, severe (8-10) Last Admin: 11/30/18 16:02 Dose: 1 tab Pantoprazole Sodium (Protonix Ec Tab) 40 mg PO ACB [facility] Last Admin: 11/30/18 11:07 Dose: 40 mg Thiamine HCl (Vitamin B1 Tab) 100 mg PO DAILY [facility] Last Admin: 11/30/18 11:07 Dose: 100 mg Tramadol HCl (Ultram) 50 mg PO Q6H PRN PRN Reason: Pain, moderate (4-7) Last Admin: 11/23/18 17:13 Dose: 50 mg - Labs Labs: 11/30/18 07:30 11/30/18 07:30 PT 14.6 SECONDS (9.4-12.5) H 11/21/18 10:45 INR 1.29 11/21/18 10:45 APTT 30.6 Seconds (26.9-38.3) 11/21/18 10:45 Attending/Attestation - Attestation I have personally seen and examined this patient.: Yes I have fully participated in the care of the patient.: Yes I have reviewed all pertinent clinical information, including history, physical exam and plan: Yes Notes (Text): This is in addition to progress report dictated by GI fellow. The patient was seen and evaluated here earlier. Imaging studies were reviewed. HIDA scan was reviewed with the radiologist. There is a concern of the pooling of contrast in the HIDA scan the left side of the abdomen. The drain still shows bilious. Recommend repeat HIDA with the serial follow-ups to evaluate the radionucleotide contrast pooling intraluminal versus extraluminal. Will discuss with the surgical team Continue antibiotics as per ID 11/30/18 16:49
--- NOTE | 2018-12-01 00:15 | PN ---
DATE: 11/30/2018 SUBJECTIVE: The patient is in bed, in no acute distress, nontoxic. PHYSICAL EXAMINATION: VITAL SIGNS: Temperature is 98, blood pressure is 150/80, respiratory rate is 20. HEENT: Unremarkable. NECK: Supple. LUNGS: Decreased breath sounds. HEART: Normal S1 and S2. ABDOMEN: Soft, nontender. LABORATORY EXAMINATION: Reveals a white count of 11,700, hemoglobin of 9, platelets . BUN of 3, creatinine of 0.8. Urinalysis is noted. Serology is noted. Microbiology is reviewed. ASSESSMENT AND PLAN: A 58-year-old male, seen earlier today, admitted with sepsis status post exploratory laparoscopy, right hemicolectomy. Citrobacter from the operating room wound culture initially. Pathology is negative for malignancy. The patient then developed sepsis with questionable collection on CT. Leukocytosis appears to be resolving. On vancomycin and Zosyn. We will follow WBC. Dr. Cleary's progress note from this morning is reviewed. Dr. Abebe's note is also reviewed. Review of orders reveals the vancomycin and Zosyn to be active . Gene Lipscomb MD
[2018-12-01] MEDS: Oxycodone/Acetaminophen 10/325 mg Tab PO PRN ×5 (02:00→19:36)
[2018-12-01 08:09] LABS: BASO # 0.02 K/mm3 (0.0-2.0); BASO % 0.2 % (0.0-3.0); EOS # 0.1 (0.0-0.7); EOS % 1.1 % (1.5-5.0); HEMOGLOBIN 10.1 g/dL (14.0-18.0); LYMPH # 1.4 (1.2-3.4); LYMPH % 12.5 % (22.0-35.0); MEAN CELL VOLUME 94.5 fl (80.0-105.0); MEAN CORPUSCULAR HEMOGLOBIN 30.7 pg (25.0-35.0); MEAN CORPUSCULAR HGB CONC 32.5 g/dl (31.0-37.0); MEAN PLATELET VOLUME 9.5 fl (7.0-11.0); MONO # 0.8 (0.1-0.6); MONO % 7.1 % (1.0-6.0); RBC 3.29 10^6/uL (3.5-6.1); RED CELL DISTRIBUTION WIDTH 14.4 % (11.5-14.5); WHITE BLOOD COUNT 11.3 10^3/uL (4.5-11.0)
[2018-12-01] MEDS: Insulin Reg-LOW-Coverage SC SCH ×4 (08:16→22:01)
[2018-12-01 08:30] LABS: ALB/GLOB RATIO 0.6 (1.1-1.8); ALBUMIN 2.4 g/dL (3.0-4.8); ALT/SGPT 8 U/L (7-56); AST/SGOT 28 U/L (17-59); BLOOD UREA NITROGEN 4 mg/dL (7-21); GFR NON-AFRICAN AMERICAN > 60
[2018-12-01 08:36] VITALS: RESP 18
[2018-12-01] MEDS ORDERED: Potassium Chloride 20 mEq ER Tab PO ONE ×2 (08:40)
--- NOTE | 2018-12-01 08:46 | CP.PCM.PN ---
Subjective - Date & Time of Evaluation Date of Evaluation: 12/01/18 Time of Evaluation: 08:43 - Subjective Subjective: Surgery Progress Note for Dr. Storey 58M seen and evaluated at bedside this morning. No acute events overnight. No complaints this morning. Patient is passing gas and having solid bowel movements, no diarrhea. Patient is voiding without difficulty. He is tolerating his diet. Patient is getting OOBTC, minimal ambulation except to the bathroom. Denies f/c, n/v/d, SOB, CP, or urinary symptoms. Objective - Vital Signs/Intake and Output Vital Signs (last 24 hours): Temp Pulse Resp BP Pulse Ox 98.6 F 82 18 153/86 H 94 L 12/01/18 06:00 12/01/18 06:00 12/01/18 06:00 12/01/18 06:00 12/01/18 06:00 Intake and Output: 12/01/18 12/01/18 06:59 18:59 Intake Total 420 Output Total 1700 500 Balance -1280 -500 - Medications Medications: Current Medications Dextrose (Dextrose 50% Inj) 0 ml IV STAT PRN; Protocol PRN Reason: Hypoglycemia Protocol Folic Acid (Folic Acid) 1 mg PO DAILY [facility] Last Admin: 11/30/18 11:07 Dose: 1 mg Heparin Sodium (Porcine) (Heparin) 5,000 units SC Q8 [facility]; Protocol Last Admin: 12/01/18 06:10 Dose: 5,000 units Dextrose (Dextrose 5% In Water 1000 Ml) 1,000 mls @ 0 mls/hr IV .Q0M PRN; Protocol PRN Reason: Hypoglycemia Protocol Dextrose/Sodium Chloride (Dextrose 5%/0.45% Ns 1000 Ml) 1,000 mls @ 100 mls/hr IV .Q10H [facility] Last Admin: 11/30/18 21:11 Dose: 100 mls/hr Vancomycin HCl (Vancomycin 1gm) 1 gm in 250 mls @ 167 mls/hr IVPB Q12H [facility]; Protocol Stop: 12/05/18 21:16 Last Admin: 11/30/18 21:08 Dose: 167 mls/hr Insulin Human Regular (Humulin R Low) 0 units SC ACHS [facility]; Protocol Last Admin: 12/01/18 08:16 Dose: Not Given Lorazepam (Ativan) 1 mg IVP Q6H PRN; Protocol PRN Reason: Anxiety Last Admin: 11/25/18 23:13 Dose: 1 mg Multivitamins/Minerals (Therapeutic-M Tab) 1 tab PO 0800 [facility] Last Admin: 11/30/18 11:07 Dose: 1 tab Ondansetron HCl (Zofran Inj) 4 mg IVP Q6H PRN PRN Reason: Nausea/Vomiting Last Admin: 11/23/18 17:13 Dose: 4 mg Oxycodone/Acetaminophen (Percocet 10/325 Mg Tab) 1 tab PO Q4H PRN PRN Reason: Pain, severe (8-10) Last Admin: 12/01/18 06:10 Dose: 1 tab Pantoprazole Sodium (Protonix Ec Tab) 40 mg PO ACB [facility] Last Admin: 11/30/18 11:07 Dose: 40 mg Potassium Chloride (K-Dur 20 Meq Er Tab) 40 meq PO ONCE ONE Stop: 12/01/18 08:41 Potassium Chloride (K-Dur 20 Meq Er Tab) 40 meq PO ONCE ONE Stop: 12/01/18 08:41 Thiamine HCl (Vitamin B1 Tab) 100 mg PO DAILY [facility] Last Admin: 11/30/18 11:07 Dose: 100 mg Tramadol HCl (Ultram) 50 mg PO Q6H PRN PRN Reason: Pain, moderate (4-7) Last Admin: 11/23/18 17:13 Dose: 50 mg - Labs Labs: 12/01/18 07:00 12/01/18 07:00 PT 14.6 SECONDS (9.4-12.5) H 11/21/18 10:45 INR 1.29 11/21/18 10:45 APTT 30.6 Seconds (26.9-38.3) 11/21/18 10:45 - Constitutional Appears: Well, Non-toxic, No Acute Distress - Head Exam Head Exam: ATRAUMATIC, NORMAL INSPECTION, NORMOCEPHALIC - Eye Exam Eye Exam: EOMI - ENT Exam ENT Exam: Mucous Membranes Dry - Respiratory Exam Respiratory Exam: NORMAL BREATHING PATTERN. absent: Wheezes, Respiratory Distress - Cardiovascular Exam Cardiovascular Exam: REGULAR RHYTHM. absent: Tachycardia - GI/Abdominal Exam GI & Abdominal Exam: Soft, Tenderness, Normal Bowel Sounds Additional comments: Chris intact, no erythema or purulence/drainage noted around incision site SHAY drain with scant serous/brown output - Neurological Exam Neurological Exam: Alert, Awake, Oriented x3 - Psychiatric Exam Psychiatric exam: Normal Affect, Normal Mood - Skin Skin Exam: Dry, Intact, Normal Color, Warm Assessment and Plan - Assessment and Plan (Free Text) Assessment: 58 M s/p extended right jesus-colectomy POD#10 2/2 hepatic flexure obstruction from gallbladder pathology, recovering well. Pending IR drainage later this week. Plan: F/u IR drainage, possibly early next week Drain fluid Cx: Citrobacter tejeda-sensitive Monitor drain output HIDA showing occlusion of cystic duct F/u further GI recommendations Encourage OOBTC and Ambulation Encourage IS use Pain management and antiemetics Strict Is & Os Regular diet - monitor tolerance Medical management per primary Further recs as per Dr. Raleigh Wood PGY1
[2018-12-01] MEDS: Dextrose 5%/0.45% NS 1,000 ML IV SCH (09:52)
[2018-12-01] MEDS: Vancomycin 1gm in NS 250ml 1 GM/250 ML BAG IVPB SCH (10:08)
[2018-12-01] MEDS: Pantoprazole 40 mg EC Tab PO SCH (10:11)
[2018-12-01] MEDS: Multivitamin With Minerals Tab PO SCH (10:11)
--- NOTE | 2018-12-01 11:18 | CP.PCM.PN ---
<Noelle Martinez - Last Filed: 12/01/18 14:47> Subjective - Date & Time of Evaluation Date of Evaluation: 12/01/18 Time of Evaluation: 14:46 - Subjective Subjective: Noelle Martinez PGY1 Medicine Progress Note: Pt was seen and examined this AM at bedside. Pt had no acute overnight events. Pt did not have procedure yesterday. Pt states that he was able to tolerate his diet which was restarted yesterday. He denied any associated n/v or diarrhea with the new diet. Objective - Vital Signs/Intake and Output Vital Signs (last 24 hours): Temp Pulse Resp BP Pulse Ox 98.6 F 82 18 153/86 H 94 L 12/01/18 06:00 12/01/18 06:00 12/01/18 06:00 12/01/18 06:00 12/01/18 06:00 Intake and Output: 12/01/18 12/01/18 06:59 18:59 Intake Total 420 Output Total 1700 500 Balance -1280 -500 - Medications Medications: Current Medications Dextrose (Dextrose 50% Inj) 0 ml IV STAT PRN; Protocol PRN Reason: Hypoglycemia Protocol Folic Acid (Folic Acid) 1 mg PO DAILY [facility] Last Admin: 12/01/18 10:08 Dose: 1 mg Heparin Sodium (Porcine) (Heparin) 5,000 units SC Q8 [facility]; Protocol Last Admin: 12/01/18 06:10 Dose: 5,000 units Dextrose (Dextrose 5% In Water 1000 Ml) 1,000 mls @ 0 mls/hr IV .Q0M PRN; Protocol PRN Reason: Hypoglycemia Protocol Dextrose/Sodium Chloride (Dextrose 5%/0.45% Ns 1000 Ml) 1,000 mls @ 100 mls/hr IV .Q10H [facility] Last Admin: 12/01/18 09:52 Dose: 100 mls/hr Piperacillin Sod/Tazobactam Sod (Zosyn 3.375 In Ns 100ml) 100 mls @ 25 mls/hr IVPB Q8 [facility]; Protocol Stop: 12/10/18 14:01 Insulin Human Regular (Humulin R Low) 0 units SC ACHS [facility]; Protocol Last Admin: 12/01/18 08:16 Dose: Not Given Lorazepam (Ativan) 1 mg IVP Q6H PRN; Protocol PRN Reason: Anxiety Last Admin: 11/25/18 23:13 Dose: 1 mg Multivitamins/Minerals (Therapeutic-M Tab) 1 tab PO 0800 [facility] Last Admin: 12/01/18 10:11 Dose: 1 tab Ondansetron HCl (Zofran Inj) 4 mg IVP Q6H PRN PRN Reason: Nausea/Vomiting Last Admin: 11/23/18 17:13 Dose: 4 mg Oxycodone/Acetaminophen (Percocet 10/325 Mg Tab) 1 tab PO Q4H PRN PRN Reason: Pain, severe (8-10) Last Admin: 12/01/18 10:11 Dose: 1 tab Pantoprazole Sodium (Protonix Ec Tab) 40 mg PO ACB [facility] Last Admin: 12/01/18 10:11 Dose: 40 mg Thiamine HCl (Vitamin B1 Tab) 100 mg PO DAILY [facility] Last Admin: 12/01/18 10:10 Dose: 100 mg Tramadol HCl (Ultram) 50 mg PO Q6H PRN PRN Reason: Pain, moderate (4-7) Last Admin: 11/23/18 17:13 Dose: 50 mg - Labs Labs: 12/01/18 07:00 12/01/18 07:00 PT 14.6 SECONDS (9.4-12.5) H 11/21/18 10:45 INR 1.29 11/21/18 10:45 APTT 30.6 Seconds (26.9-38.3) 11/21/18 10:45 - Constitutional Appears: Well, Non-toxic, No Acute Distress - Head Exam Head Exam: ATRAUMATIC, NORMAL INSPECTION, NORMOCEPHALIC - Eye Exam Eye Exam: EOMI - ENT Exam ENT Exam: Mucous Membranes Moist - Respiratory Exam Respiratory Exam: NORMAL BREATHING PATTERN. absent: Wheezes, Respiratory Distress - Cardiovascular Exam Cardiovascular Exam: REGULAR RHYTHM. absent: Tachycardia - GI/Abdominal Exam GI & Abdominal Exam: Soft, Tenderness, Normal Bowel Sounds. absent: Distended, Guarding, Rebound Additional comments: midline incision is noted, closed with fortino and there is no erythema and purulent discharge noted. 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 Patient s/p exploratory laparotomy w/ extended right hemicolectomy and intraabdominal abscess drainage POD11. Will discuss with IR if they will still be doing drainage over the next week. Plan: Colonic Obstruction w/ intraabdominal abscess 2/2 suspected Malignancy - POD11 exploratory laparotomy w/ extended right hemicolectomy and intraabdominal abscess drainage - Continue to monitor SHAY drain output - Body fluid cultures positive for Citrobacter Diversus - Surgical pathology: negative for malignancy - Repeat CTAP 11/24: Postoperative mild ileus, small abscesses. Left inguinal hernia w/ bladder in hernia sac. - Repeat CT C/A/P 11/27: Atelectasis slightly increased, drainage catheter inferior to liver tip, likely ileus, b/l fat containing inguinal hernias L>R - Zosyn started on 11/21/18 - Vancomycin started 11/27/18 - Percocet 10/325mg, Toradal and Tramadol for pain - Zofran for nausea - NPO past midnight for procedure with IR - Monitor diet tolerance - Monitor bowel function - F/u GI recommendations: HIDA shows occluded cystic duct - F/u surgery recommendations Leukocytosis, downtrending - CXR 11/27: Mild atelectasis R>L, developing lower lobe infiltrate. Small b/l effusions R>L - UA (-) for nitrates, LE or WBCs - Remains afebrile - Daily labs - Continue Zosyn, Vanc will be d/valdemar per ID recs - Encourage incentive spirometer use - Continue to monitor vitals - Pending IR drainage likely on Sunday Hypokalemia - K 3.1 today - Will be repleted f/u with AM labs - Daily labs Diarrhea, improving - Pending C.diff - Infectious Disease following Hx of Alcohol Abuse - CIWA protocol - Ativan PRN - MV/Thiamine/Folate PPX GI: Protonix DVT: Heparin Patient plan discussed with Dr. Mis Martinez PGY1 <Negar Abebe - Last Filed: 12/01/18 15:12> Objective - Vital Signs/Intake and Output Vital Signs (last 24 hours): Temp Pulse Resp BP Pulse Ox 98.4 F 79 18 118/76 97 12/01/18 14:00 12/01/18 14:00 12/01/18 14:00 12/01/18 14:00 12/01/18 14:00 Intake and Output: 12/01/18 12/01/18 06:59 18:59 Intake Total 420 840 Output Total 1700 1200 Balance -1280 -360 - Medications Medications: Current Medications Dextrose (Dextrose 50% Inj) 0 ml IV STAT PRN; Protocol PRN Reason: Hypoglycemia Protocol Folic Acid (Folic Acid) 1 mg PO DAILY [facility] Last Admin: 12/01/18 10:08 Dose: 1 mg Heparin Sodium (Porcine) (Heparin) 5,000 units SC Q8 [facility]; Protocol Last Admin: 12/01/18 13:16 Dose: 5,000 units Dextrose (Dextrose 5% In Water 1000 Ml) 1,000 mls @ 0 mls/hr IV .Q0M PRN; Protocol PRN Reason: Hypoglycemia Protocol Dextrose/Sodium Chloride (Dextrose 5%/0.45% Ns 1000 Ml) 1,000 mls @ 100 mls/hr IV .Q10H [facility] Last Admin: 12/01/18 09:52 Dose: 100 mls/hr Piperacillin Sod/Tazobactam Sod (Zosyn 3.375 In Ns 100ml) 100 mls @ 25 mls/hr IVPB Q8 [facility]; Protocol Stop: 12/10/18 14:01 Last Admin: 12/01/18 13:16 Dose: 25 mls/hr Insulin Human Regular (Humulin R Low) 0 units SC ACHS [facility]; Protocol Last Admin: 12/01/18 11:39 Dose: Not Given Lorazepam (Ativan) 1 mg IVP Q6H PRN; Protocol PRN Reason: Anxiety Last Admin: 11/25/18 23:13 Dose: 1 mg Multivitamins/Minerals (Therapeutic-M Tab) 1 tab PO 0800 [facility] Last Admin: 12/01/18 10:11 Dose: 1 tab Ondansetron HCl (Zofran Inj) 4 mg IVP Q6H PRN PRN Reason: Nausea/Vomiting Last Admin: 11/23/18 17:13 Dose: 4 mg Oxycodone/Acetaminophen (Percocet 10/325 Mg Tab) 1 tab PO Q4H PRN PRN Reason: Pain, severe (8-10) Last Admin: 12/01/18 14:17 Dose: 1 tab Pantoprazole Sodium (Protonix Ec Tab) 40 mg PO ACB [facility] Last Admin: 12/01/18 10:11 Dose: 40 mg Thiamine HCl (Vitamin B1 Tab) 100 mg PO DAILY [facility] Last Admin: 12/01/18 10:10 Dose: 100 mg Tramadol HCl (Ultram) 50 mg PO Q6H PRN PRN Reason: Pain, moderate (4-7) Last Admin: 11/23/18 17:13 Dose: 50 mg - Labs Labs: 12/01/18 07:00 12/01/18 07:00 PT 14.6 SECONDS (9.4-12.5) H 11/21/18 10:45 INR 1.29 11/21/18 10:45 APTT 30.6 Seconds (26.9-38.3) 11/21/18 10:45 Attending/Attestation - Attestation I have personally seen and examined this patient.: Yes I have fully participated in the care of the patient.: Yes I have reviewed all pertinent clinical information, including history, physical exam and plan: Yes Notes (Text): 12/01/18 15:09 58 year old male with past medical history of anxiety and depression who presented with complaint of abdominal pains with peritoneal signs and 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 Patient was seen by surgery and underwent exploratory laparotomy, found to have right colon obstruction and intra-abdominal abscess. He is s/p right hemicolectomy. S/p drainage of abscess. Pathology result was negative for malignancy. Continue with iv antibiotics as per ID. Wound culture is growing citrobacter diversus. Leukocytosis has improved. Repeat CT c/a/p was reviewed. Will discuss with IR tomorrow. HIDA scan reviewed as well. GI/surgery are following and recommended to repeat HIDA if few days. Will replete and repeat potassium. Neagr Abebe MD Hospitalist.
[2018-12-01] MEDS: Piperacillin/Tazobact 3.375 gm 100 ML IVPB SCH ×2 (13:16→21:24)
--- NOTE | 2018-12-01 14:47 | PN ---
DATE: 12/01/2018 SUBJECTIVE: The patient is in bed in no acute distress, nontoxic. PHYSICAL EXAMINATION: VITAL SIGNS: Temperature is 98, blood pressure is period 150/80, respiratory of 18, heart rate of 82. HEENT: Unremarkable. NECK: Supple. LUNGS: Have decreased breath sounds. HEART: Normal S1, S2. ABDOMEN: Soft, nontender. LABORATORY EXAMINATION: Reveals a white count of 11,300, hemoglobin is 10, creatinine 0.9. Procalcitonin is 0.55 and urinalysis is noted and serology is noted. Dr. Chauncey Wood's progress note is reviewed. Fortunately review of orders reveals the Zosyn has been discontinued by pharmacy.. We will restart the Zosyn. ASSESSMENT AND PLAN: This is a 58-year-old male earlier seen today, admitted with sepsis, status post exploratory lap and right hemicolectomy. Citrobacter from the OR culture, negative for malignancy. Developed sepsis and questionable CAT scan collection on CT. Awaiting for invasive radiology we will discontinue the vancomycin. Continue with the Zosyn restart the Zosyn. Awaiting tomorrow for we will check on the white count and input from interventional radiology. The patient appears to be improving. Gene Lipscomb MD
--- NOTE | 2018-12-01 15:28 | CP.PCM.PN ---
<Braden Jason - Last Filed: 12/01/18 15:26> Subjective - Date & Time of Evaluation Date of Evaluation: 12/01/18 Time of Evaluation: 15:26 - Subjective Subjective: No clinical changes. Still with biliary output in SHAY drain. Objective - Vital Signs/Intake and Output Vital Signs (last 24 hours): Temp Pulse Resp BP Pulse Ox 98.4 F 79 18 118/76 97 12/01/18 14:00 12/01/18 14:00 12/01/18 14:00 12/01/18 14:00 12/01/18 14:00 Intake and Output: 12/01/18 12/01/18 06:59 18:59 Intake Total 420 840 Output Total 1700 1200 Balance -1280 -360 - Medications Medications: Current Medications Dextrose (Dextrose 50% Inj) 0 ml IV STAT PRN; Protocol PRN Reason: Hypoglycemia Protocol Folic Acid (Folic Acid) 1 mg PO DAILY [facility] Last Admin: 12/01/18 10:08 Dose: 1 mg Heparin Sodium (Porcine) (Heparin) 5,000 units SC Q8 [facility]; Protocol Last Admin: 12/01/18 13:16 Dose: 5,000 units Dextrose (Dextrose 5% In Water 1000 Ml) 1,000 mls @ 0 mls/hr IV .Q0M PRN; Protocol PRN Reason: Hypoglycemia Protocol Dextrose/Sodium Chloride (Dextrose 5%/0.45% Ns 1000 Ml) 1,000 mls @ 100 mls/hr IV .Q10H [facility] Last Admin: 12/01/18 09:52 Dose: 100 mls/hr Piperacillin Sod/Tazobactam Sod (Zosyn 3.375 In Ns 100ml) 100 mls @ 25 mls/hr IVPB Q8 [facility]; Protocol Stop: 12/10/18 14:01 Last Admin: 12/01/18 13:16 Dose: 25 mls/hr Insulin Human Regular (Humulin R Low) 0 units SC ACHS [facility]; Protocol Last Admin: 12/01/18 11:39 Dose: Not Given Lorazepam (Ativan) 1 mg IVP Q6H PRN; Protocol PRN Reason: Anxiety Last Admin: 11/25/18 23:13 Dose: 1 mg Multivitamins/Minerals (Therapeutic-M Tab) 1 tab PO 0800 [facility] Last Admin: 12/01/18 10:11 Dose: 1 tab Ondansetron HCl (Zofran Inj) 4 mg IVP Q6H PRN PRN Reason: Nausea/Vomiting Last Admin: 11/23/18 17:13 Dose: 4 mg Oxycodone/Acetaminophen (Percocet 10/325 Mg Tab) 1 tab PO Q4H PRN PRN Reason: Pain, severe (8-10) Last Admin: 12/01/18 14:17 Dose: 1 tab Pantoprazole Sodium (Protonix Ec Tab) 40 mg PO ACB [facility] Last Admin: 12/01/18 10:11 Dose: 40 mg Thiamine HCl (Vitamin B1 Tab) 100 mg PO DAILY [facility] Last Admin: 12/01/18 10:10 Dose: 100 mg Tramadol HCl (Ultram) 50 mg PO Q6H PRN PRN Reason: Pain, moderate (4-7) Last Admin: 11/23/18 17:13 Dose: 50 mg - Labs Labs: 12/01/18 07:00 12/01/18 07:00 PT 14.6 SECONDS (9.4-12.5) H 11/21/18 10:45 INR 1.29 11/21/18 10:45 APTT 30.6 Seconds (26.9-38.3) 11/21/18 10:45 - Constitutional Appears: Non-toxic, No Acute Distress - Head Exam Head Exam: ATRAUMATIC, NORMAL INSPECTION - ENT Exam ENT Exam: Mucous Membranes Moist, Normal Exam - Respiratory Exam Respiratory Exam: Clear to Ausculation Bilateral, NORMAL BREATHING PATTERN - Cardiovascular Exam Cardiovascular Exam: REGULAR RHYTHM, +S1, +S2 - GI/Abdominal Exam GI & Abdominal Exam: Soft, Tenderness, Hypoactive Bowel Sounds - Extremities Exam Extremities Exam: Normal Inspection. absent: Pedal Edema - Neurological Exam Neurological Exam: Alert, Awake, Oriented x3 Assessment and Plan - Assessment and Plan (Free Text) Assessment: 58M s/p R hemicolectomy w/intermittent post operative abdominal pain. Possible acute cholecystitis and bile leak. Plan: HIDA with cystic duct occlusion and abnormal findings of the radioisotope. I discussed findings with radiologist, and possible leak, but not obvious. He recommends repeating HIDA scan if concerned. We will repeat HIDA. Follow up HIDA to observe for pooling ~12hrs later. FU IR drainage of collection Diet per surgery continue pain control Continue to monitor bowel function Continue PPI Discussed with Dr. Cleary, see attestation. <Angelica Cleary V - Last Filed: 12/01/18 23:26> Objective - Vital Signs/Intake and Output Vital Signs (last 24 hours): Temp Pulse Resp BP Pulse Ox 98.8 F 84 18 169/85 H 95 12/01/18 22:00 12/01/18 22:00 12/01/18 22:00 12/01/18 22:00 12/01/18 22:00 Intake and Output: 12/01/18 12/02/18 18:59 06:59 Intake Total 840 680 Output Total 1200 700 Balance -360 -20 - Medications Medications: Current Medications Dextrose (Dextrose 50% Inj) 0 ml IV STAT PRN; Protocol PRN Reason: Hypoglycemia Protocol Folic Acid (Folic Acid) 1 mg PO DAILY [facility] Last Admin: 12/01/18 10:08 Dose: 1 mg Heparin Sodium (Porcine) (Heparin) 5,000 units SC Q8 [facility]; Protocol Last Admin: 12/01/18 21:24 Dose: 5,000 units Dextrose (Dextrose 5% In Water 1000 Ml) 1,000 mls @ 0 mls/hr IV .Q0M PRN; Protocol PRN Reason: Hypoglycemia Protocol Dextrose/Sodium Chloride (Dextrose 5%/0.45% Ns 1000 Ml) 1,000 mls @ 100 mls/hr IV .Q10H [facility] Last Admin: 12/01/18 09:52 Dose: 100 mls/hr Piperacillin Sod/Tazobactam Sod (Zosyn 3.375 In Ns 100ml) 100 mls @ 25 mls/hr IVPB Q8 [facility]; Protocol Stop: 12/10/18 14:01 Last Admin: 12/01/18 21:24 Dose: 25 mls/hr Insulin Human Regular (Humulin R Low) 0 units SC ACHS [facility]; Protocol Last Admin: 12/01/18 22:01 Dose: Not Given Lorazepam (Ativan) 1 mg IVP Q6H PRN; Protocol PRN Reason: Anxiety Last Admin: 11/25/18 23:13 Dose: 1 mg Multivitamins/Minerals (Therapeutic-M Tab) 1 tab PO 0800 [facility] Last Admin: 12/01/18 10:11 Dose: 1 tab Ondansetron HCl (Zofran Inj) 4 mg IVP Q6H PRN PRN Reason: Nausea/Vomiting Last Admin: 11/23/18 17:13 Dose: 4 mg Oxycodone/Acetaminophen (Percocet 10/325 Mg Tab) 1 tab PO Q4H PRN PRN Reason: Pain, severe (8-10) Last Admin: 12/01/18 19:36 Dose: 1 tab Pantoprazole Sodium (Protonix Ec Tab) 40 mg PO ACB [facility] Last Admin: 12/01/18 10:11 Dose: 40 mg Thiamine HCl (Vitamin B1 Tab) 100 mg PO DAILY [facility] Last Admin: 12/01/18 10:10 Dose: 100 mg Tramadol HCl (Ultram) 50 mg PO Q6H PRN PRN Reason: Pain, moderate (4-7) Last Admin: 11/23/18 17:13 Dose: 50 mg - Labs Labs: 12/01/18 07:00 12/01/18 07:00 PT 14.6 SECONDS (9.4-12.5) H 11/21/18 10:45 INR 1.29 11/21/18 10:45 APTT 30.6 Seconds (26.9-38.3) 11/21/18 10:45 Attending/Attestation - Attestation I have personally seen and examined this patient.: Yes I have fully participated in the care of the patient.: Yes I have reviewed all pertinent clinical information, including history, physical exam and plan: Yes Notes (Text): This is an addendum to GI progress report dictated by the GI Fellow. The patient was seen and examined earlier. Medical records, lab studies, imagings were reviewed. Last 24 hours events reviewed. Agreed with the above treatment plan as outlined in GI Fellow 's notes with the addition of the following Patient still has biliary drainage Tolerating diet We will request the HIDA scan with the delayed follow-up to evaluate the poolling of the bile Continue antibiotics as per ID 12/01/18 23:22
[2018-12-02] MEDS: Oxycodone/Acetaminophen 10/325 mg Tab PO PRN ×2 (03:16→06:53)
[2018-12-02] MEDS: Piperacillin/Tazobact 3.375 gm 100 ML IVPB SCH ×3 (05:33→21:15)
[2018-12-02] MEDS: Dextrose 5%/0.45% NS 1,000 ML IV SCH (05:36)
[2018-12-02] MEDS: Pantoprazole 40 mg EC Tab PO SCH (06:54)
[2018-12-02] MEDS: Multivitamin With Minerals Tab PO SCH (07:06)
--- NOTE | 2018-12-02 07:25 | CP.PCM.PN ---
Subjective - Date & Time of Evaluation Date of Evaluation: 12/02/18 Time of Evaluation: 06:40 - Subjective Subjective: Surgery Progress note. Dr. Storey Pt seen and examined at bedside. No acute events overnight. No N/V/D. Tolerating diet. Abd pain improving and tolerable. No F/C. No CP/SOB. No New complaints. Ajya drain in place with 5-10cc per day output. repeat HIDA ordered by GI team Objective - Vital Signs/Intake and Output Vital Signs (last 24 hours): Temp Pulse Resp BP Pulse Ox 98.8 F 84 18 169/85 H 95 12/01/18 22:00 12/01/18 22:00 12/01/18 22:00 12/01/18 22:00 12/01/18 22:00 Intake and Output: 12/02/18 12/02/18 06:59 18:59 Intake Total 920 Output Total 1500 Balance -580 - Medications Medications: Current Medications Dextrose (Dextrose 50% Inj) 0 ml IV STAT PRN; Protocol PRN Reason: Hypoglycemia Protocol Folic Acid (Folic Acid) 1 mg PO DAILY [facility] Last Admin: 12/01/18 10:08 Dose: 1 mg Heparin Sodium (Porcine) (Heparin) 5,000 units SC Q8 [facility]; Protocol Last Admin: 12/02/18 05:33 Dose: 5,000 units Dextrose (Dextrose 5% In Water 1000 Ml) 1,000 mls @ 0 mls/hr IV .Q0M PRN; Protocol PRN Reason: Hypoglycemia Protocol Dextrose/Sodium Chloride (Dextrose 5%/0.45% Ns 1000 Ml) 1,000 mls @ 100 mls/hr IV .Q10H [facility] Last Admin: 12/02/18 05:36 Dose: 100 mls/hr Piperacillin Sod/Tazobactam Sod (Zosyn 3.375 In Ns 100ml) 100 mls @ 25 mls/hr IVPB Q8 [facility]; Protocol Stop: 12/10/18 14:01 Last Admin: 12/02/18 05:33 Dose: 25 mls/hr Insulin Human Regular (Humulin R Low) 0 units SC ACHS [facility]; Protocol Last Admin: 12/01/18 22:01 Dose: Not Given Lorazepam (Ativan) 1 mg IVP Q6H PRN; Protocol PRN Reason: Anxiety Last Admin: 11/25/18 23:13 Dose: 1 mg Multivitamins/Minerals (Therapeutic-M Tab) 1 tab PO 0800 [facility] Last Admin: 12/02/18 07:06 Dose: 1 tab Ondansetron HCl (Zofran Inj) 4 mg IVP Q6H PRN PRN Reason: Nausea/Vomiting Last Admin: 11/23/18 17:13 Dose: 4 mg Oxycodone/Acetaminophen (Percocet 10/325 Mg Tab) 1 tab PO Q4H PRN PRN Reason: Pain, severe (8-10) Last Admin: 12/02/18 06:53 Dose: 1 tab Pantoprazole Sodium (Protonix Ec Tab) 40 mg PO ACB [facility] Last Admin: 12/02/18 06:54 Dose: 40 mg Thiamine HCl (Vitamin B1 Tab) 100 mg PO DAILY [facility] Last Admin: 12/01/18 10:10 Dose: 100 mg Tramadol HCl (Ultram) 50 mg PO Q6H PRN PRN Reason: Pain, moderate (4-7) Last Admin: 11/23/18 17:13 Dose: 50 mg - Labs Labs: 12/01/18 07:00 12/01/18 07:00 PT 14.6 SECONDS (9.4-12.5) H 11/21/18 10:45 INR 1.29 11/21/18 10:45 APTT 30.6 Seconds (26.9-38.3) 11/21/18 10:45 - Constitutional Appears: Non-toxic, No Acute Distress - Head Exam Head Exam: ATRAUMATIC, NORMAL INSPECTION, NORMOCEPHALIC - Eye Exam Eye Exam: EOMI, Normal appearance. absent: Scleral icterus - ENT Exam ENT Exam: Mucous Membranes Moist - Respiratory Exam Respiratory Exam: NORMAL BREATHING PATTERN. absent: Accessory Muscle Use - Cardiovascular Exam Cardiovascular Exam: RRR. absent: JVD - GI/Abdominal Exam GI & Abdominal Exam: Soft. absent: Distended, Firm, Guarding, Rigid, Tenderness, Rebound Additional comments: Midline incision intact with fortino. Ajay in place with minimal green/yellow output noted. - Neurological Exam Neurological Exam: Alert, Awake, Oriented x3 - Psychiatric Exam Psychiatric exam: Normal Affect, Normal Mood - Skin Skin Exam: Dry, Intact, Normal Color, Warm Assessment and Plan - Assessment and Plan (Free Text) Assessment: 58yo M s/p extended right jesus-colectomy for hepatic flexture obstruction secondary to RUQ collection vs mass. POD 11 Plan: - Consider IR drainage - f/u repeat HIDA as ordered by GI team - Strict Is & Os - Continue diet - Pain management Further recs as per Dr. Raleigh Mitchell PGY2 surgery
[2018-12-02 07:32] LABS: BASO # 0.02 K/mm3 (0.0-2.0); BASO % 0.2 % (0.0-3.0); EOS # 0.1 (0.0-0.7); EOS % 0.9 % (1.5-5.0); HEMOGLOBIN 10.2 g/dL (14.0-18.0); LYMPH # 1.5 (1.2-3.4); LYMPH % 13.7 % (22.0-35.0); MEAN CELL VOLUME 94.9 fl (80.0-105.0); MEAN CORPUSCULAR HEMOGLOBIN 30.7 pg (25.0-35.0); MEAN CORPUSCULAR HGB CONC 32.4 g/dl (31.0-37.0); MEAN PLATELET VOLUME 9.4 fl (7.0-11.0); MONO # 0.5 (0.1-0.6); MONO % 4.9 % (1.0-6.0); RBC 3.32 10^6/uL (3.5-6.1); RED CELL DISTRIBUTION WIDTH 14.4 % (11.5-14.5); WHITE BLOOD COUNT 10.9 10^3/uL (4.5-11.0)
[2018-12-02] MEDS: Insulin Reg-LOW-Coverage SC SCH ×3 (07:49→16:27)
[2018-12-02 08:10] LABS: ALB/GLOB RATIO 0.6 (1.1-1.8); ALBUMIN 2.6 g/dL (3.0-4.8); ALT/SGPT 11 U/L (7-56); AST/SGOT 41 U/L (17-59); BLOOD UREA NITROGEN 6 mg/dL (7-21); CALCIUM 8.5 mg/dL (8.4-10.5); GFR NON-AFRICAN AMERICAN > 60
--- NOTE | 2018-12-02 08:41 | CP.PCM.PN ---
<Brice Bowles - Last Filed: 12/02/18 17:20> Subjective - Date & Time of Evaluation Date of Evaluation: 12/02/18 Time of Evaluation: 07:41 - Subjective Subjective: Brice Bowles PGY2 GI Progress Note for Dr. Cleary Patient was seen and examined at bedside. He is tolerating his diet but did have nausea overnight. He is having soft stools with mild abdominal pain. HIDA planned for today. Objective - Vital Signs/Intake and Output Vital Signs (last 24 hours): Temp Pulse Resp BP Pulse Ox 98.8 F 84 18 169/85 H 95 12/01/18 22:00 12/01/18 22:00 12/01/18 22:00 12/01/18 22:00 12/01/18 22:00 Intake and Output: 12/02/18 12/02/18 06:59 18:59 Intake Total 920 Output Total 1500 Balance -580 - Medications Medications: Current Medications Dextrose (Dextrose 50% Inj) 0 ml IV STAT PRN; Protocol PRN Reason: Hypoglycemia Protocol Folic Acid (Folic Acid) 1 mg PO DAILY [facility] Last Admin: 12/01/18 10:08 Dose: 1 mg Heparin Sodium (Porcine) (Heparin) 5,000 units SC Q8 [facility]; Protocol Last Admin: 12/02/18 05:33 Dose: 5,000 units Dextrose (Dextrose 5% In Water 1000 Ml) 1,000 mls @ 0 mls/hr IV .Q0M PRN; Protocol PRN Reason: Hypoglycemia Protocol Dextrose/Sodium Chloride (Dextrose 5%/0.45% Ns 1000 Ml) 1,000 mls @ 100 mls/hr IV .Q10H [facility] Last Admin: 12/02/18 05:36 Dose: 100 mls/hr Piperacillin Sod/Tazobactam Sod (Zosyn 3.375 In Ns 100ml) 100 mls @ 25 mls/hr IVPB Q8 [facility]; Protocol Stop: 12/10/18 14:01 Last Admin: 12/02/18 05:33 Dose: 25 mls/hr Insulin Human Regular (Humulin R Low) 0 units SC ACHS [facility]; Protocol Last Admin: 12/01/18 22:01 Dose: Not Given Lorazepam (Ativan) 1 mg IVP Q6H PRN; Protocol PRN Reason: Anxiety Last Admin: 11/25/18 23:13 Dose: 1 mg Multivitamins/Minerals (Therapeutic-M Tab) 1 tab PO 0800 [facility] Last Admin: 12/02/18 07:06 Dose: 1 tab Ondansetron HCl (Zofran Inj) 4 mg IVP Q6H PRN PRN Reason: Nausea/Vomiting Last Admin: 11/23/18 17:13 Dose: 4 mg Oxycodone/Acetaminophen (Percocet 10/325 Mg Tab) 1 tab PO Q4H PRN PRN Reason: Pain, severe (8-10) Last Admin: 12/02/18 06:53 Dose: 1 tab Pantoprazole Sodium (Protonix Ec Tab) 40 mg PO ACB [facility] Last Admin: 12/02/18 06:54 Dose: 40 mg Thiamine HCl (Vitamin B1 Tab) 100 mg PO DAILY [facility] Last Admin: 12/01/18 10:10 Dose: 100 mg Tramadol HCl (Ultram) 50 mg PO Q6H PRN PRN Reason: Pain, moderate (4-7) Last Admin: 11/23/18 17:13 Dose: 50 mg - Labs Labs: 12/02/18 07:00 12/02/18 07:00 PT 14.6 SECONDS (9.4-12.5) H 11/21/18 10:45 INR 1.29 11/21/18 10:45 APTT 30.6 Seconds (26.9-38.3) 11/21/18 10:45 - Constitutional Appears: Well, Non-toxic, No Acute Distress - Head Exam Head Exam: ATRAUMATIC, NORMAL INSPECTION - Eye Exam Eye Exam: EOMI, Normal appearance, PERRL - ENT Exam ENT Exam: Mucous Membranes Moist, Normal Exam - Neck Exam Neck Exam: Full ROM, Normal Inspection - Respiratory Exam Respiratory Exam: NORMAL BREATHING PATTERN. absent: Respiratory Distress - Cardiovascular Exam Cardiovascular Exam: RRR, +S1, +S2 - GI/Abdominal Exam GI & Abdominal Exam: Soft. absent: Distended, Tenderness Additional comments: midline incision w/ fortino drain in place - Extremities Exam Extremities Exam: Full ROM. absent: Pedal Edema - Neurological Exam Neurological Exam: Alert, Awake - Skin Skin Exam: Normal Color, Warm Assessment and Plan - Assessment and Plan (Free Text) Assessment: 58 year old male s/p R hemicolectomy for hepatic flexure obstruction from abscess vs gallbladder pathology. Finding on HIDA concerning for possible bile leak. Plan: We will repeat HIDA per radiology recs. Follow up HIDA to observe for pooling ~12hrs later. FU IR drainage of collection Diet per surgery continue pain control Continue to monitor bowel function Continue PPI Case was reviewed and discussed with Dr. Cleary <Angelica Cleary V - Last Filed: 12/02/18 19:19> Objective - Vital Signs/Intake and Output Vital Signs (last 24 hours): Temp Pulse Resp BP Pulse Ox 98.4 F 75 18 164/91 H 96 12/02/18 14:00 12/02/18 14:00 12/02/18 14:00 12/02/18 14:00 12/02/18 14:00 Intake and Output: 12/02/18 12/03/18 18:59 06:59 Intake Total 540 Output Total 600 Balance -60 - Medications Medications: Current Medications Dextrose (Dextrose 50% Inj) 0 ml IV STAT PRN; Protocol PRN Reason: Hypoglycemia Protocol Folic Acid (Folic Acid) 1 mg PO DAILY ELY Last Admin: 12/02/18 09:29 Dose: 1 mg Heparin Sodium (Porcine) (Heparin) 5,000 units SC Q8 [facility]; Protocol Last Admin: 12/02/18 14:43 Dose: 5,000 units Dextrose (Dextrose 5% In Water 1000 Ml) 1,000 mls @ 0 mls/hr IV .Q0M PRN; Protocol PRN Reason: Hypoglycemia Protocol Dextrose/Sodium Chloride (Dextrose 5%/0.45% Ns 1000 Ml) 1,000 mls @ 100 mls/hr IV .Q10H [facility] Last Admin: 12/02/18 05:36 Dose: 100 mls/hr Piperacillin Sod/Tazobactam Sod (Zosyn 3.375 In Ns 100ml) 100 mls @ 25 mls/hr IVPB Q8 [facility]; Protocol Stop: 12/10/18 14:01 Last Admin: 12/02/18 13:02 Dose: 25 mls/hr Insulin Human Regular (Humulin R Low) 0 units SC ACHS [facility]; Protocol Last Admin: 12/02/18 11:50 Dose: Not Given Lorazepam (Ativan) 1 mg IVP Q6H PRN; Protocol PRN Reason: Anxiety Last Admin: 11/25/18 23:13 Dose: 1 mg Multivitamins/Minerals (Therapeutic-M Tab) 1 tab PO 0800 [facility] Last Admin: 12/02/18 07:06 Dose: 1 tab Ondansetron HCl (Zofran Inj) 4 mg IVP Q6H PRN PRN Reason: Nausea/Vomiting Last Admin: 11/23/18 17:13 Dose: 4 mg Oxycodone/Acetaminophen (Percocet 10/325 Mg Tab) 1 tab PO Q4H PRN PRN Reason: Pain, severe (8-10) Last Admin: 12/02/18 06:53 Dose: 1 tab Pantoprazole Sodium (Protonix Ec Tab) 40 mg PO ACB [facility] Last Admin: 12/02/18 06:54 Dose: 40 mg Thiamine HCl (Vitamin B1 Tab) 100 mg PO DAILY [facility] Last Admin: 12/02/18 09:29 Dose: 100 mg Tramadol HCl (Ultram) 50 mg PO Q6H PRN PRN Reason: Pain, moderate (4-7) Last Admin: 12/02/18 13:02 Dose: 50 mg - Labs Labs: 12/02/18 07:00 12/02/18 07:00 PT 14.6 SECONDS (9.4-12.5) H 11/21/18 10:45 INR 1.29 11/21/18 10:45 APTT 30.6 Seconds (26.9-38.3) 11/21/18 10:45 Attending/Attestation - Attestation I have personally seen and examined this patient.: Yes I have fully participated in the care of the patient.: Yes I have reviewed all pertinent clinical information, including history, physical exam and plan: Yes Notes (Text): The patient was seen and evaluated earlier. This is an addendum to the GI progress note dictated by the medical pathology teacher. Imaging studies were reviewed with the Dr. Rayo. HIDA scans were reviewed. Repeat HIDA showed a visualized gallbladder. No demonstrable leak was noticed. No discrete pooling of the contrast was noticed. Localized collection and a drain in place noted. The drain still draining biliary fluid but less amount On examination abdomen soft not distended bowel sounds present normal We will continue the antibiotics as per ID Advance diet as per surgery Discussed with the nursing staff and patient at length 12/02/18 19:16
--- NOTE | 2018-12-02 14:34 | CP.PCM.PN ---
<Noelle Martinez - Last Filed: 12/02/18 16:59> Subjective - Date & Time of Evaluation Date of Evaluation: 12/02/18 Time of Evaluation: 10:15 - Subjective Subjective: Noelle Martinez, PGY1 Medicine Progress Note: Pt was seen and examined this AM at bedside. Pt had no acute overnight events. Pt states that he was able to tolerate his diet which was restarted yesterday. He denied any associated n/v or diarrhea with the new diet. Pt was taken for HIDA today and will also have a CT abd/pelvis with IV contrast. Objective - Vital Signs/Intake and Output Vital Signs (last 24 hours): Temp Pulse Resp BP Pulse Ox 98.6 F 90 18 138/78 98 12/02/18 07:00 12/02/18 07:00 12/02/18 07:00 12/02/18 07:00 12/02/18 07:00 Intake and Output: 12/02/18 12/02/18 06:59 18:59 Intake Total 920 Output Total 1500 Balance -580 - Medications Medications: Current Medications Dextrose (Dextrose 50% Inj) 0 ml IV STAT PRN; Protocol PRN Reason: Hypoglycemia Protocol Folic Acid (Folic Acid) 1 mg PO DAILY [facility] Last Admin: 12/02/18 09:29 Dose: 1 mg Heparin Sodium (Porcine) (Heparin) 5,000 units SC Q8 [facility]; Protocol Last Admin: 12/02/18 05:33 Dose: 5,000 units Dextrose (Dextrose 5% In Water 1000 Ml) 1,000 mls @ 0 mls/hr IV .Q0M PRN; Protocol PRN Reason: Hypoglycemia Protocol Dextrose/Sodium Chloride (Dextrose 5%/0.45% Ns 1000 Ml) 1,000 mls @ 100 mls/hr IV .Q10H [facility] Last Admin: 12/02/18 05:36 Dose: 100 mls/hr Piperacillin Sod/Tazobactam Sod (Zosyn 3.375 In Ns 100ml) 100 mls @ 25 mls/hr IVPB Q8 [facility]; Protocol Stop: 12/10/18 14:01 Last Admin: 12/02/18 13:02 Dose: 25 mls/hr Insulin Human Regular (Humulin R Low) 0 units SC ACHS [facility]; Protocol Last Admin: 12/02/18 11:50 Dose: Not Given Lorazepam (Ativan) 1 mg IVP Q6H PRN; Protocol PRN Reason: Anxiety Last Admin: 11/25/18 23:13 Dose: 1 mg Multivitamins/Minerals (Therapeutic-M Tab) 1 tab PO 0800 [facility] Last Admin: 12/02/18 07:06 Dose: 1 tab Ondansetron HCl (Zofran Inj) 4 mg IVP Q6H PRN PRN Reason: Nausea/Vomiting Last Admin: 11/23/18 17:13 Dose: 4 mg Oxycodone/Acetaminophen (Percocet 10/325 Mg Tab) 1 tab PO Q4H PRN PRN Reason: Pain, severe (8-10) Last Admin: 12/02/18 06:53 Dose: 1 tab Pantoprazole Sodium (Protonix Ec Tab) 40 mg PO ACB [facility] Last Admin: 12/02/18 06:54 Dose: 40 mg Thiamine HCl (Vitamin B1 Tab) 100 mg PO DAILY [facility] Last Admin: 12/02/18 09:29 Dose: 100 mg Tramadol HCl (Ultram) 50 mg PO Q6H PRN PRN Reason: Pain, moderate (4-7) Last Admin: 12/02/18 13:02 Dose: 50 mg - Labs Labs: 12/02/18 07:00 12/02/18 07:00 PT 14.6 SECONDS (9.4-12.5) H 11/21/18 10:45 INR 1.29 11/21/18 10:45 APTT 30.6 Seconds (26.9-38.3) 11/21/18 10:45 - Constitutional Appears: Well, Non-toxic, No Acute Distress - Head Exam Head Exam: ATRAUMATIC, NORMAL INSPECTION, NORMOCEPHALIC - Eye Exam Eye Exam: EOMI - ENT Exam ENT Exam: Mucous Membranes Moist - Respiratory Exam Respiratory Exam: NORMAL BREATHING PATTERN. absent: Wheezes, Respiratory Distress - Cardiovascular Exam Cardiovascular Exam: REGULAR RHYTHM. absent: Tachycardia - GI/Abdominal Exam GI & Abdominal Exam: Soft, Tenderness, Normal Bowel Sounds. absent: Distended, Guarding, Rebound Additional comments: midline incision is noted, closed with fortino and there is no erythema and p urulent discharge noted. 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 Patient s/p exploratory laparotomy w/ extended right hemicolectomy and intraabdominal abscess drainage POD12. Will have repeat HIDA and also have CTAP w/ IV contrast. Plan: Colonic Obstruction w/ intraabdominal abscess 2/2 suspected Malignancy - POD12 exploratory laparotomy w/ extended right hemicolectomy and intraabdominal abscess drainage - Continue to monitor SHAY drain output - Body fluid cultures positive for Citrobacter Diversus - Surgical pathology: negative for malignancy - Repeat CTAP 11/24: Postoperative mild ileus, small abscesses. Left inguinal hernia w/ bladder in hernia sac. - Repeat CT C/A/P 11/27: Atelectasis slightly increased, drainage catheter inferior to liver tip, likely ileus, b/l fat containing inguinal hernias L>R - Zosyn started on 11/21/18 - Percocet 10/325mg, Toradal and Tramadol for pain - Zofran for nausea - Monitor diet tolerance - Monitor bowel function - F/u GI recommendations: repeat HIDA - F/u surgery recommendations: CTAP w/ IV contrast Leukocytosis, downtrending - CXR 11/27: Mild atelectasis R>L, developing lower lobe infiltrate. Small b/l effusions R>L - UA (-) for nitrates, LE or WBCs - Remains afebrile - Daily labs - Continue Zosyn, will be d/valdemar per ID recs - Encourage incentive spirometer use - Continue to monitor vitals Hypokalemia - K 4.5 today - Will be repleted f/u with AM labs - Daily labs Diarrhea, improving - Pending C.diff - Infectious Disease following Hx of Alcohol Abuse - CIDE protocol - Ativan PRN - MV/Thiamine/Folate PPX GI: Protonix DVT: Heparin Patient plan discussed with Dr. Tamika Martinez PGY1 <Aston Lundberg - Last Filed: 12/04/18 13:12> Objective - Vital Signs/Intake and Output Vital Signs (last 24 hours): Temp Pulse Resp BP Pulse Ox 99 F 76 18 133/84 97 03/19/19 14:00 12/03/18 14:00 12/03/18 14:00 12/03/18 14:00 12/03/18 14:00 Intake and Output: 12/04/18 12/04/18 06:59 18:59 Intake Total 180 Output Total 300 Balance -120 - Labs Labs: 12/03/18 07:00 12/03/18 07:00 PT 14.6 SECONDS (9.4-12.5) H 11/21/18 10:45 INR 1.29 11/21/18 10:45 APTT 30.6 Seconds (26.9-38.3) 11/21/18 10:45 Attending/Attestation - Attestation I have personally seen and examined this patient.: Yes I have fully participated in the care of the patient.: Yes I have reviewed all pertinent clinical information, including history, physical exam and plan: Yes Notes (Text): 12/04/18 13:12 Medical record note made by the resident after discussion with my direction and input after the patient was personally seen and examined by me. I have reviewed the chart and agree that the record accurately reflects by personal performance of the history, physical exam, data review, and medical decision-making, in the course for the patient. I have also personally directed the plan of care.
[2018-12-02] MEDS ORDERED: Iohexol 350 MG/100 ML VIAL ONE (15:05)
--- NOTE | 2018-12-02 16:21 | CT ---
Date of service: 12/02/2018 PROCEDURE: CT Abdomen and Pelvis with contrast HISTORY: f/u imaging COMPARISON: Biliary scans 314 and 12/02/2018. Previous CT 11/27/2018 TECHNIQUE: Contrast dose: Radiation dose: Total exam DLP = 301.91 mGy-cm. This CT exam was performed using one or more of the following dose reduction techniques: Automated exposure control, adjustment of the mA and/or kV according to patient size, and/or use of iterative reconstruction technique. FINDINGS: LOWER THORAX: Small bilateral pleural effusions and bibasilar atelectasis LIVER: Unremarkable. No gross lesion or ductal dilatation. GALLBLADDER AND BILE DUCTS: The gallbladder is unremarkable. Inflammatory changes and extra luminal air can be seen around the gallbladder. There is a small fluid collection in the right upper quadrant which could represent a bile collection. A surgical drain is seen terminating in this area. These findings are unchanged. PANCREAS: Unremarkable. No gross lesion or ductal dilatation. SPLEEN: Unremarkable. ADRENALS: Unremarkable. No mass. KIDNEYS AND URETERS: Unremarkable. No hydronephrosis. No solid mass. VASCULATURE: Unremarkable. No aortic aneurysm. No aortic atherosclerotic calcification or mural plaque present. BOWEL: Unremarkable. No obstruction. No gross mural thickening. APPENDIX: Normal appendix. PERITONEUM: Unremarkable. No free fluid. No free air. LYMPH NODES: Unremarkable. No enlarged lymph nodes. BLADDER: Unremarkable. REPRODUCTIVE: Unremarkable. BONES: No acute fracture. OTHER FINDINGS: None. IMPRESSION: The gallbladder is unremarkable. Inflammatory changes and extra luminal air can be seen around the gallbladder. There is a small fluid collection in the right upper quadrant which could represent a bile collection. A surgical drain is seen terminating in this area. These findings are unchanged.
[2018-12-03] MEDS: Oxycodone/Acetaminophen 10/325 mg Tab PO PRN (02:09)
[2018-12-03] MEDS: Piperacillin/Tazobact 3.375 gm 100 ML IVPB SCH ×2 (05:35→13:07)
[2018-12-03] MEDS: Insulin Reg-LOW-Coverage SC SCH ×4 (06:46→16:23)
[2018-12-03 07:26] LABS: BASO # 0.02 K/mm3 (0.0-2.0); BASO % 0.2 % (0.0-3.0); EOS # 0.1 (0.0-0.7); EOS % 1.4 % (1.5-5.0); HEMOGLOBIN 10.2 g/dL (14.0-18.0); LYMPH # 1.7 (1.2-3.4); LYMPH % 17.8 % (22.0-35.0); MEAN CELL VOLUME 93.7 fl (80.0-105.0); MEAN CORPUSCULAR HEMOGLOBIN 30.7 pg (25.0-35.0); MEAN CORPUSCULAR HGB CONC 32.8 g/dl (31.0-37.0); MEAN PLATELET VOLUME 9.3 fl (7.0-11.0); MONO # 0.5 (0.1-0.6); MONO % 5.2 % (1.0-6.0); RBC 3.32 10^6/uL (3.5-6.1); RED CELL DISTRIBUTION WIDTH 14.3 % (11.5-14.5); WHITE BLOOD COUNT 9.3 10^3/uL (4.5-11.0)
[2018-12-03 07:42] VITALS: O2SAT 97
[2018-12-03 07:58] LABS: ALB/GLOB RATIO 0.6 (1.1-1.8); ALBUMIN 2.6 g/dL (3.0-4.8); ALT/SGPT < 6 U/L (7-56); AST/SGOT 39 U/L (17-59); BLOOD UREA NITROGEN 5 mg/dL (7-21); CALCIUM 8.4 mg/dL (8.4-10.5); GFR NON-AFRICAN AMERICAN > 60
[2018-12-03] MEDS ORDERED: Potassium Chloride 20 mEq ER Tab PO STA (08:01)
--- NOTE | 2018-12-03 08:02 | CP.PCM.PN ---
<Brice Bowles - Last Filed: 12/03/18 13:38> Subjective - Date & Time of Evaluation Date of Evaluation: 12/03/18 Time of Evaluation: 07:02 - Subjective Subjective: Brice Bowles PGY2 GI Progress Note for Dr. Cleary Patient was seen and examined at bedside. Patient had a BM and denies any abdominal pain. drain output has decreased per RN. Objective - Vital Signs/Intake and Output Vital Signs (last 24 hours): Temp Pulse Resp BP Pulse Ox 98 F 66 18 136/80 97 12/03/18 06:00 12/03/18 06:00 12/03/18 06:00 12/03/18 06:00 12/03/18 06:00 Intake and Output: 12/03/18 12/03/18 06:59 18:59 Intake Total 180 Output Total 1200 Balance -1020 - Medications Medications: Current Medications Dextrose (Dextrose 50% Inj) 0 ml IV STAT PRN; Protocol PRN Reason: Hypoglycemia Protocol Folic Acid (Folic Acid) 1 mg PO DAILY [facility] Last Admin: 12/02/18 09:29 Dose: 1 mg Heparin Sodium (Porcine) (Heparin) 5,000 units SC Q8 [facility]; Protocol Last Admin: 12/03/18 05:34 Dose: 5,000 units Dextrose (Dextrose 5% In Water 1000 Ml) 1,000 mls @ 0 mls/hr IV .Q0M PRN; Protocol PRN Reason: Hypoglycemia Protocol Dextrose/Sodium Chloride (Dextrose 5%/0.45% Ns 1000 Ml) 1,000 mls @ 100 mls/hr IV .Q10H [facility] Last Admin: 12/02/18 05:36 Dose: 100 mls/hr Piperacillin Sod/Tazobactam Sod (Zosyn 3.375 In Ns 100ml) 100 mls @ 25 mls/hr IVPB Q8 [facility]; Protocol Stop: 12/10/18 14:01 Last Admin: 12/03/18 05:35 Dose: 25 mls/hr Potassium Chloride (Potassium Chloride 10 Meq/100 Ml) 10 meq in 100 mls @ 50 mls/hr IVPB Q2H [facility] Stop: 12/03/18 12:14 Insulin Human Regular (Humulin R Low) 0 units SC ACHS [facility]; Protocol Last Admin: 12/03/18 06:46 Dose: Not Given Lorazepam (Ativan) 1 mg IVP Q6H PRN; Protocol PRN Reason: Anxiety Last Admin: 11/25/18 23:13 Dose: 1 mg Multivitamins/Minerals (Therapeutic-M Tab) 1 tab PO 0800 [facility] Last Admin: 12/02/18 07:06 Dose: 1 tab Ondansetron HCl (Zofran Inj) 4 mg IVP Q6H PRN PRN Reason: Nausea/Vomiting Last Admin: 11/23/18 17:13 Dose: 4 mg Oxycodone/Acetaminophen (Percocet 10/325 Mg Tab) 1 tab PO Q4H PRN PRN Reason: Pain, severe (8-10) Last Admin: 12/03/18 02:09 Dose: 1 tab Pantoprazole Sodium (Protonix Ec Tab) 40 mg PO ACB [facility] Last Admin: 12/02/18 06:54 Dose: 40 mg Potassium Chloride (K-Dur 20 Meq Er Tab) 40 meq PO STAT STA Stop: 12/03/18 08:02 Thiamine HCl (Vitamin B1 Tab) 100 mg PO DAILY [facility] Last Admin: 12/02/18 09:29 Dose: 100 mg Tramadol HCl (Ultram) 50 mg PO Q6H PRN PRN Reason: Pain, moderate (4-7) Last Admin: 12/02/18 19:23 Dose: 50 mg - Labs Labs: 12/03/18 07:00 12/03/18 07:00 PT 14.6 SECONDS (9.4-12.5) H 11/21/18 10:45 INR 1.29 11/21/18 10:45 APTT 30.6 Seconds (26.9-38.3) 11/21/18 10:45 - Constitutional Appears: Well, Non-toxic, No Acute Distress - Head Exam Head Exam: ATRAUMATIC, NORMAL INSPECTION - Eye Exam Eye Exam: EOMI, Normal appearance, PERRL - ENT Exam ENT Exam: Mucous Membranes Moist, Normal Exam - Neck Exam Neck Exam: Full ROM, Normal Inspection - Respiratory Exam Respiratory Exam: NORMAL BREATHING PATTERN. absent: Respiratory Distress - Cardiovascular Exam Cardiovascular Exam: RRR, +S1, +S2 - GI/Abdominal Exam GI & Abdominal Exam: Soft. absent: Distended, Tenderness Additional comments: midline incision w/ fortino drain in place - Extremities Exam Extremities Exam: Full ROM. absent: Pedal Edema - Neurological Exam Neurological Exam: Alert, Awake - Skin Skin Exam: Normal Color, Warm Assessment and Plan - Assessment and Plan (Free Text) Assessment: 58 year old male s/p R hemicolectomy for hepatic flexure obstruction from abscess vs gallbladder pathology. Finding on HIDA initially concerning for possible bile leak, however follow-up HIDA did not show leak and visualized gallbladder. Repeat CT scan shows collection of fluid with drain properly placed. Plan: - No plans for any GI intervention at this time - Diet per surgery - continue pain control - Abx per ID - Continue to monitor bowel function - Continue PPI for GI ppx Case was reviewed and discussed with Dr. Cleary <Angelica Cleary V - Last Filed: 12/03/18 21:36> Objective - Vital Signs/Intake and Output Vital Signs (last 24 hours): Temp Pulse Resp BP Pulse Ox 99 F 76 18 133/84 97 12/03/18 14:00 12/03/18 14:00 12/03/18 14:00 12/03/18 14:00 12/03/18 14:00 Intake and Output: 12/03/18 12/04/18 18:59 06:59 Intake Total 240 180 Output Total 2 300 Balance 238 -120 - Medications Medications: Current Medications Dextrose (Dextrose 50% Inj) 0 ml IV STAT PRN; Protocol PRN Reason: Hypoglycemia Protocol Folic Acid (Folic Acid) 1 mg PO DAILY [facility] Last Admin: 12/03/18 09:06 Dose: 1 mg Heparin Sodium (Porcine) (Heparin) 5,000 units SC Q8 [facility]; Protocol Last Admin: 12/03/18 13:08 Dose: 5,000 units Dextrose (Dextrose 5% In Water 1000 Ml) 1,000 mls @ 0 mls/hr IV .Q0M PRN; Protocol PRN Reason: Hypoglycemia Protocol Dextrose/Sodium Chloride (Dextrose 5%/0.45% Ns 1000 Ml) 1,000 mls @ 100 mls/hr IV .Q10H [facility] Last Admin: 12/03/18 09:20 Dose: 100 mls/hr Piperacillin Sod/Tazobactam Sod (Zosyn 3.375 In Ns 100ml) 100 mls @ 25 mls/hr IVPB Q8 [facility]; Protocol Stop: 12/10/18 14:01 Last Admin: 03/19/19 13:07 Dose: 25 mls/hr Insulin Human Regular (Humulin R Low) 0 units SC ACHS [facility]; Protocol Last Admin: 12/03/18 16:23 Dose: Not Given Lorazepam (Ativan) 1 mg IVP Q6H PRN; Protocol PRN Reason: Anxiety Last Admin: 11/25/18 23:13 Dose: 1 mg Multivitamins/Minerals (Therapeutic-M Tab) 1 tab PO 0800 [facility] Last Admin: 12/03/18 09:01 Dose: 1 tab Ondansetron HCl (Zofran Inj) 4 mg IVP Q6H PRN PRN Reason: Nausea/Vomiting Last Admin: 11/23/18 17:13 Dose: 4 mg Oxycodone/Acetaminophen (Percocet 10/325 Mg Tab) 1 tab PO Q4H PRN PRN Reason: Pain, severe (8-10) Last Admin: 12/03/18 02:09 Dose: 1 tab Pantoprazole Sodium (Protonix Ec Tab) 40 mg PO ACB [facility] Last Admin: 12/03/18 09:06 Dose: 40 mg Thiamine HCl (Vitamin B1 Tab) 100 mg PO DAILY [facility] Last Admin: 12/03/18 09:19 Dose: 100 mg Tramadol HCl (Ultram) 50 mg PO Q6H PRN PRN Reason: Pain, moderate (4-7) Last Admin: 12/02/18 19:23 Dose: 50 mg - Labs Labs: 12/03/18 07:00 12/03/18 07:00 PT 14.6 SECONDS (9.4-12.5) H 11/21/18 10:45 INR 1.29 11/21/18 10:45 APTT 30.6 Seconds (26.9-38.3) 11/21/18 10:45 Attending/Attestation - Attestation I have personally seen and examined this patient.: Yes I have fully participated in the care of the patient.: Yes I have reviewed all pertinent clinical information, including history, physical exam and plan: Yes Notes (Text): This is an addendum to the GI progress report dictated by the medical customer service representative. Patient was seen and evaluated with the resident team earlier today. Patient is tolerating the diet imaging studies were reviewed with radiologist yesterday. Discussed with the nursing staff the drain output is low however the drain appears to be in place with the collection appears stable the repeat CAT scan. Advance the diet as per surgery And continue the antibiotics as per ID Follow-up LFTs Repeat CT in few days prior To the removal of the drain Patient would need elective cholecystectomy. 12/03/18 21:34
--- NOTE | 2018-12-03 08:11 | PN ---
DATE: 12/02/2018 SUBJECTIVE: The patient is in bed, no acute distress. PHYSICAL EXAMINATION: VITAL SIGNS: Temperature is 98, blood pressure is 160/90, and respiratory rate 18. HEENT: Unremarkable. NECK: Supple. LUNGS: Decreased breath sounds. HEART: Normal, S1 and S2. ABDOMEN: Soft. LABORATORY DATA: Reveals a BUN of 6 and creatinine of 1.1. White count is down to 10.9. Urinalysis is noted. Microbiology reveals sputum with Citrobacter and abdominal fluid. Blood cultures are negative. Review of orders reveals the patient to be on Zosyn. The patient had a CAT scan of the abdomen and pelvis, which shows the gallbladder is unremarkable. Inflammatory changes in extraluminal air can be seen around the gallbladder, small fluid collection in the right upper quadrant which could represent a bile collection. Surgical drainage seen this area. The patient had a HIDA scan; however, results are not available. Dr. Cleary's note is reviewed. Dr. Storey's note is reviewed. HIDA scan from 11/28/2018 was read as cystic duct is occluded, this is an abnormal HIDA scan. ASSESSMENT AND PLAN: This is a 58-year-old admitted with sepsis, status post exploratory laparotomy, right hemicolectomy, Citrobacter from the culture, negative for malignancy. Developed sepsis with questionable CAT scan collection. Awaiting invasive radiology. Although the white count is normalized now, we will check on and repeat HIDA scan on 11/28/2018 showed nonfunctioning occlusion. Gene Lipscomb MD
[2018-12-03] MEDS: Multivitamin With Minerals Tab PO SCH (09:01)
[2018-12-03] MEDS: Pantoprazole 40 mg EC Tab PO SCH (09:06)
[2018-12-03] MEDS: Dextrose 5%/0.45% NS 1,000 ML IV SCH (09:20)
--- NOTE | 2018-12-03 13:58 | CP.PCM.PN ---
Subjective - Date & Time of Evaluation Date of Evaluation: 12/03/18 Time of Evaluation: 06:45 - Subjective Subjective: Surgery Progress note. Dr. Storey Pt seen and examined at bedside. No acute events overnight. No N/V/D. Denies any F/C. No New complaints. HSAY in place with 5-10cc of yellow output. Objective - Vital Signs/Intake and Output Vital Signs (last 24 hours): Temp Pulse Resp BP Pulse Ox 98 F 66 18 136/80 97 12/03/18 06:00 12/03/18 06:00 12/03/18 06:00 12/03/18 06:00 12/03/18 06:00 Intake and Output: 12/03/18 12/03/18 06:59 18:59 Intake Total 180 240 Output Total 1200 2 Balance -1020 238 - Medications Medications: Current Medications Dextrose (Dextrose 50% Inj) 0 ml IV STAT PRN; Protocol PRN Reason: Hypoglycemia Protocol Folic Acid (Folic Acid) 1 mg PO DAILY [facility] Last Admin: 12/03/18 09:06 Dose: 1 mg Heparin Sodium (Porcine) (Heparin) 5,000 units SC Q8 ELY; Protocol Last Admin: 12/03/18 13:08 Dose: 5,000 units Dextrose (Dextrose 5% In Water 1000 Ml) 1,000 mls @ 0 mls/hr IV .Q0M PRN; Protocol PRN Reason: Hypoglycemia Protocol Dextrose/Sodium Chloride (Dextrose 5%/0.45% Ns 1000 Ml) 1,000 mls @ 100 mls/hr IV .Q10H ELY Last Admin: 12/03/18 09:20 Dose: 100 mls/hr Piperacillin Sod/Tazobactam Sod (Zosyn 3.375 In Ns 100ml) 100 mls @ 25 mls/hr IVPB Q8 ELY; Protocol Stop: 12/10/18 14:01 Last Admin: 12/03/18 13:07 Dose: 25 mls/hr Insulin Human Regular (Humulin R Low) 0 units SC ACHS ELY; Protocol Last Admin: 12/03/18 11:45 Dose: Not Given Lorazepam (Ativan) 1 mg IVP Q6H PRN; Protocol PRN Reason: Anxiety Last Admin: 11/25/18 23:13 Dose: 1 mg Multivitamins/Minerals (Therapeutic-M Tab) 1 tab PO 0800 [facility] Last Admin: 12/03/18 09:01 Dose: 1 tab Ondansetron HCl (Zofran Inj) 4 mg IVP Q6H PRN PRN Reason: Nausea/Vomiting Last Admin: 11/23/18 17:13 Dose: 4 mg Oxycodone/Acetaminophen (Percocet 10/325 Mg Tab) 1 tab PO Q4H PRN PRN Reason: Pain, severe (8-10) Last Admin: 12/03/18 02:09 Dose: 1 tab Pantoprazole Sodium (Protonix Ec Tab) 40 mg PO ACB [facility] Last Admin: 12/03/18 09:06 Dose: 40 mg Thiamine HCl (Vitamin B1 Tab) 100 mg PO DAILY [facility] Last Admin: 12/03/18 09:19 Dose: 100 mg Tramadol HCl (Ultram) 50 mg PO Q6H PRN PRN Reason: Pain, moderate (4-7) Last Admin: 12/02/18 19:23 Dose: 50 mg - Labs Labs: 12/03/18 07:00 12/03/18 07:00 PT 14.6 SECONDS (9.4-12.5) H 11/21/18 10:45 INR 1.29 11/21/18 10:45 APTT 30.6 Seconds (26.9-38.3) 11/21/18 10:45 - Constitutional Appears: Well, Non-toxic, No Acute Distress - Head Exam Head Exam: ATRAUMATIC, NORMAL INSPECTION, NORMOCEPHALIC - Eye Exam Eye Exam: EOMI, Normal appearance. absent: Scleral icterus - ENT Exam ENT Exam: Mucous Membranes Moist - Respiratory Exam Respiratory Exam: Clear to Ausculation Bilateral, NORMAL BREATHING PATTERN. absent: Accessory Muscle Use, Respiratory Distress - Cardiovascular Exam Cardiovascular Exam: RRR. absent: JVD - GI/Abdominal Exam GI & Abdominal Exam: absent: Distended, Guarding, Rigid, Tenderness, Rebound Additional comments: Midline incision intact with fortino. Ajay drain in place. - Extremities Exam Extremities Exam: Normal Inspection. absent: Calf Tenderness - Neurological Exam Neurological Exam: Alert, Awake, Oriented x3 - Psychiatric Exam Psychiatric exam: Normal Affect, Normal Mood - Skin Skin Exam: Dry, Intact, Normal Color, Warm Assessment and Plan - Assessment and Plan (Free Text) Assessment: 58yo M s/p extended right jesus-colectomy for hepatic flexture obstruction secondary to RUQ collection vs mass. POD 12 Plan: - Cleared for discharge home from surgery standpoint. - Patient to continue home drain care. Self-suction Ajay and record outputs. - Patient to follow up with Dr. Storey in office. Call for appointment - [place] to be removed and replaced with steristrips today - Pain management Further recs as per Dr. Raleigh Mitchell PGY2 surgery
[2018-12-03 14:21] VITALS: BP 133/84; PULSE 76; TEMP 99
--- NOTE | 2018-12-03 14:28 | CP.PCM.PN ---
<Chauncey Wood - Last Filed: 12/03/18 14:23> Subjective - Date & Time of Evaluation Date of Evaluation: 12/03/18 Time of Evaluation: 14:23 - Subjective Subjective: Medicine Progress Note for Dr. Lundberg 58M seen and evaluated at bedside this morning. No acute events overnight. No complaints this morning. Denies f/c, n/v/d, SOB, CP, or urinary symptoms. Objective - Vital Signs/Intake and Output Vital Signs (last 24 hours): Temp Pulse Resp BP Pulse Ox 99 F 76 18 133/84 97 12/03/18 14:00 12/03/18 14:00 12/03/18 14:00 12/03/18 14:00 12/03/18 14:00 Intake and Output: 12/03/18 12/03/18 06:59 18:59 Intake Total 180 240 Output Total 1200 2 Balance -1020 238 - Medications Medications: Current Medications Dextrose (Dextrose 50% Inj) 0 ml IV STAT PRN; Protocol PRN Reason: Hypoglycemia Protocol Folic Acid (Folic Acid) 1 mg PO DAILY ELY Last Admin: 12/03/18 09:06 Dose: 1 mg Heparin Sodium (Porcine) (Heparin) 5,000 units SC Q8 ELY; Protocol Last Admin: 12/03/18 13:08 Dose: 5,000 units Dextrose (Dextrose 5% In Water 1000 Ml) 1,000 mls @ 0 mls/hr IV .Q0M PRN; Protocol PRN Reason: Hypoglycemia Protocol Dextrose/Sodium Chloride (Dextrose 5%/0.45% Ns 1000 Ml) 1,000 mls @ 100 mls/hr IV .Q10H ELY Last Admin: 12/03/18 09:20 Dose: 100 mls/hr Piperacillin Sod/Tazobactam Sod (Zosyn 3.375 In Ns 100ml) 100 mls @ 25 mls/hr IVPB Q8 ELY; Protocol Stop: 12/10/18 14:01 Last Admin: 12/03/18 13:07 Dose: 25 mls/hr Insulin Human Regular (Humulin R Low) 0 units SC ACHS ELY; Protocol Last Admin: 12/03/18 11:45 Dose: Not Given Lorazepam (Ativan) 1 mg IVP Q6H PRN; Protocol PRN Reason: Anxiety Last Admin: 11/25/18 23:13 Dose: 1 mg Multivitamins/Minerals (Therapeutic-M Tab) 1 tab PO 0800 ELY Last Admin: 12/03/18 09:01 Dose: 1 tab Ondansetron HCl (Zofran Inj) 4 mg IVP Q6H PRN PRN Reason: Nausea/Vomiting Last Admin: 11/23/18 17:13 Dose: 4 mg Oxycodone/Acetaminophen (Percocet 10/325 Mg Tab) 1 tab PO Q4H PRN PRN Reason: Pain, severe (8-10) Last Admin: 12/03/18 02:09 Dose: 1 tab Pantoprazole Sodium (Protonix Ec Tab) 40 mg PO ACB ELY Last Admin: 12/03/18 09:06 Dose: 40 mg Thiamine HCl (Vitamin B1 Tab) 100 mg PO DAILY [facility] Last Admin: 12/03/18 09:19 Dose: 100 mg Tramadol HCl (Ultram) 50 mg PO Q6H PRN PRN Reason: Pain, moderate (4-7) Last Admin: 12/02/18 19:23 Dose: 50 mg - Labs Labs: 12/03/18 07:00 12/03/18 07:00 PT 14.6 SECONDS (9.4-12.5) H 11/21/18 10:45 INR 1.29 11/21/18 10:45 APTT 30.6 Seconds (26.9-38.3) 11/21/18 10:45 - Constitutional Appears: Well, Non-toxic, No Acute Distress - Head Exam Head Exam: ATRAUMATIC, NORMAL INSPECTION, NORMOCEPHALIC - Eye Exam Eye Exam: EOMI Pupil Exam: PERRL - ENT Exam ENT Exam: Mucous Membranes Dry - Respiratory Exam Respiratory Exam: Clear to Ausculation Bilateral, NORMAL BREATHING PATTERN. absent: Wheezes, Respiratory Distress - Cardiovascular Exam Cardiovascular Exam: REGULAR RHYTHM, +S1, +S2. absent: Murmur - GI/Abdominal Exam GI & Abdominal Exam: Soft, Normal Bowel Sounds. absent: Distended, Guarding, Tenderness, Rebound Additional comments: Midline incision w/ fortino c/d/i SHAY Drain intact w/ scant serous fluid - Neurological Exam Neurological Exam: Alert, Awake, Oriented x3 - Psychiatric Exam Psychiatric exam: Normal Affect, Normal Mood - Skin Skin Exam: Dry, Intact, Normal Color, Warm Assessment and Plan - Assessment and Plan (Free Text) Assessment: 58M, PMH of EtOH abuse and depression, presented with peritonitis, admitted for suspected cecal volvulus vs perforation w/ intraabdominal abscess. Patient s/p exploratory laparotomy w/ extended right hemicolectomy and intraabdominal abscess drainage POD12. Plan: Colonic Obstruction w/ intraabdominal abscess 2/2 suspected Malignancy - POD12 exploratory laparotomy w/ extended right hemicolectomy and intraabdominal abscess drainage - Continue to monitor SHAY drain output - Body fluid cultures positive for Citrobacter Diversus - Surgical pathology: negative for malignancy - Repeat CTAP 11/24: Postoperative mild ileus, small abscesses. Left inguinal hernia w/ bladder in hernia sac. - Repeat CT C/A/P 11/27: Atelectasis slightly increased, drainage catheter inferior to liver tip, likely ileus, b/l fat containing inguinal hernias L>R - Repeat CTAP 11/27: gallbladder unremarkable, small RUQ fluid collection. unchanged from previous. - Zosyn started on 11/21/18 - Per ID, upon discharge: Augmentin 875mg PO BID for 7 days - Percocet and Tramadol for pain - Zofran for nausea - Monitor diet tolerance - Monitor bowel function - F/u GI recommendations: repeat HIDA oneil. no further GI intervention planned at this time. - F/u surgery recommendations: patient taught drain management and how to record outputs. patient to f/u with Dr. sanchez outpatient. Leukocytosis, resolved - CXR 11/27: Mild atelectasis R>L, developing lower lobe infiltrate. Small b/l effusions R>L - UA (-) for nitrates, LE or WBCs - Remains afebrile - Daily labs - Continue Zosyn - Per ID, upon discharge: Augmentin 875mg PO BID for 7 days - Encourage incentive spirometer use - Continue to monitor vitals Hypokalemia - K 2.9 today - Will be repleted - Daily labs Hx of Alcohol Abuse - CINE protocol - Ativan PRN - MV/Thiamine/Folate PPX GI: Protonix DVT: Heparin Dispo: DC planning - upon discharge: Augmentin 875mg PO BID for 7 days Patient plan reviewed and discussed with Dr. Tamika Wood PGY1 <Aston Lundberg - Last Filed: 12/04/18 13:11> Objective - Vital Signs/Intake and Output Vital Signs (last 24 hours): Temp Pulse Resp BP Pulse Ox 99 F 76 18 133/84 97 12/03/18 14:00 12/03/18 14:00 12/03/18 14:00 12/03/18 14:00 12/03/18 14:00 Intake and Output: 12/04/18 12/04/18 06:59 18:59 Intake Total 180 Output Total 300 Balance -120 - Labs Labs: 12/03/18 07:00 12/03/18 07:00 PT 14.6 SECONDS (9.4-12.5) H 11/21/18 10:45 INR 1.29 11/21/18 10:45 APTT 30.6 Seconds (26.9-38.3) 11/21/18 10:45 Attending/Attestation - Attestation I have personally seen and examined this patient.: Yes I have fully participated in the care of the patient.: Yes I have reviewed all pertinent clinical information, including history, physical exam and plan: Yes
--- NOTE | 2018-12-03 16:26 | CP.PCM.DIS ---
<Chauncey Wood - Last Filed: 12/03/18 16:50> Provider - Provider Date of Admission: 11/20/18 20:07 Attending physician: Aston Lundberg MD Primary care physician: NO PRIMARY CARE PROVIDER Consults: 11/20/18 20:42 Consult [Physician Consult] Stat Comment: Consulting Provider: Jose F Storey Consulting Physician: Jose F Storey Reason for Consult: elevated bili, r/o cholecystitis 11/20/18 21:28 Physician Consult Routine Comment: Consulting Provider: Angelica Cleary V Consulting Physician: Angelica Cleary V Reason for Consult: RLQ pain, eleavted Tbili 11/21/18 13:06 Infectious Disease Consult Routine Comment: Consulting Provider: Geen Lipscomb Consulting Physician: Gene Lipscomb Reason for Consult: intraabdominal infection 11/22/18 12:01 Physician Consult Routine Comment: Consulting Provider: Dino Kidd Consulting Physician: Dino Kidd Reason for Consult: CT guided biopsy vs drain placement 11/26/18 15:49 Physician Consult Routine Comment: Consulting Provider: Dino Kidd Consulting Physician: Dino Kidd Reason for Consult: please reevaluate for gallbladder collection drainage 12/02/18 17:14 Discharge Planning [Case Management Referral] Routine Comment: Physician Instructions: Reason For Exam: home PT, VNA, drain care, transport to follow up Reason for Referral: VNA Eval Time Spent in preparation of Discharge (in minutes): 60 Hospital Course - Lab Results Lab Results: Micro Results 11/29/18 18:10 Sputum Gram Stain - Final 11/29/18 18:10 Sputum Sputum Culture - Final Yeast Species 11/26/18 22:38 Blood Blood Culture - Final NO GROWTH AFTER 5 DAYS 11/26/18 22:38 Blood Gram Stain - Final TEST NOT PERFORMED 11/26/18 22:38 Blood Blood Culture - Final NO GROWTH AFTER 5 DAYS 11/26/18 22:38 Blood Gram Stain - Final TEST NOT PERFORMED 11/23/18 11:30 Abdominal Fluid Gram Stain - Final 11/23/18 11:30 Abdominal Fluid Body Fluid Culture - Final Citrobacter Diversus 11/28/18 17:12 Naris MRSA Culture (Admit) - Final MRSA NOT DETECTED 11/20/18 22:20 Blood Blood Culture - Final NO GROWTH AFTER 5 DAYS 11/20/18 22:20 Blood Gram Stain - Final TEST NOT PERFORMED Most Recent Lab Values WBC 9.3 10^3/uL (4.5-11.0) 12/03/18 07:00 RBC 3.32 10^6/uL (3.5-6.1) L 12/03/18 07:00 Hgb 10.2 g/dL (14.0-18.0) L 12/03/18 07:00 Hct 31.1 % (42.0-52.0) L 12/03/18 07:00 MCV 93.7 fl (80.0-105.0) 12/03/18 07:00 MCH 30.7 pg (25.0-35.0) 12/03/18 07:00 MCHC 32.8 g/dl (31.0-37.0) 12/03/18 07:00 RDW 14.3 % (11.5-14.5) 12/03/18 07:00 Plt Count 410 10^3/uL (120.0-450.0) 12/03/18 07:00 MPV 9.3 fl (7.0-11.0) 12/03/18 07:00 Neut % (Auto) 75.4 % (50.0-68.0) H 12/03/18 07:00 Lymph % (Auto) 17.8 % (22.0-35.0) L 12/03/18 07:00 Hickman % (Auto) 5.2 % (1.0-6.0) 12/03/18 07:00 Eos % (Auto) 1.4 % (1.5-5.0) L 12/03/18 07:00 Baso % (Auto) 0.2 % (0.0-3.0) 12/03/18 07:00 Lymph # (Auto) 1.7 (1.2-3.4) 12/03/18 07:00 Hickman # (Auto) 0.5 (0.1-0.6) 12/03/18 07:00 Eos # (Auto) 0.1 (0.0-0.7) 12/03/18 07:00 Baso # (Auto) 0.02 K/mm3 (0.0-2.0) 12/03/18 07:00 Absolute Neuts (auto) 7.02 (1.4-6.5) H 12/03/18 07:00 PT 14.6 SECONDS (9.4-12.5) H 11/21/18 10:45 INR 1.29 11/21/18 10:45 APTT 30.6 Seconds (26.9-38.3) 11/21/18 10:45 Sodium 139 mmol/L (132-148) 12/03/18 07:00 Potassium 2.9 mmol/L (3.6-5.0) L* D 12/03/18 07:00 Chloride 99 mmol/L (98-107) 12/03/18 07:00 Carbon Dioxide 34 mmol/L (21-33) H 12/03/18 07:00 Anion Gap 9 (10-20) L 12/03/18 07:00 BUN 5 mg/dL (7-21) L 12/03/18 07:00 Creatinine 1.0 mg/dl (0.8-1.5) 12/03/18 07:00 Est GFR ( Amer) > 60 12/03/18 07:00 Est GFR (Non-Af Amer) > 60 12/03/18 07:00 POC Glucose (mg/dL) 159 mg/dL (65-110) H 12/03/18 11:05 Random Glucose 110 mg/dL (70-110) 12/03/18 07:00 Lactic Acid 2.1 mmol/L (0.7-2.1) 11/21/18 01:48 Calcium 8.4 mg/dL (8.4-10.5) 12/03/18 07:00 Phosphorus 4.6 mg/dL (2.5-4.5) H 12/01/18 07:00 Magnesium 1.8 mg/dL (1.7-2.2) 12/03/18 07:00 Total Bilirubin 0.5 mg/dL (0.2-1.3) 12/03/18 07:00 Direct Bilirubin 2.6 mg/dL (0.0-0.4) H 11/20/18 16:50 AST 39 U/L (17-59) 12/03/18 07:00 ALT < 6 U/L (7-56) L 12/03/18 07:00 Alkaline Phosphatase 117 U/L (38-126) 12/03/18 07:00 Total Protein 6.6 g/dL (5.8-8.3) 12/03/18 07:00 Albumin 2.6 g/dL (3.0-4.8) L 12/03/18 07:00 Globulin 4.0 gm/dL 12/03/18 07:00 Albumin/Globulin Ratio 0.6 (1.1-1.8) L 12/03/18 07:00 Amylase 52 U/L (35-125) 11/20/18 16:50 Lipase 47 U/L (23-300) 11/20/18 16:50 Alpha Fetoprotein < 0.8 ng/mL (0.0-7.5) 11/22/18 07:00 Carcinoembryonic Ag 2.5 ng/mL (0.0-3.0) 11/22/18 07:00 CA 19-9 Antigen 66.0 U/mL (0-37) H 11/22/18 07:00 Procalcitonin 0.55 NG/ML (0.19-0.49) H 11/26/18 22:38 Urine Color Yellow (YELLOW) 11/29/18 19:40 Urine Appearance Clear (CLEAR) 11/29/18 19:40 Urine pH 6.5 (4.7-8.0) 11/29/18 19:40 Ur Specific Valmy 1.020 (1.005-1.035) 11/29/18 19:40 Urine Protein Negative mg/dL (<30 mg/dL) 11/29/18 19:40 Urine Glucose (UA) Negative mg/dL (NEGATIVE) 11/29/18 19:40 Urine Ketones Negative mg/dL (NEGATIVE) 11/29/18 19:40 Urine Blood Negative (NEGATIVE) 11/29/18 19:40 Urine Nitrate Negative (NEGATIVE) 11/29/18 19:40 Urine Bilirubin Negative (NEGATIVE) 11/29/18 19:40 Urine Urobilinogen 0.2 E.U./dL (<1 E.U./dL) 11/29/18 19:40 Ur Leukocyte Esterase Negative Neva/uL (NEGATIVE) 11/29/18 19:40 Alcohol, Quantitative < 10 mg/dL (0-10) 11/20/18 16:50 Hepatitis A IgM Ab Negative (NEGATIVE) 11/21/18 10:45 Hep Bs Antigen Negative (NEGATIVE) 11/21/18 10:45 Hep B Core IgM Ab Negative (NEGATIVE) 11/21/18 10:45 Hepatitis C Antibody Negative (NEGATIVE) 11/21/18 10:45 Blood Type A POSITIVE 11/21/18 02:50 Blood Type Confirm A POSITIVE 11/21/18 10:45 Antibody Screen Negative 11/21/18 02:50 Crossmatch See Detail 11/21/18 02:50 BBK History Checked No verified bt 11/21/18 02:50 - Hospital Course Hospital Course: 58M, PMH of depression and ETOH abuse, presented [facility] emergency department with complaints of 8/10, epigastric pain and RLQ abdominal pain x 2-3 days on 11/20/18. Patient states the pain worsened, and this prompted him to come into the ED for evaluation. Patient admitted to associated nausea and poor appetite due to pain. Of note, Patient reported that his last alcohol beverage was on Sunday. In the emergency department, abdominal US was done showing gallstones. A CT of the abdomen/pelvis was done showing acute perforated cholecystitis with abscess formation w/ possible cecal volvulus. Patient was given fluids, antibiotics, antiemetics, and analgesics. Surgery was consulted and patient was taken immediately to the operating room following worsening of clinical exam. Appropriate pre-operative labs, EKG, and CXR were ordered in preparation. In the operating room, patient underwent an exploratory laparotomy with extended right hemicolectomy and intraabdominal abscess drainage. A bill-dai drain was placed. Patient was extubated and taken to PACU without complications. Patient tolerated procedure. There was concern for possible gallbladder malignancy for which Hepatobiliary surgeon was consulted. Tumor markers were ordered and were found to be within normal limits. A CT scan of the chest was ordered which showed no metastatic disease process. Intraoperative specimens were sent to pathology for further examination which was negative for malignancy. A GI consult was also placed and their recommendations included continuation of antibiotics (Zosyn per infectious disease), and an MRI or HIDA scan for further evaluation of the gallbladder and common bile duct. Cultures of the fluid from his larissa drain were positive for citrobacter diversus for which antibiotics were also continued. On 11/24/18, patients drain output showed feculent matter. A repeat CT of the abdomen/pelvis was ordered for comparison which showed small abscesses and post- operative changes. An asymptomatic left inguinal hernia was also identified. No leak was identified on imaging. Interventional radiology was consulted for possible drainage; however IR did not believe patient needed this procedure as he was afebrile with no evidence of infectious process or sepsis. On 11/27/18, patient was found to be febrile with an elevated white count with a change in consistency of the drain output. A CT of the chest, abdomen and pelvis was ordered for further evaluation. Results showed small left and right pleural effusions, thick walled gallbladder with postoperative changes of the colon. The radiologist could not rule out a leak from this imaging. Subsequently, the GI team ordered a HIDA scan to evaluate for a potential leak. On 11/28, HIDA was done showing cystic duct occlusion and possible leak within the biliary tree which was uncertain. For these reasons, the HIDA scan with delayed follow-up was repeated on 12/02 and there was no longer any filling defect, nor any leak noted. No further GI intervention was planned. Patient's drain output was initially bilious however over time decreased in quantity and became seropurulent to serous. On 12/02/[address] of the abdomen/pelvis showed an unremarkable gallbladder with mild inflammatory changes and a right upper quadrant fluid collection where the current drain was already placed. Following these findings, patient was cleared for discharge per the surgical team. Surgical team removed the fortino. Patient's drain will remain in place until his next follow up appointment with Dr. Storey, his surgeon. Patient was taught about local wound care and drain management by surgical and primary team. Per case management, attempts being made to allow for visiting wound care nurse to help with drain and midline incision upon discharge to his care home. Patient has a history of alcohol abuse for which CIWA protocol was started. Ativan PRN provided and seizure precautions ordered. Patient did not go through withdrawal during admission. Throughout his admission, pain was controlled. His diet was advanced and tolerated. His bowel function was monitored and remained consistent. Electrolytes were repleted as needed. Physical therapy continued to work with patient and provided a walker for ambulation. Patient continued to use his incentive spirometer. Patient is to establish a primary care provider for which an appointment at the [facility] with Dr. Neumann has been made. Patient given a script for physical therapy which will be provided on an outpatient basis. Patient instructed on local wound care and drain management; efforts being made by case management to allow for a visiting wound care nurse to aid patient upon discharge. Per infectious disease, patient to be discharged with Augmentin 875 PO BID for 7 days for which script has been provided. Pain control with Tramadol 50mg Q6H #20 pills prescription has been provided. Additionally, patient to follow up with his surgeon, Dr. Storey, regarding drain removal as well as future cholecystectomy. Patient acknowledged and verbalized understanding of treatment plan. Prescriptions and appropriate instructions provided. Patient agreed to treatment plan. Above is a brief summary, for detailed encounter please refer to medical records. - Date & Time of H&P Date of H&P: 11/20/18 Time of H&P: 23:14 Discharge Exam - Head Exam Head Exam: ATRAUMATIC, NORMAL INSPECTION, NORMOCEPHALIC - Eye Exam Eye Exam: EOMI Pupil Exam: PERRL - ENT Exam ENT Exam: Mucous Membranes Moist - Respiratory Exam Respiratory Exam: Clear to PA & Lateral, NORMAL BREATHING PATTERN, UNREMARKABLE. absent: Respiratory Distress - Cardiovascular Exam Cardiovascular Exam: REGULAR RHYTHM, +S1, +S2. absent: Tachycardia, Systolic Murmur - GI/Abdominal Exam GI & Abdominal Exam: Normal Bowel Sounds, Soft. absent: Distended, Firm, Guarding, Rebound, Rigid, Tenderness Additional comments: SHAY drain in place w/ scant serous fluid Midline incision clean and dry, nonerythematous, no purulence or drainage noted - Extremities Exam Extremities exam: pedal pulses present - Neurological Exam Neurological exam: Alert, Oriented x3 - Psychiatric Exam Psychiatric exam: Normal Affect, Normal Mood - Skin Skin Exam: Dry, Intact, Normal Color, Warm Discharge Plan - Discharge Medications Prescriptions: Amoxicillin/Clavulanate [Augmentin 875 MG-125 MG] 1 tab PO BID 7 Days #14 tab traMADol [Ultram] 50 mg PO TID #1 tab - Follow Up Plan Condition: FAIR Disposition: HOME/ ROUTINE Instructions: Colectomy, Open Surgery, Bill-Dai Drain, Abscess Incision and Drainage, Managing Pain After Surgery Additional Instructions: We have made an appointment for you at our [facility] (located on the ground floor of [facility]) with Dr Trujillo. The appointment date and time is December 09 at 2:00pm. Please bring your Photo ID and Health Insurance Card. Please follow-up with Surgeon Dr Storey within 7 days of discharge as you will need to have a cholecystecomy performed in the near future. His contact information has been provided. Please manage your abdominal drain as was taught to you by the surgical coordinator. Surgeon Dr Storey will let you know when the drain can come out. You will be discharged on an antibiotic called Augmentin - please take it morning and night for the next 7 days. You will be given a script for Tramadol for pain control. If your pain is not controlled you may take tylenol or motrin as well. You may continue your normal home medications, including your psychiatric medications. If symptoms return promptly go to your nearest emergency department. Referrals: Jose F Storey MD [Staff Provider] - 7 Days Sheryl Neumann MD [Medical Doctor] - <Aston Lundberg - Last Filed: 12/04/18 13:10> Provider - Provider Date of Admission: 11/20/18 20:07 Attending physician: Aston Lundberg MD Primary care physician: NO PRIMARY CARE PROVIDER Consults: 11/20/18 20:42 Consult [Physician Consult] Stat Comment: Consulting Provider: Jose F Storey Consulting Physician: Jose F Storey Reason for Consult: elevated bili, r/o cholecystitis 11/20/18 21:28 Physician Consult Routine Comment: Consulting Provider: Angelica Cleary V Consulting Physician: Angelica Cleary V Reason for Consult: RLQ pain, eleavted Tbili 11/21/18 13:06 Infectious Disease Consult Routine Comment: Consulting Provider: Gene Lipscomb Consulting Physician: Gene Lipscomb Reason for Consult: intraabdominal infection 11/22/18 12:01 Physician Consult Routine Comment: Consulting Provider: Dino Kidd Consulting Physician: Dino Kidd Reason for Consult: CT guided biopsy vs drain placement 11/26/18 15:49 Physician Consult Routine Comment: Consulting Provider: Dino Kidd Consulting Physician: Dino Kidd Reason for Consult: please reevaluate for gallbladder collection drainage 12/02/18 17:14 Discharge Planning [Case Management Referral] Routine Comment: Physician Instructions: Reason For Exam: home PT, VNA, drain care, transport to follow up Reason for Referral: VNA Evid Hospital Course - Lab Results Lab Results: Micro Results 11/29/18 18:10 Sputum Gram Stain - Final 11/29/18 18:10 Sputum Sputum Culture - Final Yeast Species 11/26/18 22:38 Blood Blood Culture - Final NO GROWTH AFTER 5 DAYS 11/26/18 22:38 Blood Gram Stain - Final TEST NOT PERFORMED 11/26/18 22:38 Blood Blood Culture - Final NO GROWTH AFTER 5 DAYS 11/26/18 22:38 Blood Gram Stain - Final TEST NOT PERFORMED 11/23/18 11:30 Abdominal Fluid Gram Stain - Final 11/23/18 11:30 Abdominal Fluid Body Fluid Culture - Final Citrobacter Diversus 11/28/18 17:12 Naris MRSA Culture (Admit) - Final MRSA NOT DETECTED 11/20/18 22:20 Blood Blood Culture - Final NO GROWTH AFTER 5 DAYS 11/20/18 22:20 Blood Gram Stain - Final TEST NOT PERFORMED Most Recent Lab Values WBC 9.3 10^3/uL (4.5-11.0) 12/03/18 07:00 RBC 3.32 10^6/uL (3.5-6.1) L 12/03/18 07:00 Hgb 10.2 g/dL (14.0-18.0) L 12/03/18 07:00 Hct 31.1 % (42.0-52.0) L 12/03/18 07:00 MCV 93.7 fl (80.0-105.0) 12/03/18 07:00 MCH 30.7 pg (25.0-35.0) 12/03/18 07:00 MCHC 32.8 g/dl (31.0-37.0) 12/03/18 07:00 RDW 14.3 % (11.5-14.5) 12/03/18 07:00 Plt Count 410 10^3/uL (120.0-450.0) 12/03/18 07:00 MPV 9.3 fl (7.0-11.0) 12/03/18 07:00 Neut % (Auto) 75.4 % (50.0-68.0) H 12/03/18 07:00 Lymph % (Auto) 17.8 % (22.0-35.0) L 12/03/18 07:00 Hickman % (Auto) 5.2 % (1.0-6.0) 12/03/18 07:00 Eos % (Auto) 1.4 % (1.5-5.0) L 12/03/18 07:00 Baso % (Auto) 0.2 % (0.0-3.0) 12/03/18 07:00 Lymph # (Auto) 1.7 (1.2-3.4) 12/03/18 07:00 Hickman # (Auto) 0.5 (0.1-0.6) 12/03/18 07:00 Eos # (Auto) 0.1 (0.0-0.7) 12/03/18 07:00 Baso # (Auto) 0.02 K/mm3 (0.0-2.0) 12/03/18 07:00 Absolute Neuts (auto) 7.02 (1.4-6.5) H 12/03/18 07:00 PT 14.6 SECONDS (9.4-12.5) H 11/21/18 10:45 INR 1.29 11/21/18 10:45 APTT 30.6 Seconds (26.9-38.3) 11/21/18 10:45 Sodium 139 mmol/L (132-148) 12/03/18 07:00 Potassium 2.9 mmol/L (3.6-5.0) L* D 12/03/18 07:00 Chloride 99 mmol/L (98-107) 12/03/18 07:00 Carbon Dioxide 34 mmol/L (21-33) H 12/03/18 07:00 Anion Gap 9 (10-20) L 12/03/18 07:00 BUN 5 mg/dL (7-21) L 12/03/18 07:00 Creatinine 1.0 mg/dl (0.8-1.5) 12/03/18 07:00 Est GFR ( Amer) > 60 12/03/18 07:00 Est GFR (Non-Af Amer) > 60 12/03/18 07:00 POC Glucose (mg/dL) 128 mg/dL (65-110) H 12/03/18 16:04 Random Glucose 110 mg/dL (70-110) 12/03/18 07:00 Lactic Acid 2.1 mmol/L (0.7-2.1) 11/21/18 01:48 Calcium 8.4 mg/dL (8.4-10.5) 12/03/18 07:00 Phosphorus 4.6 mg/dL (2.5-4.5) H 12/01/18 07:00 Magnesium 1.8 mg/dL (1.7-2.2) 12/03/18 07:00 Total Bilirubin 0.5 mg/dL (0.2-1.3) 12/03/18 07:00 Direct Bilirubin 2.6 mg/dL (0.0-0.4) H 11/20/18 16:50 AST 39 U/L (17-59) 12/03/18 07:00 ALT < 6 U/L (7-56) L 12/03/18 07:00 Alkaline Phosphatase 117 U/L (38-126) 12/03/18 07:00 Total Protein 6.6 g/dL (5.8-8.3) 12/03/18 07:00 Albumin 2.6 g/dL (3.0-4.8) L 12/03/18 07:00 Globulin 4.0 gm/dL 12/03/18 07:00 Albumin/Globulin Ratio 0.6 (1.1-1.8) L 12/03/18 07:00 Amylase 52 U/L (35-125) 11/20/18 16:50 Lipase 47 U/L (23-300) 11/20/18 16:50 Alpha Fetoprotein < 0.8 ng/mL (0.0-7.5) 11/22/18 07:00 Carcinoembryonic Ag 2.5 ng/mL (0.0-3.0) 11/22/18 07:00 CA 19-9 Antigen 66.0 U/mL (0-37) H 11/22/18 07:00 Procalcitonin 0.55 NG/ML (0.19-0.49) H 11/26/18 22:38 Urine Color Yellow (YELLOW) 11/29/18 19:40 Urine Appearance Clear (CLEAR) 11/29/18 19:40 Urine pH 6.5 (4.7-8.0) 11/29/18 19:40 Ur Specific Valmy 1.020 (1.005-1.035) 11/29/18 19:40 Urine Protein Negative mg/dL (<30 mg/dL) 11/29/18 19:40 Urine Glucose (UA) Negative mg/dL (NEGATIVE) 11/29/18 19:40 Urine Ketones Negative mg/dL (NEGATIVE) 11/29/18 19:40 Urine Blood Negative (NEGATIVE) 11/29/18 19:40 Urine Nitrate Negative (NEGATIVE) 11/29/18 19:40 Urine Bilirubin Negative (NEGATIVE) 11/29/18 19:40 Urine Urobilinogen 0.2 E.U./dL (<1 E.U./dL) 11/29/18 19:40 Ur Leukocyte Esterase Negative Neva/uL (NEGATIVE) 11/29/18 19:40 Alcohol, Quantitative < 10 mg/dL (0-10) 11/20/18 16:50 Hepatitis A IgM Ab Negative (NEGATIVE) 11/21/18 10:45 Hep Bs Antigen Negative (NEGATIVE) 11/21/18 10:45 Hep B Core IgM Ab Negative (NEGATIVE) 11/21/18 10:45 Hepatitis C Antibody Negative (NEGATIVE) 11/21/18 10:45 Blood Type A POSITIVE 11/21/18 02:50 Blood Type Confirm A POSITIVE 11/21/18 10:45 Antibody Screen Negative 11/21/18 02:50 Crossmatch See Detail 11/21/18 02:50 BBK History Checked No verified bt 11/21/18 02:50 Attending/Attestation - Attestation I have personally seen and examined this patient.: Yes I have fully participated in the care of the patient.: Yes I have reviewed all pertinent clinical information, including history, physical exam and plan: Yes Notes (Text): 12/04/18 13:09 Medical record note made by the resident after discussion with my direction and input after the patient was personally seen and examined by me. I have reviewed the chart and agree that the record accurately reflects by personal performance of the history, physical exam, data review, and medical decision-making, in the course for the patient. I have also personally directed the plan of care. 58 year old male with PMH of anxiety and depression who presented with complaint of abdominal pains with peritoneal signs and 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 Patient was seen by surgery and underwent exploratory laparotomy, found to have right colon obstruction and intra-abdominal abscess. He is s/p right hemicolectomy. S/p drainage of abscess. Pathology result was negative for malignancy. Wound culture grew citrobacter diversus. Leukocytosis has improved. HIDA scan with delayed follow-up was repeated on 12/02 and there was no longer any filling defect, nor any leak noted. No further GI intervention was planned. On 12/02/[address] of the abdomen/pelvis showed an unremarkable gallbladder with mild inflammatory changes and a right upper quadrant fluid collection where the current drain was already placed. Following these findings, patient was cleared for discharge per the surgical team. Surgical team removed the fortino. Patient's drain will remain in place until his next follow up appointment with Dr. Storey, his surgeon. Patient was taught about local wound care and drain management by surgical and primary team Patient will follow up with [facility] and surgery . Management plan was discussed in detail with patient. Education was provided.
--- NOTE | 2018-12-03 16:42 | PN ---
DATE: 12/03/2018 SUBJECTIVE: The patient is seen this morning in no acute distress, nontoxic. OBJECTIVE: VITAL SIGNS: Temperature is 98, blood pressure is 160/90, respiratory rate of 18. HEENT: Unremarkable. NECK: Supple. LUNGS: Have decreased breath sounds. HEART: Normal S1, S2. ABDOMEN: Soft, nontender. No rebound, no guarding. LABORATORY EXAMINATION: Reveals a white count of 9.3, hemoglobin of 10, platelets of 410. BUN of 5, creatinine of 1.0. Urinalysis is noted. Review of the abdominal fluid cultures were sensitive to ceftriaxone rather Citrobacter sensitive to ceftriaxone. ASSESSMENT AND PLAN: This is a 58-year-old male admitted with sepsis, status post exploratory lap, right hemicolectomy, Citrobacter from the culture, negative for malignancy. Developed sepsis and questionable CT collection and currently on Zosyn. Has HiDA scan which was positive and the repeat HIDA scan results are pending. Review of orders reveals Zosyn to be active. Dr. Narvaez progress note is reviewed. complete at this time we will review it later. Gene Lipscomb MD
--- NOTE | 2018-12-19 08:36 | NM ---
Date of service: 12/02/2018 PROCEDURE: Nuclear Medicine Hepatobiliary Scan HISTORY: Bile leak COMPARISON: None available. TECHNIQUE: 5.1 mCi of technetium 99m Mebrofenin was administered intravenously. Planar images of the abdomen were obtained at 5 min intervals to 60 mins. Delayed images were also obtained. FINDINGS: LIVER: Timely and homogenous uptake. COMMON BILE DUCT: identified at 15 mins. GALLBLADDER: identified at 15 mins. SMALL BOWEL: Identified at 17 mins. IMPRESSION: Normal Hepatobiliary Scan. No nuclear evidence of cystic or common bile duct obstruction.
--- NOTE | 2018-12-19 13:55 | OP ---
PROCEDURE DATE: 11/21/2018 PREOPERATIVE DIAGNOSIS: Colonic obstruction. POSTOPERATIVE DIAGNOSIS: Colonic obstruction. PROCEDURE PERFORMED: Laparotomy and a right hemicolectomy. SURGEON: Jose F Storey MD DESCRIPTION OF PROCEDURE: In the operating room, the patient was identified by name, name of procedure laparotomy, and my consent. Clinically, the patient was markedly tender with distention of the cecum with an abscess around the gallbladder. The preoperative diagnosis was in doubt the consideration being it could easily be hepatic malignancy. In the operating room, the patient have been identified with an acceptable time-out. The abdomen was prepped and draped in the usual manner. Midline incision was made through the skin and subcutaneous tissues and the abdomen entered. The cecum was massively dilated and ischemic mottled areas of ischemia were noted. It was over 10 to 12 cm. The line of Toldt was taken down quickly sharply and the cecum rolled into the wound, it was adherent up by the liver and that was the point of obstruction. The cecum clearly was obstructed. Duodenum was close to the point of the inflammation in the right upper quadrant. Using a right angle, the duodenum was dissected off the mass as was the lateral part and eventually the cecum mobilized from the point of obstruction, separate from the duodenum. There was inflammation and rock hard in the right upper quadrant. There was no abscess that I can feel. There was a little bit of bleeding that was resolved with cautery and stitches. A Ajay was placed. The right colon and proximal transverse colon were then mobilized up, they were from the omentum, divided with a BREANNA proximally and distally, and that the mesentery was taken to remove the cecum. There is no contamination and the ischemia is seen to be related to the obstruction and the closed loop cecum. A primary anastomosis was done using silks, still ended up BREANNA was run in and fired, the omentum closed with Vicryl. The Ajay in the right upper quadrant was left through a separate stab incision closed with running #1 PDS above and below, tied in the middle. Skin was closed with Vicryl followed by fortino. There was no contamination per se. Discussion during the operation was whether to and do biopsy of this area. I elected not to leave the planes with a possible hepatectomy to follow. This believed to be malignant in the right upper quadrant. Jose F Storey MD
== END 2018-12-03 22:09 | disposition home or self-care (01) | DRG 264 ==
LOC: ED 16:27 → ERH 20:07 → 5RSO 11-21 00:22
PROVIDERS: ADMIT Internal Medicine; ATTEND Internal Medicine
PROC: 0DTF0ZZ Resection of Right Large Intestine, Open Approach (ICD-10-PCS; principal; 2018-11-21 06:00)
DX: K80.01 Calculus of gallbladder with acute cholecystitis with obstruction (principal); K65.1 Peritoneal abscess; K82.A2 Perforation of gallbladder in cholecystitis; J90 Pleural effusion, not elsewhere classified; K56.2 Volvulus; R18.8 Other ascites; K76.0 Fatty (change of) liver, not elsewhere classified; K71.9 Toxic liver disease, unspecified; K40.90 Unilateral inguinal hernia, without obstruction or gangrene, not specified as recurrent; I10 Essential (primary) hypertension; E87.6 Hypokalemia; F10.20 Alcohol dependence, uncomplicated; F32.89 Other specified depressive episodes; F17.210 Nicotine dependence, cigarettes, uncomplicated; Z59.0 Homelessness; Z86.711 Personal history of pulmonary embolism; Z87.01 Personal history of pneumonia (recurrent); Z80.1 Family history of malignant neoplasm of trachea, bronchus and lung; Z82.49 Family history of ischemic heart disease and other diseases of the circulatory system

== ENCOUNTER 2018-12-13 11:17 | Outpatient (CLI) | payer MEDICAID | END 2018-12-13 11:18 | disposition home or self-care (01) | LOC: RAD 11:17 | DX: K56.2 Volvulus (principal); K65.1 Peritoneal abscess ==

== ENCOUNTER 2018-12-21 19:03 | Emergency (ER) | payer MEDICAID ==
[2018-12-21 19:04] VITALS: BMI 26.6
[2018-12-21 19:12] VITALS: TEMP 98.6
--- NOTE | 2018-12-21 20:01 | ED PDOC ---
Arrival/HPI - General Chief Complaint: Abnormal Skin Integrity Time Seen by Provider: 12/21/18 19:20 Historian: Patient - History of Present Illness Narrative History of Present Illness (Text): 12/21/18 20:01 58 year old male, with past medical history of hypertension, left groin hernia, and alcohol abuse, presents to emergency department complaining of accidental removal of Bill-Dai abdominal drain while tying his pants. Patient notes he had an abdominal surgery 3 1/2 weeks prior. Patient's previous gallbladder surgery likely complicated with free air in the abdomen. Patient notes that he has had only minimal drainage but became concerned since the drain was pulled out. Patient denies any nausea, vomiting, abdominal pain, or any other somatic complaints. Time/Duration: Prior to Arrival Symptom Onset: Gradual Symptom Course: Unchanged Activities at Onset: Light Context: Home Past Medical History - Provider Review Nursing Documentation Reviewed: Yes - Past History Past History: No Previous - Infectious Disease Hx of Infectious Diseases: None - Tetanus Immunization Tetanus Immunization: Unknown - Past Medical History Past Medical History: No Previous - Cardiac Hx Cardiac Disorders: Yes Hx Hypertension: Yes - Pulmonary Hx Tuberculosis: No - Neurological HX Cerebrovascular Accident: No Hx Seizures: No - HEENT Hx HEENT Disorder: No - Renal Hx Renal Disorder: No - Endocrine/Metabolic Hx Endocrine Disorders: No - Hematological/Oncological Hx Blood Transfusions: No Hx Blood Transfusion Reaction: No - Integumentary Hx Dermatological Disorder: No - Musculoskeletal/Rheumatological Hx Musculoskeletal Disorders: Yes Other/Comment: R KNEE INJURY - Gastrointestinal Hx Gastrointestinal Disorders: Yes Other/Comment: HERNIA - Genitourinary/Gynecological Hx Sexually Transmitted Diseases: No - Psychiatric Hx Depression: Yes Hx Substance Use: No Other/Comment: ETOH abuse - Past Surgical History Past Surgical History: No Previous - Surgical History Hx Orthopedic Surgery: Yes (RIGHT KNEE SX) - Anesthesia Hx Anesthesia Reactions: No Hx Malignant Hyperthermia: No - Suicidal Assessment Feels Threatened In Home Enviroment: No Family/Social History - Physician Review Nursing Documentation Reviewed: Yes Family/Social History: Unknown Family HX Smoking Status: Heavy Smoker > 10 Cigarettes Daily Hx Alcohol Use: Yes Hx Substance Use: No Hx Substance Use Treatment: No Allergies/Home Meds Allergies/Adverse Reactions: Allergies No Known Allergies Allergy (Verified 09/17/18 16:17) Review of Systems - Physician Review All systems were reviewed & negative as marked: Yes - Review of Systems Constitutional: absent: Fevers Respiratory: absent: SOB, Cough Cardiovascular: absent: Chest Pain Gastrointestinal: Other (accidental removal of Bill-Dai abdominal drain). absent: Abdominal Pain, Diarrhea, Nausea, Vomiting Genitourinary Male: absent: Urinary Output Changes Musculoskeletal: absent: Back Pain, Neck Pain Skin: absent: Rash Neurological: absent: Headache, Dizziness Physical Exam Vital Signs Reviewed: Yes Vital Signs Temp Pulse Resp BP Pulse Ox 12/21/18 19:41 98.6 F 104 H 20 117/77 95 12/21/18 19:08 98.6 F 109 H 20 121/80 98 Temperature: Afebrile Blood Pressure: Normal Pulse: Regular Respiratory Rate: Normal Appearance: Positive for: Well-Appearing, Non-Toxic, Comfortable Pain Distress: None Mental Status: Positive for: Alert and Oriented X 3 - Systems Exam Head: Present: Atraumatic, Normocephalic Pupils: Present: PERRL Extroacular Muscles: Present: EOMI Conjunctiva: Present: Normal Mouth: Present: Moist Mucous Membranes Neck: Present: Normal Range of Motion Respiratory/Chest: Present: Clear to Auscultation, Good Air Exchange. No: Respiratory Distress, Accessory Muscle Use Cardiovascular: Present: Regular Rate and Rhythm, Normal S1, S2. No: Murmurs Abdomen: Present: Normal Bowel Sounds, Other (surgical scar noted, no drainage from wound site ). No: Tenderness, Distention, Peritoneal Signs Back: Present: Normal Inspection Upper Extremity: Present: Normal Inspection. No: Cyanosis, Edema Lower Extremity: Present: Normal Inspection. No: Edema Neurological: Present: GCS=15, CN II-XII Intact, Speech Normal Skin: Present: Warm, Dry, Normal Color. No: Rashes Psychiatric: Present: Alert, Oriented x 3, Normal Insight, Normal Concentration Medical Decision Making ED Course and Treatment: 12/21/18 20:10 Impression: 58 year old male presents to emergency department complaining of accidental removal of Bill-Dai abdominal drain prior to arrival. Plan: -- Reassess and disposition Prior Visits: Notes and results from previous visits were reviewed. Progress Notes: 12/21/18 19:11 Case discussed with surgical first assistant , who will come down to the ER to evaluate the patient. 12/21/18 20:30 Patient seen and evaluated by surgery.Agrees patient can be discharged for follow up with on Sunday. - Scribe Statement The provider has reviewed the documentation as recorded by the Scribe Niecy Albert All medical record entries made by the Scribe were at my direction and personally dictated by me. I have reviewed the chart and agree that the record accurately reflects my personal performance of the history, physical exam, medical decision making, and the department course for this patient. I have also personally directed, reviewed, and agree with the discharge instructions and disposition. Disposition/Present on Arrival - Present on Arrival Any Indicators Present on Arrival: No History of DVT/PE: No History of Uncontrolled Diabetes: No Urinary Catheter: No History of Decub. Ulcer: No History Surgical Site Infection Following: None - Disposition Have Diagnosis and Disposition been Completed?: Yes Diagnosis: Status post abdominal surgery, follow-up exam Disposition: HOME/ ROUTINE Disposition Time: 20:34 Condition: STABLE Additional Instructions: Follow up with on Sunday.Any change i.e. abdominal pain/vomiting,ecc. return to the emergency room Referrals: FAMILY PROVIDER,NO [Primary Care Provider] - Follow up with primary Forms: [employer] ([place]ese)
[2018-12-21 20:10] VITALS: BP 114/70; PULSE 98; RESP 18; O2SAT 97
== END 2018-12-21 20:37 | disposition home or self-care (01) ==
LOC: ED 19:03
DX: Z98.890 Other specified postprocedural states (principal); Z09 Encounter for follow-up examination after completed treatment for conditions other than malignant neoplasm; I10 Essential (primary) hypertension; F17.210 Nicotine dependence, cigarettes, uncomplicated

== ENCOUNTER 2019-01-17 16:55 | Emergency (ER) | payer MEDICAID, OTHER ==
[2019-01-17 17:07] VITALS: BMI 20.9
[2019-01-17 17:23] VITALS: TEMP 97.5
--- NOTE | 2019-01-17 18:14 | ED PDOC ---
Arrival/HPI - General Chief Complaint: Alcohol Ingestion Time Seen by Provider: 01/17/19 17:34 - History of Present Illness Narrative History of Present Illness (Text): 01/17/19 18:11 58 f with hx alcohol abuse presents to the ED for evaluation of public intoxication. Patient admits to drinking alcohol. Patient states " i want to go to the 5th floor, i feel like killing someone". Patient states "maybe I'm not a nice person, I might even kill you". Patient denies any physical complaints. Past Medical History - Past History Past History: No Previous - Infectious Disease Hx of Infectious Diseases: None - Tetanus Immunization Tetanus Immunization: Unknown - Past Medical History Past Medical History: No Previous - Cardiac Hx Cardiac Disorders: Yes Hx Hypertension: Yes - Pulmonary Hx Tuberculosis: No - Neurological HX Cerebrovascular Accident: No Hx Seizures: No - HEENT Hx HEENT Disorder: No - Renal Hx Renal Disorder: No - Endocrine/Metabolic Hx Endocrine Disorders: No - Hematological/Oncological Hx Blood Transfusions: No Hx Blood Transfusion Reaction: No - Integumentary Hx Dermatological Disorder: No - Musculoskeletal/Rheumatological Hx Musculoskeletal Disorders: Yes Other/Comment: R KNEE INJURY - Gastrointestinal Hx Gastrointestinal Disorders: Yes Other/Comment: HERNIA - Genitourinary/Gynecological Hx Sexually Transmitted Diseases: No - Psychiatric Hx Depression: Yes Hx Substance Use: No Other/Comment: ETOH abuse - Past Surgical History Past Surgical History: No Previous - Surgical History Hx Orthopedic Surgery: Yes (RIGHT KNEE SX) - Anesthesia Hx Anesthesia Reactions: No Hx Malignant Hyperthermia: No - Suicidal Assessment Feels Threatened In Home Enviroment: No Family/Social History Family/Social History: Unknown Family HX Smoking Status: Heavy Smoker > 10 Cigarettes Daily Hx Alcohol Use: Yes Frequency of alcohol use: Daily Hx Substance Use: No Hx Substance Use Treatment: No Allergies/Home Meds Allergies/Adverse Reactions: Allergies No Known Allergies Allergy (Verified 09/17/18 16:17) Review of Systems - Physician Review All systems were reviewed & negative as marked: Yes Physical Exam - Physical Exam Narrative Physical Exam (Text): 01/17/19 18:12 Gen: VS reviewed, alert, well developed, well nourished, nontoxic, mild distress Eye: EOMI, PERRL Neck: no JVD, supple CV: regular rate, regular rhythm Pulm: no distress, clear to auscultation, no wheeze, no rhonchi, breath sounds equal, no rales Skin: good color, no rash, no cyanosis Psych: responds appropriately to questions, normal affect Neuro: oriented x3, CN2-12 intact grossly, motor intact, sensation intact Vital Signs Temp Pulse Resp BP Pulse Ox 01/17/19 16:56 97.5 F L 98 H 18 160/82 H 97 Medical Decision Making ED Course and Treatment: 01/17/19 18:13 patient seen for alcohol intoxication and homicidal ideation, will do medical screening and request PES. PES is aware of patient and will eval pending sobriety. - RAD Interpretation Radiology Orders: 01/17/19 18:06 CHEST ONE VIEW [RAD] Stat Disposition/Present on Arrival - Present on Arrival Any Indicators Present on Arrival: No History of DVT/PE: No History of Uncontrolled Diabetes: No Urinary Catheter: No History of Decub. Ulcer: No History Surgical Site Infection Following: None - Disposition Have Diagnosis and Disposition been Completed?: Yes Diagnosis: Alcohol intoxication Disposition: HOME/ ROUTINE Disposition Time: 17:58 (not actual time) Condition: STABLE Discharge Instructions (ExitCare): Alcohol Abuse and Alcoholism (DC) Referrals: PCP,NO [Primary Care Provider] - Follow up with primary Forms: [employer] ([place])
[2019-01-17 18:45] LABS: BASO # 0.02 K/mm3 (0.0-2.0); BASO % 0.3 % (0.0-3.0); EOS # 0.3 (0.0-0.7); EOS % 4.3 % (1.5-5.0); HEMOGLOBIN 11.4 g/dL (14.0-18.0); LYMPH # 2.6 (1.2-3.4); LYMPH % 39.2 % (22.0-35.0); MEAN CELL VOLUME 94.2 fl (80.0-105.0); MEAN CORPUSCULAR HEMOGLOBIN 31.8 pg (25.0-35.0); MEAN CORPUSCULAR HGB CONC 33.7 g/dl (31.0-37.0); MEAN PLATELET VOLUME 8.7 fl (7.0-11.0); MONO # 0.3 (0.1-0.6); MONO % 4.8 % (1.0-6.0); RBC 3.59 10^6/uL (3.5-6.1); RED CELL DISTRIBUTION WIDTH 14.7 % (11.5-14.5); WHITE BLOOD COUNT 6.7 10^3/uL (4.5-11.0)
[2019-01-17 18:49] LABS: PH,URINE 6.5 (4.7-8.0); URINE BILIRUBIN NEGATIVE (NEGATIVE); URINE BLOOD NEGATIVE (NEGATIVE); URINE GLUCOSE (UA) NEGATIVE (NEGATIVE); URINE LEUKOCYTE ESTERASE NEGATIVE Leu/uL (NEGATIVE); URINE PROTEIN NEGATIVE mg/dL (<30 mg/dL); URINE UROBILINOGEN 0.2 E.U./dL (<1 E.U./dL)
[2019-01-17 18:50] LABS: URINE APPEARANCE CLEAR (CLEAR); URINE COLOR COLORLESS (YELLOW)
[2019-01-17 18:52] LABS: ACETAMINOPHEN < 10.0 ug/ml (10.0-20.0); SALICYLATE < 1 mg/dL (2.0-20.0)
[2019-01-17 18:54] LABS: ALBUMIN 3.7 g/dL (3.0-4.8); ALT/SGPT 10 U/L (7-56); AST/SGOT 35 U/L (17-59); BLOOD UREA NITROGEN 6 mg/dL (7-21); CALCIUM 8.4 mg/dL (8.4-10.5); GFR NON-AFRICAN AMERICAN > 60
[2019-01-17 19:17] LABS: BARBITURATES, UR NEGATIVE (NEGATIVE); BENZODIAZEPINES, UR NEGATIVE (NEGATIVE); OPIATES, UR NEGATIVE (NEGATIVE); PHENCYCLIDINE, UR NEGATIVE (NEGATIVE)
[2019-01-17 20:49] VITALS: RESP 18
--- NOTE | 2019-01-18 04:40 | ED PDOC ---
Physical Exam Vital Signs Temp Pulse Resp BP Pulse Ox 01/18/19 02:45 78 18 120/72 96 01/18/19 00:20 82 18 114/61 96 01/17/19 22:30 85 18 110/54 L 97 01/17/19 20:49 80 18 98/46 L 97 01/17/19 19:35 87 16 90/50 L 97 01/17/19 16:56 97.5 F L 98 H 18 160/82 H 97 Medical Decision Making ED Course and Treatment: Signed out to me at change of shift pending medical clearance and PES evaluation. PES evaluated, recommend discharge. - Lab Interpretations Lab Results: Total Bilirubin 0.6 mg/dL (0.2-1.3) 01/17/19 18:35 AST 35 U/L (17-59) 01/17/19 18:35 ALT 10 U/L (7-56) 01/17/19 18:35 Alkaline Phosphatase 114 U/L (38-126) 01/17/19 18:35 Total Protein 7.5 g/dL (5.8-8.3) 01/17/19 18:35 Albumin 3.7 g/dL (3.0-4.8) 01/17/19 18:35 Globulin 3.8 gm/dL 01/17/19 18:35 Albumin/Globulin Ratio 1.0 (1.1-1.8) L 01/17/19 18:35 Urine Color Colorless (YELLOW) 01/17/19 18:39 Urine Appearance Clear (CLEAR) 01/17/19 18:39 Urine pH 6.5 (4.7-8.0) 01/17/19 18:39 Ur Specific [place] <= 1.005 (1.005-1.035) 01/17/19 18:39 Urine Protein Negative mg/dL (<30 mg/dL) 01/17/19 18:39 Urine Glucose (UA) Negative mg/dL (NEGATIVE) 01/17/19 18:39 Urine Ketones Negative mg/dL (NEGATIVE) 01/17/19 18:39 Urine Blood Negative (NEGATIVE) 01/17/19 18:39 Urine Nitrate Negative (NEGATIVE) 01/17/19 18:39 Urine Bilirubin Negative (NEGATIVE) 01/17/19 18:39 Urine Urobilinogen 0.2 E.U./dL (<1 E.U./dL) 01/17/19 18:39 Ur Leukocyte Esterase Negative Neva/uL (NEGATIVE) 01/17/19 18:39 - RAD Interpretation Radiology Orders: 01/17/19 19:00 CHEST PORTABLE [RAD] Stat Disposition/Present on Arrival - Present on Arrival Any Indicators Present on Arrival: No History of DVT/PE: No History of Uncontrolled Diabetes: No Urinary Catheter: No History of Decub. Ulcer: No History Surgical Site Infection Following: None - Disposition Have Diagnosis and Disposition been Completed?: Yes Diagnosis: Alcohol intoxication Disposition: HOME/ ROUTINE Disposition Time: 00:41 Patient Plan: Discharge Condition: STABLE Discharge Instructions (ExitCare): Alcohol Abuse and Alcoholism (DC) Referrals: PCP,NO [Primary Care Provider] - Follow up with primary Forms: [employer] ([place]ian)
[2019-01-18 05:29] VITALS: BP 118/71; PULSE 86; O2SAT 97
== END 2019-01-18 05:45 | disposition home or self-care (01) ==
LOC: ED 16:55
DX: F10.129 Alcohol abuse with intoxication, unspecified (principal); F17.210 Nicotine dependence, cigarettes, uncomplicated; I10 Essential (primary) hypertension
CPT/HCPCS: 80053; 81003; 85025; 99285; G0480